=== PATIENT | male | born 1955 ===

== ENCOUNTER 2020-08-25 09:05 | Outpatient (REF) | payer OTHER, SELFPAY ==
[2020-08-25 10:04] LABS: MANUAL DIFF FLAG NO
[2020-08-25 10:19] LABS: Basophils Percent Auto 0.6 % (0-2); Eosinophils Absolute Auto 0.2 X10*3/uL (0.0-0.4); Eosinophils Percent Auto 4.5 % (0-4); Hematocrit 37.9 % (42-52); Hemoglobin 12.8 g/dl (14.0-18.0); Imm Gran Abs Auto 0.01 X10*3/uL (0.00-0.03); Imm Gran Pct Auto 0.3 % (0.0-0.4); Lymphocytes Absolute Auto 1.7 X10*3/uL (1.2-4.9); Mean Corpuscular HGB Conc 33.8 g/dl (31.0-36.0); Mean Corpuscular Hemoglobin 28.8 pg (27.0-33.0); Mean Corpuscular Volume 85.2 fL (80-98); Mean Platelet Volume 11.4 fL (9.4-12.4); Monocytes Absolute Auto 0.4 X10*3/uL (0.1-1.2); Monocytes Percent Auto 11.3 % (2-11); Neutrophils Absolute Auto 1.3 X10*3/uL (2.0-8.3); Neutrophils Percent Auto 36.3 % (45-73); Platelet Count 157 X10*3/uL (160-400); Red Blood Count 4.45 X10*6/uL (4.60-5.80); Red Cell Distribution Width 14.4 % (11.0-16.0); White Blood Count 3.5 X10*3/uL (4.8-10.8)
[2020-08-25 10:27] LABS: Alanine Aminotransferase 20 U/L (0-40); Albumin Level 4.2 g/dL (3.5-5.0); Alkaline Phosphatase 99 U/L (39-117); Anion Gap 12 (12-20); Aspartate Amino Transferase 27 U/L (5-37); Bilirubin Total 0.4 mg/dL (0.0-1.0); Blood Urea Nitrogen 8 mg/dL (9-16); Calcium 8.6 mg/dL (8.4-10.2); Carbon Dioxide 26 mmol/L (22-29); Chloride 104 mmol/L (96-108); Cholesterol 144 mg/dL; Estimated Glomerular Filt Rate > 60; Glucose Fasting 96 mg/dL (60-99); HDL Cholesterol 50 mg/dL; LDL Cholesterol Calculated 82 mg/dl; Potassium 4.6 mmol/l (3.3-5.1); Sodium 137 mmol/L (135-145); Total Protein 7.9 g/dL (6.5-8.0); Triglycerides 64 mg/dL
[2020-08-25 11:01] LABS: TSH reflex Free T4 1.15 mIU/mL (0.32-4.0)
[2020-08-25 11:03] LABS: Prostate Specific Antigen Scr 0.11 ng/mL (<0.05-4.0)
[2020-08-25 11:36] LABS: Creatinine Urine 104.22 mg/dL; Microalbum/Creatinine Ratio Ur 49.8 ug/mg cr
== END 2020-08-25 09:06 | disposition home or self-care (01) ==
LOC: HO.10HDL 09:05
PROVIDERS: PCP Physician Assistant; Visit Provider Physician Assistant
DX: I10 Essential (primary) hypertension (principal)
CPT/HCPCS: 36415; 80053; 80061; 82043; 84153; 84443; 85025

== ENCOUNTER 2020-12-28 11:29 | Outpatient (REF) | payer OTHER, SELFPAY ==
[2020-12-28 12:27] LABS: Hematocrit 36.6 % (42-52); Hemoglobin 12.3 g/dl (14.0-18.0); Mean Corpuscular HGB Conc 33.6 g/dl (31.0-36.0); Mean Corpuscular Hemoglobin 29.7 pg (27.0-33.0); Mean Corpuscular Volume 88.4 fL (80-98); Platelet Count 143 X10*3/uL (160-400); Red Blood Count 4.14 X10*6/uL (4.60-5.80); Red Cell Distribution Width 13.3 % (11.0-16.0); White Blood Count 2.9 X10*3/uL (4.8-10.8)
[2020-12-28 12:35] LABS: Alanine Aminotransferase 13 U/L (0-40); Albumin Level 4.1 g/dL (3.5-5.0); Alkaline Phosphatase 80 U/L (39-117); Anion Gap 13 (12-20); Aspartate Amino Transferase 19 U/L (5-37); Bilirubin Total 0.5 mg/dL (0.0-1.0); Blood Urea Nitrogen 7 mg/dL (9-16); Calcium 9.3 mg/dL (8.4-10.2); Carbon Dioxide 23 mmol/L (22-29); Chloride 109 mmol/L (96-108); Cholesterol 117 mg/dL; Estimated Glomerular Filt Rate > 60; Glucose Fasting 109 mg/dL (60-99); HDL Cholesterol 41 mg/dL; LDL Cholesterol Calculated 64 mg/dl; Potassium 4.6 mmol/L (3.3-5.1); Sodium 140 mmol/L (135-145); Total Protein 7.6 g/dL (6.5-8.0); Triglycerides 61 mg/dL
[2020-12-28 12:52] LABS: Estimated Average Glucose 120 mg/dL; Hemoglobin A1c % 5.8 %
[2020-12-28 12:53] LABS: Creatinine Urine 80.27 mg/dL; Microalbum/Creatinine Ratio Ur 67.2 ug/mg cr
[2020-12-28 13:02] LABS: Prostate Specific Antigen Scr 0.09 ng/mL (<0.05-4.0); TSH reflex Free T4 0.61 uIU/mL (0.32-4.0)
== END 2020-12-28 11:30 | disposition home or self-care (01) ==
LOC: HO.10HDL 11:29
PROVIDERS: Absent Provider Internal Medicine Infectious Disease; Visit Provider Physician Assistant
DX: Z12.5 Encounter for screening for malignant neoplasm of prostate (principal); I10 Essential (primary) hypertension
CPT/HCPCS: 36415; 80053; 80061; 82043; 83036; 84153; 84443; 85027

== ENCOUNTER 2021-01-06 09:16 | Outpatient (REF) | payer OTHER, SELFPAY ==
--- NOTE | 2021-01-06 09:21 | EMG_ITS ---
Bilateral median and ulnar motor and sensory studies were performed. Bilateral radial sensory studies were performed and paraspinal muscles were tested. IMPRESSION: [id number] right and mild left median neuropathy across carpal tunnel. MD ELISSA Ramos/HERIBERTO / [id number]
== END 2021-01-06 09:17 | disposition home or self-care (01) ==
LOC: HO.NEURO 09:16
PROVIDERS: Visit Provider Physician Assistant
DX: M79.641 Pain in right hand (principal); M79.642 Pain in left hand
CPT/HCPCS: 95886; 95911

== ENCOUNTER → 2021-04-07 09:40 | Outpatient (REF) | payer OTHER, SELFPAY ==
--- NOTE | 2021-04-07 09:44 | CA_ITS ---
Acquisition Time: 2021-04-07 09:50:42 Total Exercise Time: 00:05:30 Test Indications: Ischemia Evaluation Medications: ALPRAZOLAM AMLODIPINE APIXABAN ATENOLOL SYMBACORT Protocol: CATHY Max HR: 139 BPM 90% of Pred: 153 BPM Max BP: 172/050 mmHG Max Work Load: 7.0 METS Exercise stress test with exercise 5 min 30 sec of Cathy protocol, with reported of mild sob, 4/10 throat discomfort, like a ball in my throat , with isolated PACs and PVC, ventricular Bigeminy for 1 min in stage 1, with normotensive response to exercise, with borderline EKG changes inferiorly. Test reviewed with Dr Catherine. Message sent to his PCP with recommendation for exercise nuclear stress test for further evaluation. Referred By: Andreas Vallejo Overread By: TEMO JONAS
== END ==
LOC: HO.CARD 09:40
PROVIDERS: Visit Provider Physician Assistant
DX: R07.9 Chest pain, unspecified (principal); I49.1 Atrial premature depolarization; I49.3 Ventricular premature depolarization; R94.39 Abnormal result of other cardiovascular function study
CPT/HCPCS: 93017

== ENCOUNTER → 2021-04-20 10:44 | Outpatient (BNVA) | payer OTHER, SELFPAY | PROVIDERS: PCP Physician Assistant; Visit Provider Orthopaedic Surgery | DX: M79.644 Pain in right finger(s) (principal); G56.03 Carpal tunnel syndrome, bilateral upper limbs; G89.29 Other chronic pain | CPT/HCPCS: 99202 ==

== ENCOUNTER 2021-05-19 06:24 | Day surgery (SDC) | payer OTHER, SELFPAY ==
[2021-05-19 06:32] VITALS: BMI 31.3
[2021-05-19 06:34] VITALS: BP 154/56; PULSE 55; RESP 16; TEMP 36.7; O2SAT 99
--- NOTE | 2021-05-19 08:01 | MHC.SHP ---
Pre-Procedural Eval Section A Date of Service: 05/19/21 The patient is an INPATIENT: No Changes since office visit: No Cold of Flu in the past 2 weeks, No New Medical Problems, No Changes in Medication and No Patient answered all questions The History & Physical has been completed within 30 days and I have reviewed it.: Yes Section B Chief Complaint: Carpal tunnel syndrome Allergies: Allergies Allergy/AdvReac Type Severity Reaction Status Date / Time bee pollen [BEE STINGS] Allergy Severe SWELLING Verified 04/20/21 11:08 rofecoxib [From VIOXX] Allergy Intermediate Swelling Verified 05/19/21 06:41 Plan I have reviewed the history and physical and performed a pertinent physical examination on my patient. No changes have occurred unless specified.
--- NOTE | 2021-05-19 08:02 | W.PM.OPN ---
Operative Note Operative Note Date of Service: 05/19/21 Narrative: Preop diagnosis: 1. Right Carpal tunnel syndrome Postop diagnosis: same Procedure: 1. Right Carpal tunnel release Surgeon: Dolly Reilly MD Anesthesia: local block using 1% lidocaine with epinephrine Findings: Thickened transverse carpal ligament. EBL: Less than 5 mL Specimens: None Complications: None Disposition: Brought to recovery room in stable condition Plan: Follow-up for 7-10 days for wound check and suture removal Indications: The patient is 65 years old, with right carpal tunnel syndrome that has been unresponsive to nonoperative management. The risks and benefits of operative treatment including but not limited to risk of damage to blood vessels, nerves, tendons, infection, persistent pain, persistent symptoms, or possible need for additional surgery were discussed with the patient and the patient wishes to proceed with surgery. Procedure: Once consent was obtained a local block was performed using a combination of 1% lidocaine with epinephrine. The patient was then brought back to the operating suite and placed on the operative table in supine position. A tourniquet was applied to the proximal aspect of the right upper extremity and the limb was prepped and draped in a standard surgical fashion. Once assured that we had a good block, a 1.5 cm longitudinal incision was made centered over the carpal tunnel. The incision was made through the skin to the subcutaneous tissues using a #15 blade. Dissection was made down to the level of the transverse carpal ligament with care being taken to protect the palmar cutaneous nerve. Once the transverse carpal ligament was clearly visualized, a longitudinal incision was made in the transverse carpal ligament 1st using a #15 blade, then using tenotomy scissors under direct visualization. Care was taken to look for and protect the motor branch of the median nerve when seen in this area. Once satisfied with our carpal tunnel release the wound was copiously irrigated with normal saline and hemostasis was obtained with a brief period of local pressure. The skin edges were reapproximated with some 5.0 nylon suture material and a sterile dressing was applied. The patient appears to have tolerated the procedure well and with no complications. All digits were well vascularized at the conclusion of the case.
[2021-05-19 08:35] VITALS: BP 158/79; PULSE 64; RESP 16; TEMP 36.8; O2SAT 98
== END 2021-05-19 08:43 | disposition home or self-care (01) ==
PROVIDERS: PCP Physician Assistant; Visit Provider Orthopaedic Surgery
PROC: (CPT 64721; principal; 2021-05-19 07:30)
DX: G56.01 Carpal tunnel syndrome, right upper limb (principal); G89.29 Other chronic pain; M79.644 Pain in right finger(s)
CPT/HCPCS: 64721

== ENCOUNTER 2021-05-30 10:15 | Outpatient (REF) | payer OTHER, SELFPAY ==
--- NOTE | ~2021-05-30 | CT_ITS ---
EXAMINATION: CT CHEST SCREENING CLINICAL INFORMATION: Nicotine dependence. COMPARISON: CT chest 12/26/2018 and 12/10/2017 TECHNIQUE: Multidetector volumetric CT imaging of the chest is performed without contrast using low dose technique. Additional 2-D coronal and sagittal reformatted images and axial 3-D maximum intensity projection (MIP) images are generated on the CT workstation. This CT examination was performed using dose optimization techniques as appropriate, variously including the following: *Automated exposure control *Adjustment of mA and/or kV according to patient size (this includes techniques or standardized protocols for targeted exams where dose is matched to indication/reason for exam; i.e. extremities or head) *Use of iterative reconstruction technique DLP: 288 mGy-cm FINDINGS: LUNGS: The lungs are well expanded and clear of acute pneumonic process. Previously seen endobronchial density right upper lobe is not visualized at this time. Small endobronchial nodules in the right lower lobe. There is a 1 mm nodule right lower lobe adjacent major fissure on axial image 61/6. No ground-glass density, mass or atelectatic change is seen. There are small pulmonary cysts visualized in the left lower lobe. Mild atelectatic changes in the left lung base. MEDIASTINUM: The thyroid lobes are symmetrical and normal. The central trachea and the bronchi are widely patent. The heart size and the great vessels are normal caliber. There is trace coronary artery calcification. No pericardial effusion seen. No abnormal size mediastinal lymph nodes or mass. PLEURA: There is no pleural effusion. No pleural mass or thickening. AXILLA: No abnormal lymph nodes seen. UPPER ABDOMEN: The visualized liver, spleen, pancreas, and bilateral adrenal glands are unremarkable. There are coronary artery calcifications seen adjacent to the left adrenal gland. OSSEOUS STRUCTURES: Mild degenerative disc changes throughout the dorsal spine with spondylosis. No lytic or sclerotic process seen. CT/CT lung screening IMPRESSION: The previously visualized endobronchial lesion right upper lobe and right lower lobe are not seen at this time. 1 mm nodule right lower lobe adjacent to major fissure, new. Minimal atelectatic changes left lung base. There are multiple small left lower lobe pulmonary cysts. ASSESSMENT: Lung-RADS category 2: Benign. RECOMMENDATION: Low-dose annual CT chest.
== END 2021-05-30 10:16 | disposition home or self-care (01) ==
LOC: HO.CT 10:15
PROVIDERS: Visit Provider Physician Assistant Medical
DX: Z12.2 Encounter for screening for malignant neoplasm of respiratory organs (principal); F17.210 Nicotine dependence, cigarettes, uncomplicated
CPT/HCPCS: 71271

== ENCOUNTER → 2021-06-01 10:26 | Outpatient (BNVA) | payer OTHER, SELFPAY | PROVIDERS: PCP Physician Assistant; Visit Provider Orthopaedic Surgery | DX: G56.02 Carpal tunnel syndrome, left upper limb (principal); M79.644 Pain in right finger(s); G89.29 Other chronic pain | CPT/HCPCS: 99212 ==

== ENCOUNTER 2021-10-21 09:34 | Outpatient (REF) | payer OTHER, SELFPAY ==
[2021-10-21 11:00] LABS: Alanine Aminotransferase 19 U/L (0-40); Alkaline Phosphatase 120 U/L (39-117); Anion Gap 11 (12-20); Aspartate Amino Transferase 21 U/L (5-37); Bilirubin Total 0.6 mg/dL (0.0-1.0); Blood Urea Nitrogen 8 mg/dL (9-16); Calcium 9.2 mg/dL (8.4-10.2); Carbon Dioxide 27 mmol/L (22-29); Chloride 105 mmol/L (96-108); Cholesterol 136 mg/dL; Estimated Glomerular Filt Rate > 60; Glucose Fasting 123 mg/dL (60-99); HDL Cholesterol 45 mg/dL; LDL Cholesterol Calculated 77 mg/dl; Potassium 4.5 mmol/L (3.3-5.1); Sodium 138 mmol/L (135-145); Total Protein 7.9 g/dL (6.5-8.0); Triglycerides 74 mg/dL
== END 2021-10-21 09:35 | disposition home or self-care (01) ==
LOC: HO.10HDL 09:34
PROVIDERS: Visit Provider Physician Assistant
DX: I10 Essential (primary) hypertension (principal)
CPT/HCPCS: 36415; 80053; 80061; 84443

== ENCOUNTER → 2021-10-21 09:50 | Outpatient (REF) | payer OTHER, SELFPAY ==
--- NOTE | ~2021-10-21 | NM_ITS ---
Exercise Myocardial perfusion study Indication: Abnormal stress test evaluate for myocardial ischemia Technique: The patient was brought in for an exercise perfusion study on 10/21/2021. Patient performed exercise as per Jeff protocol and was injected 25 mCi of sestamibi was given intravenously one target HR was achieved. Images were obtained using the SPECT gamma camera interlaced with the gating device. Images were obtained in supine position. Resting perfusion study was performed on 10/25/2021. Patient was administered 25 mCi of sestamibi intravenously at rest. Images were then obtained in supine position. Images obtained with and without CT attenuation. Total DLP 85 mGy-cm. Images were processed with the software and compared side to side in short axis, horizontal long axis and vertical long axis views. Findings: The stress perfusion study showed non attenuated images show moderately reduced uptake in the basal inferior wall of the LV myocardium. Remainder. Attenuation corrected images show mildly reduced uptake in the apex of the LV myocardium.. The gated study shows normal LV systolic function with calculated LVEF of 56%. LV cavity is mildly dilated in size. The gated study shows normal systolic wall thickening and contraction of all segments. There is no transient ischemic dilation. Resting study shows no change in perfusion pattern compared to stress perfusion study. Gating at rest reveals normal systolic wall motion with ejection fraction at 58%. The findings are consistent with normal myocardial perfusion. NM/NM cardiolite stress test Impression: 1. Normal myocardial perfusion 2. Gated LVEF is 56% 3. Transient ischemic dilatation not present Stress EKG is equivocal for ischemia
--- NOTE | 2021-10-21 09:58 | CA_ITS ---
Acquisition Time: 2021-10-21 10:07:24 Total Exercise Time: 00:04:51 Test Indications: CP, AFIB, ABN ETT Medications: SEE CHART Protocol: CATHY Max HR: 144 BPM 92% of Pred: 156 BPM Max BP: 208/030 mmHG Max Work Load: 6.8 METS Exercise stress test with exercise 4 min 51 sec of Cathy protocol, with report of 7/10 pressure at base of throat, with isolated PACs and PVCs and runs of ventricular bigeminy, with hypertensive response to exercise with max BP 208/30, without EKG change of ischemia at peak exercise, with borderline ST depression inferiorly in setting of nonspecific ST abnormality inferiorly. In recovery his throat pressure gadually resolved. Nuclear images pending. Test reviewed with Dr Logan. Referred By: Andreas Vallejo Overread By: TEMO JONAS
== END ==
LOC: HO.CARD 09:50
PROVIDERS: PCP Physician Assistant; Visit Provider Physician Assistant
DX: R07.9 Chest pain, unspecified (principal); R06.02 Shortness of breath; I49.3 Ventricular premature depolarization; R94.39 Abnormal result of other cardiovascular function study
CPT/HCPCS: 78452; 93017; A9500; J2785

== ENCOUNTER 2021-12-14 10:09 | Outpatient (REF) | payer OTHER, SELFPAY ==
--- NOTE | ~2021-12-14 | XR_ITS ---
EXAMINATION: XR HAND, BILATERAL CLINICAL INFORMATION: Pain in bilateral handS COMPARISON: None TECHNIQUE: 3 views each hand FINDINGS: RIGHT HAND: There is loss of PIP and DIP joint space, all digits. Also visualized is mild loss of 1st carpometacarpal joint space with subchondral cystic changes and bony erosive changes. There are subchondral cystic changes along the distal radius and small subchondral cystic changes along the capitate, scaphoid carpal bones. 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 Mild widening of the scapholunate junction is noted. There is loss of radioulnar joint space with spurring. No acute fracture suspected. LEFT HAND: There is loss of PIP and DIP joint space all digits, with periarticular spurring, DIP joint, 1st and 5th digit. The soft tissues are normal. There is loss of 1st carpometacarpal joint space. Also visualized is loss of 1st metacarpal phalangeal joint space. 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 Is mild widening of the scapholunate junction No acute there fractures seen. There is no soft tissue swelling. XR/XR hand LT 2V IMPRESSION: 1. Significant degenerative arthritic changes PIP, DIP, 1st carpometacarpal joint space of both digits. There are subchondral cystic changes in the carpal bones and the distal radius right wrist. 2. 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 Mild widening of scapholunate junction likely partial ligament and tear 3. There is unusual lucency along the elongated lunate bone, right hand, question fissure versus nondisplaced fracture. 4. Recommend bilateral CT wrist for further evaluation.
--- NOTE | ~2021-12-14 | XR_ITS ---
EXAMINATION: XR HAND, BILATERAL CLINICAL INFORMATION: Pain in bilateral handS COMPARISON: None TECHNIQUE: 3 views each hand FINDINGS: RIGHT HAND: There is loss of PIP and DIP joint space, all digits. Also visualized is mild loss of 1st carpometacarpal joint space with subchondral cystic changes and bony erosive changes. There are subchondral cystic changes along the distal radius and small subchondral cystic changes along the capitate, scaphoid carpal bones. 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 Mild widening of the scapholunate junction is noted. There is loss of radioulnar joint space with spurring. No acute fracture suspected. LEFT HAND: There is loss of PIP and DIP joint space all digits, with periarticular spurring, DIP joint, 1st and 5th digit. The soft tissues are normal. There is loss of 1st carpometacarpal joint space. Also visualized is loss of 1st metacarpal phalangeal joint space. 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 Is mild widening of the scapholunate junction No acute there fractures seen. There is no soft tissue swelling. XR/XR hand RT 2V IMPRESSION: 1. Significant degenerative arthritic changes PIP, DIP, 1st carpometacarpal joint space of both digits. There are subchondral cystic changes in the carpal bones and the distal radius right wrist. 2. 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 Mild widening of scapholunate junction likely partial ligament and tear 3. There is unusual lucency along the elongated lunate bone, right hand, question fissure versus nondisplaced fracture. 4. Recommend bilateral CT wrist for further evaluation.
== END 2021-12-14 10:10 | disposition home or self-care (01) ==
LOC: HO.XRAY 10:09
PROVIDERS: PCP Physician Assistant; Visit Provider Physician Assistant
DX: M79.641 Pain in right hand (principal); M79.642 Pain in left hand; G56.02 Carpal tunnel syndrome, left upper limb; I10 Essential (primary) hypertension; B37.2 Candidiasis of skin and nail; Z12.5 Encounter for screening for malignant neoplasm of prostate
CPT/HCPCS: 73120

== ENCOUNTER → 2022-01-04 13:33 | Outpatient (BNVA) | payer OTHER, SELFPAY | PROVIDERS: PCP Physician Assistant; Visit Provider Orthopaedic Surgery | DX: M25.531 Pain in right wrist (principal); M79.644 Pain in right finger(s); G56.02 Carpal tunnel syndrome, left upper limb; G89.29 Other chronic pain | CPT/HCPCS: 99212 ==

== ENCOUNTER 2022-01-19 14:46 | Outpatient (REF) | payer OTHER, SELFPAY ==
--- NOTE | ~2022-01-19 | CT_ITS ---
EXAMINATION: CT WRIST WITHOUT CONTRAST, RIGHT CLINICAL INFORMATION: Right wrist pain. COMPARISON: Right hand radiographs dated 12/14/2021. TECHNIQUE: Contiguous axial CT images of the right wrist were obtained without contrast. Multiplanar reformats were provided and reviewed. This CT examination was performed using dose optimization techniques as appropriate, variously including the following: *Automated exposure control *Adjustment of mA and/or kV according to patient size (this includes techniques or standardized protocols for targeted exams where dose is matched to indication/reason for exam; i.e. extremities or head) *Use of iterative reconstruction technique DLP: 124 mGy-cm. FINDINGS: Findings consistent with lunotriquetral coalition. Widening of the scapholunate interval consistent with a scapholunate ligament tear. There is mild proximal migration of the capitate. There is severe joint space narrowing with prominent subchondral cystic change at the radiocarpal joint as well as at the distal ulna with distal radial ulnar marginal osteophytes. Severe joint space narrowing with bony remodeling and subchondral cystic change at the triscaphe joint. More mild osteoarthritis at the carpometacarpal joints. Diffuse degenerative cystic change throughout the carpal bones. No acute fracture. Severe joint space narrowing with subchondral cystic change and bony remodeling at the 1st metacarpophalangeal joint. No abnormal soft tissue mass or fluid collection. The visualized flexor and extensor tendons are grossly intact; however, evaluation is significantly limited on CT examination. 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 Proximal migration of the capitate. 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 Severe osteoarthritis with prominent subchondral cystic change at the radiocarpal joint and adjacent distal ulna as well as at the triscaphe joint and 1st metacarpophalangeal joint. More mild osteoarthritis at the carpometacarpal joints. Degenerative cystic change throughout the carpal bones.
== END 2022-01-19 14:47 | disposition home or self-care (01) ==
LOC: HO.CT 14:46
PROVIDERS: PCP Physician Assistant; Visit Provider Physician Assistant
DX: G89.29 Other chronic pain (principal); M25.531 Pain in right wrist
CPT/HCPCS: 73200

== ENCOUNTER 2022-02-02 14:00 | Outpatient (RCR) | payer OTHER, SELFPAY ==
--- NOTE | 2022-01-05 15:40 | MHC.OT.OEV ---
[address] [phone] F: [phone] Occupational Therapy Evaluation Diagnosis: L CTS Date of Onset: 11/16/19 Attending Provider: Andreas Vallejo Prescribed Treatment: EVAL AND TREAT History of Current Condition: REPORTS PAIN IN BASE OF THUMB BEGAN ABOUT TWO YEARS AGO, RIGHT WORSE THAN LEFT. ADDITIONALLY HE UNDERWENT R CTR ON 05/19/[address] KING. PER EMR, HE HAS MILD-MODERATE MEDIAN NERVE DAMAGE ON RIGHT AND MILD ON LEFT. R HAND XRAY COMPLETED 12/16/21: 1. Significant degenerative arthritic changes PIP, DIP, 1st carpometacarpal joint space of both digits. There are subchondral cystic changes in the carpal bones and the distal radius right wrist. 2. 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 Mild widening of scapholunate junction likely partial ligament and tear 3. There is unusual lucency along the elongated lunate bone, right hand, question fissure versus nondisplaced fracture. 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 ATTEMPTING TO COMPENSATE AND USE LEFT HAND. SOME TROUBLE WITH CARRYING AND HOLDING ITEMS >8-10 POUNDS. PAIN WITH WASHING DISHES. Sleep: MILD DIFFICULTIES, TROUBLE FALLING ASLEEP AND FINDING A COMFORTABLE POSITION Driving: NO DIFFICULTIES Pain Assessment Pain Score: 4-9/10 Pain Scale Used: Numeric (0 - 10) Pain Location and Description: L THUMB MP 4/10, 8-9/10 WITH USE R THUMB 4/10, 9-10/10 WITH USE Aggravating Factors: GRIPPING, LATE PM IS WORSE Alleviating Factors: EPSOME SALT SOAKS IN HOT WATER HAS WORKED IN THE PAST, MOTRIN 800 MG NEEDED Skin and Soft Tissue Assessment Skin and Soft Tissue: Swelling Scar Tissue Comments: OLD R LONGITUDINAL DORSAL SCAR AND HEALED R VOLAR SCAR FROM CTR; B/L RADIAL THUMB EDEMA Sensory Assessment Temperature: Light Touch: WNL Proprioception: Vibration: Comments: [employer] INTACT B/L'LY Edema Assessment Upper Extremity: WNL Lower Extremity: Comments: MILD R VOLAR WRIST AND RADIAL THUMB EDEMA CIRCUMFERENCE OF WRIST, DISTAL TO US: R 18.9 CM, L 17.8 CM Dexterity Assessment Dexterity: WFL Comments: REPORTS SOME PAIN WITH PINCHING SNAPS, OTHERWISE NO TROUBLE WITH FINE MOTOR/ DRESSING TASKS AROM(PROM) Strength Wrist Flexion: R 46, L 55 Extension: R 50, L 55 Ulnar Deviation: Radial Deviation: Comments: Flexion: Extension: Ulnar Deviation: Radial Deviation: Comments: Thumb Thumb CMC Flexion: Thumb MCP Flexion: Thumb IP Flexion: R 66, L 40 Radial Abduction: Palmar Abduction: [place] ([place] 0-10): R 6/10, L 10/10 Comments: Digits Index MCP: PIP: DIP: Long MCP: PIP: DIP: Ring MCP: PIP: DIP: Small MCP: PIP: DIP: Comments: Gross Grasp: R 55, L 70 Lateral Pinch: R 10, L 17 Two-Point Pinch: Three-Jaw Mane: Comments: Patient Education Primary Language: Bulgarian [employer] Labor Required: No Current Knowledge: Understands information with skills for self-management Teaching Method: Demonstration Handouts Verbal Education Needs Identified on Evaluation: ADL's Disease Information Equipment Use Exercise Pain Safety How did patient/family demonstrate learning? Patient demonstrates Patient verbalizes Barriers to Learning: None Readiness for Learning: Accepting Who was educated? Patient Comments: Plan of Care Assessment: MR VINCENT REPORTS ABOUT A TWO YEAR HISTORY OF B/L THUMB PAIN, RIGHT > LEFT. HE HAS A HX OF CTS IN WHICH HE UNDERWENT A R CTR WITH DR KING ON 05/19/21. HE NO LONGER WEARS NIGHT ORTHOSES DUE TO REPORTS OF INCREASED PAIN WHEN WORN. PER THE [employer], HIS SENSATION WAS INTACT. SOME MILD EDEMA IS NOTED IN HIS RIGHT VOLAR AND B/L RADIAL WRISTS. HIS XRAY RESULTS IN HIS RIGHT WRIST SHOWS SIGNIFICANT DEGENERATIVE CHANGES IN HIS THUMB, WELL LIGAMENT DAMAGE. A HAND BASED THUMB OPPOSITION ORTHOSIS WAS FABRICATED IN THE [facility] DURING HIS INITIAL EVAL FOR USE DURING IADLs. ONGOING SKILLED OT IS WARRANTED TO PROVIDE PT EDUCATION, JOINT PROTECTION STRATEGIES, ORTHOSIS MANAGEMENT, IMPROVE QUALITY OF LIFE AND DECREASE EDEMA. STG Duration: 2 WEEKS Short Term Goals: IND HEP IND JOINT PROTECTION AND ACTIVITY MODIFICATION IND ORTHOSIS USE REPORT <2/10 PAIN AT REST AND WITH GENTLE ROM IND EDEMA MANAGEMENT STRATEGIES IND USE OF HEAT MODALITIES INCLUDING POSSIBLE HOME PARAFFIN UNIT LTG Duration: 4 WEEKS It Software Developer Goals: QUICK DASH <30% DEMO PROPER BODY MECHANICS WITH LIFTING >10 POUNDS WITH <4/10 PAIN WITH AE/AT TRIAL USE OF ADAPTIVE TECHNIQUES FOR IADLs, INCLUDING CAN/JAR OPENERS IND PROGRESSION OF HEP Frequency and Duration: The patient will be seen 2X/WEEK FOR 4 WEEKS Treatment Plan: Therapeutic Exercise Therapeutic Activity Home Exercise Program Splinting Neuro Re-ed Patient Education Desensitization/Sensory Re-ed Edema Control ADL Training Ultrasound NMES Iontophoresis Paraffin Fluidotherapy MHP Cold Packs Joint Mobilization Soft Tissue Mobilization Kinesiotaping Electronically Signed By: RICARDO SORIA OTR/L Reviewed/agree with student documentation: N/A Therapist: Please sign and return to therapist, Thank you for your referral.
--- NOTE | 2022-02-02 14:39 | MHC.OT.DC ---
[address] [phone] F: [phone] Occupational Therapy Discharge Note Provider: Andreas Vallejo Diagnosis: L CTS Date of Evaluation: 01/05/22 Date of Discharge: 02/02/22 Treatments to Date: 6 Cancellations to Date: 0 No Shows to Date: 2 Discharge Status: Achieved Goals Improved Function Independent with HEP Discharge Summary: MR VINCENT HAS PROGRESSED WELL WITH HIS OT TREATMENT SESSIONS. HE HAS FELT PAIN RELIEF WITH USE OF PARAFFIN WAX, ROCK TAPE AND IMPLEMENTING JOINT PROTECTION STRATEGIES FOR SUSPECTED OA SYMPTOMS. HE HAS SHOWN MOTIVATION AND GOOD UNDERSTANDING OF HIS HEP. NO PARASTHESIA IS REPORTED IN HIS LEFT UE. Pt IS READY TO TRANSITION TO A HOME BASED PROGRAM AT THIS TIME. D/C OT SERVICES. Electronically Signed By: JEREMY RIOS/[place] Reviewed/agree with student documentation: N/A Therapist: Please Sign and return to therapist, thank you for your referral.
== END 2022-02-02 14:40 | disposition home or self-care (01) ==
LOC: HO.OT 14:00
PROVIDERS: PCP Physician Assistant; Visit Provider Physician Assistant
DX: G56.02 Carpal tunnel syndrome, left upper limb (principal)
CPT/HCPCS: 29130; 97110; 97140; 97166; 97535; 97760

== ENCOUNTER 2022-02-22 12:43 | Outpatient (REF) | payer OTHER, SELFPAY ==
--- NOTE | ~2022-02-22 | XR_ITS ---
EXAMINATION: XR HAND, RIGHT CLINICAL INFORMATION: Pain COMPARISON: Bilateral hand x-rays 12/14/[address] 01/19/2022 TECHNIQUE: PA, lateral, and oblique views of the right hand. FINDINGS: Visualized portion of the distal radius and ulna demonstrate no fracture. Again noted are hypertrophic changes of the distal radial ulnar joint with associated enthesophytes off the ulna. Prominent degenerative changes of the radiocarpal joints is again demonstrated with associated cystic changes. Triquetral degenerative changes again appreciated. There are moderate degenerative changes of the first MCP joint with associated subchondral cystic and erosive changes. There are mild degenerative changes of scattered IP joints. No focal soft tissue swelling identified. No radiopaque foreign body. XR/XR hand RT min 3V IMPRESSION: Prominent diffuse degenerative changes again demonstrated particularly involving the wrist and first MCP joint. No fracture identified. Please see CT imaging of the right wrist from 01/19/2022 for a more detailed evaluation.
== END 2022-02-22 12:44 | disposition home or self-care (01) ==
LOC: HO.HOSX 12:43
PROVIDERS: Visit Provider Orthopaedic Surgery
DX: M19.031 Primary osteoarthritis, right wrist (principal); G56.02 Carpal tunnel syndrome, left upper limb; M79.644 Pain in right finger(s); G89.29 Other chronic pain; M19.041 Primary osteoarthritis, right hand
CPT/HCPCS: 73130; 99212

== ENCOUNTER → 2022-06-06 14:59 | Outpatient (BNVA) | payer OTHER, SELFPAY | PROVIDERS: PCP Physician Assistant; Referring Provider Physician Assistant; Visit Provider Internal Medicine | DX: Z86.010 Personal history of colon polyps (principal) | CPT/HCPCS: 99212 ==

== ENCOUNTER 2022-10-05 09:42 | Outpatient (REF) | payer OTHER, SELFPAY ==
[2022-10-05 10:33] LABS: Hematocrit 36.5 % (42.0-52.0); Hemoglobin 12.1 g/dl (14.0-18.0); Mean Corpuscular HGB Conc 33.2 g/dl (31.0-36.0); Mean Corpuscular Hemoglobin 28.5 pg (27.0-33.0); Mean Corpuscular Volume 85.9 fL (80.0-98.0); Mean Platelet Volume 10.6 fL (9.4-12.4); Platelet Count 154 X10*3/uL (160-400); Red Blood Count 4.25 X10*6/uL (4.60-5.80); Red Cell Distribution Width 13.8 % (11.0-16.0); White Blood Count 3.7 X10*3/uL (4.8-10.8)
[2022-10-05 11:16] LABS: Alanine Aminotransferase 16 U/L (0-40); Albumin Level 3.9 g/dL (3.5-5.0); Alkaline Phosphatase 121 U/L (39-117); Anion Gap 11 (12-20); Aspartate Amino Transferase 18 U/L (5-37); Bilirubin Total 0.4 mg/dL (0.0-1.0); Blood Urea Nitrogen 10 mg/dL (9-16); Calcium 9.1 mg/dL (8.4-10.2); Carbon Dioxide 28 mmol/L (22-29); Chloride 104 mmol/L (96-108); Cholesterol 121 mg/dL; Estimated Glomerular Filt Rate > 60; Glucose Fasting 106 mg/dL (60-99); HDL Cholesterol 49 mg/dL; LDL Cholesterol Calculated 60 mg/dl; Potassium 5.2 mmol/L (3.3-5.1); Sodium 138 mmol/L (135-145); Total Protein 7.7 g/dL (6.5-8.0); Triglycerides 64 mg/dL
[2022-10-05 11:27] LABS: Estimated Average Glucose 137 mg/dL; Hemoglobin A1c % 6.4 %
[2022-10-05 11:32] LABS: TSH reflex Free T4 2.11 uIU/mL (0.32-4.0)
[2022-10-05 14:43] LABS: Creatinine Urine 65.68 mg/dL
== END 2022-10-05 09:43 | disposition home or self-care (01) ==
LOC: HO.10HDL 09:42
PROVIDERS: Visit Provider Physician Assistant
DX: I10 Essential (primary) hypertension (principal); R73.09 Other abnormal glucose; R13.10 Dysphagia, unspecified; Z12.5 Encounter for screening for malignant neoplasm of prostate
CPT/HCPCS: 36415; 80053; 80061; 82043; 83036; 84443; 85027

== ENCOUNTER 2022-11-03 09:28 | Outpatient (REF) | payer OTHER, SELFPAY ==
--- NOTE | ~2022-11-03 | FL_ITS ---
EXAMINATION: UPPER GI AND BARIUM SWALLOW CLINICAL INFORMATION: Dysphagia. COMPARISON: None. TECHNIQUE: Upper GI and barium swallow was performed using thin and thick barium and effervescent granules. Barium tablet was also administered. FINDINGS: The swallowing mechanism is normal. No aspiration or penetration. There is gastroesophageal reflux. There is a small sliding-type hiatal hernia. There is mucosal irregularity of the distal thoracic esophagus, questionable for mild esophagitis. Esophageal motility is normal. The barium tablet passed freely into the stomach. The stomach and duodenum are not optimally evaluated due to the large amount of barium that was administered for barium swallow. No abnormality in the stomach or duodenum is appreciated. FL/FL upper GI w Ba Swallow IMPRESSION: Gastroesophageal reflux. Small sliding-type hiatal hernia. Question mild distal esophagitis. Limited evaluation of the stomach and duodenum due to the large amount of barium that was administered for barium swallow.
== END 2022-11-03 09:29 | disposition home or self-care (01) ==
LOC: HO.XRAY 09:28
PROVIDERS: Visit Provider Nurse Practitioner Family
DX: R13.10 Dysphagia, unspecified (principal)
CPT/HCPCS: 74240

== ENCOUNTER → 2023-02-02 10:57 | Outpatient (REF) | payer OTHER, SELFPAY ==
--- NOTE | 2023-02-02 10:59 | CA_ITS ---
Transthoracic Echocardiogram Patient (Last, First, Middle): Nayan Henao, Gender: Male Date of : 1955 Age: 67 Procedure Date: 02/02/2023 Procedure Type: Transthoracic Echocardiogram Location: OP Height: 170.18 cm Weight: 83.92 kg BSA: 1.96 m2 Heart Rate: 45 bpm BP: 125 / 75 mmHg Clinical Research Spec: ALEJANDRO Referring MD: Tiffanie YOU Symptoms: R01.1 - Cardiac murmur, unspecified Study Quality: Good ECG Rhythm: Bradycardia Conclusions: - Normal left ventricular size and systolic function. The visually estimated ejection fraction is between 60-65%. - Mildly increased right ventricular cavity size. There is normal right ventricular systolic function. - There is mild aortic valve regurgitation. Findings Left Ventricle Normal left ventricular size and systolic function. The visually estimated ejection fraction is between 60-65%. There is no evidence of regional wall motion abnormalities. Diastolic function is normal for age. Right Ventricle Mildly increased right ventricular cavity size. There is normal right ventricular systolic function. Atria The left atrium is normal in size. The right atrium is mildly dilated. Aortic Valve There is a normal trileaflet aortic valve. There is mild thickening of the aortic valve. There is no aortic valve stenosis. There is mild aortic valve regurgitation. Mitral Valve The mitral valve appears normal. There is trace mitral valve regurgitation. There is no mitral valve stenosis. Pulmonic Valve The pulmonic valve is likely normal. Tricuspid Valve Normal tricuspid valve structure and function. There is no tricuspid valve regurgitation. Normal right atrial pressure. There is no evidence of pulmonary hypertension. Great Vessels There is mild dilatation of the ascending aorta measuring 3.50 cm. The visualized portions of the pulmonary artery and branches are normal. Venous The inferior vena cava is normal in size and collapses greater than 50% with inspiration. Pericardium/Pleural There is no evidence of pericardial effusion. Prior Study Comparison Changes noted compared to prior study dated: 02/05/2018. RV is mildly dilated. Measurements 2D Linear Measurements IVSd: 1.07 0.6-0.9/0.6-1.0 cm LVIDd: 4.96 3.9-5.3/4.2-5.9 cm LVIDd Index: 2.53 2.4-3.2/2.2-3.1 cm/m2 LVIDs: 3.45 2.0-3.6 cm LVPWd: 0.94 0.7-1.1 cm Ao Root: 3.40 2.1-3.5 cm LA Diam: 3.90 2.7-3.8/3.0-4.0 cm LAIDs Index: 1.99 1.5-2.3 cm/m2 LV Mass: 225.70 67-162/88-224 g LV Mass Index: 115.15 43-95/49-115 g/m2 LVOT Diam: 2.40 3.0+(-)1.3 cm 2D Systolic Function EF 4C: 52.30 >55% EF 2C: 60.10 >55% EF BiP: 55.90 >55% Mitral Valve MV Pk E: 0.78 MV PK A: 0.77 MV Decel Time: 172.00 E/A: 1.00 E'Lateral: 8.81 E'Medial: 7.18 E/E' Med: 10.90 E/E' Lat: 8.90 PHT: 50.00 MVA PHT: 4.40 Decel Young: 4.54 Aortic Valve AoV Pk Liu: 1.69 AoV Mn Liu: 1.21 AoV VTI: 0.38 AoV Pk Grad: 11.00 Aov Mn Grad: 7.00 JOAO Cont.VTI: 3.10 AI Pk Liu: 3.96 AI Young: 1.71 LVOT LVOT Pk Liu: 0.97 LVOT Mn Liu: 0.68 LVOT VTI: 0.26 LVOT Pk Grad: 4.00 LVOT Mn Grad: 2.00 LVOT Diam: 2.40 LVOT Area: 4.52 Diastolic Function MV Pk E: 0.78 MV Pk A: 0.77 E/A: 1.00 E'Medial: 7.18 E/E' Med: 10.90 E' Laterial: 8.81 E/E' Lat: 8.90 Right Ventricle TAPSE (mm): 33.20 TVS' Ilu: 14.80 Tricuspid Valve TR Pk Liu: 2.12 TR Pk Grad: 18.00 RA Press: 8.00 RVSP: 26.00 Great Vessels Aorta Ao Root-2D: 3.40 2.0-3.7 cm Ao Asc: 3.50 2.1-3.4 cm Pulmonary Valve PV Pk Liu: 0.88 Peak PV Grad: 3.00 Updated in Other Vendor System with Status of Final Andrae Pichardo MD electronically signed on 02/04/2023 1:45:37 PM with status of Final
== END ==
LOC: HO.CARD 10:57
PROVIDERS: PCP Physician Assistant; Visit Provider Nurse Practitioner Family
DX: R01.1 Cardiac murmur, unspecified (principal)
CPT/HCPCS: 93306

== ENCOUNTER 2023-02-02 11:55 | Outpatient (REF) | payer OTHER, SELFPAY ==
[2023-02-02 13:26] LABS: MANUAL DIFF FLAG NO
[2023-02-02 13:34] LABS: Basophils Percent Auto 0.3 % (0-2); Eosinophils Absolute Auto 0.1 X10*3/uL (0.0-0.4); Eosinophils Percent Auto 2.5 % (0-4); Hemoglobin 12.2 g/dl (14.0-18.0); Imm Gran Abs Auto 0.01 X10*3/uL (0.00-0.03); Imm Gran Pct Auto 0.3 % (0.0-0.4); Lymphocytes Absolute Auto 1.2 X10*3/uL (1.2-4.9); Lymphocytes Percent Auto 33.1 % (20-40); Mean Corpuscular HGB Conc 33.9 g/dl (31.0-36.0); Mean Corpuscular Hemoglobin 28.9 pg (27.0-33.0); Mean Corpuscular Volume 85.3 fL (80.0-98.0); Mean Platelet Volume 10.9 fL (9.4-12.4); Monocytes Absolute Auto 0.4 X10*3/uL (0.1-1.2); Monocytes Percent Auto 9.7 % (2-11); Neutrophils Absolute Auto 1.9 x10*3/uL (2.0-8.3); Neutrophils Percent Auto 54.1 % (45-73); Platelet Count 162 X10*3/uL (160-400); Red Blood Count 4.22 X10*6/uL (4.60-5.80); White Blood Count 3.6 X10*3/uL (4.8-10.8)
[2023-02-02 13:51] LABS: Alanine Aminotransferase 17 U/L (0-40); Alkaline Phosphatase 123 U/L (39-117); Anion Gap 13 (12-20); Aspartate Amino Transferase 21 U/L (5-37); Bilirubin Total 0.6 mg/dL (0.0-1.0); Blood Urea Nitrogen 9 mg/dL (9-16); Calcium 9.1 mg/dL (8.4-10.2); Carbon Dioxide 27 mmol/L (22-29); Chloride 104 mmol/L (96-108); Estimated Glomerular Filt Rate > 60; Glucose Random 97 mg/dL (60-115); Potassium 4.5 mmol/L (3.3-5.1); Sodium 139 mmol/L (135-145); Total Protein 7.8 g/dL (6.5-8.0)
[2023-02-02 14:12] LABS: Prostate Specific Antigen < 0.10 ng/mL (<0.05-4.0); Prostate Specific Antigen Scr < 0.10 ng/mL (<0.05-4.0)
== END 2023-02-02 11:56 | disposition home or self-care (01) ==
LOC: HO.10HDL 11:55
PROVIDERS: Nurse Practitioner Family; Visit Provider Physician Assistant
DX: I10 Essential (primary) hypertension (principal); B35.1 Tinea unguium; R01.1 Cardiac murmur, unspecified; Z13.0 Encounter for screening for diseases of the blood and blood-forming organs and certain disorders involving the immune mechanism; Z12.5 Encounter for screening for malignant neoplasm of prostate
CPT/HCPCS: 36415; 80053; 84153; 85025

== ENCOUNTER 2023-03-26 14:16 | Outpatient (REF) | payer OTHER, SELFPAY ==
--- NOTE | 2023-03-26 15:24 | PFT_ITS ---
INDICATION: Asthma and chronic obstructive pulmonary disease. SPIROMETRY: FEV1 to FVC 76% with an FEV1 of 2.17 L, which is 97% predicted and an FVC of 2.85 L, which is 97% predicted. No significant response to bronchodilator is noted. Maximum voluntary ventilation 98% predicted. LUNG VOLUMES: Total lung capacity 100% predicted with residual volume of 130% predicted and expiratory residual volume of 35% predicted. DIFFUSION CAPACITY: DLCO of 71% predicted. COMPARISON: None. INTERPRETATION: No obstructive nor restrictive ventilatory defects have been identified. No significant response to bronchodilators noted. Normal maximum voluntary ventilation. Lung volumes are normal except for significantly elevated residual volume suggesting of air trapping, which could be secondary to small airway disease. The patient also has mild diffusion impairment. If asthma is in the differential, methacholine challenge may be helpful in assessing for hyperactive airways. Otherwise, clinical correlation warranted. MD KAYLEIGH Duque/MODL / [id number]
== END 2023-03-26 14:17 | disposition home or self-care (01) ==
LOC: HO.RESP 14:16
PROVIDERS: PCP Physician Assistant; Visit Provider Physician Assistant
DX: J43.2 Centrilobular emphysema (principal)
CPT/HCPCS: 94060; 94727; 94729

== ENCOUNTER → 2023-03-26 15:24 | Outpatient (BNV) | payer OTHER, SELFPAY | PROVIDERS: PCP Physician Assistant; Visit Provider Hospitalist | DX: J44.9 Chronic obstructive pulmonary disease, unspecified (principal) | CPT/HCPCS: 94060; 94727; 94729 ==

== ENCOUNTER 2023-04-10 15:56 | Outpatient (REF) | payer OTHER, SELFPAY ==
--- NOTE | ~2023-04-10 | CT_ITS ---
EXAMINATION: LUNG CANCER SCREENING CT CHEST WITHOUT CONTRAST CLINICAL INFORMATION: Current smoker with 50 pack year history COMPARISON: 05/30/2021 TECHNIQUE: Multidetector volumetric CT imaging of the chest was obtained noncontrast using low dose screening CT technique. Axial thin section 0.625 mm reformations in soft tissue and lung windows were obtained. Sagittal and coronal reformations were obtained. Axial MIP images were also created and reviewed. This CT examination was performed using dose optimization techniques as appropriate, variously including the following: *Automated exposure control *Adjustment of mA and/or kV according to patient size (this includes techniques or standardized protocols for targeted exams where dose is matched to indication/reason for exam; i.e. extremities or head) *Use of iterative reconstruction technique TOTAL EXAM DLP: 49 mGy-cm FINDINGS: PULMONARY NODULES (see greer images): No suspicious pulmonary nodules. Stable punctate nodule left upper lobe. Micronodule in the right lower lobe near the major fissure. LUNGS / PLEURA: Mild emphysema. No acute pneumonic process. No pleural effusion or pneumothorax. MEDIASTINUM / CHRISTINA: Heart normal in size without pericardial effusion. Great vessels normal caliber. No lymphadenopathy. Coronary calcifications present. Imaged thyroid gland unremarkable. CHEST WALL / AXILLA: Unremarkable. UPPER ABDOMEN: Cholecystectomy. Splenic artery calcifications in the left upper quadrant. OSSEOUS STRUCTURES: No acute or suspicious osseous abnormalities. CT/CT lung screening IMPRESSION: * No evidence of pulmonary malignancy. * Mild emphysema. ASSESSMENT: Lung RADS category: 2. Benign appearance or behavior. Nodules with a very low likelihood of becoming a clinically active cancer due to size or lack of growth. Continue annual screening with low-dose CT in 12 months. Probability of malignancy less than 1%. RECOMMENDATION: Follow up low dose CT chest in 1 year.
== END 2023-04-10 15:57 | disposition home or self-care (01) ==
LOC: HO.CT 15:56
PROVIDERS: PCP Physician Assistant; Visit Provider Physician Assistant Medical
DX: Z12.2 Encounter for screening for malignant neoplasm of respiratory organs (principal); F17.210 Nicotine dependence, cigarettes, uncomplicated
CPT/HCPCS: 71271

== ENCOUNTER 2023-05-15 08:30 | Outpatient (AMB) | payer OTHER, SELFPAY ==
[2023-05-15 08:54] VITALS: BP 126/64; PULSE 45; O2SAT 97; BMI 30.9
--- NOTE | 2023-05-15 08:54 | MHC.PC.OV ---
Vital Signs 05/15/23 08:54 05/15/23 09:05 Height 5 ft 4 in Weight 180 lb 1 oz BMI 30.9 BP 126/64 Blood Pressure Location Lt brachial Position Sitting Pulse 45 L 52 Pulse Source Pulse Oximeter Palpation Pulse Oximetry (%) 97 Oxygen Delivery Method Room Air Intake Visit Reasons: f/u HTN/ leg edema Cable Reeler Required: No Accompanied by: Self / Same As Patient Allergies bee pollen [BEE STINGS] Allergy (Severe, Verified 05/15/23 09:05) SWELLING rofecoxib [From VIOXX] Allergy (Intermediate, Verified 05/15/23 09:05) Swelling buprenorphine [From Suboxone] Adverse Reaction (Intermediate, Verified 05/15/23 09:05) Psychosis naloxone [From Suboxone] Adverse Reaction (Intermediate, Verified 05/15/23 09:05) Psychosis Medication List - Last Reconciled 05/15/23 by KENYATTA Jones albuterol sulfate 90 mcg/actuation (Ventolin HFA) 2 puffs inhalation QID PRN 30 days amlodipine 5 mg PO DAILY aspirin 81 mg PO DAILY chlorhexidine gluconate 4% 1 appl topical .Lklcv-wtoos-kky 30 days compr.stocking,knee,long,large As directed dolutegravir-lamivudine 50-300 mg 1 tab PO DAILY esomeprazole magnesium 20 mg PO DAILY ferrous sulfate 325 mg PO DAILY food supplemt, lactose-reduced (Boost High Protein) 1 ea PO BID 12 days ibuprofen 800 mg PO Q8H 15 days methadone 11 mg PO DAILY nicotine (Nicotrol) 1 inh inhalation Q2-4H PRN 30 days Tobacco use date assessed: 05/15/23 Fall risk assessment: No Falls in past year Last assessed Fall Risk: 05/15/23 Dental Screening Dental Screen Date: 05/15/23 Did you have a dental visit in the last 12 months?: No Did you have a dental problem in the last 6 months where you did not have access to dental care?: No Was dental information given to patient?: No HPI f/u HTN/ leg edema HPI Details Patient is a 67-year-old male who presents to follow-up on hypertension.? Patient of VIVIENNE Valle[facility].? 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 West, COPD among others.? Patient denies shortness of breath or chest pain in the office today.? He reports that he is compliant with medications and denies side effects.? Patient smokes about 3-4 cigarettes per day, encouraged smoking cessation - uses Nicotrol. Patient reports intermittent swelling in his legs towards the end of the day, he has prescription for compression stockings. [facility] Medical History Anemia COPD (chronic obstructive pulmonary disease) GERD (gastroesophageal reflux disease) Hepatitis C History of osteomyelitis HIV (human immunodeficiency virus infection) Murmur Nicotine dependence, cigarettes, uncomplicated Opiate dependence Paroxysmal A-fib Personal history of colonic polyps PVD (peripheral vascular disease) Surgical History History of carpal tunnel surgery of right wrist History of colonoscopy History of esophagogastroduodenoscopy (EGD) Family History Father COPD (chronic obstructive pulmonary disease) Chronic mental illness Diabetes Mother Rheumatic fever Diabetes CVD (cardiovascular disease) Breast cancer Paternal Aunt Gastric cancer Family/Other Diabetes Gastric cancer Social History Housing: House Alcohol intake: never Patient Tobacco Use Status: Current everyday Tobacco user Tobacco use type: Cigarette Cigarettes Per Day: 3 e-Cigarette/Vaping Use: Never Used Second Hand Smoke Exposure: Yes service: No Current occupational status: disabled 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 1. Little interest or pleasure in doing things: nearly every day 2. Feeling down, depressed, or hopeless: several days 3. Trouble falling or staying asleep, or sleeping too much: more than half the days 4. Feeling tired or having little energy: not at all 5. Poor appetite or overeating: not at all 6. Feeling bad about yourself - or that you are a failure or have let yourself or your family down: nearly every day 7. Trouble concentrating on things, such as reading the newspaper or watching television: nearly every day 8. Moving or speaking so slowly that other people could have noticed. Or the opposite - being so fidgety or restless that you have been moving around a lot more than usual: not at all 9. Thoughts that you would be better off or of hurting yourself in some way: not at all Total score: 12 Depression Screening Interpretation: Positive Depression Screening Follow-up: In treatment 95989 - PHQ-9 Billing: Yes Source: Developed by Drs. Oswaldo Tavares, Lori Senior, Holden Mc and colleagues, with an educational liz from [employer]. Thrive Questionnaire Date Thrive assessed: 05/15/23 I am a: Patient What is your living situation today?: I have a steady place to live Within the past 12 months, did the food you bought not last and you didn't have the money to get more?: Never true Within the past 12 months, did you worry whether your food would run out before you got money to buy more?: Never true Do you have trouble paying for medicines?: No Do you have trouble getting transportation to medical appointments?: No Do you have trouble paying your heating and electricity bill?: No Do you have trouble taking care of your child, family member or friend?: No Do you have trouble with day-to-day activities such as bathing, preparing meals, shopping, managing finances, etc.?: No Are you currently unemployed and looking for a job?: No Are you interested in more education?: No Please select the resources that you would like help with: None Currently or been in a relationship where the following occur: no concerns reported AUDIT C Alcohol Use Questionnaire (AUDIT-C) 1. How often do you have a drink containing alcohol?: Never 2. How many drinks containing alcohol do you have on a typical day when you are drinking?: 1 or 2 (0) 3. How often do you have six or more drinks on one occasion?: Never Total Score: 0 Score Reviewed/Action Taken: No AMISH-7 AMB Questionnaire AMISH-7 Date AMISH - 7 assessed: 05/15/23 Feeling nervous, anxious, or on edge: 3 = Nearly every day Not being able to stop or control worryin = Nearly every day Worrying too much about different things: 3 = Nearly every day Trouble relaxin = Nearly every day Being so restless that it is hard to sit still: 3 = Nearly every day Becoming easily annoyed or irritable: 2 = More than half the days Feeling afraid as if something awful might happen: 3 = Nearly every day Total AMISH-7 score (0-4 normal; 5-9 mild; 10-14 moderate; 15-21 severe): 20 Source: Developed by Drs. Oswaldo Tavares, Lori Senior, Holden Mc and colleagues, with an educational liz from [employer]. AMISH-7 Assessment Billing AMISH-7 Assessment Tool: AMISH-7 Assessment 74388 Review of Systems Const Denies body aches, Denies chills, Denies fever(s) and Denies headache(s) Eyes Denies change in vision ENT Denies dizziness, Denies otalgia, Denies headache(s), Denies nasal discharge, Denies sinus pain and Denies sore throat Card Reports as per HPI, Denies chest pain, Denies edema, Denies lightheadedness and Denies dyspnea Resp Denies cough, Denies dyspnea and Denies wheezing GI Denies abdominal pain Denies dysuria Musc Denies myalgias Skin/Breast Denies rash Neuro Denies dizziness and Denies headache(s) Aller/Immun Denies wheezing Physical exam (Primary Care) Vital Signs: Last Vital Signs Pulse 52 05/15/23 09:05 BP 126/64 05/15/23 08:54 Pulse Ox 97 05/15/23 08:54 Oxygen Delivery Method Room Air 05/15/23 08:54 BMI result Body Mass Index 30.9 Tobacco/Smoking Status: Tobacco use Status Tobacco use date assessed 05/15/23 05/15/23 08:58 Patient Tobacco Use Status Current everyday Tobacco 05/15/23 08:58 Tobacco use type Cigarette 05/15/23 08:58 e-Cigarette/Vaping Use Never Used 05/15/23 08:58 PHQ-9: PHQ-9 Score PHQ-9: Total score 12 05/15/23 09:07 Depression Screening Interpretation: Positive Depression Screening Follow-up: In treatment Thrive Assessment: Date of Thrive Assessment Date Thrive assessed 05/15/23 05/15/23 08:58 Currently or been in a relationship where the following occur: no concerns reported Const General: cooperative and no acute distress Orientation/consciousness: patient oriented x3 HENMT Head: Yes normocephalic and Yes atraumatic Mouth: oropharynx normal and moist mucous membranes Throat: Yes posterior oropharynx normal Eyes General: appearance normal, both eyes and all related structures Neck Neck: Yes normal visual inspection, Yes full ROM and Yes no lymphadenopathy Resp Effort & Inspection: normal respiratory effort and able to speak in complete sentences Auscultation: clear to auscultation bilaterally, no crackles, no rales, no rhonchi and no wheezes Cardio Rate: regular rate Rhythm: regular rhythm Heart sounds: S1 normal heart sound present and S2 normal heart sound present GI Auscultation: normal bowel sounds Skin General skin exam: no rashes or lesions noted Neuro General: patient oriented x3 Gait exam (Neuro): Normal gait present Extrem General: Yes full ROM and No edema Assessment and Plan Assessment & Plan (1) Tobacco dependence: Code(s): F17.200 - Nicotine dependence, unspecified, uncomplicated Plan: Encouraged smoking cessation (2) HIV (human immunodeficiency virus infection): Comment: (Followed by Dr. West) Code(s): B20 - Human immunodeficiency virus [HIV] disease Qualifiers: HIV symptom status: asymptomatic Qualified Code(s): Z21 - Asymptomatic human immunodeficiency virus [HIV] infection status Plan: Continue to follow-up with Dr. West (3) COPD (chronic obstructive pulmonary disease): Code(s): J44.9 - Chronic obstructive pulmonary disease, unspecified Qualifiers: COPD type: emphysema Emphysema type: centrilobular Qualified Code(s): J43.2 - Centrilobular emphysema Plan: Stable Continue albuterol inhaler p.r.n. (4) Paroxysmal A-fib: Code(s): I48.0 - Paroxysmal atrial fibrillation Plan: Normal heart rate and rhythm in the office today Not on treatment Continue to monitor (5) GERD (gastroesophageal reflux disease): Code(s): K21.9 - Gastro-esophageal reflux disease without esophagitis Plan: Continue as omeprazole 20 mg daily Avoid GERD trigger foods Do not lay down 2-3 hours after evening meal (6) HTN (hypertension): Code(s): I10 - Essential (primary) hypertension Qualifiers: Hypertension type: essential hypertension Qualified Code(s): I10 - Essential (primary) hypertension Plan: Goal BP equal or less than 140/90 Continue amlodipine 5 mg daily Low-sodium diet Plan Follow-up with PCP in 4 months or sooner as needed Coding Level of Care Code Est Pt Level 4 (74488) Diagnoses Tobacco dependence F17.200 HIV (human immunodeficiency virus infection) Z21 HIV symptom status: asymptomatic COPD (chronic obstructive pulmonary disease) J43.2 COPD type: emphysema Emphysema type: centrilobular Paroxysmal A-fib I48.0 GERD (gastroesophageal reflux disease) K21.9 HTN (hypertension) I10 Hypertension type: essential hypertension Additional Codes AMISH-7 Assessment Billing - AMISH-7 Assessment Tool: AMISH-7 Assessment [id number] ([id number])
[2023-05-15 09:05] VITALS: PULSE 52
== END 2023-05-15 09:13 | disposition home or self-care (01) ==
PROVIDERS: PCP Physician Assistant; Visit Provider Nurse Practitioner Family
DX: Z21 Asymptomatic human immunodeficiency virus [HIV] infection status (principal); J43.2 Centrilobular emphysema; I48.0 Paroxysmal atrial fibrillation; K21.9 Gastro-esophageal reflux disease without esophagitis; I10 Essential (primary) hypertension; F17.200 Nicotine dependence, unspecified, uncomplicated
CPT/HCPCS: 99214

== ENCOUNTER 2023-09-18 13:43 | Outpatient (AMB) | payer OTHER, SELFPAY ==
[2023-09-18 14:02] VITALS: BP 116/60; PULSE 56; BMI 31.6
--- NOTE | 2023-09-18 14:02 | A.OFFVIS_ITS ---
Intake Vital Signs 09/18/23 14:02 Height 5 ft 4 in Weight 184 lb BMI 31.6 BP 116/60 Blood Pressure Location Lt brachial Position Sitting Pulse 56 Pulse Source Palpation Intake Visit Reasons: Hypertension Deck Specialist Required: No Accompanied by: Self / Same As Patient Allergies bee pollen [BEE STINGS] Allergy (Severe, Verified 09/18/23 14:12) SWELLING rofecoxib [From VIOXX] Allergy (Intermediate, Verified 09/18/23 14:12) Swelling buprenorphine [From Suboxone] Adverse Reaction (Intermediate, Verified 09/18/23 14:12) Psychosis naloxone [From Suboxone] Adverse Reaction (Intermediate, Verified 09/18/23 14:12) Psychosis Medication List - Last Reconciled 09/18/23 by Andreas Vallejo PA-C albuterol sulfate 90 mcg/actuation (Ventolin HFA) 2 puffs inhalation QID PRN 30 days amlodipine 5 mg PO DAILY aspirin 81 mg PO DAILY chlorhexidine gluconate 4% 1 appl topical .[id number] 30 days compr.stocking,knee,long,large As directed dolutegravir-lamivudine 50-300 mg 1 tab PO DAILY esomeprazole magnesium 20 mg PO DAILY ferrous sulfate 325 mg PO DAILY food supplemt, lactose-reduced (Boost High Protein) 1 ea PO BID 12 days ibuprofen 800 mg PO Q8H 15 days methadone 11 mg PO DAILY nicotine (Nicotrol) 1 inh inhalation Q2-4H PRN 30 days HPI Hypertension HPI Details Juliano is a 67 y/o male here today for follow-up visit. Pmhx of asthma, opiate dependence, h/o Hep C with cirrhosis, depression, HIV,?tobacco dependency, hypertension. Concerns--> ? .. ? HIV: ? Followed by Dr. West, continues on antivirals.? He reports his viral load has been undetectable ? .. ? HTN: Report his BP has been stable, Stable on Amlodipine. ? .. ? .. ?? ?Tobacco dependency:? Followed by [place] [facility] screening. Has found 3 small LLL cyst of no concern though will be doing annual chest CT. ? Unfortunatley patient continue to smoke 1-2 cigs per day. ? .. ? Opiate dependence:? Patient continues to be followed by a methadone program in [facility].? He still does use strict hair when as he feels that methadone causes him cardiac issues. He is interested in inpatient detox as he does have severe anxiety attacks when he tries to get off of heroin. He is interested also outpatient Vivitrol injections and will seek this out in near future. Will give him referral to addiction treatment center here in [place]. ? .. ? Hep C - liver disease- followed by GI/ Dr Jenny May. Has cleared hep C virus with [facility] in the past [facility] Medical History History of osteomyelitis Personal history of colonic polyps Nicotine dependence, cigarettes, uncomplicated Hepatitis C HIV (human immunodeficiency virus infection) Paroxysmal A-fib PVD (peripheral vascular disease) GERD (gastroesophageal reflux disease) Anemia Murmur Opiate dependence COPD (chronic obstructive pulmonary disease) Surgical History History of carpal tunnel surgery of right wrist History of esophagogastroduodenoscopy (EGD) History of colonoscopy Family History Father COPD (chronic obstructive pulmonary disease) Chronic mental illness Diabetes Mother Rheumatic fever Diabetes CVD (cardiovascular disease) Breast cancer Paternal Aunt Gastric cancer Family/Other Diabetes Gastric cancer Social History Housing: House Alcohol intake: never Patient Tobacco Use Status: Current everyday Tobacco user Tobacco use type: Cigarette Cigarettes Per Day: 3 e-Cigarette/Vaping Use: Never Used Second Hand Smoke Exposure: Yes service: No Current occupational status: disabled 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 Cognitive needs: No Hearing needs: No Vision needs: No Questionnaire Thrive Questionnaire Date Thrive assessed: 09/18/23 I am a: Patient What is your living situation today?: I have a steady place to live Within the past 12 months, did the food you bought not last and you didn't have the money to get more?: Never true Within the past 12 months, did you worry whether your food would run out before you got money to buy more?: Never true Do you have trouble paying for medicines?: No Do you have trouble getting transportation to medical appointments?: No Do you have trouble paying your heating and electricity bill?: No Do you have trouble taking care of your child, family member or friend?: No Do you have trouble with day-to-day activities such as bathing, preparing meals, shopping, managing finances, etc.?: No Are you currently unemployed and looking for a job?: No Are you interested in more education?: No Please select the resources that you would like help with: None Currently or been in a relationship where the following occur: no concerns reported AUDIT C Alcohol Use Questionnaire (AUDIT-C) 1. How often do you have a drink containing alcohol?: Never 3. How often do you have six or more drinks on one occasion?: Never Total Score: 0 AMISH-7 AMB Questionnaire AMISH-7 Date AMISH - 7 assessed: 09/18/23 Feeling nervous, anxious, or on edge: 3 = Nearly every day Not being able to stop or control worryin = Nearly every day Worrying too much about different things: 3 = Nearly every day Trouble relaxin = Nearly every day Being so restless that it is hard to sit still: 2 = More than half the days Becoming easily annoyed or irritable: 3 = Nearly every day Feeling afraid as if something awful might happen: 3 = Nearly every day Total AMISH-7 score (0-4 normal; 5-9 mild; 10-14 moderate; 15-21 severe): 20 Source: Developed by Drs. Oswaldo Tavares, Lori Senior, Holden Mc and colleagues, with an educational liz from [employer] To Get Approved For. AMISH-7 Assessment Billing AMISH-7 Assessment Tool: AMISH-7 Assessment 71484 PHQ-9 Over the last 2 weeks, how often have you been bothered by any of the following problems? 1. Little interest or pleasure in doing things: more than half the days 2. Feeling down, depressed, or hopeless: more than half the days 3. Trouble falling or staying asleep, or sleeping too much: nearly every day 4. Feeling tired or having little energy: more than half the days 5. Poor appetite or overeating: more than half the days 6. Feeling bad about yourself - or that you are a failure or have let yourself or your family down: more than half the days 7. Trouble concentrating on things, such as reading the newspaper or watching television: nearly every day 8. Moving or speaking so slowly that other people could have noticed. Or the opposite - being so fidgety or restless that you have been moving around a lot more than usual: several days 9. Thoughts that you would be better off or of hurting yourself in some way: several days Total score: 18 Depression Screening Interpretation: Positive Depression Screening Follow-up: Existing condition and In treatment Depression Screening Done: Yes 69336 - PHQ-9 Billing: Yes Source: Developed by Drs. Oswaldo Tavares, Lori Senior, Holden Mc and colleagues, with an educational liz from [employer] To Get Approved For. Review of Systems Const Denies headache(s) Eyes Denies loss of vision ENT Denies vertigo, Denies dizziness, Denies headache(s) and Denies sore throat Card Denies chest pain, Denies leg edema and Denies lightheadedness Resp Denies cough, Denies hemoptysis and Denies wheezing GI Denies abdominal pain, Denies melena, Denies constipation, Denies diarrhea and Denies vomiting Denies dysuria, Denies urinary frequency and Denies urinary urgency Musc Denies arthralgias, Denies joint swelling, Denies numbness and Denies tingling Neuro Denies Abnormal speech present, Denies behavioral changes, Denies vertigo, Denies dizziness, Denies headache(s), Denies loss of vision, Denies memory loss, Denies numbness and Denies tingling Psych Denies anxiety, Denies behavioral changes, Denies depression, Denies memory loss and Denies panic attacks Nhan/Lymph Denies easy bleeding and Denies easy bruising Aller/Immun Denies wheezing Physical Exam Vital Signs: Last Vital Signs Pulse 56 09/18/23 14:02 BP 116/60 09/18/23 14:02 BMI result Body Mass Index 31.6 Const General: healthy appearing, no acute distress, alert and awake Nutritional Appearance: well nourished Orientation/consciousness: oriented to person, oriented to place and oriented to time HEENT Ears: TM's normal bilaterally General nose exam: Normal nasal mucous membranes and turbinates present Eyes Conjunctivae: conjunctivae normal Sclerae: sclerae normal Pupils: Equal, round and reactive pupils present Neck Neck: Yes no lymphadenopathy and Yes no JVD Thyroid: Thyroid normal Carotids: no bruits Resp Effort & Inspection: normal respiratory effort and not tachypneic Auscultation: no crackles, no rales, no rhonchi and no wheezes Cardio Rate: regular rate Rhythm: regular rhythm Heart sounds: no murmurs and normal S1 and S2 GI Palpation (GI): Soft to palpation, nontender, no hepatomegaly and no splenomega ly Auscultation: normal bowel sounds Skin General skin exam: no rashes or lesions noted and dry skin Neuro General: oriented to person, oriented to place and oriented to time Cranial nerves: Yes Equal, round and reactive pupils present Speech: No Abnormal speech present Gait exam (Neuro): Normal gait present Motor exam (neuro): no tremor noted Extrem Right upper extremity: full ROM Left upper extremity: full ROM Right lower extremity: full ROM; no edema Left lower extremity: full ROM; no edema Psych Mental Status: mental status grossly normal Speech and movement: Normal speech and movement present Affect: normal affect Attitude: cooperative Thought process: Normal thought process present Assessment & Plan Assessment & Plan (1) Opiate dependence: Code(s): F11.20 - Opioid dependence, uncomplicated Qualifiers: Substance use status: uncomplicated Qualified Code(s): F11.20 - Opioid dependence, uncomplicated Plan: Continues to use street here when over the last 50 years. He is very motivated to get off of opiates altogether. Is in and out of methadone program in [place] though feels that methadone does not help him eventually get off of opiates and causes him cardiac issues. He is interested in short-term and patient detox and was seek out [facility] recovery (2) HIV (human immunodeficiency virus infection): Comment: (Followed by Dr. West) Code(s): B20 - Human immunodeficiency virus [HIV] disease Qualifiers: HIV symptom status: asymptomatic Qualified Code(s): Z21 - Asymptomatic human immunodeficiency virus [HIV] infection status Plan: Continues to follow infectious disease specialty. Continues on antiviral and his viral loads have been undetectable. (3) HTN (hypertension): Code(s): I10 - Essential (primary) hypertension Qualifiers: Hypertension type: essential hypertension Qualified Code(s): I10 - Essential (primary) hypertension Plan: Blood pressure acceptable today in office. Will continue him on his current dose of amlodipine with goal blood pressure to remain below 140/90. (4) Nicotine dependence, cigarettes, uncomplicated: Comment: (current smoker - 30+PYH) Code(s): F17.210 - Nicotine dependence, cigarettes, uncomplicated Plan: Unfortunately continues to smoke 2-3 cigarettes per day. He has been having trouble completely quitting. He does have nicotine replacement available to him and will continue to try to wean off of cigarettes completely. (5) COPD (chronic obstructive pulmonary disease): Code(s): J44.9 - Chronic obstructive pulmonary disease, unspecified Qualifiers: COPD type: emphysema Emphysema type: centrilobular Qualified Code(s): J43.2 - Centrilobular emphysema Plan: Does mild COPD. Does not regularly have to use any maintenance inhaler. Does use an albuterol inhaler for rescue only. He is followed by the [facility] lung cancer screening program for pulmonary nodule. He does have mild emphysema noted on CT chest. (6) Paroxysmal A-fib: Code(s): I48.0 - Paroxysmal atrial fibrillation Plan: Has had a history of paroxysmal AFib in the hospital setting. Flynn score 1 Continues on aspirin indefinitely. (7) MDD (major depressive disorder), recurrent episode, moderate: Code(s): F33.1 - Major depressive disorder, recurrent, moderate Plan: Patient's PHQ-9 score positive for moderate depression which has been existing condition for him. He is not interested in starting any antidepressant medication. He is depression mostly stems from his chronic opiate use any feels hopeful that he will be able to get clean this year. (8) AMISH (generalized anxiety disorder): Code(s): F41.1 - Generalized anxiety disorder Plan: Patient's amish 7 score positive for moderate anxiety which has been existing condition for him. He is not interested in starting any anxiety medication or speaking with a mental health therapist at this time. Has had therapy in the past at methadone clinics. His anxiety is mostly triggered by his IV heroin use Orders: Orders Comprehensive [place]. Panel Fast 09/18/23 I10 - Essential (primary) hypertension Complete Blood Count no Diff 09/18/23 I10 - Essential (primary) hypertension Prostate Specific Antigen Scr 09/18/23 I10 - Essential (primary) hypertension, Z12.5 - Encounter for screening for malignant neoplasm of prostate Microalbumin, Random (w Creat) 09/18/23 I10 - Essential (primary) hypertension Referrals Addiction Medicine Referral F11.20 - Opioid dependence, uncomplicated Medications: Changed From aspirin 81 mg PO DAILY 30 tabs 3RF To aspirin 81 mg PO DAILY 90 days 90 tabs 1RF Refilled nicotine (Nicotrol) 1 inh inhalation Q2-4H 30 days PRN 168 ea 3RF nicotine cravings F17.200 - Nicotine dependence, unspecified, uncomplicated amlodipine 5 mg PO DAILY 90 tabs 1RF I10 - Essential (primary) hypertension Quality Reporting (2019) Depression/Bipolar (159/160/161/177) PHQ-9: Total score: 18 Coding Level of Care Code Est Pt Level 4 (54337) Diagnoses Uncomplicated opioid dependence F11.20 Substance use status: uncomplicated Asymptomatic HIV infection Z21 HIV symptom status: asymptomatic Essential hypertension I10 Hypertension type: essential hypertension Nicotine dependence, cigarettes, uncomplicated F17.210 Centrilobular emphysema J43.2 COPD type: emphysema Emphysema type: centrilobular Paroxysmal A-fib I48.0 MDD (major depressive disorder), recurrent episode, moderate F33.1 AMISH (generalized anxiety disorder) F41.1 Additional Codes AMISH-7 Assessment Billing - AMISH-7 Assessment Tool: AMISH-7 Assessment [id number] ([id number])
== END 2023-09-18 14:34 | disposition home or self-care (01) ==
PROVIDERS: PCP Physician Assistant; Visit Provider Physician Assistant
DX: I48.0 Paroxysmal atrial fibrillation (principal); F11.20 Opioid dependence, uncomplicated; J43.2 Centrilobular emphysema; Z21 Asymptomatic human immunodeficiency virus [HIV] infection status; F33.1 Major depressive disorder, recurrent, moderate; I10 Essential (primary) hypertension; F17.210 Nicotine dependence, cigarettes, uncomplicated; F41.1 Generalized anxiety disorder
CPT/HCPCS: 96127; 99214

== ENCOUNTER 2023-10-16 13:34 | Outpatient (AMB) | payer OTHER, SELFPAY ==
--- NOTE | 2023-10-16 13:42 | MHC.AM.SUB ---
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 Allergies bee pollen [BEE STINGS] Allergy (Severe, Verified 10/16/23 13:48) SWELLING rofecoxib [From VIOXX] Allergy (Intermediate, Verified 10/16/23 13:48) Swelling buprenorphine [From Suboxone] Adverse Reaction (Intermediate, Verified 10/16/23 13:48) Psychosis naloxone [From Suboxone] Adverse Reaction (Intermediate, Verified 10/16/23 13:48) Psychosis Medication List - Last Reconciled 10/16/23 by Kim Sanderson NP albuterol sulfate 90 mcg/actuation (Ventolin HFA) 2 puffs inhalation QID PRN 30 days amlodipine 5 mg PO DAILY aspirin 81 mg PO DAILY 90 days bisacodyl (Dulcolax (bisacodyl)) 20 mg (4 x 5 mg) PO ONCE 1 day chlorhexidine gluconate 4% 1 appl topical .[id number] 30 days compr.stocking,knee,long,large As directed dolutegravir-lamivudine 50-300 mg 1 tab PO DAILY esomeprazole magnesium 20 mg PO DAILY ferrous sulfate 325 mg PO DAILY food supplemt, lactose-reduced (Boost High Protein) 1 ea PO BID 12 days ibuprofen 800 mg PO Q8H 15 days methadone 11 mg PO DAILY nicotine (Nicotrol) 1 inh inhalation Q2-4H PRN 30 days peg 3350-electrolytes 236-22.74-6.74 -5.86 gram 240 mL PO Q10M simethicone (Gas Relief (simethicone)) 125 mg PO ONCE HPI MAT Intake HPI Details Patient presents to establish care He is a patient of Andreas Vallejo for PCP and is followed by Dr. Cary West for infectious disease He is stably housed, lives alone He identifies his nephew, sons, and best friend as a support system He lives in [place] and primary mode of transportation is the bus He has been using heroin for 50+ years He reports he has been going to [facility] for the past 11 years to dose with MTD His current dose is 78 mg He wishes to transition from MTD to naltrexone Past substance use includes: heroin, fentanyl, buprenorphine, and marijuana He identifies his longest period of sobriety was 6535-7910 His route of administration is IV He has previous been treated for Hep C and has cleared the virus He currently has HIV but is follow by ID, and reports he has no viral load He has been to detox, over 30 years ago He has never attended outpatient programs for ongoing recovery support He has been receiving MTD from [facility] He has been using daily in addition to his MTD (1-2 bundles/day) He has no BH history Extensive medical comorbidities including: HTN, Diabetes, Asthma, HIV [facility] Medical History History of osteomyelitis Personal history of colonic polyps Nicotine dependence, cigarettes, uncomplicated Hepatitis C HIV (human immunodeficiency virus infection) Paroxysmal A-fib PVD (peripheral vascular disease) GERD (gastroesophageal reflux disease) Anemia Murmur Opiate dependence COPD (chronic obstructive pulmonary disease) Surgical History History of carpal tunnel surgery of right wrist History of esophagogastroduodenoscopy (EGD) History of colonoscopy Family History Father COPD (chronic obstructive pulmonary disease) Chronic mental illness Diabetes Mother Rheumatic fever Diabetes CVD (cardiovascular disease) Breast cancer Paternal Aunt Gastric cancer Family/Other Diabetes Gastric cancer Social History Housing: House Alcohol intake: never Patient Tobacco Use Status: Current everyday Tobacco user Tobacco use type: Cigarette Cigarettes Per Day: 3 e-Cigarette/Vaping Use: Never Used Second Hand Smoke Exposure: Yes service: No Current occupational status: disabled 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 Cognitive needs: No Hearing needs: No Vision needs: No Review of Systems Const Reports as per HPI Physical Exam Vital Signs: Last Vital Signs Pulse 93 10/16/23 13:47 BP 134/72 10/16/23 13:47 Pulse Ox 95 10/16/23 13:47 Oxygen Delivery Method Room Air 10/16/23 13:47 Const General: cooperative and no acute distress Resp Effort & Inspection: normal respiratory effort and able to speak in complete sentences Psych Appearance: grossly normal Mental Status: mental status grossly normal Speech and movement: Normal speech and movement present Affect: normal affect Attitude: cooperative Results AMB 14 Panel Urine Drug Screen Urine Marijuana (THC) Positive Last Edit by Lois Syed CMA on 10/16/23 15:09 Urine Cocaine Positive Last Edit by Lois Syed CMA on 10/16/23 15:09 Urine Morphine Positive Last Edit by Lois Syed CMA on 10/16/23 15:09 Urine Methamphetamine Negative Last Edit by Lois Syed CMA on 10/16/23 15:09 Urine Amphetamine Negative Last Edit by Lois Syed CMA on 10/16/23 15:09 Urine Benzodiazepine Positive Last Edit by Lois Syed CMA on 10/16/23 15:09 Urine Barbiturates Negative Last Edit by Lois Syed CMA on 10/16/23 15:09 Urine Methadone Positive Last Edit by Lois Syed CMA on 10/16/23 15:09 Urine Buprenorphine Negative Last Edit by Lois Syed CMA on 10/16/23 15:09 Urine Tricyclic Antidepressant Negative Last Edit by Lois Syed CMA on 10/16/23 15:09 Urine MDMA Negative Last Edit by Lois Syed CMA on 10/16/23 15:09 Urine Oxycodone Negative Last Edit by Lois Syed CMA on 10/16/23 15:09 Urine Phencyclidine Negative Last Edit by Lois Syed CMA on 10/16/23 15:09 Urine Propoxyphene Last Edit by Lois Syed CMA on 10/16/23 15:09 Results Reviewed Results Reviewed: Laboratory Last Values POC Urine Buprenorphine Negative 10/16/23 15:00 POC Urine Morphine Positive 10/16/23 15:00 POC Urine Oxycodone Negative 10/16/23 15:00 POC Urine Methadone Positive 10/16/23 15:00 POC Urine Barbiturates Negative 10/16/23 15:00 POC U Tricyclic Antidpr Negative 10/16/23 15:00 POC Urine PCP Negative 10/16/23 15:00 POC Ur Amphetamines Negative 10/16/23 15:00 POC Ur Methamphetamine Negative 10/16/23 15:00 POC Urine MDMA Negative 10/16/23 15:00 POC Ur Benzodiazepine Positive 10/16/23 15:00 POC Urine Cocaine Positive 10/16/23 15:00 POC Ur Marijuana (THC) Positive 10/16/23 15:00 Assessment & Plan Assessment & Plan (1) Opiate use: Code(s): F11.90 - Opioid use, unspecified, uncomplicated Plan: -Comfort meds sent for patient should he decide to start weaning on his own -Advised patient detoxing in a facility would be best for him given his medical comorbidities, which he is agreeable to -Provided the phone number for [facility] for him to call -Offered narcan, pt declined reporting he has multiple narcan kits at home -Advised him is he is going to wean at home, to present to the ED for intractible nausea and vomiting -Follow up 1 week via telehealth to check in Orders: Orders AMB 14 Panel Urine Drug Screen 10/16/23 Z51.81 - Encounter for therapeutic drug level monitoring Medications: New clonidine HCl 0.1 mg PO TID 30 tabs 0RF dicyclomine 20 mg PO TID 30 tabs 0RF Coding Level of Care Code New Pt Level 4 (23394) Diagnoses Opiate use F11.90
[2023-10-16 13:47] VITALS: BP 134/72; PULSE 93; O2SAT 95
== END 2023-10-16 15:45 | disposition home or self-care (01) ==
PROVIDERS: PCP Physician Assistant; Visit Provider Nurse Practitioner Family
DX: F11.90 Opioid use, unspecified, uncomplicated (principal)
CPT/HCPCS: 99204

== ENCOUNTER → 2023-10-16 13:34 | Outpatient (BNVA) | payer OTHER, SELFPAY | PROVIDERS: PCP Physician Assistant; Visit Provider Nurse Practitioner Family | DX: F11.90 Opioid use, unspecified, uncomplicated (principal) | CPT/HCPCS: 80305; 99202 ==

== ENCOUNTER 2023-11-12 13:16 | Outpatient (AMB) | payer OTHER, SELFPAY ==
[2023-11-12 13:24] VITALS: BP 180/90; PULSE 110; O2SAT 96
--- NOTE | 2023-11-12 13:24 | A.OFFVISCC_ITS ---
Intake Vital Signs 11/12/23 13:24 11/12/23 13:49 BP 180/90 H 140/72 H Blood Pressure Location Lt radial Lt radial Position Sitting Sitting Pulse 110 H Pulse Source Pulse Oximeter Pulse Oximetry (%) 96 Oxygen Delivery Method Room Air Intake Visit Reasons: MAT Intake Note: the patient presents for a mat visit Import Clerk Required: No Allergies bee pollen [BEE STINGS] Allergy (Severe, Verified 10/16/23 13:48) SWELLING rofecoxib [From VIOXX] Allergy (Intermediate, Verified 10/16/23 13:48) Swelling buprenorphine [From Suboxone] Adverse Reaction (Intermediate, Verified 10/16/23 13:48) Psychosis naloxone [From Suboxone] Adverse Reaction (Intermediate, Verified 10/16/23 13:48) Psychosis HPI MAT HPI Details Patient presents for treatment and follow up He was d/c from [facility] on 11/07 after 1 week admission Reports last substance use was 10/31 Reports he is feeling unwell with body aches, joint pain, restless legs, states this is the longest time he has experienced withdrawal He is interested in trialing suboxone at this time He is also reporting intermittent dizziness for the past few weeks Has a blood pressure cuff at home he was encouraged by t/w to use to track his b/p's [facility] Medical History History of osteomyelitis Personal history of colonic polyps Nicotine dependence, cigarettes, uncomplicated Hepatitis C HIV (human immunodeficiency virus infection) Paroxysmal A-fib PVD (peripheral vascular disease) GERD (gastroesophageal reflux disease) Anemia Murmur Opiate dependence COPD (chronic obstructive pulmonary disease) Surgical History History of carpal tunnel surgery of right wrist History of esophagogastroduodenoscopy (EGD) History of colonoscopy Family History Father COPD (chronic obstructive pulmonary disease) Chronic mental illness Diabetes Mother Rheumatic fever Diabetes CVD (cardiovascular disease) Breast cancer Paternal Aunt Gastric cancer Family/Other Diabetes Gastric cancer Social History Housing: House Alcohol intake: never Patient Tobacco Use Status: Current everyday Tobacco user Tobacco use type: Cigarette Cigarettes Per Day: 3 e-Cigarette/Vaping Use: Never Used Second Hand Smoke Exposure: Yes service: No Current occupational status: disabled 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 Cognitive needs: No Hearing needs: No Vision needs: No Review of Systems Const Reports as per HPI, Reports body aches, Reports chills, Denies headache(s) and Reports poor appetite Eyes Denies loss of vision ENT Reports no additional complaints, Reports dizziness and Denies headache(s) Card Reports no additional complaints and Denies syncope Resp Reports as per HPI GI Reports as per HPI Musc Reports arthralgias Neuro Reports dizziness, Denies syncope, Denies headache(s), Denies focal weakness and Denies loss of vision Physical Exam Vital Signs: Last Vital Signs Pulse 110 H 11/12/23 13:24 BP 140/72 H 11/12/23 13:49 Pulse Ox 96 11/12/23 13:24 Oxygen Delivery Method Room Air 11/12/23 13:24 Const General: cooperative and tired appearing Resp Effort & Inspection: normal respiratory effort Psych Appearance: grossly normal Mental Status: mental status grossly normal Speech and movement: Normal speech and movement present Affect: normal affect Attitude: cooperative Thought process: Normal thought process present Assessment & Plan Assessment & Plan (1) Opiate dependence: Code(s): F11.20 - Opioid dependence, uncomplicated Qualifiers: Substance use status: uncomplicated Qualified Code(s): F11.20 - Opioid dependence, uncomplicated Plan: -Start suboxone 2mg bid, discussed with him to call the office if he finds that dose is not addressing his withdrawal symptoms adequately -Discussed with him to start monitoring his blood pressures, discussed what parameters to hold b/p med -reviewed with him to call PCP if dizziness persists after starting suboxone -Discussed with him to present to emergency department should dizziness persist or worsen, or should he develop weakness, vision changes, chest pain, shortness of breath, or experience any syncopal episodes -Follow up 1 week Medications: New buprenorphine-naloxone 2-[address] 1 strip/tab under (each) side of tongue 1 film buccal BID 16 ea 0RF Coding Level of Care Code Est Pt Level 3 (97543) Diagnoses Uncomplicated opioid dependence F11.20 Substance use status: uncomplicated
[2023-11-12 13:49] VITALS: BP 140/72
== END 2023-11-12 13:52 | disposition home or self-care (01) ==
PROVIDERS: PCP Physician Assistant; Visit Provider Nurse Practitioner Family
DX: F11.20 Opioid dependence, uncomplicated (principal)
CPT/HCPCS: 99213

== ENCOUNTER → 2023-11-12 13:16 | Outpatient (BNVA) | payer OTHER, SELFPAY | PROVIDERS: PCP Physician Assistant; Visit Provider Nurse Practitioner Family | DX: F11.20 Opioid dependence, uncomplicated (principal) | CPT/HCPCS: 99212 ==

== ENCOUNTER 2023-11-19 10:00 | Outpatient (AMB) | payer OTHER, SELFPAY ==
--- NOTE | 2023-11-19 10:07 | A.OFFVISCC_ITS ---
Intake Intake Visit Reasons: MAT Allergies bee pollen [BEE STINGS] Allergy (Severe, Verified 10/16/23 13:48) SWELLING rofecoxib [From VIOXX] Allergy (Intermediate, Verified 10/16/23 13:48) Swelling buprenorphine [From Suboxone] Adverse Reaction (Intermediate, Verified 10/16/23 13:48) Psychosis naloxone [From Suboxone] Adverse Reaction (Intermediate, Verified 10/16/23 13:48) Psychosis HPI MAT HPI Details Patient presents for [facility] treatment and follow up via telehealth He reports he has been feeling a little better now that he has started taking the suboxone. He has been taking 2 of the 2mg films in the morning and reports they last until the evening before he starts experiencing withdrawal symptoms (chills, runny nose) Denies any concerns for side effects No illicit substance use since last visit No other concerns today [facility] Medical History History of osteomyelitis Personal history of colonic polyps Nicotine dependence, cigarettes, uncomplicated Hepatitis C HIV (human immunodeficiency virus infection) Paroxysmal A-fib PVD (peripheral vascular disease) GERD (gastroesophageal reflux disease) Anemia Murmur Opiate dependence COPD (chronic obstructive pulmonary disease) Surgical History History of carpal tunnel surgery of right wrist History of esophagogastroduodenoscopy (EGD) History of colonoscopy Family History Father COPD (chronic obstructive pulmonary disease) Chronic mental illness Diabetes Mother Rheumatic fever Diabetes CVD (cardiovascular disease) Breast cancer Paternal Aunt Gastric cancer Family/Other Diabetes Gastric cancer Social History Housing: House Alcohol intake: never Patient Tobacco Use Status: Current everyday Tobacco user Tobacco use type: Cigarette Cigarettes Per Day: 3 e-Cigarette/Vaping Use: Never Used Second Hand Smoke Exposure: Yes service: No Current occupational status: disabled 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 -Encouraged him to call the clinic with questions or concerns -Follow up 1 week Medications: New buprenorphine-naloxone 8-2 mg 1 film buccal DAILY 7 ea 0RF Discontinued buprenorphine-naloxone 2-[address] 1 strip/tab under (each) side of tongue Discontinued Reason: Patient no longer taking 1 film buccal BID 16 ea 0RF Telehealth Telehealth Location of provider rendering services: practice address Location of patient: address on file Patient Identification confirmed using: Name, : Yes Telehealth method: voice only Patient verbally consented to treatment: Yes Patient verbally consented to billing insurance company: Yes Patient informed of any privacy concerns related to visit: Yes Minutes spent on Phone/Video with Pt.: 10 Coding Level of Care Code Tele Est Pt Level 2 (02939) Diagnoses Uncomplicated opioid dependence F11.20 Substance use status: uncomplicated Time Spent (min) 20
== END 2023-11-19 10:10 | disposition home or self-care (01) ==
LOC: HO.HCC 10:01
PROVIDERS: PCP Physician Assistant; Visit Provider Nurse Practitioner Family
DX: F11.20 Opioid dependence, uncomplicated (principal)
CPT/HCPCS: 99441

== ENCOUNTER → 2023-11-19 10:00 | Outpatient (BNVA) | payer OTHER, SELFPAY | PROVIDERS: PCP Physician Assistant; Visit Provider Nurse Practitioner Family ==

== ENCOUNTER 2023-11-26 13:00 | Outpatient (AMB) | payer OTHER, SELFPAY ==
--- NOTE | 2023-11-26 13:04 | MHC.AM.SUB ---
Intake Vital Signs 11/26/23 13:05 BP 136/78 Blood Pressure Location Lt radial Position Sitting Pulse 74 Pulse Source Pulse Oximeter Pulse Oximetry (%) 96 Oxygen Delivery Method Room Air Intake Visit Reasons: mat visit Intake Note: the patient presents for a mat visit Icer Air Conditioning Required: No Allergies bee pollen [BEE STINGS] Allergy (Severe, Verified 11/26/23 13:06) SWELLING rofecoxib [From VIOXX] Allergy (Intermediate, Verified 11/26/23 13:06) Swelling buprenorphine [From Suboxone] Adverse Reaction (Intermediate, Verified 11/26/23 13:06) Psychosis naloxone [From Suboxone] Adverse Reaction (Intermediate, Verified 11/26/23 13:06) Psychosis Do you need a note to return to daycare/school/sports/work: No HPI mat visit HPI Details Patient presents for MAT visit He reports improvement in withdrawal symptoms with the 8mg daily but has not experienced full relief yet He continues to experiencing hot and cold flashes, and general feeling of malaise. He is also reporting tinnitus and occasional lightheadedness Reports his sleep has been poor [facility] Medical History History of osteomyelitis Personal history of colonic polyps Nicotine dependence, cigarettes, uncomplicated Hepatitis C HIV (human immunodeficiency virus infection) Paroxysmal A-fib PVD (peripheral vascular disease) GERD (gastroesophageal reflux disease) Anemia Murmur Opiate dependence COPD (chronic obstructive pulmonary disease) Surgical History History of carpal tunnel surgery of right wrist History of esophagogastroduodenoscopy (EGD) History of colonoscopy Family History Father COPD (chronic obstructive pulmonary disease) Chronic mental illness Diabetes Mother Rheumatic fever Diabetes CVD (cardiovascular disease) Breast cancer Paternal Aunt Gastric cancer Family/Other Diabetes Gastric cancer Social History Housing: House Alcohol intake: never Patient Tobacco Use Status: Current everyday Tobacco user Tobacco use type: Cigarette Cigarettes Per Day: 3 e-Cigarette/Vaping Use: Never Used Second Hand Smoke Exposure: Yes service: No Current occupational status: disabled 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 Cognitive needs: No Hearing needs: No Vision needs: No Review of Systems Const Reports as per HPI, Denies headache(s) and Reports lethargy Eyes Denies change in vision ENT Reports dizziness, Denies headache(s), Denies hearing loss and Reports tinnitus Neuro Reports dizziness and Denies headache(s) Physical Exam Vital Signs: Last Vital Signs Pulse 74 11/26/23 13:05 BP 136/78 11/26/23 13:05 Pulse Ox 96 11/26/23 13:05 Oxygen Delivery Method Room Air 11/26/23 13:05 Const General: cooperative and no acute distress Resp Effort & Inspection: normal respiratory effort Neuro General: gait normal Psych Appearance: grossly normal Mental Status: mental status grossly normal Speech and movement: Normal speech and movement present Affect: normal affect Attitude: cooperative Assessment & Plan Assessment & Plan (1) Opiate dependence: Code(s): F11.20 - Opioid dependence, uncomplicated Qualifiers: Substance use status: uncomplicated Qualified Code(s): F11.20 - Opioid dependence, uncomplicated Plan: -Discussed with him increasing his dose to 12mg daily, educated him he can take full film in the morning, or split in half to take 6mg bid -Discussed with him reaching out to primary care for evaluation of tinnitus and lightheadness. Reviewed with him to report to the emergency department with any acute changes -Relapse prevention discussed -Follow up 1 week telehealth Medications: New buprenorphine-naloxone 12-3 mg 1 film buccal Q24H 7 ea 0RF Coding Level of Care Code Est Pt Level 3 (36820) Diagnoses Uncomplicated opioid dependence F11.20 Substance use status: uncomplicated
[2023-11-26 13:05] VITALS: BP 136/78; PULSE 74; O2SAT 96
== END 2023-11-26 13:26 | disposition home or self-care (01) ==
PROVIDERS: PCP Physician Assistant; Visit Provider Nurse Practitioner Family
DX: F11.20 Opioid dependence, uncomplicated (principal)
CPT/HCPCS: 99213

== ENCOUNTER → 2023-11-26 13:00 | Outpatient (BNVA) | payer OTHER, SELFPAY | PROVIDERS: PCP Physician Assistant; Visit Provider Nurse Practitioner Family | DX: F11.20 Opioid dependence, uncomplicated (principal) | CPT/HCPCS: 99212 ==

== ENCOUNTER 2023-12-05 15:34 | Outpatient (AMB) | payer OTHER, SELFPAY ==
--- NOTE | 2023-12-05 15:52 | A.OFFVISCC_ITS ---
Intake Intake Visit Reasons: mat visit Allergies bee pollen [BEE STINGS] Allergy (Severe, Verified 11/26/23 13:06) SWELLING rofecoxib [From VIOXX] Allergy (Intermediate, Verified 11/26/23 13:06) Swelling buprenorphine [From Suboxone] Adverse Reaction (Intermediate, Verified 11/26/23 13:06) Psychosis naloxone [From Suboxone] Adverse Reaction (Intermediate, Verified 11/26/23 13:06) Psychosis HPI mat visit HPI Details Pt presents via telehealth Reports the last week has gone better for him with the dose increase to 12mg, but he is concerned about feelings angry and irritable which he attributes to the dose increase. He is requesting to resume dosing at 8mg daily. He reports the tinnitus and lightheadedness have mostly resolved as well, he called PCP about it last week and was advised to go to an urgent care, which he was unable to do. Denies any concerns related to recovery at this time, no additional side effect concerns at this time He is anxious to start decreasing his suboxone dose as soon as he can- he made an effort this past week to decrease on his own, went 1.5 days without, started to feel sick, and resumed taking his films. [facility] Medical History History of osteomyelitis Personal history of colonic polyps Nicotine dependence, cigarettes, uncomplicated Hepatitis C HIV (human immunodeficiency virus infection) Paroxysmal A-fib PVD (peripheral vascular disease) GERD (gastroesophageal reflux disease) Anemia Murmur Opiate dependence COPD (chronic obstructive pulmonary disease) Surgical History History of carpal tunnel surgery of right wrist History of esophagogastroduodenoscopy (EGD) History of colonoscopy Family History Father COPD (chronic obstructive pulmonary disease) Chronic mental illness Diabetes Mother Rheumatic fever Diabetes CVD (cardiovascular disease) Breast cancer Paternal Aunt Gastric cancer Family/Other Diabetes Gastric cancer Social History Housing: House Alcohol intake: never Patient Tobacco Use Status: Current everyday Tobacco user Tobacco use type: Cigarette Cigarettes Per Day: 3 e-Cigarette/Vaping Use: Never Used Second Hand Smoke Exposure: Yes service: No Current occupational status: disabled 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 -Encouraged him to think about gaining more time and stability in his recovery before decreasing suboxone -Refilled clonidine as he identified it to be helpful for his feelings of irrit ability, educated him about clonidines effect on blood pressure and to monitor for signs and symptoms of hypotension. Discussed not changing positions too quickly. -Decrease suboxone to 8mg/day -Follow up 1 week Medications: Refilled clonidine HCl 0.1 mg PO TID 90 tabs 0RF buprenorphine-naloxone 8-2 mg 1 film buccal DAILY 7 ea 0RF Telehealth Telehealth Location of provider rendering services: practice address Location of patient: address on file Patient Identification confirmed using: Name, : Yes Telehealth method: voice only Patient verbally consented to treatment: Yes Patient verbally consented to billing insurance company: Yes Patient informed of any privacy concerns related to visit: Yes Minutes spent on Phone/Video with Pt.: 15 Coding Level of Care Code Tele Est Pt Level 3 (63719) Diagnoses Uncomplicated opioid dependence F11.20 Substance use status: uncomplicated Time Spent (min) 25 Comment Total time spent on phone and performing chart review
== END 2023-12-05 15:55 | disposition home or self-care (01) ==
PROVIDERS: PCP Physician Assistant; Visit Provider Nurse Practitioner Family
DX: F11.20 Opioid dependence, uncomplicated (principal)
CPT/HCPCS: 99442

== ENCOUNTER → 2023-12-05 15:34 | Outpatient (BNVA) | payer OTHER, SELFPAY | PROVIDERS: PCP Physician Assistant; Visit Provider Nurse Practitioner Family ==

== ENCOUNTER 2023-12-12 09:59 | Outpatient (AMB) | payer OTHER, SELFPAY ==
--- NOTE | 2023-12-12 16:42 | MHC.AM.SUB ---
Intake Intake Visit Reasons: mat visit Allergies bee pollen [BEE STINGS] Allergy (Severe, Verified 11/26/23 13:06) SWELLING rofecoxib [From VIOXX] Allergy (Intermediate, Verified 11/26/23 13:06) Swelling buprenorphine [From Suboxone] Adverse Reaction (Intermediate, Verified 11/26/23 13:06) Psychosis naloxone [From Suboxone] Adverse Reaction (Intermediate, Verified 11/26/23 13:06) Psychosis HPI mat visit HPI Details Patient presents via telehealth for OUD treatment and follow up Reports the 12mg had eliminated his withdrawal symptoms, but made him feel agitated and angry He would like to taper down on the suboxone to come off of it as quickly as possible Discussed with him that decreasing his dose too quickly could negatively impact his recovery He is requesting to go back down to 8mg films at this time, reports he has been having good effect with clonidine as an augment. Has no other concerns today [facility] Medical History History of osteomyelitis Personal history of colonic polyps Nicotine dependence, cigarettes, uncomplicated Hepatitis C HIV (human immunodeficiency virus infection) Paroxysmal A-fib PVD (peripheral vascular disease) GERD (gastroesophageal reflux disease) Anemia Murmur Opiate dependence COPD (chronic obstructive pulmonary disease) Surgical History History of carpal tunnel surgery of right wrist History of esophagogastroduodenoscopy (EGD) History of colonoscopy Family History Father COPD (chronic obstructive pulmonary disease) Chronic mental illness Diabetes Mother Rheumatic fever Diabetes CVD (cardiovascular disease) Breast cancer Paternal Aunt Gastric cancer Family/Other Diabetes Gastric cancer Social History Housing: House Alcohol intake: never Patient Tobacco Use Status: Current everyday Tobacco user Tobacco use type: Cigarette Cigarettes Per Day: 3 e-Cigarette/Vaping Use: Never Used Second Hand Smoke Exposure: Yes service: No Current occupational status: disabled 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 Cognitive needs: No Hearing needs: No Vision needs: No Review of Systems Const Reports as per HPI Assessment & Plan Assessment & Plan (1) Opiate dependence: Code(s): F11.20 - Opioid dependence, uncomplicated Qualifiers: Substance use status: uncomplicated Qualified Code(s): F11.20 - Opioid dependence, uncomplicated Plan: -Decrease dose to 8,g -Discussed with him risks vs benefits to decreasing suboxone -Follow up 1 week Medications: New buprenorphine-naloxone 4-[address] 1 strip/tab under (each) side of tongue 1 film buccal BID 14 ea 0RF Discontinued buprenorphine-naloxone 12-3 mg Discontinued Reason: None 1 film buccal Q24H 7 ea 0RF buprenorphine-naloxone 8-2 mg Discontinued Reason: None 1 film buccal DAILY 7 ea 0RF Telehealth Telehealth Location of provider rendering services: practice address Location of patient: address on file Patient Identification confirmed using: Name, : Yes Telehealth method: voice only Patient verbally consented to treatment: Yes Patient verbally consented to billing insurance company: Yes Patient informed of any privacy concerns related to visit: Yes Minutes spent on Phone/Video with Pt.: 15 Coding Level of Care Code Tele Est Pt Level 2 (40451) Diagnoses Uncomplicated opioid dependence F11.20 Substance use status: uncomplicated Time Spent (min) 25 Comment time spent with patient and performing chart review
== END 2023-12-12 10:17 | disposition home or self-care (01) ==
PROVIDERS: PCP Physician Assistant; Visit Provider Nurse Practitioner Family
DX: F11.20 Opioid dependence, uncomplicated (principal)
CPT/HCPCS: 99442

== ENCOUNTER → 2023-12-12 09:59 | Outpatient (BNVA) | payer OTHER, SELFPAY | PROVIDERS: PCP Physician Assistant; Visit Provider Nurse Practitioner Family ==

== ENCOUNTER 2023-12-19 14:04 | Outpatient (AMB) | payer OTHER, SELFPAY ==
--- NOTE | 2023-12-19 14:06 | A.OFFVISCC_ITS ---
Intake Vital Signs 12/19/23 14:14 BP 138/80 Blood Pressure Location Lt radial Position Sitting Pulse 72 Pulse Source Pulse Oximeter Pulse Oximetry (%) 97 Oxygen Delivery Method Room Air Intake Visit Reasons: MAT Intake Note: The patient presents for a mat visit Edi Consultant Required: No Allergies bee pollen [BEE STINGS] Allergy (Severe, Verified 12/19/23 14:07) SWELLING rofecoxib [From VIOXX] Allergy (Intermediate, Verified 12/19/23 14:07) Swelling buprenorphine [From Suboxone] Adverse Reaction (Intermediate, Verified 12/19/23 14:07) Psychosis naloxone [From Suboxone] Adverse Reaction (Intermediate, Verified 12/19/23 14:07) Psychosis Do you need a note to return to daycare/school/sports/work: No HPI MAT HPI Details Patient presents for MAT visit Reports things are going well for him and that he is regaining strength He feels as though the suboxone has been causing significant irritability for him He reports he gets irrationally angry with little to no provocation Discussed with him trialing an SSRI to see if that helps to address his irritability which he is open to trying He has no concerns for recovery at this time HPI Comments History of Present Illness Details Patient presents for MAT visit [facility] Medical History History of osteomyelitis Personal history of colonic polyps Nicotine dependence, cigarettes, uncomplicated Hepatitis C HIV (human immunodeficiency virus infection) Paroxysmal A-fib PVD (peripheral vascular disease) GERD (gastroesophageal reflux disease) Anemia Murmur Opiate dependence COPD (chronic obstructive pulmonary disease) Surgical History History of carpal tunnel surgery of right wrist History of esophagogastroduodenoscopy (EGD) History of colonoscopy Family History Father COPD (chronic obstructive pulmonary disease) Chronic mental illness Diabetes Mother Rheumatic fever Diabetes CVD (cardiovascular disease) Breast cancer Paternal Aunt Gastric cancer Family/Other Diabetes Gastric cancer Social History Housing: House Alcohol intake: never Patient Tobacco Use Status: Current everyday Tobacco user Tobacco use type: Cigarette Cigarettes Per Day: 3 e-Cigarette/Vaping Use: Never Used Second Hand Smoke Exposure: Yes service: No Current occupational status: disabled 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 Cognitive needs: No Hearing needs: No Vision needs: No Review of Systems Const Reports as per HPI Physical Exam Vital Signs: Last Vital Signs Pulse 72 12/19/23 14:14 BP 138/80 12/19/23 14:14 Pulse Ox 97 12/19/23 14:14 Oxygen Delivery Method Room Air 12/19/23 14:14 Const General: cooperative and no acute distress Resp Effort & Inspection: normal respiratory effort and able to speak in complete sentences Psych Appearance: grossly normal Mental Status: mental status grossly normal Speech and movement: Normal speech and movement present Affect: normal affect Attitude: cooperative Thought process: Normal thought process present Results AMB 14 Panel Urine Drug Screen Urine Marijuana (THC) Positive Last Edit by Lois Syed CMA on 12/19/23 14:16 Urine Cocaine Negative Last Edit by Lois Syed CMA on 12/19/23 14:16 Urine Morphine Negative Last Edit by Lois Syed CMA on 12/19/23 14:16 Urine Methamphetamine Negative Last Edit by Lois Syed CMA on 12/19/23 14:16 Urine Amphetamine Negative Last Edit by Lois Syed CMA on 12/19/23 14:1 6 Urine Benzodiazepine Negative Last Edit by Lois Syed CMA on 12/19/23 14:16 Urine Barbiturates Negative Last Edit by Lois Syed CMA on 12/19/23 14: 16 Urine Methadone Negative Last Edit by Lois Syed CMA on 12/19/23 14:16 Urine Buprenorphine Positive Last Edit by Lois Syed CMA on 12/19/23 14 :16 Urine Tricyclic Antidepressant Negative Last Edit by Lois Syed CMA on 12/19/23 14:16 Urine MDMA Negative Last Edit by Lois Syed CMA on 12/19/23 14:16 Urine Oxycodone Negative Last Edit by Lois Syed CMA on 12/19/23 14:16 Urine Phencyclidine Negative Last Edit by Lois Syed CMA on 12/19/23 14 :16 Urine Propoxyphene Negative Last Edit by Lois Syed CMA on 12/19/23 14: 16 Results Reviewed Results Reviewed: Laboratory Last Values POC Urine Buprenorphine Positive 12/19/23 14:07 POC Urine Morphine Negative 12/19/23 14:07 POC Urine Oxycodone Negative 12/19/23 14:07 POC Urine Methadone Negative 12/19/23 14:07 POC Urine Propoxyphene Negative 12/19/23 14:07 POC Urine Barbiturates Negative 12/19/23 14:07 POC U Tricyclic Antidpr Negative 12/19/23 14:07 POC Urine PCP Negative 12/19/23 14:07 POC Ur Amphetamines Negative 12/19/23 14:07 POC Ur Methamphetamine Negative 12/19/23 14:07 POC Urine MDMA Negative 12/19/23 14:07 POC Ur Benzodiazepine Negative 12/19/23 14:07 POC Urine Cocaine Negative 12/19/23 14:07 POC Ur Marijuana (THC) Positive 12/19/23 14:07 Assessment & Plan Assessment & Plan (1) Opiate use: Code(s): F11.90 - Opioid use, unspecified, uncomplicated Plan: -Continue suboxone 4mg BID, pt tolerating well -Start sertraline 25mg daily, medication education provided -Follow up 1 week Orders: Orders AMB 14 Panel Urine Drug Screen 12/19/23 Z51.81 - Encounter for therapeutic drug level monitoring Medications: New sertraline 25 mg PO DAILY 7 tabs 0RF Refilled buprenorphine-naloxone 4-[address] 1 strip/tab under (each) side of tongue 1 film buccal BID 28 ea 0RF Coding Level of Care Code Est Pt Level 3 (86861) Diagnoses Opiate use F11.90
[2023-12-19 14:14] VITALS: BP 138/80; PULSE 72; O2SAT 97
== END 2023-12-19 14:39 | disposition home or self-care (01) ==
PROVIDERS: PCP Physician Assistant; Visit Provider Nurse Practitioner Family
DX: F11.90 Opioid use, unspecified, uncomplicated (principal)
CPT/HCPCS: 99213

== ENCOUNTER → 2023-12-19 14:04 | Outpatient (BNVA) | payer OTHER, SELFPAY | PROVIDERS: PCP Physician Assistant; Visit Provider Nurse Practitioner Family | DX: F11.20 Opioid dependence, uncomplicated (principal); B20 Human immunodeficiency virus [HIV] disease; B19.20 Unspecified viral hepatitis C without hepatic coma; Z79.899 Other long term (current) drug therapy; Z51.81 Encounter for therapeutic drug level monitoring | CPT/HCPCS: 80305; 99212 ==

== ENCOUNTER 2023-12-25 14:32 | Outpatient (REF) | payer OTHER, SELFPAY ==
--- NOTE | 2023-12-25 15:33 | ECG_ITS ---
Test Reason : pvc's Blood Pressure : / mmHG Vent. Rate : 068 BPM Atrial Rate : 068 BPM P-R Int : 148 ms QRS Dur : 082 ms QT Int : 394 ms P-R-T Axes : 066 010 016 degrees QTc Int : 418 ms Sinus rhythm with marked sinus arrhythmia with occasional Premature ventricular complexes Nonspecific ST abnormality Abnormal ECG When compared with ECG of 26-OCT-2017 16:22, Premature ventricular complexes are now Present Premature supraventricular complexes are no longer Present Referred By: Andreas Vallejo Electronically Signed By:HAMIDA WHITAKER MD
== END 2023-12-25 14:33 | disposition home or self-care (01) ==
LOC: HO.XRAY 14:32
PROVIDERS: PCP Physician Assistant; Visit Provider Nurse Practitioner Family
DX: I49.3 Ventricular premature depolarization (principal); Z51.81 Encounter for therapeutic drug level monitoring; Z79.899 Other long term (current) drug therapy
CPT/HCPCS: 93005; 99212

== ENCOUNTER 2023-12-25 14:32 | Outpatient (AMB) | payer OTHER, SELFPAY ==
[2023-12-25 15:36] VITALS: BP 142/76; PULSE 78
--- NOTE | 2023-12-25 15:36 | A.OFFVISCC_ITS ---
Intake Vital Signs 12/25/23 15:36 BP 142/76 H Blood Pressure Location Lt brachial Position Sitting Pulse 78 Pulse Source Palpation Intake Visit Reasons: MAT Allergies bee pollen [BEE STINGS] Allergy (Severe, Verified 12/19/23 14:07) SWELLING rofecoxib [From VIOXX] Allergy (Intermediate, Verified 12/19/23 14:07) Swelling buprenorphine [From Suboxone] Adverse Reaction (Intermediate, Verified 12/19/23 14:07) Psychosis naloxone [From Suboxone] Adverse Reaction (Intermediate, Verified 12/19/23 14:0 7) Psychosis HPI MAT HPI Details Patient presents for MAT visit [place] as though the zoloft made him depressed I did not want to get out of bed Reports significant pain to upper left molars x 2-3 days COntinues to feel as though the suboxone is causing mood instability and he has been having explosive episodes of uncontrolled anger, this is causing him significant distress and he would like to start decreasing suboxone as result HPI Comments History of Present Illness Details Patient presents for MAT visit [facility] Medical History History of osteomyelitis Personal history of colonic polyps Nicotine dependence, cigarettes, uncomplicated Hepatitis C HIV (human immunodeficiency virus infection) Paroxysmal A-fib PVD (peripheral vascular disease) GERD (gastroesophageal reflux disease) Anemia Murmur Opiate dependence COPD (chronic obstructive pulmonary disease) Surgical History History of carpal tunnel surgery of right wrist History of esophagogastroduodenoscopy (EGD) History of colonoscopy Family History Father COPD (chronic obstructive pulmonary disease) Chronic mental illness Diabetes Mother Rheumatic fever Diabetes CVD (cardiovascular disease) Breast cancer Paternal Aunt Gastric cancer Family/Other Diabetes Gastric cancer Social History Housing: House Alcohol intake: never Patient Tobacco Use Status: Current everyday Tobacco user Tobacco use type: Cigarette Cigarettes Per Day: 3 e-Cigarette/Vaping Use: Never Used Second Hand Smoke Exposure: Yes service: No Current occupational status: disabled 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 Cognitive needs: No Hearing needs: No Vision needs: No Review of Systems Const Reports as per HPI Physical Exam Vital Signs: Last Vital Signs Pulse 78 12/25/23 15:36 BP 142/76 H 12/25/23 15:36 Const General: cooperative and no acute distress Resp Effort & Inspection: normal respiratory effort and able to speak in complete sentences Psych Appearance: grossly normal Mental Status: mental status grossly normal Speech and movement: Normal speech and movement present Affect: normal affect Attitude: cooperative Thought process: Normal thought process present Assessment & Plan Assessment & Plan (1) Opiate dependence: Code(s): F11.20 - Opioid dependence, uncomplicated Qualifiers: Substance use status: uncomplicated Qualified Code(s): F11.20 - Opioid dependence, uncomplicated Plan: -Mass pat reviewed -Dose decreased to 2mg TID from 2mg qid (he was splitting his 4mg films to take less more often) -Discussed risks/benefits of tapering off his suboxone too soon -Start gabapentin to address anxiety/rage, med education provided -Stop sertraline (2) Dental caries: Code(s): K02.9 - Dental caries, unspecified Plan: -Start augmentin -He has follow up with dentist this week Medications: New buprenorphine-naloxone 2-[address] 1 strip/tab under (each) side of tongue 1 film buccal TID 42 ea 0RF amoxicillin-pot clavulanate 875-125 mg 1 tab PO BID 14 tabs 0RF gabapentin 100 mg PO TID 42 caps 0RF Refilled ibuprofen 800 mg PO Q8H 45 tabs 1RF 15 days M79.641 - Pain in right hand, M79.642 - Pain in left hand Discontinued sertraline Discontinued Reason: None 25 mg PO DAILY 7 tabs 0RF buprenorphine-naloxone 4-[address] 1 strip/tab under (each) side of tongue Discontinued Reason: None 1 film buccal BID 28 ea 0RF Coding Level of Care Code Est Pt Level 3 (57432) Diagnoses Uncomplicated opioid dependence F11.20 Substance use status: uncomplicated Dental caries K02.9
== END 2023-12-25 15:26 | disposition home or self-care (01) ==
PROVIDERS: PCP Physician Assistant; Visit Provider Nurse Practitioner Family
DX: F11.20 Opioid dependence, uncomplicated (principal); K02.9 Dental caries, unspecified
CPT/HCPCS: 99213

== ENCOUNTER → 2023-12-25 15:33 | Outpatient (BNV) | payer OTHER, SELFPAY | PROVIDERS: PCP Physician Assistant; Visit Provider Internal Medicine Cardiovascular Disease | DX: I49.3 Ventricular premature depolarization (principal) | CPT/HCPCS: 93010 ==

== ENCOUNTER 2024-01-08 14:30 | Outpatient (AMB) | payer OTHER, SELFPAY ==
--- NOTE | 2024-01-08 14:46 | MHC.AM.SUB ---
Vital Signs 01/08/24 14:57 BP 120/60 Blood Pressure Location Lt brachial Position Sitting Respiration 20 Pulse 88 Pulse Source Pulse Oximeter Pulse Oximetry (%) 96 Intake Visit Reasons: MAT Allergies bee pollen [BEE STINGS] Allergy (Severe, Verified 12/19/23 14:07) SWELLING rofecoxib [From VIOXX] Allergy (Intermediate, Verified 12/19/23 14:07) Swelling buprenorphine [From Suboxone] Adverse Reaction (Intermediate, Verified 12/19/23 14:07) Psychosis naloxone [From Suboxone] Adverse Reaction (Intermediate, Verified 12/19/23 14:07) Psychosis HPI HPI MAT: Details: Patient presents for MAT visit Reports he has still be struggling with labile mood and feelings of anger He is hoping to taper his suboxone down as soon as he can Feels as though he has traded one substance for another He has been taking suboxone 4mg BID-TID alternating days HPI Comments Details: Patient presents for MAT visit [facility] Medical History History of osteomyelitis Personal history of colonic polyps Nicotine dependence, cigarettes, uncomplicated Hepatitis C HIV (human immunodeficiency virus infection) Paroxysmal A-fib PVD (peripheral vascular disease) GERD (gastroesophageal reflux disease) Anemia Murmur Opiate dependence COPD (chronic obstructive pulmonary disease) Surgical History History of carpal tunnel surgery of right wrist History of esophagogastroduodenoscopy (EGD) History of colonoscopy Family History Father COPD (chronic obstructive pulmonary disease) Chronic mental illness Diabetes Mother Rheumatic fever Diabetes CVD (cardiovascular disease) Breast cancer Paternal Aunt Gastric cancer Family/Other Diabetes Gastric cancer Social History Housing: House Alcohol intake: never Patient Tobacco Use Status: Current everyday Tobacco user Tobacco use type: Cigarette Cigarettes Per Day: 3 e-Cigarette/Vaping Use: Never Used Second Hand Smoke Exposure: Yes service: No Current occupational status: disabled 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 Cognitive needs: No Hearing needs: No Vision needs: No Review of Systems Const Reports as per HPI Physical Exam Vital Signs: Last Vital Signs Pulse 88 01/08/24 14:57 Resp 20 01/08/24 14:57 BP 120/60 01/08/24 14:57 Pulse Ox 96 01/08/24 14:57 Const General: cooperative and no acute distress Resp Effort & Inspection: normal respiratory effort and able to speak in complete sentences Psych Appearance: grossly normal Mental Status: mental status grossly normal Speech and movement: Normal speech and movement present Affect: normal affect Attitude: cooperative Thought process: Normal thought process present Assessment & Plan Assessment & Plan (1) Opiate dependence: Code(s): F11.20 - Opioid dependence, uncomplicated Category: Medical Qualifiers: Substance use status: uncomplicated Qualified Code(s): F11.20 - Opioid dependence, uncomplicated Plan: -Discussed at length with patient risks vs benefits of tapering suboxone -Reviewed with him the risk of overdose and if he resumes use after tapering -Discussed harm reduction -The plan is for him to take 4mg in morning and alternate days of 4mg and 2mg in the afternoon -Follow up 2 weeks Medications: Refilled clonidine HCl 0.1 mg PO TID 90 tabs 0RF buprenorphine-naloxone 2-[address] 1 strip/tab under (each) side of tongue 1 film buccal TID 42 ea 0RF
[2024-01-08 14:57] VITALS: BP 120/60; PULSE 88; RESP 20; O2SAT 96
== END 2024-01-08 15:31 | disposition home or self-care (01) ==
PROVIDERS: PCP Physician Assistant; Visit Provider Nurse Practitioner Family
DX: F11.20 Opioid dependence, uncomplicated (principal)
CPT/HCPCS: 99213

== ENCOUNTER → 2024-01-08 14:30 | Outpatient (BNVA) | payer OTHER, SELFPAY | PROVIDERS: PCP Physician Assistant; Visit Provider Nurse Practitioner Family | DX: F11.20 Opioid dependence, uncomplicated (principal); Z51.81 Encounter for therapeutic drug level monitoring; Z79.899 Other long term (current) drug therapy | CPT/HCPCS: 99212 ==

== ENCOUNTER 2024-01-22 13:04 | Outpatient (AMB) | payer OTHER, SELFPAY ==
--- NOTE | 2024-01-22 13:22 | A.OFFVISCC_ITS ---
Intake Visit Reasons: MAT Tele Allergies bee pollen [BEE STINGS] Allergy (Severe, Verified 12/19/23 14:07) SWELLING rofecoxib [From VIOXX] Allergy (Intermediate, Verified 12/19/23 14:07) Swelling buprenorphine [From Suboxone] Adverse Reaction (Intermediate, Verified 12/19/23 14:07) Psychosis naloxone [From Suboxone] Adverse Reaction (Intermediate, Verified 12/19/23 14:07) Psychosis HPI HPI MAT Tele: Details: Patient presents via telehealth appt He reports he has been needing to take 6-8mg suboxone daily due to breakthrough withdrawal symptoms and back pain He resumed the remaining sertraline he had on his own taking 1 daily Has felt his mood swings have not been as appreciable the past 2 weeks He still would like to taper but for now is content taking the 6-8mg daily States he fell and hit his head a few weeks ago and has an appt with a provider coming up to address this Has no other concerns today [facility] Medical History History of osteomyelitis Personal history of colonic polyps Nicotine dependence, cigarettes, uncomplicated Hepatitis C HIV (human immunodeficiency virus infection) Paroxysmal A-fib PVD (peripheral vascular disease) GERD (gastroesophageal reflux disease) Anemia Murmur Opiate dependence COPD (chronic obstructive pulmonary disease) Surgical History History of carpal tunnel surgery of right wrist History of esophagogastroduodenoscopy (EGD) History of colonoscopy Family History Father COPD (chronic obstructive pulmonary disease) Chronic mental illness Diabetes Mother Rheumatic fever Diabetes CVD (cardiovascular disease) Breast cancer Paternal Aunt Gastric cancer Family/Other Diabetes Gastric cancer Social History Housing: House Alcohol intake: never Patient Tobacco Use Status: Current everyday Tobacco user Tobacco use type: Cigarette Cigarettes Per Day: 3 e-Cigarette/Vaping Use: Never Used Second Hand Smoke Exposure: Yes service: No Current occupational status: disabled 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 Cognitive needs: No Hearing needs: No Vision needs: No Review of Systems Const Reports as per HPI Telehealth Telehealth Telehealth Platform: Telephone Location of provider rendering services: practice address Location of patient: address on file Patient Identification confirmed using: Name, : Yes Telehealth method: voice only Patient verbally consented to treatment: Yes Patient verbally consented to billing insurance company: Yes Patient informed of any privacy concerns related to visit: Yes Minutes spent on Phone/Video with Pt.: 20 Assessment & Plan Assessment & Plan (1) MDD (major depressive disorder), recurrent episode, moderate: Code(s): F33.1 - Major depressive disorder, recurrent, moderate Category: Medical Plan: -Encouraged him to continue taking his sertaline, refill sent to pharmacy (2) Opiate dependence: Code(s): F11.20 - Opioid dependence, uncomplicated Category: Medical Qualifiers: Substance use status: uncomplicated Qualified Code(s): F11.20 - Opioid dependence, uncomplicated Plan: -Mass pat reviewed -Dose adjusted to 4mg BID, reviewed with him he can split films in half to take less more often if that is more helpful to him -Follow up 2 weeks Medications: New buprenorphine-naloxone 4-1 mg 1 film buccal BID 42 ea 0RF Refilled sertraline 25 mg PO DAILY 30 tabs 0RF
== END 2024-01-22 13:23 | disposition home or self-care (01) ==
PROVIDERS: PCP Physician Assistant; Visit Provider Nurse Practitioner Family
DX: F11.20 Opioid dependence, uncomplicated (principal); F33.1 Major depressive disorder, recurrent, moderate
CPT/HCPCS: 99442

== ENCOUNTER → 2024-01-22 13:04 | Outpatient (BNVA) | payer OTHER, SELFPAY | PROVIDERS: PCP Physician Assistant; Visit Provider Nurse Practitioner Family | DX: Z51.81 Encounter for therapeutic drug level monitoring (principal); M79.641 Pain in right hand; M79.642 Pain in left hand ==

== ENCOUNTER 2024-01-30 15:11 | Outpatient (AMB) | payer OTHER, SELFPAY ==
--- NOTE | 2024-01-30 15:47 | A.OFFPC_ITS ---
Vital Signs 01/30/24 15:48 Height 5 ft 4 in Weight 178 lb 8 oz BMI 30.6 BP 160/62 H Blood Pressure Location Lt brachial Position Sitting Pulse 76 Pulse Source Pulse Oximeter Pulse Oximetry (%) 98 Oxygen Delivery Method Room Air Intake Visit Reasons: Rt lower back pain Intake Note: The patient is experiencing lower back pain on the right side, with radiating discomfort down the right leg and numbness at the crown of the head persisting for the past month. Telegraph Inspector Required: No Accompanied by: Self / Same As Patient Allergies bee pollen [BEE STINGS] Allergy (Severe, Verified 01/30/24 16:02) SWELLING rofecoxib [From VIOXX] Allergy (Intermediate, Verified 01/30/24 16:02) Swelling buprenorphine [From Suboxone] Adverse Reaction (Intermediate, Verified 01/30/24 16:02) Psychosis naloxone [From Suboxone] Adverse Reaction (Intermediate, Verified 01/30/24 16:02) Psychosis Medication List - Last Reconciled 01/30/24 by Andreas Vallejo PA-C albuterol sulfate 90 mcg/actuation (Ventolin HFA) 2 puffs inhalation QID PRN 30 days amlodipine 5 mg PO DAILY aspirin 81 mg PO DAILY 90 days bisacodyl (Dulcolax (bisacodyl)) 20 mg (4 x 5 mg) PO ONCE 1 day buprenorphine-naloxone 4-1 mg 1 film buccal BID chlorhexidine gluconate 4% 1 appl topical .Zlhdt-xajyx-mnd 30 days clonidine HCl 0.1 mg PO TID compr.stocking,knee,long,large As directed dicyclomine 20 mg PO TID dolutegravir-lamivudine 50-300 mg 1 tab PO DAILY esomeprazole magnesium 20 mg PO DAILY ferrous sulfate 325 mg PO DAILY food supplemt, lactose-reduced (Boost High Protein) 1 ea PO BID 12 days gabapentin 100 mg PO TID ibuprofen 800 mg PO Q8H 15 days nicotine (Nicotrol) 1 inh inhalation Q2-4H PRN 30 days peg 3350-electrolytes 236-22.74-6.74 -5.86 gram 240 mL PO Q10M sertraline 25 mg PO DAILY simethicone (Gas Relief (simethicone)) 125 mg PO ONCE Tobacco use date assessed: 05/15/23 Fall risk assessment: No Falls in past year Last assessed Fall Risk: 01/30/24 Dental Screening Dental Screen Date: 01/30/24 Did you have a dental visit in the last 12 months?: Yes Did you have a dental problem in the last 6 months where you did not have access to dental care?: No Was dental information given to patient?: Patient has dentist HPI Rt lower back pain HPI Details Patient is a 68-year-old male here today for problem visit. Patient has a past medical history significant for opiate dependency, depression anxiety, hypertension a COPD. He reports over the last few weeks experiencing very sharp lower lumbar/buttocks pain that radiates into his right lower extremity. Signs and symptoms consistent with a sciatica. He believes this all started when he was laid up in opiate withdrawal sleeping in awkward positions. He has been trying NSAIDs though have not been effective at all. Does have gabapentin available to him and he reports he has not been taking this medication. He can not recall any acute injury to his lower back. Opiate dependency --recent history--> Over the last several months has been trying to get off opiates. He does report sending an extended period time withdrawing from opiates even spinning 5 days and add care. He has establish himself with comprehensive treatment center and started Suboxone. Unfortunately things have not worked out and he continues a small dose of elicit heroin on a daily basis. He still is interested in completely getting off of opiates again and will be following up with comprehensive treatment center. [facility] Medical History History of osteomyelitis Personal history of colonic polyps Nicotine dependence, cigarettes, uncomplicated Hepatitis C HIV (human immunodeficiency virus infection) Paroxysmal A-fib PVD (peripheral vascular disease) GERD (gastroesophageal reflux disease) Anemia Murmur Opiate dependence COPD (chronic obstructive pulmonary disease) Surgical History History of carpal tunnel surgery of right wrist History of esophagogastroduodenoscopy (EGD) History of colonoscopy Family History Father COPD (chronic obstructive pulmonary disease) Chronic mental illness Diabetes Mother Rheumatic fever Diabetes CVD (cardiovascular disease) Breast cancer Paternal Aunt Gastric cancer Family/Other Diabetes Gastric cancer Social History Housing: House Alcohol intake: never Patient Tobacco Use Status: Current everyday Tobacco user Tobacco use type: Cigarette Cigarettes Per Day: 3 e-Cigarette/Vaping Use: Never Used Second Hand Smoke Exposure: Yes service: No Current occupational status: disabled Current occupation: [employer] Cognitive needs: No Hearing needs: No Vision needs: No Questionnaire Thrive Questionnaire Date Thrive assessed: 09/18/23 AMISH-7 AMB Questionnaire AMISH-7 Date AMISH - 7 assessed: 09/18/23 Source: Developed by Drs. Oswaldo Tavares, Lori Senior, Holden Mc and colleagues, with an educational liz from [employer]. Review of Systems Const Denies headache(s) Eyes Denies loss of vision ENT Denies vertigo, Denies dizziness, Denies headache(s) and Denies sore throat Card Denies chest pain, Denies leg edema and Denies lightheadedness Resp Denies cough, Denies hemoptysis and Denies wheezing GI Denies abdominal pain, Denies melena, Denies constipation, Denies diarrhea and Denies vomiting Denies dysuria, Denies urinary frequency and Denies urinary urgency Musc Reports back pain, Denies arthralgias, Denies joint swelling, Denies numbness and Denies tingling Neuro Denies Abnormal speech present, Denies behavioral changes, Denies vertigo, Denies dizziness, Denies headache(s), Denies loss of vision, Denies memory loss, Denies numbness and Denies tingling Psych Denies anxiety, Denies behavioral changes, Denies depression, Denies memory loss and Denies panic attacks Nhan/Lymph Denies easy bleeding and Denies easy bruising Aller/Immun Denies wheezing Physical exam (Primary Care) Vital Signs: Last Vital Signs Pulse 76 01/30/24 15:48 BP 160/62 H 01/30/24 15:48 Pulse Ox 98 01/30/24 15:48 Oxygen Delivery Method Room Air 01/30/24 15:48 BMI result Body Mass Index 30.6 Tobacco/Smoking Status: Tobacco use Status Tobacco use date assessed 05/15/23 01/30/24 15:50 Patient Tobacco Use Status Current everyday Tobacco 01/30/24 15:50 Tobacco use type Cigarette 01/30/24 15:50 e-Cigarette/Vaping Use Never Used 01/30/24 15:50 Thrive Assessment: Date of Thrive Assessment Date Thrive assessed 09/18/23 01/30/24 15:50 Const General: healthy appearing, no acute distress, alert and awake Nutritional Appearance: well nourished Orientation/consciousness: oriented to person, oriented to place and oriented to time HENMT Ears: TM's normal bilaterally General nose exam: Normal nasal mucous membranes and turbinates present Eyes Conjunctivae: conjunctivae normal Sclerae: sclerae normal Pupils: Equal, round and reactive pupils present Neck Neck: Yes no lymphadenopathy and Yes no JVD Thyroid: Thyroid normal Carotids: no bruits Resp Effort & Inspection: normal respiratory effort and not tachypneic Auscultation: no crackles, no rales, no rhonchi and no wheezes Cardio Rate: regular rate Rhythm: regular rhythm Heart sounds: no murmurs and normal S1 and S2 GI Palpation (GI): Soft to palpation, nontender, no hepatomegaly and no splenomegaly Auscultation: normal bowel sounds Skin General skin exam: no rashes or lesions noted and dry skin Neuro General: oriented to person, oriented to place and oriented to time Cranial nerves: Yes Equal, round and reactive pupils present Speech: No Abnormal speech present Gait exam (Neuro): Normal gait present Motor exam (neuro): no tremor noted Extrem Right upper extremity: full ROM Left upper extremity: full ROM Right lower extremity: full ROM; no edema Left lower extremity: full ROM; no edema Psych Mental Status: mental status grossly normal Speech and movement: Normal speech and movement present Affect: normal affect Attitude: cooperative Thought process: Normal thought process present Assessment and Plan Assessment & Plan (1) Right sciatic nerve pain: Code(s): M54.31 - Sciatica, right side Plan: As per HPI, patient's signs and symptoms most consistent with a sciatic nerve issue on the right side. He would likely benefit from formal physical therapy. Will supply patient with prednisone taper and muscle relaxer to help improve his pain. (2) Lumbar radiculopathy: Code(s): M54.16 - Radiculopathy, lumbar region Plan: As above. If physical therapy and medication not effective will consider MRI of the lumbar spine with IV contrast as he does have history of IV drug use. 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 Orders: Orders XR lumbar spine 4V min 01/30/24 M54.16 - Radiculopathy, lumbar region PT Evaluation and Treatment 01/30/24 M51.9 - Unspecified thoracic, thoracolumbar and lumbosacral intervertebral disc disorder, M54.16 - Radiculopathy, lumbar region XR sacrum coccyx min 2V 01/30/24 M54.16 - Radiculopathy, lumbar region, M54.31 - Sciatica, right side Medications: New baclofen 10 mg PO BID 28 tabs 0RF 14 days M54.16 - Radiculopathy, lumbar region prednisone see taper instructions- take 3 tabs x 3 days , take 2 tabs x 3 days , take 1 tabs x 3days 10 mg PO DIRECTED 18 tabs 0RF 9 days M54.16 - Radiculopathy, lumbar region Coding Level of Care Code Est Pt Level 4 (79932) Diagnoses Right sciatic nerve pain M54.31 Lumbar radiculopathy M54.16
[2024-01-30 15:48] VITALS: BP 160/62; PULSE 76; O2SAT 98; BMI 30.6
== END 2024-01-30 16:19 | disposition home or self-care (01) ==
PROVIDERS: PCP Physician Assistant; Visit Provider Physician Assistant
DX: M54.31 Sciatica, right side (principal); M54.16 Radiculopathy, lumbar region
CPT/HCPCS: 99214

== ENCOUNTER 2024-01-31 13:09 | Outpatient (REF) | payer OTHER, SELFPAY ==
--- NOTE | ~2024-01-31 | XR_ITS ---
EXAMINATION: XR LUMBAR SPINE XR SACRUM/COCCYX CLINICAL INFORMATION: Radiculopathy lumbar region. COMPARISON: None available. TECHNIQUE: 5 views of the lumbar spine. 3 views of the sacrum/coccyx. FINDINGS: LUMBAR SPINE: S-shaped thoracolumbar scoliosis. Surgical clips in the right upper quadrant. Advanced facet arthritis in the mid to lower lumbar spine. Advanced multilevel lumbar spondylosis with multilevel loss of disc space height, most notable at L4-L5. Grade 1 anterolisthesis of L4 on L5. There are patchy areas of heterogeneous sclerosis most notable at L4-L5 levels as well as at the upper aspect of the sacrum, likely related to above-described degenerative processes; however, correlation with clinical exam and possible additional imaging with CT scan or MRI should be considered if there is clinical concern for underlying bony pathology. SACRUM/COCCYX: Surgical clip in the pelvis. Pubic symphysis is preserved. Bones are diffusely demineralized. Moderate degenerative changes with sclerosis and narrowing in the bilateral sacroiliac joints. XR/XR sacrum coccyx min 2V IMPRESSION: 1. Advanced multilevel lumbar spondylosis, most notable at L4-L5. 2. Advanced facet arthritis in the mid to lower lumbar spine. 3. Patchy areas of heterogeneous sclerosis, most notable at L4-L5 levels as well as at the upper aspect of the sacrum, likely related to above-described degenerative processes; however, correlation with clinical exam and possible additional imaging with CT scan or MRI should be considered if there is clinical concern for underlying bony pathology. 4. Moderate degenerative changes in the bilateral sacroiliac joints. 5. Bones are diffusely demineralized.
--- NOTE | ~2024-01-31 | XR_ITS ---
EXAMINATION: XR LUMBAR SPINE XR SACRUM/COCCYX CLINICAL INFORMATION: Radiculopathy lumbar region. COMPARISON: None available. TECHNIQUE: 5 views of the lumbar spine. 3 views of the sacrum/coccyx. FINDINGS: LUMBAR SPINE: S-shaped thoracolumbar scoliosis. Surgical clips in the right upper quadrant. Advanced facet arthritis in the mid to lower lumbar spine. Advanced multilevel lumbar spondylosis with multilevel loss of disc space height, most notable at L4-L5. Grade 1 anterolisthesis of L4 on L5. There are patchy areas of heterogeneous sclerosis most notable at L4-L5 levels as well as at the upper aspect of the sacrum, likely related to above-described degenerative processes; however, correlation with clinical exam and possible additional imaging with CT scan or MRI should be considered if there is clinical concern for underlying bony pathology. SACRUM/COCCYX: Surgical clip in the pelvis. Pubic symphysis is preserved. Bones are diffusely demineralized. Moderate degenerative changes with sclerosis and narrowing in the bilateral sacroiliac joints. XR/XR lumbar spine 4V min IMPRESSION: 1. Advanced multilevel lumbar spondylosis, most notable at L4-L5. 2. Advanced facet arthritis in the mid to lower lumbar spine. 3. Patchy areas of heterogeneous sclerosis, most notable at L4-L5 levels as well as at the upper aspect of the sacrum, likely related to above-described degenerative processes; however, correlation with clinical exam and possible additional imaging with CT scan or MRI should be considered if there is clinical concern for underlying bony pathology. 4. Moderate degenerative changes in the bilateral sacroiliac joints. 5. Bones are diffusely demineralized.
== END 2024-01-31 13:10 | disposition home or self-care (01) ==
LOC: HO.XRAY 13:09
PROVIDERS: PCP Physician Assistant; Visit Provider Physician Assistant
DX: M54.16 Radiculopathy, lumbar region (principal); M54.31 Sciatica, right side
CPT/HCPCS: 72110; 72220

== ENCOUNTER 2024-02-12 13:47 | Outpatient (REF) | payer OTHER, SELFPAY ==
[2024-02-12 15:39] LABS: Hematocrit 34.4 % (42.0-52.0); Hemoglobin 11.7 g/dl (14.0-18.0); Mean Corpuscular Hemoglobin 29.5 pg (27.0-33.0); Mean Corpuscular Volume 86.9 fL (80.0-98.0); Mean Platelet Volume 10.2 fL (9.4-12.4); Platelet Count 160 X10*3/uL (160-400); Red Blood Count 3.96 X10*6/uL (4.60-5.80); Red Cell Distribution Width 13.4 % (11.0-16.0); White Blood Count 3.4 X10*3/uL (4.8-10.8)
[2024-02-12 16:11] LABS: Creatinine Urine 83.75 mg/dL; Microalbum/Creatinine Ratio Ur 89.5 ug/mg cr (<30)
[2024-02-12 16:12] LABS: Alanine Aminotransferase 21 U/L (0-40); Albumin Level 3.9 g/dL (3.5-5.0); Alkaline Phosphatase 86 U/L (39-117); Anion Gap 11 (12-20); Aspartate Amino Transferase 21 U/L (5-37); Bilirubin Total 0.5 mg/dL (0.0-1.0); Blood Urea Nitrogen 14 mg/dL (9-16); Calcium 9.4 mg/dL (8.4-10.2); Carbon Dioxide 27 mmol/L (22-29); Chloride 105 mmol/L (96-108); Estimated Glomerular Filt Rate > 60; Glucose Fasting 123 mg/dL (60-99); Potassium 4.1 mmol/L (3.3-5.1); Sodium 139 mmol/L (135-145); Total Protein 7.9 g/dL (6.5-8.0)
== END 2024-02-12 13:48 | disposition home or self-care (01) ==
LOC: HO.LAB 13:47
PROVIDERS: Absent Provider Physician Assistant; PCP Physician Assistant; Visit Provider Nurse Practitioner Family
DX: F11.20 Opioid dependence, uncomplicated (principal); I10 Essential (primary) hypertension; Z12.5 Encounter for screening for malignant neoplasm of prostate
CPT/HCPCS: 36415; 80053; 82043; 82570; 84153; 85027; 99212

== ENCOUNTER 2024-02-12 13:47 | Outpatient (AMB) | payer OTHER, SELFPAY ==
--- NOTE | 2024-02-12 13:48 | A.OFFVISCC_ITS ---
Vital Signs 02/12/24 13:52 BP 140/82 H Blood Pressure Location Rt brachial Position Sitting Pulse 85 Pulse Source Pulse Oximeter Pulse Oximetry (%) 97 Oxygen Delivery Method Room Air Intake Visit Reasons: MAT visit Allergies bee pollen [BEE STINGS] Allergy (Severe, Verified 01/30/24 16:02) SWELLING rofecoxib [From VIOXX] Allergy (Intermediate, Verified 01/30/24 16:02) Swelling buprenorphine [From Suboxone] Adverse Reaction (Intermediate, Verified 01/30/24 16:02) Psychosis naloxone [From Suboxone] Adverse Reaction (Intermediate, Verified 01/30/24 16:02) Psychosis HPI HPI MAT visit: Details: Patient presents for OUD treatment and follow up Patient reports relapse 2-3 weeks ago Minimizing, stating he is unsure how his substance use resumed, states he stopped taking his suboxone when he started using, unable to identify triggers, states one day he woke up and realized he had been using the past few days Expressed shame He is using 1 bag a day IN Reports he has narcan at home [facility] Medical History History of osteomyelitis Personal history of colonic polyps Nicotine dependence, cigarettes, uncomplicated Hepatitis C HIV (human immunodeficiency virus infection) Paroxysmal A-fib PVD (peripheral vascular disease) GERD (gastroesophageal reflux disease) Anemia Murmur Opiate dependence COPD (chronic obstructive pulmonary disease) Surgical History History of carpal tunnel surgery of right wrist History of esophagogastroduodenoscopy (EGD) History of colonoscopy Family History Father COPD (chronic obstructive pulmonary disease) Chronic mental illness Diabetes Mother Rheumatic fever Diabetes CVD (cardiovascular disease) Breast cancer Paternal Aunt Gastric cancer Family/Other Diabetes Gastric cancer Social History Housing: House Alcohol intake: never Patient Tobacco Use Status: Current everyday Tobacco user Tobacco use type: Cigarette Cigarettes Per Day: 7 Years Smoked: 50 e-Cigarette/Vaping Use: Never Used Second Hand Smoke Exposure: Yes service: No Current occupational status: disabled 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 Cognitive needs: No Hearing needs: No Vision needs: No Review of Systems Const Reports as per HPI Physical Exam Vital Signs: Last Vital Signs Pulse 85 02/12/24 13:52 BP 140/82 H 02/12/24 13:52 Pulse Ox 97 02/12/24 13:52 Oxygen Delivery Method Room Air 02/12/24 13:52 Const General: cooperative and no acute distress Resp Effort & Inspection: normal respiratory effort Psych Appearance: grossly normal and well kempt Mental Status: mental status grossly normal Speech and movement: Normal speech and movement present Affect: normal affect Attitude: cooperative Assessment & Plan Assessment & Plan (1) Opioid use disorder: Code(s): F11.90 - Opioid use, unspecified, uncomplicated Category: Medical Plan: -Reviewed 3 day cross taper to restart suboxone, pt reports he has 4mg films and 2mg films at home. -Discussed with him ATS as a potential option, he would like to hold off until after the beginning of February to get his financial obligations taken care of -Follow up 1 week Medications: New buprenorphine-naloxone 8-2 mg 1 film buccal BID 14 ea 0RF
[2024-02-12 13:52] VITALS: BP 140/82; PULSE 85; O2SAT 97
== END 2024-02-12 14:37 | disposition home or self-care (01) ==
PROVIDERS: PCP Physician Assistant; Visit Provider Nurse Practitioner Family
DX: F11.90 Opioid use, unspecified, uncomplicated (principal)
CPT/HCPCS: 99213

== ENCOUNTER 2024-02-19 10:00 | Outpatient (AMB) | payer OTHER, SELFPAY ==
--- NOTE | 2024-02-19 10:17 | A.OFFVISCC_ITS ---
Intake Visit Reasons: MAT Tele Allergies bee pollen [BEE STINGS] Allergy (Severe, Verified 01/30/24 16:02) SWELLING rofecoxib [From VIOXX] Allergy (Intermediate, Verified 01/30/24 16:02) Swelling buprenorphine [From Suboxone] Adverse Reaction (Intermediate, Verified 01/30/24 16:02) Psychosis naloxone [From Suboxone] Adverse Reaction (Intermediate, Verified 01/30/24 16:02) Psychosis HPI HPI MAT Tele: Details: Patient presents via telehealth He has not attempted the cross taper suboxone induction yet, states he is too nervous to He is hoping to go into detox by the (he has previously stated the 10th), states he has financial obligations and bills to pay before going into detox States he is using 1 bag a day, trying to use as minimally as possibly, splits the bag in 1/4's and uses a quarter at a time Gets it from same source but is concerned [facility] Medical History History of osteomyelitis Personal history of colonic polyps Nicotine dependence, cigarettes, uncomplicated Hepatitis C HIV (human immunodeficiency virus infection) Paroxysmal A-fib PVD (peripheral vascular disease) GERD (gastroesophageal reflux disease) Anemia Murmur Opiate dependence COPD (chronic obstructive pulmonary disease) Surgical History History of carpal tunnel surgery of right wrist History of esophagogastroduodenoscopy (EGD) History of colonoscopy Family History Father COPD (chronic obstructive pulmonary disease) Chronic mental illness Diabetes Mother Rheumatic fever Diabetes CVD (cardiovascular disease) Breast cancer Paternal Aunt Gastric cancer Family/Other Diabetes Gastric cancer Social History Housing: House Alcohol intake: never Patient Tobacco Use Status: Current everyday Tobacco user Tobacco use type: Cigarette Cigarettes Per Day: 7 Years Smoked: 50 e-Cigarette/Vaping Use: Never Used Second Hand Smoke Exposure: Yes service: No Current occupational status: disabled 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 Cognitive needs: No Hearing needs: No Vision needs: No Review of Systems Const Reports as per HPI Telehealth Telehealth Telehealth Platform: Telephone Location of provider rendering services: practice address Location of patient: address on file Patient Identification confirmed using: Name, : Yes Telehealth method: voice only Patient verbally consented to treatment: Yes Patient verbally consented to billing insurance company: Yes Patient informed of any privacy concerns related to visit: Yes Minutes spent on Phone/Video with Pt.: 15 Assessment & Plan Assessment & Plan (1) Opioid use disorder: Code(s): F11.90 - Opioid use, unspecified, uncomplicated Category: Medical Plan: -Encouraged him to try the cross taper, and if it doesn't work out for him a plan can be made for detox -Provided him with the hotline number for [facility] and explained to him the service provided -Encouraged him to have narcan out and visible every time he uses -He is to call and check in at the end of the week, next appt will be made at that time -Nasir sent to pharmacy for comfort meds when patient attempts induction Medications: New ondansetron 4 mg PO Q8H PRN 14 tabs 0RF nausea and vomiting
== END 2024-02-19 10:16 | disposition home or self-care (01) ==
PROVIDERS: PCP Physician Assistant; Visit Provider Nurse Practitioner Family
DX: F11.90 Opioid use, unspecified, uncomplicated (principal)
CPT/HCPCS: 99442

== ENCOUNTER → 2024-02-19 10:00 | Outpatient (BNVA) | payer OTHER, SELFPAY | PROVIDERS: PCP Physician Assistant; Visit Provider Nurse Practitioner Family ==

== ENCOUNTER 2024-03-03 10:45 | Outpatient (AMB) | payer OTHER, SELFPAY ==
[2024-03-03 10:50] VITALS: BP 160/90; PULSE 93; RESP 19; O2SAT 98
--- NOTE | 2024-03-03 10:50 | MHC.AM.SUB ---
Vital Signs 03/03/24 10:50 BP 160/90 H Blood Pressure Location Lt brachial Position Sitting Respiration 19 Pulse 93 Pulse Source Pulse Oximeter Pulse Oximetry (%) 98 Intake Visit Reasons: MAT Tele Allergies bee pollen [BEE STINGS] Allergy (Severe, Verified 01/30/24 16:02) SWELLING rofecoxib [From VIOXX] Allergy (Intermediate, Verified 01/30/24 16:02) Swelling buprenorphine [From Suboxone] Adverse Reaction (Intermediate, Verified 01/30/24 16:02) Psychosis naloxone [From Suboxone] Adverse Reaction (Intermediate, Verified 01/30/24 16:02) Psychosis HPI HPI MAT Tele: Details: Patient presents for OUD treatment and follow up Is still continuing to use 1 bag / day Reports he is using a new needle to inject every time, and using alcohol swabs Has narcan at home and information for [facility] Use Alone hotline Is hoping to find a window of time that is appropriate for him to go to detox HPI Comments Details: Patient presents for MAT visit [facility] Medical History History of osteomyelitis Personal history of colonic polyps Nicotine dependence, cigarettes, uncomplicated Hepatitis C HIV (human immunodeficiency virus infection) Paroxysmal A-fib PVD (peripheral vascular disease) GERD (gastroesophageal reflux disease) Anemia Murmur Opiate dependence COPD (chronic obstructive pulmonary disease) Surgical History History of carpal tunnel surgery of right wrist History of esophagogastroduodenoscopy (EGD) History of colonoscopy Family History Father COPD (chronic obstructive pulmonary disease) Chronic mental illness Diabetes Mother Rheumatic fever Diabetes CVD (cardiovascular disease) Breast cancer Paternal Aunt Gastric cancer Family/Other Diabetes Gastric cancer Social History Housing: House Alcohol intake: never Patient Tobacco Use Status: Current everyday Tobacco user Tobacco use type: Cigarette Cigarettes Per Day: 7 Years Smoked: 50 e-Cigarette/Vaping Use: Never Used Second Hand Smoke Exposure: Yes service: No Current occupational status: disabled 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 Cognitive needs: No Hearing needs: No Vision needs: No Review of Systems Const Reports as per HPI Physical Exam Vital Signs: Last Vital Signs Pulse 93 03/03/24 10:50 Resp 19 03/03/24 10:50 BP 160/90 H 03/03/24 10:50 Pulse Ox 98 03/03/24 10:50 Const General: cooperative and no acute distress Resp Effort & Inspection: normal respiratory effort and able to speak in complete sentences Psych Appearance: grossly normal Mental Status: mental status grossly normal Speech and movement: Normal speech and movement present Affect: normal affect Attitude: cooperative Thought process: Normal thought process present Assessment & Plan Assessment & Plan (1) Opiate dependence: Code(s): F11.20 - Opioid dependence, uncomplicated Category: Medical Qualifiers: Substance use status: uncomplicated Qualified Code(s): F11.20 - Opioid dependence, uncomplicated Plan: -Encouraged him to start calling detoxes for beds as soon as he can -Reviewed with him he can also call [facility] when he is ready for detox so staff can help facilitate a bed search -Follow up 2 weeks
== END 2024-03-03 11:27 | disposition home or self-care (01) ==
PROVIDERS: PCP Physician Assistant; Visit Provider Nurse Practitioner Family
DX: F11.20 Opioid dependence, uncomplicated (principal)
CPT/HCPCS: 99213

== ENCOUNTER → 2024-03-03 10:45 | Outpatient (BNVA) | payer OTHER, SELFPAY | PROVIDERS: PCP Physician Assistant; Visit Provider Nurse Practitioner Family | DX: F11.20 Opioid dependence, uncomplicated (principal); B20 Human immunodeficiency virus [HIV] disease; B19.20 Unspecified viral hepatitis C without hepatic coma; Z79.899 Other long term (current) drug therapy | CPT/HCPCS: 99212 ==

== ENCOUNTER 2024-03-11 13:14 | Outpatient (AMB) | payer OTHER, SELFPAY ==
--- NOTE | 2024-03-11 13:11 | MHC.AM.SUB ---
Intake Visit Reasons: MAT Tele Allergies bee pollen [BEE STINGS] Allergy (Severe, Verified 01/30/24 16:02) SWELLING rofecoxib [From VIOXX] Allergy (Intermediate, Verified 01/30/24 16:02) Swelling buprenorphine [From Suboxone] Adverse Reaction (Intermediate, Verified 01/30/24 16:02) Psychosis naloxone [From Suboxone] Adverse Reaction (Intermediate, Verified 01/30/24 16:02) Psychosis HPI HPI MAT Tele: Details: Patient presents for follow up via telehealth using 3-4x/day --using about a bag and half IV States he is using every 5 hours or so Reports that he is in a holding pattern and waiting for his calender to clear before seeking [facility] admission [facility] Medical History History of osteomyelitis Personal history of colonic polyps Nicotine dependence, cigarettes, uncomplicated Hepatitis C HIV (human immunodeficiency virus infection) Paroxysmal A-fib PVD (peripheral vascular disease) GERD (gastroesophageal reflux disease) Anemia Murmur Opiate dependence COPD (chronic obstructive pulmonary disease) Surgical History History of carpal tunnel surgery of right wrist History of esophagogastroduodenoscopy (EGD) History of colonoscopy Family History Father COPD (chronic obstructive pulmonary disease) Chronic mental illness Diabetes Mother Rheumatic fever Diabetes CVD (cardiovascular disease) Breast cancer Paternal Aunt Gastric cancer Family/Other Diabetes Gastric cancer Social History Housing: House Alcohol intake: never Patient Tobacco Use Status: Current everyday Tobacco user Tobacco use type: Cigarette Cigarettes Per Day: 7 Years Smoked: 50 e-Cigarette/Vaping Use: Never Used Second Hand Smoke Exposure: Yes service: No Current occupational status: disabled 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 Cognitive needs: No Hearing needs: No Vision needs: No Review of Systems Const Reports as per HPI Telehealth Telehealth Telehealth Platform: Telephone Location of provider rendering services: practice address Location of patient: address on file Patient Identification confirmed using: Name, : Yes Telehealth method: voice only Patient verbally consented to treatment: Yes Patient verbally consented to billing insurance company: Yes Patient informed of any privacy concerns related to visit: Yes Minutes spent on Phone/Video with Pt.: 15 Assessment & Plan Assessment & Plan (1) Opioid use disorder: Code(s): F11.90 - Opioid use, unspecified, uncomplicated Category: Medical Plan: risk reduction discussion follow up one week with RN
== END 2024-03-11 13:37 | disposition home or self-care (01) ==
PROVIDERS: PCP Physician Assistant; Visit Provider Nurse Practitioner Psychiatric/Mental Health
DX: F11.90 Opioid use, unspecified, uncomplicated (principal)
CPT/HCPCS: 99442

== ENCOUNTER → 2024-03-11 13:14 | Outpatient (BNVA) | payer OTHER, SELFPAY | PROVIDERS: PCP Physician Assistant; Visit Provider Nurse Practitioner Psychiatric/Mental Health ==

== ENCOUNTER 2024-03-17 10:00 | Outpatient (RCR) | payer OTHER, SELFPAY ==
--- NOTE | 2024-03-04 13:16 | MHC.PT.EP ---
[facility] [place] Office [place] Office [place] Office [address] [phone] F: [phone] F: [phone] F: [phone] F: [phone] Physical Therapy Plan of Care Date of Evaluation: 03/04/24 Date of Surgery: Diagnosis: low back pain Assessment: Pt is a 68yo male who presents with sub-acute radicular symptoms down R LE, causing him to limp. PT exam reveals pelvic obliquity, reduced flexibility R hip, and mild core weakness. Skilled PT indicated to promote centralization of radicular symptoms through improvement of posture, body mechanics, and promotion of core stabilization. Pt in agreement with POC and is motivated to participate. Frequency and Duration: The patient will be seen 2x/week, x 4 weeks Short Term Goals: 1. In 2 weeks, patient will be I with phase 1 HEP and lumbar neutral positioning. 2. In 2 weeks, patient will report no pain down R LE past level of the hip. Skilled Nursing Goals: 1. In 4 weeks, patient will report <2/10 pain in low back only, no LE pain reported. 2. In 4 weeks, patient will demonstrate proper squatting and lifting technique with 10# object. Treatment Plan: Modalities to reduce pain, spasms and effusion. Manual therapy to restore motion and function. Therapeutic exercise to improve strength and flexibility. Neuromuscular re-education for posture and balance. Therapeutic activities to return to functional activities of daily living. Electronically signed by: Lise Red PT, DPT Please sign and return to therapist. Thank you for your referral.
--- NOTE | 2024-07-23 11:37 | MHC.PT.DC ---
[facility] [place] Office [place] Office [place] Office [address] Barbara Harvey [address] [phone] F: [phone] F: [phone] F: [phone] F: [phone] Physical Therapy Discharge Report Diagnosis: low back pain Date of Surgery: Date of Evaluation: 03/04/24 Date of Discharge: 04/11/24 Treatments to Date: 4 Cancellations to Date: No Shows to Date: Discharge Status: Improved Function Independent with HEP Discharge Summary: Pt is a 68yo male who presents with sub-acute radicular symptoms down R LE, causing him to limp. PT exam reveals pelvic obliquity, reduced flexibility R hip, and mild core weakness. Skilled PT indicated to promote centralization of radicular symptoms through improvement of posture, body mechanics, and promotion of core stabilization. Pt in agreement with POC and is motivated to participate. Pt participated in 4 treatment sessions, pain improved from 6/10 to 0/10, I with HEP and improved core stabilization noted. Good follow through with HEP and postural corrections. Pt did not f/ with additional appointments following 03/17/24. D/C at this time due to visit non-compliance. Thank you for this referral. Electronically signed by: Lise Red PT, DPT Please sign and return to therapist. Thank you for your referral.
== END 2024-07-23 11:38 | disposition home or self-care (01) ==
LOC: HO.PT 10:00
PROVIDERS: PCP Physician Assistant; Visit Provider Physician Assistant
DX: M51.9 Unspecified thoracic, thoracolumbar and lumbosacral intervertebral disc disorder (principal); M54.16 Radiculopathy, lumbar region
CPT/HCPCS: 97110; 97161; 97530

== ENCOUNTER → 2024-03-18 11:17 | Outpatient (BNVA) | payer OTHER, SELFPAY | PROVIDERS: PCP Physician Assistant; Visit Provider Nurse Practitioner Psychiatric/Mental Health ==

== ENCOUNTER 2024-04-04 09:23 | Outpatient (REF) | payer OTHER, SELFPAY ==
--- NOTE | ~2024-04-04 | MR_ITS ---
EXAMINATION: MR LUMBAR SPINE WITHOUT AND WITH CONTRAST CLINICAL INFORMATION: Have an acute lumbar radiculopathy, bone lesion on lumbar radiograph. Intravenous drug abuser, concern for osteomyelitis COMPARISON: None available. TECHNIQUE: MRI of the lumbar spine was obtained using routine sequences with and without contrast. Intravenous contrast: Gadavist 8 mL FINDINGS: Mild levocurvature of the lumbar spine. Grade 1 anterolisthesis at L4-5 and mild retrolisthesis at L2-3. Diffusely heterogeneous bone marrow signal, likely degenerative. Patchy STIR hyperintensity and enhancement involving the opposing L1-2 and L4-5 vertebrae with associated severe disc height loss and Schmorl's nodes, likely reflecting reactive endplate changes. Multilevel disc desiccation. The vertebral body heights are preserved. Multilevel endplate osteophytosis. The visualized spinal cord is normal in caliber. No abnormal cord signal or enhancement. The conus medullaris terminates at L1-2. T12-L1: Small disc bulge. No significant spinal canal nor foraminal narrowing. L1-2: Diffuse disc bulge and bilateral facet arthrosis. Mild spinal canal stenosis. Mild to moderate left neural foraminal narrowing. Patchy edema and enhancement surrounding the facet joints bilaterally. L2-3: Diffuse disc bulge and bilateral facet arthrosis. No significant spinal canal stenosis. Mild bilateral neural foraminal narrowing with the disc abutting the exiting L2 nerve roots bilaterally. L3-4: Diffuse disc bulge, ligamentum flavum hypertrophy, and bilateral facet arthrosis. Minimal spinal canal stenosis. Mild to moderate bilateral neural foraminal narrowing with disc abutting the exiting L3 nerve roots bilaterally. L4-5: Diffuse disc bulge, ligamenta flavum hypertrophy, and bilateral facet arthrosis. Moderate spinal canal stenosis with mass effect on the cauda equina nerve roots. Moderate to severe right and mild to moderate left neural foraminal narrowing with mass effect on the right exiting L4 nerve roots. There is patchy edema and enhancement surrounding the facet joints. L5-S1: Central disc protrusion with superimposed annular fissure. Bilateral facet arthrosis. Mild spinal canal stenosis. Mild bilateral neural foraminal narrowing with the disc abutting the exiting L5 nerve roots bilaterally. The paravertebral soft tissues are unremarkable. MR/MR lumbar spine wo/w con IMPRESSION: -Patchy edema and enhancement involving the opposing L1-2 and L4-5 vertebrae with associated severe disc height loss and Schmorl's nodes, likely reflecting reactive endplate changes. There is also patchy edema and enhancement surrounding the facet joints at these levels which may reflect degenerative inflammation. Superimposed infection is not definitively excluded. -Multilevel degenerative changes of the lumbar spine as described above which is worst at L4-5 where there is moderate spinal canal stenosis and moderate to severe right and mild to moderate left neural foraminal narrowing with mass effect on the right exiting L4 nerve root. Electronically signed by: Mya Reddy MD 05/10/2024 09:36 AM EDT
[2024-04-04] MEDS: gadobutroL 10 ML VIAL IVPUSH (12:00)
== END 2024-04-04 09:24 | disposition home or self-care (01) ==
LOC: HO.MRI 09:23
PROVIDERS: PCP Physician Assistant; Visit Provider Physician Assistant
DX: M54.16 Radiculopathy, lumbar region (principal); M89.9 Disorder of bone, unspecified; F11.90 Opioid use, unspecified, uncomplicated
CPT/HCPCS: 72158; A9585

== ENCOUNTER 2024-04-10 10:04 | Outpatient (AMB) | payer OTHER, SELFPAY ==
--- NOTE | 2024-04-10 10:12 | A.OFFPC_ITS ---
Vital Signs 04/10/24 10:34 Height 5 ft 4 in Weight 169 lb 8 oz BMI 29.1 BP 138/62 Blood Pressure Location Lt brachial Position Sitting Pulse 60 Pulse Source Pulse Oximeter Pulse Oximetry (%) 98 Oxygen Delivery Method Room Air Intake Visit Reasons: PE/PT is requesting sooner if possible Safety Deposit Boxes Custodian Required: No Accompanied by: Self / Same As Patient Allergies bee pollen [BEE STINGS] Allergy (Severe, Verified 04/10/24 11:07) SWELLING rofecoxib [From VIOXX] Allergy (Intermediate, Verified 04/10/24 11:07) Swelling buprenorphine [From Suboxone] Adverse Reaction (Intermediate, Verified 04/10/24 11:07) Psychosis naloxone [From Suboxone] Adverse Reaction (Intermediate, Verified 04/10/24 11:07) Psychosis Medication List - Last Reconciled 04/10/24 by Andreas Vallejo PA-C albuterol sulfate 90 mcg/actuation (Ventolin HFA) 2 puffs inhalation QID PRN 30 days amlodipine 5 mg PO DAILY aspirin 81 mg PO DAILY 90 days compr.stocking,knee,long,large As directed dolutegravir-lamivudine 50-300 mg 1 tab PO DAILY esomeprazole magnesium 20 mg PO ONCE PRN ferrous sulfate 325 mg PO DAILY food supplemt, lactose-reduced (Boost High Protein) 1 ea PO BID 12 days ibuprofen 800 mg PO Q8H PRN nicotine (Nicotrol) 1 inh inhalation Q2-4H PRN 30 days peg 3350-electrolytes 236-22.74-6.74 -5.86 gram 240 mL PO Q10M Tobacco use date assessed: 04/10/24 Fall risk assessment: No Falls in past year Last assessed Fall Risk: 04/10/24 Dental Screening Dental Screen Date: 01/30/24 HPI PE/PT is requesting sooner if possible HPI Details Juliano is a 68 y/o male here today for an annual physical. Pmhx of asthma, opiate dependence, h/o Hep C with cirrhosis, depression, HIV,?tobacco dependency, hypertension. Lumbar radiculopathy: Has been better since starting physical therapy X-rays lower back were concerning for bone marrow edema. In the setting of IV drug use he has we then gotten MRI of his lower lumbar spine and still waiting radiologist read out. ? .. ? HIV: ? Followed by Dr. West, continues on antivirals.? He reports his viral load has been undetectable ? .. ? HTN: Report his BP has been stable, Stable on Amlodipine. ? .. ? .. ?? ?Tobacco dependency:? Followed by [facility] screening. Has found 3 small LLL cyst of no concern though will be doing annual chest CT. ? Unfortunatley patient continue to smoke 1-2 cigs per day. ? .. ? Opiate dependence:? Patient continues to be followed by a methadone program in [facility].? Now 65 mg of methadone He still does use strict hair when as he feels that methadone causes him cardiac issues. Vaccines: Up-to-date with shingles,, pneumonia, UTD with COVID , needs PCV Colon cancer screening: Colonoscopy has been cancelled. He would like to get his colonoscopy done at [facility] Medical History History of osteomyelitis Personal history of colonic polyps Nicotine dependence, cigarettes, uncomplicated Hepatitis C HIV (human immunodeficiency virus infection) Paroxysmal A-fib PVD (peripheral vascular disease) GERD (gastroesophageal reflux disease) Anemia Murmur Opiate dependence COPD (chronic obstructive pulmonary disease) Surgical History History of carpal tunnel surgery of right wrist History of esophagogastroduodenoscopy (EGD) History of colonoscopy Family History Father COPD (chronic obstructive pulmonary disease) Chronic mental illness Diabetes Mother Rheumatic fever Diabetes CVD (cardiovascular disease) Breast cancer Paternal Aunt Gastric cancer Family/Other Diabetes Gastric cancer Social History Housing: House Alcohol intake: never Patient Tobacco Use Status: Current everyday Tobacco user Tobacco use type: Cigarette Cigarettes Per Day: 7 Years Smoked: 50 e-Cigarette/Vaping Use: Never Used Second Hand Smoke Exposure: Yes Substance Use Type: Heroin service: No Current occupational status: disabled 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 Oswaldo Tavares, Lori Senior, Holden Mc and colleagues, with an educational liz from [employer]. Review of Systems Const Denies body aches, Denies chills, Denies excessive sweating, Denies fatigue, Denies fever(s) and Denies headache(s) Eyes Denies blurry vision ENT Denies dysphagia, Denies vertigo, Denies dizziness, Denies headache(s), Denies hearing loss and Denies tinnitus Card Denies chest pain, Denies chest pain with activity, Denies syncope, Denies irregular heart rhythm and Denies dyspnea Resp Denies chest congestion, Denies cough, Denies hemoptysis, Denies dyspnea and Denies wheezing GI Denies abdominal pain, Denies melena, Denies hematochezia, Denies coffee ground emesis, Denies dysphagia, Denies diarrhea, Denies nausea and Denies vomiting Denies difficulty urinating, Denies dysuria, Denies urinary frequency, Denies urinary hesitancy and Denies urinary urgency Musc Denies arthralgias, Denies limited range of motion, Denies muscle cramps and Denies muscle weakness Skin/Breast Denies rash and Denies skin ulcer Neuro Denies Abnormal speech present, Denies confusion, Denies vertigo, Denies dizziness, Denies syncope, Denies headache(s), Denies memory loss and Denies seizure-like activity Psych Denies anxiety, Denies confusion, Denies depression, Denies memory loss, Denies panic attacks and Denies paranoia Endo Denies excessive sweating, Denies fatigue, Denies flushing, Denies polydipsia and Denies polyuria Aller/Immun Denies wheezing Physical exam (Primary Care) Vital Signs: Last Vital Signs Pulse 60 04/10/24 10:34 BP 138/62 04/10/24 10:34 Pulse Ox 98 04/10/24 10:34 Oxygen Delivery Method Room Air 04/10/24 10:34 BMI result Body Mass Index 29.1 Tobacco/Smoking Status: Tobacco use Status Tobacco use date assessed 04/10/24 04/10/24 10:43 Patient Tobacco Use Status Current everyday Tobacco 04/10/24 11:13 Tobacco use type Cigarette 04/10/24 11:13 e-Cigarette/Vaping Use Never Used 04/10/24 11:13 Are you ready to quit: No Tobacco cessation counseling provided: Yes Items discussed: Nicotine replacement Relapse Prevention: discussed the importance of a supportive environment, discussed negative mood or depression after quitting, weight gain after smoking is common and discussed dietary, exercise and/or lifestyle changes Number of minutes spent counselin CPT code: 52050 - 4-10 Minutes Thrive Assessment: Date of Thrive Assessment Date Thrive assessed 09/18/23 04/10/24 10:12 Const General: cooperative, comfortable, no acute distress, alert and awake; No c onfusion Orientation/consciousness: oriented to person, oriented to place, patient oriented x3 and No confusion HENMT Head: Yes normocephalic Ears: external ears normal and TM's normal bilaterally Face and sinus: No sinus tenderness Mouth: Normal oral and palatal mucosa present and tongue normal Teeth and gingiva: dentition normal and gingiva normal Throat: Yes posterior oropharynx normal, Yes tonsils normal and Yes uvula midline Eyes Conjunctivae: conjunctivae normal Sclerae: sclerae normal Pupils: Equal, round and reactive pupils present EOM: EOMs intact bilaterally Direct Ophthalmoscopy: No no photophobia Neck Neck: Yes no lymphadenopathy, No tender and Yes no JVD Thyroid: Thyroid normal Carotids: no bruits Chest Chest palpation & inspection: no tenderness Resp Effort & Inspection: normal respiratory effort, no audible wheezes, not labored and no stridor Auscultation: no crackles, no rales, no rhonchi and no wheezes Cardio Jugular venous distension: no JVD Rate: regular rate, not bradycardic and not tachycardic Rhythm: regular rhythm Bruits: no carotid bruits Peripheral pulses: Peripheral pulses 2+ throughout GI Inspection: Yes normal to inspection, No abdominal wall ecchymosis and No visible herniation Palpation (GI): Soft to palpation, nontender, no guarding, not rigid and No hepatosplenomegaly present Auscultation: normoactive bowel sounds General: Yes no CVA tenderness Back/Spine/Pelvis Back: no CVA tenderness and No back tenderness Cervical Spine: cervical ROM normal Thoracic/Lumbar Spine: thoracic and lumbar spine normal to inspection, straight leg raise negative bilaterally, No thoraco-lumbar ROM limited and No lumbar spinal tenderness Skin Lesions: no lesions Rashes: no rashes Wounds: no wounds Neuro General: oriented to person, oriented to place, patient oriented x3, CN's II-XI intact bilaterally and No confusion Cranial nerves: Yes Equal, round and reactive pupils present and Yes Normal accommodation reflex present Cognition (Neuro): normal cognition Speech: No Abnormal speech present Gait exam (Neuro): Normal gait present Motor exam (neuro): 5/5 motor strength present throughout Extrem Right upper extremity: full ROM; no cyanosis Left upper extremity: full ROM; no cyanosis Right lower extremity: no edema Left lower extremity: no edema Psych Appearance: grossly normal Mental Status: mental status grossly normal Affect: normal affect Attitude: cooperative Thought process: Normal thought process present Assessment and Plan Assessment & Plan (1) Annual physical exam: Code(s): Z00.00 - Encounter for general adult medical examination without abnormal findings (2) Lumbar radiculopathy: Code(s): M54.16 - Radiculopathy, lumbar region Plan: As above. If physical therapy and medication not effective will consider MRI of the lumbar spine with IV contrast as he does have history of IV drug use. 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 West) Code(s): B20 - Human immunodeficiency virus [HIV] disease Qualifiers: HIV symptom status: asymptomatic Qualified Code(s): Z21 - Asymptomatic human immunodeficiency virus [HIV] infection status Plan: Continue to follow-up with Dr. West (5) COPD (chronic obstructive pulmonary disease): Code(s): J44.9 - Chronic obstructive pulmonary disease, unspecified Qualifiers: COPD type: emphysema Emphysema type: centrilobular Qualified Code(s): J43.2 - Centrilobular emphysema Plan: Stable Continue albuterol inhaler p.r.n. (6) GERD (gastroesophageal reflux disease): Code(s): K21.9 - Gastro-esophageal reflux disease without esophagitis Qualifiers: Esophagitis presence: without esophagitis Qualified Code(s): K21.9 - Gastro-esophageal reflux disease without esophagitis Plan: Continue as omeprazole 20 mg daily Avoid GERD trigger foods Do not lay down 2-3 hours after evening meal (7) HTN (hypertension): Code(s): I10 - Essential (primary) hypertension Qualifiers: Hypertension type: essential hypertension Qualified Code(s): I10 - Essential (primary) hypertension Plan: Goal BP equal or less than 140/90 Continue amlodipine 5 mg daily Low-sodium diet (8) Personal history of colonic polyps: Comment: (last scope 2018 - repeat 2023) Code(s): Z86.010 - Personal history of colonic polyps Plan: Like to get his colonoscopy done at [place] Orders: Orders Hemoglobin A1c Today Andreas Vallejo PA-C R73.09 - Other abnormal glucose Comprehensive [place]. Panel Fast Today Andreas Vallejo PA-C R73.09 - Other abnormal glucose Complete Blood Count Auto Diff Today Andreas Vallejo PA-C D50.9 - Iron deficiency anemia, unspecified Referrals Thoracic/General Surgery Referral Andreas Vallejo PA-C F17.200 - Nicotine dependence, unspecified, uncomplicated Gastroenterology Referral Andreas Vallejo PA-C Z86.010 - Personal history of colonic polyps Medications: Changed From esomeprazole magnesium 20 mg PO DAILY 60 caps 3RF K21.9 - Gastro- esophageal reflux disease without esophagitis To esomeprazole magnesium 20 mg PO ONCE PRN K21.9 - Gastro-esophageal reflux disease without esophagitis Andreas Vallejo PA-C From ibuprofen 800 mg PO Q8H 15 days 45 tabs 1RF M79.641 - Pain in right hand, M79.642 - Pain in left hand To ibuprofen 800 mg PO Q8H PRN M79.641 - Pain in right hand, M79.642 - Pain in left hand Kim Sanderson NP Refilled amlodipine 5 mg PO DAILY 90 tabs 1RF Andreas Vallejo PA-C I10 - Essential (primary) hypertension Patient Instructions: Goal: Blood pressure to remain below 140/90 Barriers: Adherence to physical activity and healthy eating habits Coding Level of Care Code Est Pt Prev Care >65y(46262) Diagnoses Annual physical exam Z00.00 Lumbar radiculopathy M54.16 Tobacco dependence F17.200 Asymptomatic HIV infection Z21 HIV symptom status: asymptomatic Centrilobular emphysema J43.2 COPD type: emphysema Emphysema type: centrilobular Gastroesophageal reflux disease without esophagitis K21.9 Esophagitis presence: without esophagitis Essential hypertension I10 Hypertension type: essential hypertension Personal history of colonic polyps Z86.010 Additional Codes Vital Signs *Quality* - CPT code: 53204 - 4-10 Minutes ([id number])
[2024-04-10 10:34] VITALS: BP 138/62; PULSE 60; O2SAT 98; BMI 29.1
== END 2024-04-10 11:39 | disposition home or self-care (01) ==
PROVIDERS: PCP Physician Assistant; Visit Provider Physician Assistant
DX: Z00.00 Encounter for general adult medical examination without abnormal findings (principal); Z21 Asymptomatic human immunodeficiency virus [HIV] infection status; J43.2 Centrilobular emphysema; M54.16 Radiculopathy, lumbar region; F17.200 Nicotine dependence, unspecified, uncomplicated; K21.9 Gastro-esophageal reflux disease without esophagitis; I10 Essential (primary) hypertension; Z86.010 Personal history of colon polyps
CPT/HCPCS: 99397

== ENCOUNTER 2024-04-18 08:52 | Outpatient (AMB) | payer OTHER, SELFPAY ==
--- NOTE | 2024-04-18 08:53 | A.OFFVISCC_ITS ---
Intake Visit Reasons: MAT Tele Allergies bee pollen [BEE STINGS] Allergy (Severe, Verified 04/10/24 11:07) SWELLING rofecoxib [From VIOXX] Allergy (Intermediate, Verified 04/10/24 11:07) Swelling buprenorphine [From Suboxone] Adverse Reaction (Intermediate, Verified 04/10/24 11:07) Psychosis naloxone [From Suboxone] Adverse Reaction (Intermediate, Verified 04/10/24 11:07) Psychosis HPI HPI MAT Tele: Details: Patient presents for follow up via telehealth Reporting that he is currently on methadone 70mg Frustrated that his dose is where it is. Encouraged patient not focus so much on number and more on how he feels. Still using one bag daily usually in the morning to not feel so sick Patient sharing that at times he wishes to just stop methadone because he does not like feeling dependant on something Discussed responding vs reacting to situations and challenges [facility] Medical History (Updated 04/18/24 @ 09:01 by June Altman CNP) Opiate dependence Opiate use History of osteomyelitis Personal history of colonic polyps Nicotine dependence, cigarettes, uncomplicated Hepatitis C HIV (human immunodeficiency virus infection) Paroxysmal A-fib PVD (peripheral vascular disease) GERD (gastroesophageal reflux disease) Anemia Murmur Opiate dependence COPD (chronic obstructive pulmonary disease) Surgical History History of carpal tunnel surgery of right wrist History of esophagogastroduodenoscopy (EGD) History of colonoscopy Family History Father COPD (chronic obstructive pulmonary disease) Chronic mental illness Diabetes Mother Rheumatic fever Diabetes CVD (cardiovascular disease) Breast cancer Paternal Aunt Gastric cancer Family/Other Diabetes Gastric cancer Social History Housing: House Alcohol intake: never Patient Tobacco Use Status: Current everyday Tobacco user Tobacco use type: Cigarette Cigarettes Per Day: 7 Years Smoked: 50 e-Cigarette/Vaping Use: Never Used Second Hand Smoke Exposure: Yes Substance Use Type: Heroin service: No Current occupational status: disabled 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 Cognitive needs: No Hearing needs: No Vision needs: No Review of Systems Const Reports as per HPI Telehealth Telehealth Telehealth Platform: Telephone Location of provider rendering services: practice address Location of patient: address on file Patient Identification confirmed using: Name, : Yes Telehealth method: voice only Patient verbally consented to treatment: Yes Patient verbally consented to billing insurance company: Yes Minutes spent on Phone/Video with Pt.: 20 Assessment & Plan Assessment & Plan (1) Opioid use disorder: Code(s): F11.90 - Opioid use, unspecified, uncomplicated Category: Medical Plan: * follow up PRN * overdose prevention discussion
== END 2024-04-18 09:30 | disposition home or self-care (01) ==
PROVIDERS: PCP Physician Assistant; Visit Provider Nurse Practitioner Psychiatric/Mental Health
DX: F11.90 Opioid use, unspecified, uncomplicated (principal)
CPT/HCPCS: 99213

== ENCOUNTER → 2024-04-18 08:52 | Outpatient (BNVA) | payer OTHER, SELFPAY | PROVIDERS: PCP Physician Assistant; Visit Provider Nurse Practitioner Psychiatric/Mental Health ==

== ENCOUNTER 2024-05-15 09:47 | Outpatient (REF) | payer OTHER, SELFPAY ==
[2024-05-15 10:10] LABS: MANUAL DIFF FLAG NO
[2024-05-15 10:36] LABS: Basophils Percent Auto 0.4 % (0-2); Eosinophils Absolute Auto 0.1 X10*3/uL (0.0-0.4); Eosinophils Percent Auto 4.7 % (0-4); Hematocrit 35.8 % (42.0-52.0); Hemoglobin 12.1 g/dl (14.0-18.0); Lymphocytes Percent Auto 36.8 % (20-40); Mean Corpuscular HGB Conc 33.8 g/dl (31.0-36.0); Mean Corpuscular Hemoglobin 29.1 pg (27.0-33.0); Mean Corpuscular Volume 86.1 fL (80.0-98.0); Mean Platelet Volume 10.7 fL (9.4-12.4); Monocytes Absolute Auto 0.4 X10*3/uL (0.1-1.2); Monocytes Percent Auto 15.9 % (2-11); Neutrophils Absolute Auto 1.1 x10*3/uL (2.0-8.3); Neutrophils Percent Auto 42.2 % (45-73); Platelet Count 141 X10*3/uL (160-400); Red Blood Count 4.16 X10*6/uL (4.60-5.80); Red Cell Distribution Width 13.2 % (11.0-16.0); White Blood Count 2.6 X10*3/uL (4.8-10.8)
[2024-05-15 10:54] LABS: Estimated Average Glucose 123 mg/dL; Hemoglobin A1c % 5.9 % (<6.0)
[2024-05-15 11:17] LABS: Alanine Aminotransferase 36 U/L (0-40); Alkaline Phosphatase 240 U/L (39-117); Anion Gap 11 (12-20); Aspartate Amino Transferase 34 U/L (5-37); Bilirubin Total 0.5 mg/dL (0.0-1.0); Blood Urea Nitrogen 12 mg/dL (9-16); Calcium 9.5 mg/dL (8.4-10.2); Carbon Dioxide 29 mmol/L (22-29); Chloride 103 mmol/L (96-108); Erythrocyte Sedimentation Rate 49 MM/HR (0-15); Estimated Glomerular Filt Rate > 60; Glucose Fasting 131 mg/dL (60-99); Potassium 4.6 mmol/L (3.3-5.1); Sodium 138 mmol/L (135-145); Total Protein 8.3 g/dL (6.5-8.0)
== END 2024-05-15 09:48 | disposition home or self-care (01) ==
LOC: HO.LAB 09:47
PROVIDERS: PCP Physician Assistant; Visit Provider Physician Assistant
DX: R73.09 Other abnormal glucose (principal); D50.9 Iron deficiency anemia, unspecified; Z21 Asymptomatic human immunodeficiency virus [HIV] infection status; R93.7 Abnormal findings on diagnostic imaging of other parts of musculoskeletal system; F19.90 Other psychoactive substance use, unspecified, uncomplicated
CPT/HCPCS: 36415; 80053; 83036; 85025; 85652; 87040

== ENCOUNTER 2024-06-16 12:46 | Outpatient (REF) | payer OTHER, SELFPAY ==
--- NOTE | ~2024-06-16 | CT_ITS ---
EXAMINATION: CT LOW-DOSE SCREENING CHEST WITHOUT CONTRAST CLINICAL INFORMATION: Nicotine dependence, cigarettes, uncomplicated. The patient is a current smoker with a 54 pack-year history of smoking. COMPARISON: Multiple prior CT scans of the chest, the most recent of which is dated 04/10/2023 and the most remote of which is dated 10/25/2017. TECHNIQUE: Multidetector volumetric CT imaging of the chest is performed on a Siemens SOMATOM Definition scanner without contrast using low dose technique. Additional 2D coronal and sagittal reformatted images and axial 3D maximum intensity projection (MIP) images are generated on the CT workstation. This CT examination was performed using dose optimization techniques as appropriate, variously including the following: *Automated exposure control *Adjustment of mA and/or kV according to patient size (this includes techniques or standardized protocols for targeted exams where dose is matched to indication/reason for exam; i.e. extremities or head) *Use of iterative reconstruction technique TOTAL EXAM DLP: 43 mGy-cm. CTDIvol: 1.34 mGy. FINDINGS: PULMONARY NODULES: A couple of 3 mm nodular densities are seen in the left upper lobe and right lower lobe (5:93 and 266), unchanged from prior. There is no new, increasing-sized or suspicious nodules seen. LUNGS: Lungs bilaterally symmetrically expanded. There is mild emphysema along with bronchial thickening without bronchiectasis. No effusion or pneumothorax. Central airways patent. MEDIASTINUM: No mediastinal, hilar or axillary adenopathy or free fluid collection. CORONARY ARTERY CALCIFICATION: Mild. THYROID GLAND: Unremarkable to the extent seen. CARDIOVASCULAR STRUCTURES: Aortic and heart size normal. No pericardial effusion. CHEST WALL/AXILLA: Unremarkable. UPPER ABDOMEN: The spleen is enlarged at 13.6 cm. Status post cholecystectomy. Multiple surgical clips are noted near the GE junction. OSSEOUS STRUCTURES: No suspicious focal findings. Degenerative changes are present in the spine, most marked at L1-L2. CT/CT lung screening IMPRESSION: No findings seen suspicious for malignancy. ASSESSMENT: 1. Lung-RADS Category 2: Benign appearance or behavior of nodules. N/A 2. Lung-RADS Category S: Negative. There are no clinically significant or potentially clinically significant findings not related to the lungs requiring urgent additional evaluation. RECOMMENDATION: Continued routine annual low-dose CT lung screening in 1 year is recommended. An order for CT CHEST LOW DOSE CANCER SCREENING ([id number]) can be placed. Electronically signed by: John York MD 08/02/2024 05:02 PM [place]
== END 2024-06-16 12:47 | disposition home or self-care (01) ==
LOC: HO.CT 12:46
PROVIDERS: PCP Physician Assistant; Visit Provider Physician Assistant Medical
DX: Z12.2 Encounter for screening for malignant neoplasm of respiratory organs (principal); F17.210 Nicotine dependence, cigarettes, uncomplicated
CPT/HCPCS: 71271

== ENCOUNTER 2024-08-12 13:54 | Outpatient (AMB) | payer OTHER, SELFPAY ==
[2024-08-12 13:57] VITALS: BP 130/70; PULSE 77; O2SAT 97; BMI 30.9
--- NOTE | 2024-08-12 13:57 | MHC.PC.OV ---
Vital Signs 08/12/24 13:57 Height 5 ft 4 in Weight 180 lb 2 oz BMI 30.9 BP 130/70 Blood Pressure Location Lt brachial Position Sitting Pulse 77 Pulse Source Pulse Oximeter Pulse Oximetry (%) 97 Oxygen Delivery Method Room Air Intake Visit Reasons: f/u htn [place]er Required: No Accompanied by: Self / Same As Patient Allergies bee pollen [BEE STINGS] Allergy (Severe, Verified 08/12/24 14:04) SWELLING rofecoxib [From VIOXX] Allergy (Intermediate, Verified 08/12/24 14:04) Swelling buprenorphine [From Suboxone] Adverse Reaction (Intermediate, Verified 08/12/24 14:04) Psychosis naloxone [From Suboxone] Adverse Reaction (Intermediate, Verified 08/12/24 14:04) Psychosis Medication List - Last Reconciled 08/12/24 by Andreas Vallejo PA-C albuterol sulfate 90 mcg/actuation (Ventolin HFA) 2 puffs inhalation QID PRN 30 days amlodipine 5 mg PO DAILY aspirin 81 mg PO DAILY 90 days compr.stocking,knee,long,large As directed dolutegravir-lamivudine 50-300 mg 1 tab PO DAILY esomeprazole magnesium 20 mg PO ONCE PRN ferrous sulfate 325 mg PO DAILY food supplemt, lactose-reduced (Boost High Protein) 1 ea PO BID 12 days ibuprofen 800 mg PO Q8H PRN nicotine (Nicotrol) 1 inh inhalation Q2-4H PRN 30 days peg 3350-electrolytes 236-22.74-6.74 -5.86 gram 240 mL PO Q10M Tobacco use date assessed: 08/12/24 Fall risk assessment: No Falls in past year Last assessed Fall Risk: 08/12/24 Dental Screening Dental Screen Date: 08/12/24 Did you have a dental visit in the last 12 months?: Yes Did you have a dental problem in the last 6 months where you did not have access to dental care?: No Was dental information given to patient?: Patient has dentist HPI f/u htn HPI Details Juliano is a 68 y/o male here today for a follow-up visit. . Pmhx of asthma, opiate dependence, h/o Hep C with cirrhosis, depression, HIV,?tobacco dependency, hypertension. Concern--> patient reports noting a palpable tender mass in his mid of his abdomen has become more apparent over the last few months. Also reports a chronic rash over his bilateral lower extremities to have been evident for the past years. He attributes this rash to his methadone use. He has used atfw-kff-[id number] creams though have not been effective. He is willing to try antibiotic cream Lumbar radiculopathy: Has been better since starting physical therapy X-rays lower back were concerning for bone marrow edema. In the setting of IV drug use he has we then gotten MRI of his lower lumbar spine which did show-->Patchy edema and enhancement involving the opposing L1-2 and L4-5 vertebrae with associated severe disc height loss and Schmorl's nodes, likely reflecting reactive endplate changes. There is also patchy edema and enhancement surrounding the facet joints at these levels which may reflect degenerative inflammation. Superimposed infection is not definitively excluded. -Multilevel degenerative changes of the lumbar spine as described above which is worst at L4-5 where there is moderate spinal canal stenosis and moderate to severe right and mild to moderate left neural foraminal narrowing with mass effect on the right exiting L4 nerve root. He has his infectious disease specialist and has started treatment. ? .. ? HIV: ? Followed by Dr. West, continues on antivirals.? He reports his viral load has been undetectable ? .. ? HTN: Report his BP has been stable, Stable on Amlodipine. ? .. ? .. ?? ?Tobacco dependency:? Followed by [facility] screening. Has found 3 small LLL cyst of no concern though will be doing annual chest CT. ? Unfortunatley patient continue to smoke 1-2 cigs per day. ? .. ? Opiate dependence:? Patient continues to be followed by a methadone program in [facility].? He still does use strict hair when as he feels that methadone causes him cardiac issues. [facility] Medical History (Updated 08/12/24 @ 14:16 by Andreas Vallejo PA-C) Opiate dependence MDD (major depressive disorder), recurrent episode, moderate History of osteomyelitis HIV (human immunodeficiency virus infection) Hepatitis C Paroxysmal A-fib PVD (peripheral vascular disease) Murmur Anemia COPD (chronic obstructive pulmonary disease) Nicotine dependence, cigarettes, uncomplicated GERD (gastroesophageal reflux disease) Personal history of colonic polyps Surgical History History of carpal tunnel surgery of right wrist History of esophagogastroduodenoscopy (EGD) History of colonoscopy Family History Father COPD (chronic obstructive pulmonary disease) Chronic mental illness Diabetes Mother Rheumatic fever Diabetes CVD (cardiovascular disease) Breast cancer Paternal Aunt Gastric cancer Family/Other Diabetes Gastric cancer Social History Housing: House Alcohol intake: never Patient Tobacco Use Status: Current everyday Tobacco user Tobacco use type: Cigarette Cigarettes Per Day: 7 Years Smoked: 50 e-Cigarette/Vaping Use: Never Used Second Hand Smoke Exposure: Yes Substance Use Type: Heroin service: No Current occupational status: disabled Current occupation: [employer] Cognitive needs: No Hearing needs: No Vision needs: No Questionnaire Thrive Questionnaire Date Thrive assessed: 09/18/23 AUDIT C Alcohol Use Questionnaire (AUDIT-C) 3. How often do you have six or more drinks on one occasion?: Never Total Score: 0 AMISH-7 AMB Questionnaire AMISH-7 Date AMISH - 7 assessed: 09/18/23 Source: Developed by Drs. Oswaldo Tavares, Lori Senior, Holden Mc and colleagues, with an educational liz from [employer]. Review of Systems Const Denies headache(s) Eyes Denies loss of vision ENT Denies vertigo, Denies dizziness, Denies headache(s) and Denies sore throat Card Denies chest pain, Denies leg edema and Denies lightheadedness Resp Denies cough, Denies hemoptysis and Denies wheezing GI Denies abdominal pain, Denies melena, Denies constipation, Denies diarrhea and Denies vomiting Denies dysuria, Denies urinary frequency and Denies urinary urgency Musc Denies arthralgias, Denies joint swelling, Denies numbness and Denies tingling Neuro Denies Abnormal speech present, Denies behavioral changes, Denies vertigo, Denies dizziness, Denies headache(s), Denies loss of vision, Denies memory loss, Denies numbness and Denies tingling Psych Denies anxiety, Denies behavioral changes, Denies depression, Denies memory loss and Denies panic attacks Nhan/Lymph Denies easy bleeding and Denies easy bruising Aller/Immun Denies wheezing Physical exam (Primary Care) Vital Signs: Last Vital Signs Pulse 77 08/12/24 13:57 BP 130/70 08/12/24 13:57 Pulse Ox 97 08/12/24 13:57 Oxygen Delivery Method Room Air 08/12/24 13:57 BMI result Body Mass Index 30.9 Tobacco/Smoking Status: Tobacco use Status Tobacco use date assessed 08/12/24 08/12/24 14:03 Patient Tobacco Use Status Current everyday Tobacco 08/12/24 13:58 Tobacco use type Cigarette 08/12/24 13:58 e-Cigarette/Vaping Use Never Used 08/12/24 13:58 Thrive Assessment: Date of Thrive Assessment Date Thrive assessed 09/18/23 08/12/24 13:58 Const General: healthy appearing, no acute distress, alert and awake Nutritional Appearance: well nourished Orientation/consciousness: oriented to person, oriented to place and oriented to time HENMT Ears: TM's normal bilaterally General nose exam: Normal nasal mucous membranes and turbinates present Eyes Conjunctivae: conjunctivae normal Sclerae: sclerae normal Pupils: Equal, round and reactive pupils present Neck Neck: Yes no lymphadenopathy and Yes no JVD Thyroid: Thyroid normal Carotids: no bruits Resp Effort & Inspection: normal respiratory effort and not tachypneic Auscultation: no crackles, no rales, no rhonchi and no wheezes Cardio Rate: regular rate Rhythm: regular rhythm Heart sounds: no murmurs and normal S1 and S2 GI Palpation (GI): Soft to palpation, nontender, no hepatomegaly and no splenomegaly Auscultation: normal bowel sounds Abdomen image: 1. SMALL PALPABLE MASS NOTED IN THE AREA OUTLINED Skin General skin exam: no rashes or lesions noted and dry skin Neuro General: oriented to person, oriented to place and oriented to time Cranial nerves: Yes Equal, round and reactive pupils present Speech: No Abnormal speech present Gait exam (Neuro): Normal gait present Motor exam (neuro): no tremor noted Extrem Right upper extremity: full ROM Left upper extremity: full ROM Right lower extremity: full ROM; no edema Left lower extremity: full ROM; no edema Psych Mental Status: mental status grossly normal Speech and movement: Normal speech and movement present Affect: normal affect Attitude: cooperative Thought process: Normal thought process present Office Procedures Flu Questionnaire Does the patient have a severe egg allergy?: No Immunizations Fluarix Triv [id number] (PF) 45 mcg (15 mcg x 3)/0.5 mL IM syringe Performing Provider: Andreas Vallejo PA-C Performing [facility] [place] [facility] Documented (not given) by: ANGEL Martinez on 08/12/24 14:04 Reason Not Given: Received Previously Coding Level of Care Code Est Pt Level 4 (68219) Diagnoses Osteomyelitis of lumbar spine M46.26 Ventral hernia without obstruction or gangrene K43.9 Hernia type: ventral Obstruction and gangrene presence: without obstruction or gangrene Asymptomatic HIV infection Z21 HIV symptom status: asymptomatic Essential hypertension I10 Hypertension type: essential hypertension Skin infection L08.9 Uncomplicated opioid dependence F11.20 Substance use status: uncomplicated Assessment & Plan Assessment & Plan (1) Osteomyelitis of lumbar spine: Code(s): M46.26 - Osteomyelitis of vertebra, lumbar region Category: Medical Plan: As per HPI patient was found to have osteomyelitis of lumbar spine. Has followed up with his infectious disease specialist in his on treatment for the infection in his lumbar spine. He is due for new repeat MRI of his lumbar spine ordered by his infectious disease specialist (2) Abdominal hernia: Code(s): K46.9 - Unspecified abdominal hernia without obstruction or gangrene Category: Medical Qualifiers: Hernia type: ventral Obstruction and gangrene presence: without obstruction or gangrene Qualified Code(s): K43.9 - Ventral hernia without obstruction or gangrene Plan: Patient has noticed a mid abdominal lump that has become more tender and more evident over the last few weeks. Patient is willing due to CTA his abdomen to confirm abdominal hernia (3) HIV (human immunodeficiency virus infection): Comment: (Followed by Dr. West) Code(s): B20 - Human immunodeficiency virus [HIV] disease Category: Medical Qualifiers: HIV symptom status: asymptomatic Qualified Code(s): Z21 - Asymptomatic human immunodeficiency virus [HIV] infection status Plan: Again followed by infectious disease and continues on antiviral therapy. (4) HTN (hypertension): Code(s): I10 - Essential (primary) hypertension Category: Medical Qualifiers: Hypertension type: essential hypertension Qualified Code(s): I10 - Essential (primary) hypertension Plan: Patient's blood pressure acceptable today in office. Will continue his current dose of antihypertensive medication with goal blood pressure to remain below 140/90 (5) Skin infection: Code(s): L08.9 - Local infection of the skin and subcutaneous tissue, unspecified Category: Medical Plan: He has had a skin like infection over bilateral lower extremities over the last several years. He attributes this to methadone use. He reports he has gotten biopsies of the skin though has not had any particular diagnosis. Will supply patient with antibiotic cream (6) Opiate dependence: Code(s): F11.20 - Opioid dependence, uncomplicated Category: Medical Qualifiers: Substance use status: uncomplicated Qualified Code(s): F11.20 - Opioid dependence, uncomplicated Plan: Patient now on methadone and has been sober from street opiates over the last 3 months. Orders: Orders Influenza [id number] Immunization 08/12/24 Z23 - Encounter for immunization IRON PROFILE 08/12/24 D50.9 - Iron deficiency anemia, unspecified Microalbumin, Random (w Creat) 08/12/24 I10 - Essential (primary) hypertension Comprehensive [place]. Panel Fast 08/12/24 I10 - Essential (primary) hypertension Complete Blood Count no Diff 08/12/24 I10 - Essential (primary) hypertension Prostate Specific Antigen Scr 08/12/24 I10 - Essential (primary) hypertension, Z12.5 - Encounter for screening for malignant neoplasm of prostate CT abdomen wo IV con 08/12/24 K43.9 - Ventral hernia without obstruction or gangrene Medications: New mupirocin calcium 2% 1 appl topical TID 30 grams 1RF 30 days L08.9 - Local infection of the skin and subcutaneous tissue, unspecified
== END 2024-08-12 14:34 | disposition home or self-care (01) ==
PROVIDERS: PCP Physician Assistant; Visit Provider Physician Assistant
DX: M46.26 Osteomyelitis of vertebra, lumbar region (principal); Z21 Asymptomatic human immunodeficiency virus [HIV] infection status; F11.20 Opioid dependence, uncomplicated; K43.9 Ventral hernia without obstruction or gangrene; I10 Essential (primary) hypertension; L08.9 Local infection of the skin and subcutaneous tissue, unspecified

== ENCOUNTER → 2024-08-12 13:54 | Outpatient (BNVA) | payer OTHER, SELFPAY | PROVIDERS: PCP Physician Assistant; Visit Provider Physician Assistant | DX: M46.26 Osteomyelitis of vertebra, lumbar region (principal); K43.9 Ventral hernia without obstruction or gangrene; Z21 Asymptomatic human immunodeficiency virus [HIV] infection status; I10 Essential (primary) hypertension; L08.9 Local infection of the skin and subcutaneous tissue, unspecified; F11.20 Opioid dependence, uncomplicated | CPT/HCPCS: 90471; 99212 ==

== ENCOUNTER 2025-04-14 10:31 | Outpatient (AMB) | payer OTHER, SELFPAY ==
--- NOTE | 2025-04-14 10:53 | MHC.PC.OV ---
Vital Signs 04/14/25 10:55 Height 5 ft 4 in Weight 196 lb 8 oz BMI 33.7 BP 132/60 Blood Pressure Location Lt brachial Position Sitting Pulse 44 L Pulse Source Pulse Oximeter Temp 97.1 F Temp Source Temporal Artery Scan Pulse Oximetry (%) 92 Oxygen Delivery Method Room Air Intake Visit Reasons: PE Intake Note: Patient is here today for a physical. 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 Creative Assistant: Not Required per policy Accompanied by: Self / Same As Patient Allergies bee pollen (BEE STINGS) Allergy (Severe, Verified 04/14/25 11:30) SWELLING rofecoxib (From VIOXX) Allergy (Intermediate, Verified 04/14/25 11:30) Swelling buprenorphine (From Suboxone) Adverse Reaction (Intermediate, Verified 04/14/25 11:30) Psychosis naloxone (From Suboxone) Adverse Reaction (Intermediate, Verified 04/14/25 11:30) Psychosis Medication List - Last Reconciled 04/14/25 by Andreas Vallejo PA-C albuterol sulfate 90 mcg/actuation (Ventolin HFA) 2 puffs inhalation QID PRN 30 days amlodipine 5 mg PO DAILY aspirin 81 mg PO DAILY 90 days compr.stocking,knee,long,large As directed dolutegravir-lamivudine 50-300 mg 1 tab PO DAILY esomeprazole magnesium 20 mg PO ONCE PRN ferrous sulfate 325 mg PO DAILY food supplemt, lactose-reduced (Boost High Protein) 1 ea PO BID 12 days ibuprofen 800 mg PO Q8H PRN mupirocin calcium 2% 1 appl topical TID 30 days nicotine (Nicotrol) 1 inh inhalation Q2-4H PRN 30 days peg 3350-electrolytes 236-22.74-6.74 -5.86 gram 240 mL PO Q10M Tobacco use date assessed: 04/14/25 Fall risk assessment: No Falls in past year Last assessed Fall Risk: 04/14/25 Dental Screening Dental Screen Date: 04/14/25 Did you have a dental visit in the last 12 months?: Yes Did you have a dental problem in the last 6 months where you did not have access to dental care?: No Was dental information given to patient?: Patient has dentist HPI PE HPI Details Juliano is a 69 y/o male here today for a follow-up visit. . Pmhx of asthma, opiate dependence, h/o Hep C with cirrhosis, depression, HIV,?tobacco dependency, hypertension. Concern--> He reports a tender abdominal lump, suspected to be an abdominal hernia, which has increased in size and tenderness over time. Previous imaging was inconclusive, and further evaluation is planned. He reports previously getting an imaging of his abdomen at [facility]. Did collect results from [facility] which did show a MRCP with noted cholelithiasis and a possible cholecystitis Class 1 obesity: The patient has been experiencing weight gain, which he attributes to lifestyle factors and medication use. He has attempted dietary changes to manage his weight and blood sugar levels, including reducing sweets and increasing physical activity. ? .. ? HIV: ? Followed by Dr. West, continues on antivirals.? He reports his viral load has been undetectable ? .. ? HTN: Patient's blood pressure acceptable today in office. Unfortunately has been experiencing lower extremity edema likely related to his amlodipine. Will switch his amlodipine to lisinopril 10 mg ? .. ? .. ?? ?Tobacco dependency:? Followed by [facility] screening. Has found 3 small LLL cyst of no concern though will be doing annual chest CT. ? Unfortunatley patient continue to smoke 1-2 cigs per day. ? .. ? Opiate dependence:? Patient continues to be followed by a methadone program in [facility] He still does use strict hair when as he feels that methadone causes him cardiac issues. Vaccines: Up-to-date with shingles,, pneumonia, UTD with COVID , up-to-date with pneumonia vaccine Colon cancer screening: Did have colonoscopy at [place]- polyps found [facility] Medical History Opiate dependence MDD (major depressive disorder), recurrent episode, moderate History of osteomyelitis HIV (human immunodeficiency virus infection) Hepatitis C Paroxysmal A-fib PVD (peripheral vascular disease) Murmur Anemia COPD (chronic obstructive pulmonary disease) Nicotine dependence, cigarettes, uncomplicated GERD (gastroesophageal reflux disease) Personal history of colonic polyps Surgical History History of carpal tunnel surgery of right wrist History of esophagogastroduodenoscopy (EGD) History of colonoscopy Family History Father COPD (chronic obstructive pulmonary disease) Chronic mental illness Diabetes Mother Rheumatic fever Diabetes CVD (cardiovascular disease) Breast cancer Paternal Aunt Gastric cancer Family/Other Diabetes Gastric cancer Social History Housing: House Alcohol intake: never Patient Tobacco Use Status: Current everyday Tobacco user Tobacco use type: Cigarette Cigarette Packs Per Day: 0.25 Cigarettes Per Day: 3 Years Smoked: 50 e-Cigarette/Vaping Use: Never Used Second Hand Smoke Exposure: Yes Substance Use Type: Heroin service: No Current occupational status: disabled Current occupation: [email or web address] Cognitive needs: No Hearing needs: No Vision needs: No Questionnaire PHQ-9 Over the last 2 weeks, how often have you been bothered by any of the following problems? 1. Little interest or pleasure in doing things: not at all 2. Feeling down, depressed, or hopeless: not at all 3. Trouble falling or staying asleep, or sleeping too much: not at all 4. Feeling tired or having little energy: not at all 5. Poor appetite or overeating: not at all 6. Feeling bad about yourself - or that you are a failure or have let yourself or your family down: not at all 7. Trouble concentrating on things, such as reading the newspaper or watching television: not at all 8. Moving or speaking so slowly that other people could have noticed. Or the opposite - being so fidgety or restless that you have been moving around a lot more than usual: not at all 9. Thoughts that you would be better off or of hurting yourself in some way: not at all Total score: 0 Depression Screening Interpretation: Negative Depression Screening Done: Yes 33774 - PHQ-9 Billing: Yes Source: Developed by Drs. Oswaldo Tavares, Lori Senior, Holden Mc and colleagues, with an educational liz from [employer]. Thrive Questionnaire Date Thrive assessed: 02/03/25 I am a: Patient Within the past 12 months, did you worry whether your food would run out before you got money to buy more?: Often true THRIVE Score: 1 AUDIT C Alcohol Use Questionnaire (AUDIT-C) 1. How often do you have a drink containing alcohol?: Never Total Score: 0 AMISH-7 AMB Questionnaire AMISH-7 Date AMISH - 7 assessed: 04/14/25 Feeling nervous, anxious, or on edge: 0 = Not at all Not being able to stop or control worryin = Not at all Worrying too much about different things: 0 = Not at all Trouble relaxin = Not at all Being so restless that it is hard to sit still: 0 = Not at all Becoming easily annoyed or irritable: 0 = Not at all Feeling afraid as if something awful might happen: 0 = Not at all Total AMISH-7 score (0-4 normal; 5-9 mild; 10-14 moderate; 15-21 severe): 0 Source: Developed by Drs. Oswaldo Tavarse, Lori Senior, Holden Mc and colleagues, with an educational liz from [employer]. AMISH-7 Assessment Billing AMISH-7 Assessment Tool: AMISH-7 Assessment 35719 Review of Systems Const Denies body aches, Denies chills, Denies excessive sweating, Denies fatigue, Denies fever(s) and Denies headache(s) Eyes Denies blurry vision ENT Denies dysphagia, Denies vertigo, Denies dizziness, Denies headache(s), Denies hearing loss and Denies tinnitus Card Denies chest pain, Denies chest pain with activity, Denies syncope, Denies irregular heart rhythm and Denies dyspnea Resp Denies chest congestion, Denies cough, Denies hemoptysis, Denies dyspnea and Denies wheezing GI Denies abdominal pain, Denies melena, Denies hematochezia, Denies coffee ground emesis, Denies dysphagia, Denies diarrhea, Denies nausea and Denies vomiting Denies difficulty urinating, Denies dysuria, Denies urinary frequency, Denies urinary hesitancy and Denies urinary urgency Musc Denies arthralgias, Denies limited range of motion, Denies muscle cramps and Denies muscle weakness Skin/Breast Denies rash and Denies skin ulcer Neuro Denies Abnormal speech present, Denies confusion, Denies vertigo, Denies dizziness, Denies syncope, Denies headache(s), Denies memory loss and Denies seizure-like activity Psych Denies anxiety, Denies confusion, Denies depression, Denies memory loss, Denies panic attacks and Denies paranoia Endo Denies excessive sweating, Denies fatigue, Denies flushing, Denies polydipsia and Denies polyuria Aller/Immun Denies wheezing Physical exam (Primary Care) Vital Signs: Last Vital Signs Temp 97.1 F 04/14/25 10:55 Pulse 44 L 04/14/25 10:55 BP 132/60 04/14/25 10:55 Pulse Ox 92 04/14/25 10:55 Oxygen Delivery Method Room Air 04/14/25 10:55 BMI result Body Mass Index 33.7 Tobacco/Smoking Status: Tobacco use Status Tobacco use date assessed 04/14/25 04/14/25 10:59 Patient Tobacco Use Status Current everyday Tobacco 04/14/25 11:18 Tobacco use type Cigarette 04/14/25 11:18 e-Cigarette/Vaping Use Never Used 04/14/25 11:18 Are you ready to quit: Yes Tobacco cessation counseling provided: Yes Items discussed: Nicotine replacement Relapse Prevention: discussed the importance of a supportive environment, discussed negative mood or depression after quitting, weight gain after smoking is common and discussed dietary, exercise and/or lifestyle changes Number of minutes spent counselin CPT code: 47256 - 4-10 Minutes PHQ-9: PHQ-9 Score PHQ-9: Total score 0 04/14/25 11:32 Depression Screening Interpretation: Negative Thrive Assessment: Date of Thrive Assessment Date Thrive assessed 02/03/25 04/14/25 10:59 Const General: cooperative, comfortable, no acute distress, alert and awake; No confusion Orientation/consciousness: oriented to person, oriented to place, patient oriented x3 and No confusion HENMT Head: Yes normocephalic Ears: external ears normal and TM's normal bilaterally Face and sinus: No sinus tenderness Mouth: Normal oral and palatal mucosa present and tongue normal Teeth and gingiva: dentition normal and gingiva normal Throat: Yes posterior oropharynx normal, Yes tonsils normal and Yes uvula midline Eyes Conjunctivae: conjunctivae normal Sclerae: sclerae normal Pupils: Equal, round and reactive pupils present EOM: EOMs intact bilaterally Direct Ophthalmoscopy: No no photophobia Neck Neck: Yes no lymphadenopathy, No tender and Yes no JVD Thyroid: Thyroid normal Carotids: no bruits Chest Chest palpation & inspection: no tenderness Resp Effort & Inspection: normal respiratory effort, no audible wheezes, not labored and no stridor Auscultation: no crackles, no rales, no rhonchi and no wheezes Cardio Jugular venous distension: no JVD Rate: regular rate, not bradycardic and not tachycardic Rhythm: regular rhythm Bruits: no carotid bruits Peripheral pulses: Peripheral pulses 2+ throughout GI Inspection: Yes normal to inspection, No abdominal wall ecchymosis and No visible herniation Palpation (GI): Soft to palpation, nontender, no guarding, not rigid and No hepatosplenomegaly present Auscultation: normoactive bowel sounds General: Yes no CVA tenderness Back/Spine/Pelvis Back: no CVA tenderness and No back tenderness Cervical Spine: cervical ROM normal Thoracic/Lumbar Spine: thoracic and lumbar spine normal to inspection, straight leg raise negative bilaterally, No thoraco-lumbar ROM limited and No lumbar spinal tenderness Skin Lesions: no lesions Rashes: no rashes Wounds: no wounds Neuro General: oriented to person, oriented to place, patient oriented x3, CN's II-XI intact bilaterally and No confusion Cranial nerves: Yes Equal, round and reactive pupils present and Yes Normal accommodation reflex present Cognition (Neuro): normal cognition Speech: No Abnormal speech present Gait exam (Neuro): Normal gait present Motor exam (neuro): 5/5 motor strength present throughout Extrem Right upper extremity: full ROM; no cyanosis Left upper extremity: full ROM; no cyanosis Right lower extremity: edema Left lower extremity: edema Psych Appearance: grossly normal Mental Status: mental status grossly normal Affect: normal affect Attitude: cooperative Thought process: Normal thought process present Results AMB Hemoglobin A1c AMB Hemoglobin A1c 6.5 % Last Edit by JUAN A Blackman on 04/14/25 11:26 Results Reviewed Results Reviewed: Laboratory Last Values Hgb A1c (Clinic) 6.5 % (4.0-6.0) H 04/14/25 10:53 Coding Level of Care Code Est Pt Prev Care >65y(80024) Diagnoses Type 2 diabetes mellitus with hyperglycemia, without long-term current use of insulin E11.65 Diabetes mellitus complication status: with hyperglycemia 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: without 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 use Essential hypertension I10 Hypertension type: essential hypertension Osteomyelitis of lumbar spine M46.26 Ventral hernia without obstruction or gangrene K43.9 Hernia type: ventral Obstruction and gangrene presence: without obstruction or gangrene Asymptomatic HIV infection Z21 HIV symptom status: asymptomatic Uncomplicated opioid dependence F11.20 Substance use status: uncomplicated 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 Nicotine dependence, cigarettes, uncomplicated F17.210 Additional Codes PHQ-9 - 63799 - PHQ-9 Billing: Yes ([id number]) AMISH-7 Assessment Billing - AMISH-7 Assessment Tool: AMISH-7 Assessment 44190 ([id number]) Vital Signs *Quality* - CPT code: 44416 - 4-10 Minutes ([id number]) Assessment & Plan Assessment & Plan (1) DMII (diabetes mellitus, type 2): Code(s): E11.9 - Type 2 diabetes mellitus without complications Category: Medical Qualifiers: Diabetes mellitus complication status: with hyperglycemia Diabetes mellitus usp insulin use: without usp use Qualified Code(s): E11.65 - Type 2 diabetes mellitus with hyperglycemia Plan: Most recent A1c is 6.5. He is technically a new onset diabetic. He is not interested in starting medication and will like to work extensively on lifestyle and dietary modifications. (2) HTN (hypertension): Code(s): I10 - Essential (primary) hypertension Category: Medical Qualifiers: Hypertension type: essential hypertension Qualified Code(s): I10 - Essential (primary) hypertension Plan: Patient's blood pressure acceptable today in office. The patient is advised to switch from amlodipine to lisinopril for better blood pressure control and to reduce edema. Goal blood pressure to be below 140/90 (3) Osteomyelitis of lumbar spine: Code(s): M46.26 - Osteomyelitis of vertebra, lumbar region Category: Medical Plan: As per HPI patient was found to have osteomyelitis of lumbar spine. Has followed up with his infectious disease specialist in his on treatment for the infection in his lumbar spine. He is due for new repeat MRI of his lumbar spine ordered by his infectious disease specialist (4) Abdominal hernia: Code(s): K46.9 - Unspecified abdominal hernia without obstruction or gangrene Category: Medical Qualifiers: Hernia type: ventral Obstruction and gangrene presence: without obstruction or gangrene Qualified Code(s): K43.9 - Ventral hernia without obstruction or gangrene Plan: Patient has noticed a mid abdominal lump that has become more tender and more evident over the last few months and has been becoming more tender. He has gotten an MRCP at [facility] which did show possible evidence of cholecystitis though unclear if he has gotten this taken care of. Will refer to general surgeon for evaluation and possible fix of the noted abdominal lump/hernia (5) HIV (human immunodeficiency virus infection): Comment: (Followed by Dr. West) Code(s): B20 - Human immunodeficiency virus [HIV] disease Category: Medical Qualifiers: HIV symptom status: asymptomatic Qualified Code(s): Z21 - Asymptomatic human immunodeficiency virus [HIV] infection status Plan: Again followed by infectious disease and continues on antiviral therapy. (6) Opiate dependence: Code(s): F11.20 - Opioid dependence, uncomplicated Category: Medical Qualifiers: Substance use status: uncomplicated Qualified Code(s): F11.20 - Opioid dependence, uncomplicated Plan: Patient now on methadone and has been sober from street opiates over the last few months. Will send for EKG as patient is on maintenance methadone and noted to have a lower heart rate today in office. (7) Methadone maintenance therapy patient: Code(s): F11.20 - Opioid dependence, uncomplicated Category: Medical Plan: Patient is on methadone maintenance. Noted bradycardia today in office. Will send for 12 lead EKG (8) Nicotine dependence, cigarettes, uncomplicated: Comment: (current smoker - 30+PYH) Code(s): F17.210 - Nicotine dependence, cigarettes, uncomplicated Category: Medical Plan: Patient does admit to smoking 1-3 cigarettes per day depending on how he is feeling. He does understand he needs to completely quit smoking. Does have access to nicotine replacement Orders: Orders CT abdomen wo IV con Today K43.9 - Ventral hernia without obstruction or gangrene AMB Hemoglobin A1c Today R73.09 - Other abnormal glucose ECG 12 lead EKG Today F11.20 - Opioid dependence, uncomplicated Referrals General Surgery Referral K43.9 - Ventral hernia without obstruction or gangrene Medications: New lisinopril 10 mg PO DAILY 90 tabs 1RF 90 days I10 - Essential (primary) hypertension Discontinued amlodipine Discontinued Reason: Doctor's Order 5 mg PO DAILY 90 tabs 1RF I10 - Essential (primary) hypertension
[2025-04-14 10:55] VITALS: BP 132/60; PULSE 44; TEMP 36.2; O2SAT 92; BMI 33.7
--- OUTSIDE RECORDS SUMMARY | 2025-04-14 11:33 | XMS_ITS | Encounter Summary ---
Author Organization [facility] Address [address] [place] [address] Care Team Providers Care Document Manager Name Role Phone Andreas Vallejo Primary Care Provider [phone] Encounter Details Date Type Department Care Team (Late st Contact Info) Description 07/31/2024 Lab Requisition [facility] - Main Lab [address] [place] [id number] Cary Beasley MD [address] [place] [address] Other injury of unspecified body region, initial encounter Social History Tobacco Use Types Packs/Day Years Used Date Smoking Tobacco: Never Assessed Sex and Gender Information Value Date Recorded Sex Assigned at Male 10/31/2024 12:59 PM EST Legal Sex Male 9:51 AM EST Gender Identity Male 10/31/2024 12:59 PM EST Sexual Orientation Straight 10/31/2024 12 :59 PM EST documented as of this encounter Plan of Treatment Not on file documented as of this encounter Procedures Procedure Name Priority Date/Time Associated Diagnosis Comments CULTURE ANAEROBIC WITH GRAM STAIN Routine 07/31/2024 3:24 PM EST Other injury of unspecified body region, initial encounter CULTURE WOUND WITH GRAM STAIN Routine 07/31/2024 3:24 PM EST Other injury of unspecified body region, initial encounter documented in this encounter Results * Culture anaerobic with gram stain (07/31/2024 3:24 PM EST) Culture, Anaerobic No Growth of Anaerobes. 08/04/2024 10:05 AM EST [facility] Gram Stain Result Refer to Aerobic culture for gram stain results. 08/04/2024 10:05 AM [facility] Swab 07/31/2024 3:24 PM EST 07/31/2024 7:37 PM EST Narrative [facility] - 08/04/2024 10:05 AM EST Specimen received on aerobic transport swab - anaerobic results may be compromised. Cary Beasely MD LAB MICROBIOLOGY - GENERA L ORDERABLES Final Result Performing Organization Address [facility]/ZIP Co de Phone Number [facility] [address] [place] [address], [place] [phone] * Culture wound with gram stain (07/31/2024 3:24 PM EST) Culture, Wound No growth at 3 days 08/03/2024 8:03 AM [facility] Gram Stain Result No polymorphonuclear leukocytes, No epithelial cells, and No organisms noted 08/03/2024 8:03 AM [facility] Swab Structure of left lower limb / Unknown 07/31/2024 3:24 PM EST 07/31/2024 7:37 PM EST Cary Beasley MD LAB MICROBIOLOGY - GENERA L ORDERABLES Final Result [facility] [address] [place] [address], [place] [phone] documented in this encounter Visit Diagnoses Diagnosis Other injury of unspecified body region, initial encounter documented in this encounter Care Teams Document Manager Relationship Specialty Start Date End Date Andreas Vallejo PA [address] [place] [phone] PCP - General 04/10/24 documented as of this encounter
== END 2025-04-14 11:57 | disposition home or self-care (01) ==
LOC: HO.HMCH 10:31
PROVIDERS: PCP Physician Assistant; Visit Provider Physician Assistant
DX: Z00.00 Encounter for general adult medical examination without abnormal findings (principal); E11.65 Type 2 diabetes mellitus with hyperglycemia; I10 Essential (primary) hypertension; M46.26 Osteomyelitis of vertebra, lumbar region; K43.9 Ventral hernia without obstruction or gangrene; Z21 Asymptomatic human immunodeficiency virus [HIV] infection status; F11.20 Opioid dependence, uncomplicated; F17.210 Nicotine dependence, cigarettes, uncomplicated; R73.09 Other abnormal glucose

== ENCOUNTER → 2025-04-14 10:31 | Outpatient (BNVA) | payer OTHER, SELFPAY | PROVIDERS: PCP Physician Assistant; Visit Provider Physician Assistant | DX: Z00.00 Encounter for general adult medical examination without abnormal findings (principal); E11.65 Type 2 diabetes mellitus with hyperglycemia; I10 Essential (primary) hypertension; M46.26 Osteomyelitis of vertebra, lumbar region; K43.9 Ventral hernia without obstruction or gangrene; Z21 Asymptomatic human immunodeficiency virus [HIV] infection status; F11.20 Opioid dependence, uncomplicated; F17.210 Nicotine dependence, cigarettes, uncomplicated; Z13.31 Encounter for screening for depression; Z13.39 Encounter for screening examination for other mental health and behavioral disorders | CPT/HCPCS: 83036; 96127; 99397 ==

== ENCOUNTER 2025-04-28 10:04 | Outpatient (REF) | payer OTHER, SELFPAY ==
[2025-04-28 10:54] LABS: Hematocrit 34.3 % (42.0-52.0); Hemoglobin 11.6 g/dl (14.0-18.0); Mean Corpuscular HGB Conc 33.8 g/dl (31.0-36.0); Mean Corpuscular Hemoglobin 30.0 pg (27.0-33.0); Mean Corpuscular Volume 88.6 fL (80.0-98.0); NRBC Abs Auto 0.000 X10*3/uL (0.0-0.012); NRBC Pct Auto 0.0 /100WBC (0.0-0.2); Platelet Count 132 X10*3/uL (160-400); Red Blood Count 3.87 X10*6/uL (4.60-5.80); White Blood Count 2.9 X10*3/uL (4.8-10.8)
--- OUTSIDE RECORDS SUMMARY | 2025-04-28 10:59 | XMS_ITS | Encounter Summary ---
Author Organization [facility] Address [address] [place] [address] Care Team Providers Care Social Work Therapist Name Role Phone Andreas Vallejo Primary Care Provider [phone]- [phone] Encounter Details Date Type Department Care Team (Late st Contact Info) Description 07/31/2024 Lab Requisition [facility] - Main Lab [address] [place] [phone] Cary Beasley MD [address] [place] [address] Other injury of unspecified body region, initial [...] Growth of Anaerobes. 08/04/2024 10:05 AM EST [facility] Gram Stain Result Refer to Aerobic culture for gram stain results. 08/04/2024 10:05 AM [facility] Swab 07/31/2024 3:24 PM EST 07/31/2024 7:37 PM EST Narrative [facility] - 08/04/2024 10:05 AM EST Specimen received on aerobic transport swab - anaerobic results may be compromised. Cary Beasley MD LAB MICROBIOLOGY - GENERA L ORDERABLES Final Result Performing Organization Address [facility]/ZIP Co de Phone Number [facility] [address] [place] [address], [place] [phone] * Culture wound with gram stain (07/31/2024 3:24 PM EST) Culture, Wound No growth at 3 days 08/03/2024 8:03 AM [facility] Gram Stain Result No polymorphonuclear leukocytes, No epithelial cells, and No organisms noted 08/03/2024 8:03 AM [facility] Swab Structure of left lower limb / Unknown 07/31/2024 3:24 PM EST 07/31/2024 7:37 PM EST Cary Beasley MD LAB MICROBIOLOGY - GENERA L ORDERABLES Final Result [facility] [address] [place] [address], [place] [phone] documented in this encounter Visit Diagnoses Diagnosis Other injury of unspecified body region, initial encounter documented in this encounter Care Teams Social Work Therapist Relationship Specialty Start Date End Date Andreas Vallejo PA [address] [place] [phone] PCP - General 04/10/24 documented as of this encounter
[2025-04-28 11:15] LABS: Alanine Aminotransferase 17 U/L (0-40); Albumin Level 4.1 g/dL (3.5-5.0); Alkaline Phosphatase 98 U/L (39-117); Anion Gap 12 (12-20); Aspartate Amino Transferase 24 U/L (5-37); Blood Urea Nitrogen 8 mg/dL (9-16); Calcium 9.3 mg/dL (8.4-10.2); Carbon Dioxide 29 mmol/L (22-29); Chloride 107 mmol/L (96-108); Estimated Glomerular Filt Rate > 60; Iron 68 mcg/dL (45-160); Percent Iron Saturation 26 % (15-50); Potassium 4.7 mmol/L (3.3-5.1); Sodium 143 mmol/L (135-145); Total Iron Binding Capacity 259 mcg/dL (228-428); Total Protein 7.6 g/dL (6.5-8.0); Unsaturated Iron Binding 191 ug/dL
[2025-04-28 11:46] LABS: Microalbum/Creatinine Ratio Ur 86.4 ug/mg cr (<30)
== END 2025-04-28 10:05 | disposition home or self-care (01) ==
LOC: HO.LAB 10:04
PROVIDERS: PCP Physician Assistant; Visit Provider Physician Assistant
DX: Z12.5 Encounter for screening for malignant neoplasm of prostate (principal); Z21 Asymptomatic human immunodeficiency virus [HIV] infection status; I10 Essential (primary) hypertension; D50.9 Iron deficiency anemia, unspecified; R93.7 Abnormal findings on diagnostic imaging of other parts of musculoskeletal system; F19.90 Other psychoactive substance use, unspecified, uncomplicated
CPT/HCPCS: 36415; 80053; 82043; 82570; 83540; 84153; 85027

== ENCOUNTER 2025-05-14 14:24 | Outpatient (AMB) | payer OTHER, SELFPAY ==
--- NOTE | 2025-05-14 14:25 | A.OFFVIS_ITS ---
Vital Signs 3 05/14/25 14:35 Height 5 ft 6 in Weight 194 lb BMI 31.3 BP 139/65 Blood Pressure Location Lt brachial Position Sitting Pulse 72 Intake Visit Reasons: ventral hernia Intake Note: Patient is seen in office for evaluation of a ventral hernia. Pt c/o: hernia above the belly button for aprox 10 yrs, at times pops out, able to push it in, very painful, over the last month has been experiencing nausea, denies diarrhea, constipation, no prior surgeries in the area Graduation [employer] Required: No Accompanied by: Self / Same As Patient Allergies bee pollen (BEE STINGS) Allergy (Severe, Verified 05/14/25 14:50) SWELLING rofecoxib (From VIOXX) Allergy (Intermediate, Verified 05/14/25 14:50) Swelling buprenorphine (From Suboxone) Adverse Reaction (Intermediate, Verified 05/14/25 14:50) Psychosis naloxone (From Suboxone) Adverse Reaction (Intermediate, Verified 05/14/25 14:50) Psychosis Medication List - Last Reconciled 05/14/25 by Moise Daniel MD albuterol sulfate 90 mcg/actuation (Ventolin HFA) 2 puffs inhalation QID PRN 30 days aspirin 81 mg PO DAILY 90 days compr.stocking,knee,long,large As directed dolutegravir-lamivudine 50-300 mg 1 tab PO DAILY esomeprazole magnesium 20 mg PO ONCE PRN ferrous sulfate 325 mg PO DAILY food supplemt, lactose-reduced (Boost High Protein) 1 ea PO BID 12 days ibuprofen 800 mg PO Q8H PRN lisinopril 10 mg PO DAILY 90 days mupirocin calcium 2% 1 appl topical TID 30 days nicotine (Nicotrol) 1 inh inhalation Q2-4H PRN 30 days peg 3350-electrolytes [id number] -5.86 gram 240 mL PO Q10M HPI Comments Details: 69-year-old male patient presenting for evaluation of an abdominal wall hernia. He 1st noted the lump approximately 10 years ago with no inciting events. Over time the lump has gradually increased in size in his causing more discomfort. This has located in the epigastric region and slightly to the left of midline. He reports seeing the lump in this location which occasionally increases in size and discomfort. He denies any current nausea or vomiting. His bowel habits have been normal. He denies any previous surgery at this location. [facility] Medical History Opiate dependence MDD (major depressive disorder), recurrent episode, moderate History of osteomyelitis HIV (human immunodeficiency virus infection) Hepatitis C Paroxysmal A-fib PVD (peripheral vascular disease) Murmur Anemia COPD (chronic obstructive pulmonary disease) Nicotine dependence, cigarettes, uncomplicated GERD (gastroesophageal reflux disease) Personal history of colonic polyps Surgical History History of carpal tunnel surgery of right wrist History of esophagogastroduodenoscopy (EGD) History of colonoscopy Family History Father COPD (chronic obstructive pulmonary disease) Chronic mental illness Diabetes Mother Rheumatic fever Diabetes CVD (cardiovascular disease) Breast cancer Paternal Aunt Gastric cancer Family/Other Diabetes Gastric cancer Social History Housing: House Alcohol intake: never Patient Tobacco Use Status: Current everyday Tobacco user Tobacco use type: Cigarette Cigarette Packs Per Day: 0.25 Cigarettes Per Day: 3 Years Smoked: 50 e-Cigarette/Vaping Use: Never Used Second Hand Smoke Exposure: Yes Substance Use Type: Heroin service: No Current occupational status: disabled Current occupation: [email or web address] Cognitive needs: No Hearing needs: No Vision needs: No Review of Systems Const All systems reviewed & are unremarkable except as noted in HPI and below Physical Exam Vital Signs: Last Vital Signs Pulse 72 05/14/25 14:35 BP 139/65 05/14/25 14:35 BMI result Body Mass Index 31.3 Const General: cooperative and no acute distress Nutritional Appearance: well nourished Orientation/consciousness: patient oriented x3 Limitations: no limitations HEENT Head: Yes normocephalic and Yes atraumatic Ears: hearing grossly normal bilaterally Resp Effort & Inspection: normal respiratory effort, no audible wheezes, no cough and no respiratory distress Cardio Jugular venous distension: no JVD GI Other: Tenderness in the epigastric region with a faint palpable lump in the midline approximately 5 cm below the xiphoid. Slight tenderness noted to deep palpation. Patient pointed to the area to the left of midline slightly superior to this which is directly over the rectus muscle. No definite lump is appreciated to my examination. Inspection: Yes normal to inspection Abdomen image: 2 1. Site of possible epigastric hernia Skin Other: Warm, dry, no rash Neuro General: patient oriented x3 Extrem General: Yes no clubbing, cyanosis or edema Assessment & Plan Assessment & Plan (1) Epigastric hernia: Code(s): K43.9 - Ventral hernia without obstruction or gangrene Category: Medical Plan 69-year-old male patient presenting with complaints of a palpable lump in the epigastric region which occasionally increases in size in his causing discomfort. To my examination there may be a small palpable lump in the upper midline consistent with an epigastric hernia. Patient is pointing to an area slightly higher than this as a site of his abdominal pain. I therefore recommended further evaluation with a CT of the abdomen to better evaluate this location. He will return following the skin to review the results and discuss treatment options. Orders: Orders 2 CT abdomen wo IV con Today K43.9 - Ventral hernia without obstruction or gangrene Coding Level of Care Code New Pt Level 4 (75505) Diagnoses Epigastric hernia K43.9
[2025-05-14 14:35] VITALS: BP 139/65; PULSE 72; BMI 31.3
--- OUTSIDE RECORDS SUMMARY | 2025-05-14 15:09 | XMS_ITS | Clinical Summary ---
Author Organization [facility] Address [address] [place] [address] Phone Care Team Providers Care Service Greeter Name Role Phone Andreas Vallejo Primary Care Provider Allergies Active Allergy Reactions Criticality Noted Date Comments Bee Venom Protein (Honey Bee) Anaphylaxis High 02/15 Rofecoxib Hives 02/15/2018 Medications polyethylene glycol (Golytely) 236-22.74-6.74 -5.86 gram solution Take 4L by mouth once for one dose. May substitue any PEG. Starting at 6PM the night before your procedure drink 1 8oz glasses at your own pace until you complete half of the gallon. Finish 2nd half of the gallon 5 hours before your procedure. 4000 mL 4 Active bisacodyL (DULCOLAX) 5 mg EC tablet Take 2 tablets by mouth right before beginning bowel prep. See instructions provided by the office 2 tablet 4 Active sennosides 8.6 mg capsule Take by mouth. Acti ve methadone (DOLOPHINE) 10 mg/mL concentrated solution Take 8 mL (80 mg total) by mouth 1 (one) time each day. Active Antacid-Antigas 200-200-20 mg/5 mL suspension TAKE 5ML BY MOUTH TWICE DAILY 4 Active lactulose (CHRONULAC) solution TAKE 15 ML BY MOUTH EVERY DAY FOR CONSTIPATION 4 Active ferrous sulfate 325 mg (65 mg iron) EC tablet Take 1 tablet (325 mg total) by mouth 1 (one) time each day. 4 Active famotidine (PEPCID) 40 mg tablet 2 (two) times a day if needed. 4 Active Dovato 50-300 mg per tablet Take 1 tablet by mouth 1 (one) time each day. Active aspirin 81 mg EC tablet Take 1 tablet (81 mg total) by mouth 1 (one) time each day. 4 Active amLODIPine (NORVASC) 5 mg tablet Take 1 tablet (5 mg total) by mouth 1 (one) time each day. Active albuterol-budeso nide (Airsupra) 90-80 mcg/actuation inhaler Inhale 2 puffs by mouth. Active polyethylene glycol (Golytely) 236-22.74-6.74 -5.86 gram solution Take 4L by mouth once for one dose. May substitue any PEG. Starting at 6PM the night before your procedure drink 1 8oz glasses at your own pace until you complete half of the gallon. Finish 2nd half of the gallon 5 hours before your procedure. 4000 mL 5 Active bisacodyL (DULCOLAX) 5 mg EC tablet Take 2 tablets by mouth right before beginning bowel prep. See instructions provided by the office 2 tablet 5 Active sodium,potassium ,mag sulfates (Suprep Bowel Prep Kit) 17.5-3.13-1.6 gram recon soln bowel prep kit oral solution Take 177ML by mouth for 2 doses. SEE INSTRUCTIONS PROVIDED BY OFFICE. 1 kit 5 Active Active Problems Problem Noted Date Diagnosed Date HTN (hypertension) 10/31/2024 Asthma 10/31/2024 Hepatitis C 10/31/2024 Substance abuse ([facility]/HCC V24, [facility]/HCC V28) 10/31 Surgical History Surgery Date Site/Laterality Comments CARPAL TUNNEL RELEASE Right ELBOW SURGERY Left D/T FX COLONOSCOPY CHOLECYSTECTOMY TONSILLECTOMY ESOPHAGOGASTRODUODENOSCOPY Medical History Medical History Date Comments Hypertension Murmur COPD (chronic obstructive pulmonary disease) (CM S/HCC V24, CMS/HCC V28) Asthma Hepatitis C Anemia A-fib (CMS/HCC V24, CMS/HCC V28) Colon polyp PVD (peripheral vascular disease) (CMS/HCC V24) HIV (human immunodeficiency virus infection) (CM S/HCC V24, CMS/HCC V28) Social History Tobacco Use Types Packs/Day Years Used Date Smoking Tobacco: Every Day Cigarettes Tobacco Cessation:Ready to Q uit: Not Asked; Counseling Given: Not Answered Alcohol Use Standard Drinks/Week Comments Not Currently 0 (1 standard drink = 0.6 oz pur e alcohol) Interpersonal Safety Answer Date Record ed Physical Abuse 10/31/2024 Verbal Abuse 10/31/2024 Sex and Gender Information Value Date Recorded Sex Assigned at Male 10/31/2024 12:59 PM EST Legal Sex Male 9:51 AM EST Gender Identity Male 10/31/2024 12:59 PM EST Sexual Orientation Straight 10/31/2024 12 :59 PM EST Obstetrics History Last Filed Vital Signs Vital Sign Reading Time Taken Comments Blood Pressure 116/67 10/31/2024 3:57 PM EST Pulse 72 10/31/2024 3:57 PM EST Temperature 35.9 C (96.7 F) 10/31/2024 1:43 PM EST Respiratory Rate 16 10/31/2024 3:57 PM EST Oxygen Saturation 99% 10/31/2024 3:57 PM EST Inhaled Oxygen Concentration - - Weight 78.5 kg (173 lb) 10/31/2024 1:43 PM EST Height 170.2 cm (5' 7 ) 10/31/2024 1:43 PM EST Body Mass Index 27.1 10/31/2024 1:43 PM EST Plan of Treatment Health Maintenance Due Date Last Done Comments Meningococcal ACWY Vaccine (1 - Risk 2-dose series) 1957 MMR Vaccines (1 of 2 - Risk 2-dose series) 1974 Hepatitis A Vaccines (3 of 3 - Hep A Twinrix risk 3-dose series) 09/25/2012 04/25/2012, 12/21/2011 Abdominal Aortic Aneurysm (AAA) Screen 08/20/2022 Hepatitis C Screening 08/20/2022 Medicare Annual Wellness Visit 08/20/2022 Social Influencers of Health Screening 08/20/2022 Pneumococcal Vaccine: 50+ Years (3 of 3 - PCV) 04/07/2023 04/07/2022, 08/12/2018, 10/08/2007 Depression Screening 09/17/2024 COVID-19 Vaccine (5 - Mixed Product risk ) 11/21/2024 05/24/2024, 06/15/2023, 07/13/2022, Additional history exists Influenza Vaccine (#1) 2025 , 06/15/2023, 10/16/2022, Additional history exists Falls Risk Assessment 10/31/2025 10/31/2024 Hypertension/CHF/CAD Annual BMP Blood Test 01/08/2026 01/08/2025, 09/03/2024 Colorectal Cancer Screening: Colonoscopy 10/31/2027 10/31/2024 Cholesterol Screening (Lipid Panel) 01/08/2030 01/08/2025 DTaP,Tdap,and Td Vaccines (3 - Td or Tdap) 10/05/2032 10/05/2022, 10/14/2012 Zoster Vaccines Completed 11/08/2020, 07/13/2020 Hepatitis B Vaccines Completed 04/11/2022, 11/26/2012, 06/13/2012, Additional history exists RSV Immunization Adult Patients Completed 07/18/2023 HIB Vaccines Aged Out No longer eligi ble based on patient's age to complete this topic HPV Vaccines Aged Out No longer eligi ble based on patient's age to complete this topic IPV Vaccines Aged Out No longer eligi ble based on patient's age to complete this topic Meningococcal B Vaccine Aged Out No l onger eligible based on patient's age to complete this topic RSV Immunization Patients Under 20 months Aged Out No longer eligible based on patient's age to complete this topic Varicella Vaccines Aged Out No longer eligible based on patient's age to complete this topic Procedures Procedure Name Priority Date/Time Associated Diagnosis Comments COMPREHENSIVE METABOLIC PANEL Routine 01/08/2025 10:20 AM EDT Human immunodeficiency virus (HIV) disease (CMS/HCC V24, CMS/HCC V28) Obesity, unspecified LIPID PANEL WITH REFLEX TO DIRECT LDL Routine 01/08/2025 10:20 AM EDT Human immunodeficiency virus (HIV) disease (CMS/HCC V24, CMS/HCC V28) Obesity, unspecified COLONOSCOPY Routine 10/31/2024 3:36 PM EST History of colon polyps from Last 3 Months or Most Recently Relevant to Health Maintenance Results * Lipid panel with reflex to direct LDL (01/08/2025 10:20 AM EDT) Cholesterol 142 0 - 200 mg/dL LAB CHEMISTRY METHOD 01/08/2025 12:30 PM EDT [facility] Triglycerides 80 0 - 150 mg/dL LAB CHEMISTRY METHOD 01/08/2025 12:30 PM EDT [facility] HDL 68 >=40 mg/dL LAB CHEMISTRY METHOD 01/08/2025 12:30 PM EDT [facility] LDL Calculated 58 0 - 100 mg/dL LAB CHEMISTRY METHOD 01/08/2025 12:30 PM EDT [facility] VLDL Cholesterol Gera 16 mg/dL LAB CHEMISTRY METHOD 01/08/2025 12:30 PM EDT [facility] Non HDL Chol. (LDL+VLDL) 74 <145 mg/dL LAB CHEMISTRY METHOD 01/08/2025 12:30 PM EDT [facility] Chol/HDL Ratio 2.1 0.0 - 4.4 LAB CHEMISTRY METHOD 01/08/2025 12:30 PM [facility] Blood Venous blood specimen / Unknown Venipuncture / Unknown 01/08/2025 10:20 AM EDT 01/08/2025 11:14 AM EDT Cary Beasley MD LAB BLOOD ORDERABLES Clair l Result [facility] [address] [place] [address], [place] [phone] * (ABNORMAL) Comprehensive metabolic panel (01/08/2025 10:20 AM EDT) Sodium 137 133 - 145 mmol/L LAB CHEMISTRY METHOD 01/08/2025 12:30 PM EDT [facility] Potassium 3.9 3.5 - 5.5 mmol/L LAB CHEMISTRY METHOD 01/08/2025 12:30 PM [facility] Chloride 106 96 - 110 mmol/L LAB CHEMISTRY METHOD 01/08/2025 12:30 PM [facility] CO2 27 21 - 32 mmol/L LAB CHEMISTRY METHOD 01/08/2025 12:30 PM [facility] Anion Gap 4 3 - 11 LAB CHEMISTRY METHOD 01/08/2025 12:30 PM [facility] Glucose 108(H) 70 - 100 mg/dL LAB CHEMISTRY METHOD 01/08/2025 12:30 PM [facility] BUN 10 5 - 25 mg/dL LAB CHEMISTRY METHOD 01/08/2025 12:30 PM [facility] Creatinine 0.80 0.70 - 1.30 mg/dL LAB CHEMISTRY METHOD 01/08/2025 12:30 PM [facility] eGFR 96 >=60 mL/min/1. 73m2 LAB CHEMISTRY METHOD 01/08/2025 12:30 PM [facility] Comment:Calculation based on the Chronic Kidney Disease Epidemiology Collaboration (CKD-EPI) equation refit without adjustment for race. BUN/Creatinine Ratio 12.5 LAB CHEMISTRY METHOD 01/08/2025 12:30 PM [facility] Calcium 9.2 8.5 - 10.5 mg/dL LAB CHEMISTRY METHOD 01/08/2025 12:30 PM [facility] AST (SGOT) 38 10 - 42 unit/L LAB CHEMISTRY METHOD 01/08/2025 12:30 PM [facility] ALT (SGPT) 37 10 - 60 unit/L LAB CHEMISTRY METHOD 01/08/2025 12:30 PM [facility] Alkaline Phosphatase 134(H) 42 - 121 unit/L LAB CHEMISTRY METHOD 01/08/2025 12:30 PM [facility] Total Protein 8.1(H) 6.0 - 8.0 g/dL LAB CHEMISTRY METHOD 01/08/2025 12:30 PM EDT [facility] Albumin 3.7 3.2 - 5.0 g/dL LAB CHEMISTRY METHOD 01/08/2025 12:30 PM EDT [facility] Total Bilirubin 0.6 0.0 - 1.4 mg/dL LAB CHEMISTRY METHOD 01/08/2025 12:30 PM EDT [facility] Blood Venous blood specimen / Unknown Venipuncture / Unknown 01/08/2025 10:20 AM EDT 01/08/2025 11:14 AM EDT us Cary Beasley MD LAB BLOOD ORDERABLES Clair mcarthur Result [facility] [address] [place] [address], [place] [phone] * COLONOSCOPY Anesthesia - MAC; [facility] ENDOSCOPY (10/31/2024 3:36 PM EST) Anatomical Region Laterality Modality Endoscopy 10/31/2024 3:02 PM EST Impressions 10/31/2024 3:36 PM EST - Hemorrhoids found on perianal exam. - One 3 mm polyp in the sigmoid colon, removed with a jumbo cold forceps. Resected and retrieved. - Five 6 to 9 mm polyps in the descending colon, in the ascending colon and in the cecum, removed with a cold snare. Resected and retrieved. - The examination was otherwise normal on direct and retroflexion views. Recommendation: - - Discharge patient to home. - High fiber diet. - Continue present medications. - Await pathology results. - Repeat colonoscopy for surveillance based on pathology results. Narrative 10/31/2024 3:[address] [facility] Patient Name: Nayan Henao Procedure Date: 10/31/2024 3:02 PM Date of : 1955 Age: 69 Gender: Male Note Status: Finalized Attending MD: Gerber Boss DO, [id number] Procedure Date No Time: 10/31/2024 Procedure: Colonoscopy Indications: High risk colon cancer surveillance: Personal history of colonic polyps Providers: Gerber Boss DO Referring MD: VIVIENNE Monae Medicines: Monitored Anesthesia Care Complications: No immediate complications. Estimated blood loss: Minimal. Estimated Blood Loss: Estimated blood loss was minimal. Procedure: Pre-Anesthesia Assessment: - - Prior to the procedure, a History and Physical was performed, and patient medications and allergies were reviewed. The patient is competent. The risks and benefits of the procedure and the sedation options and risks were discussed with the patient. All questions were answered and informed consent was obtained. Patient identification and proposed procedure were verified by the physician, the nurse, the anesthesiologist, the fur stylist and the it field technician in the pre-procedure area in the endoscopy suite. Mental Status Examination: alert and oriented. Airway Examination: normal oropharyngeal airway and neck mobility. Respiratory Examination: clear to auscultation. CV Examination: normal. Prophylactic Antibiotics: The patient does not require prophylactic antibiotics. Prior Anticoagulants: The patient has taken no anticoagulant or antiplatelet agents. ASA Grade Assessment: II - A patient with severe systemic disease. After reviewing the risks and benefits, the patient was deemed in satisfactory condition to undergo the procedure. The anesthesia plan was to use monitored anesthesia care (MAC). Immediately prior to administration of medications, the patient was re-assessed for adequacy to receive sedatives. The heart rate, respiratory rate, oxygen saturations, blood pressure, adequacy of pulmonary ventilation, and response to care were monitored throughout the procedure. The physical status of the patient was re-assessed after the procedure. After I obtained informed consent, the scope was passed under direct vision. Throughout the procedure, the patient's blood pressure, pulse, and oxygen saturations were monitored continuously. The Colonoscope was introduced through the anus and advanced to the cecum, identified by appendiceal orifice and ileocecal valve. The colonoscopy was performed without difficulty. The patient tolerated the procedure well. The quality of the bowel preparation was good. Findings: Hemorrhoids were found on perianal exam. A 3 mm polyp was found in the sigmoid colon. The polyp was sessile. The polyp was removed with a jumbo cold forceps. Resection and retrieval were complete. Estimated blood loss was minimal. Five sessile polyps were found in the descending colon, ascending colon and cecum. The polyps were 6 to 9 mm in size. These polyps were removed with a cold snare. Resection and retrieval were complete. Estimated blood loss was minimal. The exam was otherwise without abnormality on direct and retroflexion views. Procedure Code(s): --- Professional --- 60843, Colonoscopy, flexible; with removal of tumor(s), polyp(s), or other lesion(s) by snare technique 08202, 59, Colonoscopy, flexible; with biopsy, single or multiple Diagnosis Code(s): --- Professional --- Z86.010, Personal history of colonic polyps K64.9, Unspecified hemorrhoids D12.5, Benign neoplasm of sigmoid colon D12.4, Benign neoplasm of descending colon D12.2, Benign neoplasm of ascending colon D12.0, Benign neoplasm of cecum CPT copyright 2020 [employer]. All rights reserved. The codes documented in this report are preliminary and upon plant wrapper review may be revised to meet current compliance requirements. GERBER Boss DO 10/31/2024 3:36:35 PM This report has been signed electronically.Gerber Boss DO Number of Addenda: 0 Note Initiated On: 10/31/2024 3:02 PM Scope Withdrawal Time: 0 hours 11 minutes 18 seconds Scope In: 3:19:16 PM Scope Out: 3:34:27 PM Endoscopy Department at [facility] - [address] [place] [id number] Procedure Note Gerber Boss DO - 10/31/2024 [facility] Patient Name: Nayan Henao Procedure Date: 10/31/2024 3:02 PM Date of : 1955 Age: 69 Gender: Male Note Status: Finalized Attending MD: Gerber Boss DO, [id number] Procedure Date No Time: 10/31/2024 Procedure: Colonoscopy Indications: High risk colon cancer surveillance: Personalhistory of colonic polyps Providers: Gerber Boss DO Referring MD: VIVIENNE Monae Medicines: Monitored Anesthesia Care Complications: No immediate complications. Estimated blood loss: Minimal. Estimated Blood Loss: Estimated blood loss was minimal. Procedure: Pre-Anesthesia Assessment: - - Prior to the procedure, a History and Physicalwas performed, and patient medications and allergieswere reviewed. The patient is competent. The risks and benefits of the procedure and the sedation optionsand risks were discussed with the patient. Allquestions were answered and informed consent was obtained. Patient identification and proposed procedure were verified by the physician, the nurse, the anesthesiologist, the fur stylist and thetechnician in the pre-procedure area in the endoscopy suite. Mental Status Examination: alert and oriented.Airway Examination: normal oropharyngeal airway and neck mobility. Respiratory Examination: clear to auscultation. CV Examination: normal. Prophylactic Antibiotics: The patient does not requireprophylactic antibiotics. Prior Anticoagulants: The patient has taken no anticoagulant or antiplatelet agents. ASA Grade Assessment: II - A patient with severesystemic disease. After reviewing the risks and benefits,the patient was deemed in satisfactory condition to undergo the procedure. The anesthesia plan was touse monitored anesthesia care (MAC). Immediately priorto administration of medications, the patient was re-assessed for adequacy to receive sedatives. The heart rate, respiratory rate, oxygen saturations, blood pressure, adequacy of pulmonary ventilation,and response to care were monitored throughout the procedure. The physical status of the patient was re-assessed after the procedure. After I obtained informed consent, the scope was passed under direct vision. Throughout theprocedure, the patient's blood pressure, pulse, and oxygen saturations were monitored continuously. The Colonoscope was introduced through the anus and advanced to the cecum, identified by appendiceal orifice and ileocecal valve. The colonoscopy was performed without difficulty. The patient tolerated the procedure well. The quality of the bowel preparation was good. Findings: Hemorrhoids were found on perianal exam. A 3 mm polyp was found in the sigmoid colon. Thepolyp was sessile. The polyp was removed with a jumbocold forceps. Resection and retrieval were complete. Estimated blood loss was minimal. Five sessile polyps were found in the descending colon, ascending colon and cecum. The polyps were 6to 9 mm in size. These polyps were removed with a cold snare. Resection and retrieval were complete. Estimated blood loss was minimal. The exam was otherwise without abnormality ondirect and retroflexion views. Procedure Code(s): --- Professional --- 86350, Colonoscopy, flexible; with removal of tumor(s), polyp(s), or other lesion(s) by snare technique 06990, 59, Colonoscopy, flexible; with biopsy,single or multiple Diagnosis Code(s): --- Professional --- Z86.010, Personal history of colonic polyps K64.9, Unspecified hemorrhoids D12.5, Benign neoplasm of sigmoid colon D12.4, Benign neoplasm of descending colon D12.2, Benign neoplasm of ascending colon D12.0, Benign neoplasm of cecum CPT copyright 2020 [employer]. All rights reserved. The codes documented in this report are preliminary and upon plant wrapper reviewmay be revised to meet current compliance requirements. GERBER Boss DO 10/31/2024 3:36:35 PM This report has been signed electronically.Gerber Boss DO Number of Addenda: 0 Note Initiated On: 10/31/2024 3:02 PM Scope Withdrawal Time: 0 hours 11 minutes 18 seconds Scope In: 3:19:16 PM Scope Out: 3:34:27 PM Endoscopy Department at [facility] - [address] [place] [id number] IMPRESSION: - Hemorrhoids found on perianal exam. - One 3 mm polyp in the sigmoid colon, removed witha jumbo cold forceps. Resected and retrieved. - Five 6 to 9 mm polyps in the descending colon, in the ascending colon and in the cecum, removed witha cold snare. Resected and retrieved. - The examination was otherwise normal on directand retroflexion views. Recommendation: - - Discharge patient to home. - High fiber diet. - Continue present medications. - Await pathology results. - Repeat colonoscopy for surveillance based on pathology results. Gerber Boss DO GI~PROCEDURE ORDERABLES Final Re sult from Last 3 Months or Most Recently Relevant to Health Maintenance Insurance [facility] MEDICARE Member Subscriber Plan / Payer (Ef fective 2022-Present) Name:Nayan Henao Relation to Subscriber:Self Name:Nayan Henao Payer ID:[id number] Group ID:[id number] Type:Not on file Address: [address] [place] [address] Care Teams Service Greeter Relationship Specialty Start Date End Date Andreas Vallejo PA [address] [place] [address] PCP - General 04/10/24
--- OUTSIDE RECORDS SUMMARY | 2025-05-14 15:09 | XMS_ITS | Encounter Summary ---
Author Organization [facility] Address [address] [place] [address] Care Team Providers Care Plastic Frame Inserter Name Role Phone Andreas Vallejo Primary Care Provider [phone] Encounter Details Date Type Department Care Team (Late st Contact Info) Description 07/31/2024 Lab Requisition [facility] - Main Lab [address] [place] [id number] Cary Beasley MD [address] [place] [address] Other injury of unspecified body region, initial [...] Growth of Anaerobes. 08/04/2024 10:05 AM EST [facility] Gram Stain Result Refer to Aerobic culture for gram stain results. 08/04/2024 10:05 AM [facility] Swab 07/31/2024 3:24 PM EST 07/31/2024 7:37 PM EST Narrative [facility] - 08/04/2024 10:05 AM EST Specimen received on aerobic transport swab - anaerobic results may be compromised. Cary Beasley MD LAB MICROBIOLOGY - GENERA L ORDERABLES Final Result Performing Organization Address [facility]/ZIP Co de Phone Number [facility] [address] [place] [address], [place] [phone] * Culture wound with gram stain (07/31/2024 3:24 PM EST) Culture, Wound No growth at 3 days 08/03/2024 8:03 AM [facility] Gram Stain Result No polymorphonuclear leukocytes, No epithelial cells, and No organisms noted 08/03/2024 8:03 AM [facility] Swab Structure of left lower limb / Unknown 07/31/2024 3:24 PM EST 07/31/2024 7:37 PM EST Cary Beasley MD LAB MICROBIOLOGY - GENERA L ORDERABLES Final Result [facility] [address] [place] [address], [place] [phone] documented in this encounter Visit Diagnoses Diagnosis Other injury of unspecified body region, initial encounter documented in this encounter Care Teams Plastic Frame Inserter Relationship Specialty Start Date End Date Andreas Vallejo PA [address] [place] [phone] PCP - General 04/10/24 documented as of this encounter
== END 2025-05-14 14:57 | disposition home or self-care (01) ==
LOC: HO.HGS 14:25
PROVIDERS: PCP Physician Assistant; Visit Provider Surgery
DX: K43.9 Ventral hernia without obstruction or gangrene (principal)
CPT/HCPCS: 99204

== ENCOUNTER → 2025-05-14 14:24 | Outpatient (BNVA) | payer OTHER, SELFPAY | PROVIDERS: PCP Physician Assistant; Visit Provider Surgery | DX: K43.9 Ventral hernia without obstruction or gangrene (principal) | CPT/HCPCS: 99202 ==

== ENCOUNTER 2025-06-10 13:45 | Outpatient (AMB) | payer OTHER, SELFPAY ==
--- NOTE | 2025-06-10 14:01 | MHC.OFFVIS ---
Vital Signs 06/10/25 14:03 Height 5 ft 6 in Weight 191 lb 12.835 oz BMI 31.0 BP 151/71 H Blood Pressure Location Lt brachial Position Sitting Pulse 66 Intake Visit Reasons: Nausea, upset stomach, diarrhea, acid reflux Intake Note: Nayan presents in the office as a new patient for nausea, upset stomach, diarrhea, GERD. CC: States he has a pertruding feeling in the epigastric region and he is not sure if it is a hernia but it is tender to the touch. 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 Patient is at high risk of colon cancer due to personal history of [colon polyps]. Last colonoscopy was in 2019 - fair prep to the TI, no polyps (Dr Singh). Next colonoscopy in recommended in 5 years i.e 2023. Patient does not have any other gastrointestinal symptoms to include abdominal pain, nausea, vomiting, diarrhea, blood in stool, weight loss. Of note, pertinent PMH includes HIV and HCV. Sees Dr Beasley. 06/10/25: Here to re-establish care for GI issues. Was unable to get colo done here due to drug use, got colo done at [facility]. Reports 6 polyps were removed. Recall in 3 years. Visit was initially booked due to his c/o nausea and diarrhea back in Apr. Pt reports that this was most likely due to a new nutritional supplement he started. Sx have now resolved since stopping the supplement. Today, reports sensation of ventral hernia which is tender to touch. Has been seen by gen surg and a CT is pending. [facility] Medical History Opiate dependence MDD (major depressive disorder), recurrent episode, moderate History of osteomyelitis HIV (human immunodeficiency virus infection) Hepatitis C Paroxysmal A-fib PVD (peripheral vascular disease) Murmur Anemia COPD (chronic obstructive pulmonary disease) Nicotine dependence, cigarettes, uncomplicated GERD (gastroesophageal reflux disease) Personal history of colonic polyps Surgical History History of carpal tunnel surgery of right wrist History of esophagogastroduodenoscopy (EGD) History of colonoscopy Family History Father COPD (chronic obstructive pulmonary disease) Chronic mental illness Diabetes Mother Rheumatic fever Diabetes CVD (cardiovascular disease) Breast cancer Paternal Aunt Gastric cancer Family/Other Diabetes Gastric cancer Social History Housing: House Alcohol intake: never Patient Tobacco Use Status: Current everyday Tobacco user Tobacco use type: Cigarette Cigarette Packs Per Day: 0.25 Cigarettes Per Day: 3 Years Smoked: 50 e-Cigarette/Vaping Use: Never Used Second Hand Smoke Exposure: Yes Substance Use Type: Heroin service: No Current occupational status: disabled Current occupation: [employer] Cognitive needs: No Hearing needs: No Vision needs: No Review of Systems Const All systems reviewed & are unremarkable except as noted in HPI and below Physical Exam Exam Exam: No apparent distress Nonicteric abd soft, 3-4 cm oblong nodule/lump under xiphoid, tender to palpation Alert and oriented x3, normal gait Vital Signs: Last Vital Signs Pulse 66 06/10/25 14:03 BP 151/71 H 06/10/25 14:03 BMI result Body Mass Index 31.0 GI Abdomen image:  1. painful lump Assessment & Plan Assessment & Plan (1) Personal history of colonic polyps: Code(s): Z86.010 - Personal history of colon polyps Category: Medical (2) Epigastric hernia: Code(s): K43.9 - Ventral hernia without obstruction or gangrene Category: Medical Plan 1. POlyps Had 6 polyps removed on colo 10/2024 (Dr Gera Lanza). 5 out of 6 were T.A Repeat due in 2027. Reminder set. 2. Palpable epigastric lump/hernia Has already been seen by surgery and CT abd ordered. Follow up in GI office in 3 years or PRN Coding Level of Care Code New Pt Level 4 (94220) Diagnoses Personal history of colonic polyps Z86.010 Epigastric hernia K43.9
[2025-06-10 14:03] VITALS: BP 151/71; PULSE 66; BMI 31.0
--- OUTSIDE RECORDS SUMMARY | 2025-06-10 16:10 | XMS_ITS | Encounter Summary ---
Author Organization [facility] Address [address] [place] [address] Care Team Providers Care Site Coordinator Name Role Phone Andreas Vallejo Primary Care Provider [phone] Encounter Details Date Type Department Care Team (Late st Contact Info) Description 07/31/2024 Lab Requisition [facility] - Main Lab [address] [place] [phone] Cary Beasley MD [address] [place] [address] Other injury of unspecified body region, initial [...] Growth of Anaerobes. 08/04/2024 10:05 AM EST [facility] Gram Stain Result Refer to Aerobic culture for gram stain results. 08/04/2024 10:05 AM [facility] Swab 07/31/2024 3:24 PM EST 07/31/2024 7:37 PM EST Narrative [facility] - 08/04/2024 10:05 AM EST Specimen received on aerobic transport swab - anaerobic results may be compromised. Cary Beasley MD LAB MICROBIOLOGY - GENERA L ORDERABLES Final Result Performing Organization Address [facility]/ZIP Co de Phone Number [facility] [address] [place] [address], [place] [phone] * Culture wound with gram stain (07/31/2024 3:24 PM EST) Culture, Wound No growth at 3 days 08/03/2024 8:03 AM [facility] Gram Stain Result No polymorphonuclear leukocytes, No epithelial cells, and No organisms noted 08/03/2024 8:03 AM [facility] Swab Structure of left lower limb / Unknown 07/31/2024 3:24 PM EST 07/31/2024 7:37 PM EST Cary Beasley MD LAB MICROBIOLOGY - GENERA L ORDERABLES Final Result [facility] [address] [place] [address], [place] [phone] documented in this encounter Visit Diagnoses Diagnosis Other injury of unspecified body region, initial encounter documented in this encounter Care Teams Site Coordinator Relationship Specialty Start Date End Date Andreas Vallejo PA [address] [place] [phone] PCP - General 04/10/24 documented as of this encounter
--- OUTSIDE RECORDS SUMMARY | 2025-06-10 16:11 | XMS_ITS | Clinical Summary ---
Author Organization [facility] Address [address] [place] [address] Phone Care Team Providers Care Bouffant Curtain Machine Tender Name Role Phone Andreas Vallejo Primary Care [...] Asthma 10/31/2024 Hepatitis C 10/31/2024 Substance abuse ([facility]/HCC V24, [facility]/HCC V28) 10/31 Surgical History Surgery Date Site/Laterality [...] Vaccine (5 - Mixed Product risk ) 05/18/2025 05/24/2024, 06/15/2023, 07/13/2022, Additional history exists Influenza [...] LAB CHEMISTRY METHOD 01/08/2025 12:30 PM EDT [facility] Triglycerides 80 0 - 150 mg/dL LAB CHEMISTRY METHOD 01/08/2025 12:30 PM EDT [facility] HDL 68 >=40 mg/dL LAB CHEMISTRY METHOD 01/08/2025 12:30 PM EDT [facility] LDL Calculated 58 0 - 100 mg/dL LAB CHEMISTRY METHOD 01/08/2025 12:30 PM EDT [facility] VLDL Cholesterol Gera 16 mg/dL LAB CHEMISTRY METHOD 01/08/2025 12:30 PM EDT [facility] Non HDL Chol. (LDL+VLDL) 74 <145 mg/dL LAB CHEMISTRY METHOD 01/08/2025 12:30 PM EDT [facility] Chol/HDL Ratio 2.1 0.0 - 4.4 LAB CHEMISTRY METHOD 01/08/2025 12:30 PM [facility] Blood Venous blood specimen / Unknown Venipuncture / Unknown 01/08/2025 10:20 AM EDT 01/08/2025 11:14 AM EDT Cary Beasley MD LAB BLOOD ORDERABLES Clair l Result [facility] [address] [place] [address], [place] [phone] * (ABNORMAL) Comprehensive metabolic panel (01/08/2025 10:20 AM EDT) Sodium 137 133 - 145 mmol/L LAB CHEMISTRY METHOD 01/08/2025 12:30 PM EDT [facility] Potassium 3.9 3.5 - 5.5 mmol/L LAB CHEMISTRY METHOD 01/08/2025 12:30 PM [facility] Chloride 106 96 - 110 mmol/L LAB CHEMISTRY METHOD 01/08/2025 12:30 PM [facility] CO2 27 21 - 32 mmol/L LAB CHEMISTRY METHOD 01/08/2025 12:30 PM [facility] Anion Gap 4 3 - 11 LAB CHEMISTRY METHOD 01/08/2025 12:30 PM [facility] Glucose 108(H) 70 - 100 mg/dL LAB CHEMISTRY METHOD 01/08/2025 12:30 PM [facility] BUN 10 5 - 25 mg/dL LAB CHEMISTRY METHOD 01/08/2025 12:30 PM [facility] Creatinine 0.80 0.70 - 1.30 mg/dL LAB CHEMISTRY METHOD 01/08/2025 12:30 PM [facility] eGFR 96 >=60 mL/min/1. 73m2 LAB CHEMISTRY METHOD 01/08/2025 12:30 PM [facility] Comment:Calculation based on the Chronic Kidney Disease Epidemiology Collaboration (CKD-EPI) equation refit without adjustment for race. BUN/Creatinine Ratio 12.5 LAB CHEMISTRY METHOD 01/08/2025 12:30 PM [facility] Calcium 9.2 8.5 - 10.5 mg/dL LAB CHEMISTRY METHOD 01/08/2025 12:30 PM [facility] AST (SGOT) 38 10 - 42 unit/L LAB CHEMISTRY METHOD 01/08/2025 12:30 PM [facility] ALT (SGPT) 37 10 - 60 unit/L LAB CHEMISTRY METHOD 01/08/2025 12:30 PM [facility] Alkaline Phosphatase 134(H) 42 - 121 unit/L LAB CHEMISTRY METHOD 01/08/2025 12:30 PM [facility] Total Protein 8.1(H) 6.0 - 8.0 g/dL LAB CHEMISTRY METHOD 01/08/2025 12:30 PM EDT [facility] Albumin 3.7 3.2 - 5.0 g/dL LAB CHEMISTRY METHOD 01/08/2025 12:30 PM EDT [facility] Total Bilirubin 0.6 0.0 - 1.4 mg/dL LAB CHEMISTRY METHOD 01/08/2025 12:30 PM EDT [facility] Blood Venous blood specimen / Unknown Venipuncture / Unknown 01/08/2025 10:20 AM EDT 01/08/2025 11:14 AM EDT us Cary Beasley MD LAB BLOOD ORDERABLES Clair mcarthur Result [facility] [address] [place] [address], [place] [phone] * COLONOSCOPY Anesthesia - MAC; [facility] ENDOSCOPY (10/31/2024 3:36 PM EST) Anatomical Region [...] pathology results. Narrative 10/31/2024 3:36 PM EST [facility] GI Patient Name: Nayan Henao Procedure Date: 10/31/2024 3:02 PM Date of : 1955 Age: 69 Gender: Male Note Status: Finalized Attending MD: Gerber Boss DO, [id number] Procedure Date No Time: 10/31/2024 Procedure: Colonoscopy [...] the physician, the nurse, the anesthesiologist, the career transition specialist and the design technician in the pre-procedure area in the [...] retroflexion views. Procedure Code(s): --- Professional --- 51145, Colonoscopy, flexible; with removal of tumor(s), polyp(s), or other lesion(s) by snare technique 75416, 59, Colonoscopy, flexible; with biopsy, single or multiple Diagnosis Code(s): --- Professional --- Z86.010, Personal history of colonic polyps K64.9, Unspecified hemorrhoids D12.5, Benign neoplasm of sigmoid colon D12.4, Benign neoplasm of descending colon D12.2, Benign neoplasm of ascending colon D12.0, Benign neoplasm of cecum CPT copyright 2020 [employer]. All rights reserved. The codes documented in this report are preliminary and upon deli associate review may be revised to meet current compliance requirements. GERBER Boss DO 10/31/2024 3:36:35 PM This report has been signed electronically.Gerber Boss DO Number of Addenda: 0 Note Initiated On: 10/31/2024 3:02 PM Scope Withdrawal Time: 0 hours 11 minutes 18 seconds Scope In: 3:19:16 PM Scope Out: 3:34:27 PM Endoscopy Department at [facility] - [address] [place] [phone] Procedure Note Gerber Boss DO - 10/31/2024 [facility] GI Patient Name: Nayan Henao Procedure Date: 10/31/2024 3:02 PM Date of : 1955 Age: 69 Gender: Male Note Status: Finalized Attending MD: Gerber Boss DO, [id number] Procedure Date No Time: 10/31/2024 Procedure: Colonoscopy [...] the physician, the nurse, the anesthesiologist, the career transition specialist and thetechnician in the pre-procedure area in [...] retroflexion views. Procedure Code(s): --- Professional --- 40443, Colonoscopy, flexible; with removal of tumor(s), polyp(s), or other lesion(s) by snare technique 85349, 59, Colonoscopy, flexible; with biopsy,single or multiple Diagnosis Code(s): --- Professional --- Z86.010, Personal history of colonic polyps K64.9, Unspecified hemorrhoids D12.5, Benign neoplasm of sigmoid colon D12.4, Benign neoplasm of descending colon D12.2, Benign neoplasm of ascending colon D12.0, Benign neoplasm of cecum CPT copyright 2020 [employer]. All rights reserved. The codes documented in this report are preliminary and upon deli associate reviewmay be revised to meet current compliance requirements. GERBER Boss DO 10/31/2024 3:36:35 PM This report has been signed electronically.Gerber Boss DO Number of Addenda: 0 Note Initiated On: 10/31/2024 3:02 PM Scope Withdrawal Time: 0 hours 11 minutes 18 seconds Scope In: 3:19:16 PM Scope Out: 3:34:27 PM Endoscopy Department at [facility] - [address] [place] [phone] IMPRESSION: - Hemorrhoids found on perianal exam. [...] Most Recently Relevant to Health Maintenance Insurance [facility] Member Subscriber Plan / Payer (Ef fective 2022-Present) Name:Nayan Henao Relation to Subscriber:Self Name:Nayan Henao Payer ID:[id number] Group ID:[id number] Type:Not on file Address: [address] [place] [address] Care Teams Bouffant Curtain Machine Tender Relationship Specialty Start Date End Date Andreas Vallejo PA [address] [place] [address] PCP - General 04/10/24
== END 2025-06-10 15:29 | disposition home or self-care (01) ==
LOC: HO.HGI 13:46
PROVIDERS: PCP Physician Assistant; Visit Provider Internal Medicine
DX: Z86.0100 Personal history of colon polyps, unspecified (principal); K43.9 Ventral hernia without obstruction or gangrene
CPT/HCPCS: 99204

== ENCOUNTER → 2025-06-10 13:45 | Outpatient (BNVA) | payer OTHER, SELFPAY | PROVIDERS: PCP Physician Assistant; Visit Provider Internal Medicine | DX: K43.9 Ventral hernia without obstruction or gangrene (principal); Z86.0100 Personal history of colon polyps, unspecified; Z76.89 Persons encountering health services in other specified circumstances | CPT/HCPCS: 99202 ==

== ENCOUNTER 2025-07-10 16:21 | Outpatient (REF) | payer OTHER, SELFPAY ==
--- NOTE | ~2025-07-10 | CT_ITS ---
EXAMINATION: CT ABDOMEN WITHOUT CONTRAST CLINICAL INFORMATION: K43.9 - Ventral hernia without obstruction or gangrene COMPARISON: October 29, 2017 TECHNIQUE: Contiguous axial thin section helical images of the abdomen were performed without contrast. The data set was reformatted in the coronal and sagittal planes and reviewed on an independent workstation. This CT examination was performed using dose optimization techniques as appropriate, variously including the following: *Automated exposure control *Adjustment of mA and/or kV according to patient size (this includes techniques or standardized protocols for targeted exams where dose is matched to indication/reason for exam; i.e. extremities or head) *Use of iterative reconstruction technique FINDINGS: LUNG BASES: Unremarkable ABDOMINAL WALL: There is a 12 mm area of dehiscence in the linea alba in the supraumbilical region with hernia sac containing adipose tissues measuring 17 x 9 x 17 mm (AP by cc by transverse). It appears similar to the prior. LIVER, GALLBLADDER, BILIARY TREE: Liver is unremarkable. The gallbladder is surgically absent and there is stable extrahepatic biliary ductal dilation. PANCREAS: Unremarkable SPLEEN: Unremarkable ADRENAL GLANDS AND KIDNEYS: Unremarkable. No stones and no hydronephrosis. BOWEL LOOPS: Visualized segments of the gastric intestinal tract are unremarkable. LYMPH NODES: Normal. VASCULAR: Multifocal vascular calcifications are seen in the abdomen. BONES: Moderate degenerative changes are present in the imaged portions of the thoracolumbar spine with disc space narrowing, vacuum phenomena, endplate irregularity and sclerosis with Schmorl's nodes. There is also facet arthropathy with sclerosis and osteophytes, more advanced in the upper lumbar spine. CT/CT abdomen wo IV con IMPRESSION: Stable small supraumbilical hernia. Degenerative changes are present involving he thoracolumbar spine. Cholecystectomy. Fleischner guidelines were followed. Electronically signed by: Chris Barrios MD 07/10/2025 05:08 PM EDT
--- OUTSIDE RECORDS SUMMARY | 2025-07-10 17:18 | XMS_ITS | Data Portability ---
Author Organization DAGO RIOS MD [facility], Main Office Address [address] [place] [address] Assessment No assessment recorded. Plan of Treatment Reminders Order Date Submit Date Provider Last Modified By Organization Details Last Modified Time Details Appointments RESEARCH FOLLOW UP 2024 03:30A India Woods MD Not available Not available Not available RESEARCH FOLLOW UP 2024 09:00A India Woods MD Not available Not available Not available B20 FOLLOW UP 2024 12:00P India Woods MD Not available Not available Not available Lab CBC w/ diff 2024 025 [facility], [address] [place] [address], [id number], 05/15/2025 16:40:00 CT + NG DNA, PCR, unspecif ied specimen 2024 025 [facility], [address] [place] [address], [address], 05/15/2025 16:40:01 HIV-1 RNA, quantita tive, PCR, serum or plasma 2024 025 [facility], [address] [place] [address], [address], 05/15/2025 16:40:01 RPR (rapid plasma reagin), serum 2024 025 [facility], [address] [place] [address], [address], 05/15/2025 16:40:01 T-cell regulato ry subsets panel, blood 2024 025 [place] [address] [employer] [facility], [address], [address], 05/15/2025 16:40:01 CMP, serum or plasma 2024 025 [place] [address] [employer] [facility], [address] [address], [place], [address], 05/15/2025 16:40:01 CBC w/ diff 2024 025 [place] [address] [employer] [facility], [address], [address], 01/15/2025 16:22:09 CT + NG DNA, PCR, unspecif ied specimen 2024 025 [facility], [address] [address], [place], [address], 01/15/2025 16:22:09 HIV-1 RNA, quantita tive, PCR, serum or plasma 2024 025 [place] [address] [employer] [facility], [address] [address], [place], [address], 01/15/2025 16:22:09 RPR (rapid plasma reagin), serum 2024 025 [facility] [employer] [facility], [address] [address], [place], [address], 01/15/2025 16:22:09 T-cell regulato ry subsets panel, blood 2024 025 [facility], [address], [address], 01/15/2025 16:22:09 hepatiti s C RNA, quant, PCR, serum 2024 025 [facility], [address], [address], [address], 01/15/2025 16:22:10 HBsAg (hepatit is B surface Ag), serum 2024 025 [facility], [address] [place] [address], [place], [address], 01/15/2025 16:22:10 CMP, serum or plasma 2024 025 [employer] [facility], [address] [place] [address], [address], [address], 01/08/2025 12:32:04 hepatiti s C liver status biomarke r panel, serum 2024 025 [facility], [address] [place] [address], [address], [address], 01/15/2025 16:22:10 TSH + free T4, serum 2024 025 [facility], [address] [place] [address], [address], 01/15/2025 16:22:10 lipids, total, serum 2024 025 [facility], [address] [place] [address], [address] [address], [place], [address], 01/15/2025 16:22:10 HbA1c (hemoglo bin A1c), blood 2024 025 [facility], [address] [place] [address], [address], 01/15/2025 16:22:10 amylase + lipase, serum 2024 025 [facility], [address] [place] [address], [address], 01/15/2025 16:22:10 Referral None recorded . Procedures None recorded . Surgeries None recorded . Imaging None recorded . Medication Orders Wegovy 0.25 mg/0.5 mL subcutan eous pen injector 2024 025 [facility] #[id number], [address], [place], [id number], 05/07/2025 12:23:30 Zepbound 2.5 mg/0.5 mL subcutan eous pen injector 2024 025 [facility] #[id number], [address], [place], [id number], 02/06/2025 02:40:26 Flonase Allergy Relief 50 mcg/actu ation nasal spray,ortiz spension 2024 025 [facility] #[id number], [address], [place], [id number], 01/07/2025 15:45:44 doxycycl ine hyclate 100 mg capsule 2024 025 [facility] #[id number], [address], [place], [id number], 01/07/2025 15:49:16 Zepbound 2.5 mg/0.5 mL subcutan eous pen injector 2024 025 [facility] #[id number], [address], [place], [id number], 01/07/2025 15:40:07 Patient TargetsNo targets recorded. Patient InstructionsNo instructions recorded. Reason for Referral None Reported. Results Created Date Observation Date Name Description Value Unit Range Abnormal Flag Note LastModifiedBy Organization Detail LastModifiedTime 01/09/2001/08/2025 CBC WITH AUTO DIFFE KACEYTI AL WBC 2.8 K/mcL 4.8-10 .8 low Not Available [facility] [address] [place], [address], 01/08/2025 12:06:59 01/09/20 25 01/08/2025 CBC WITH AUTO DIFFE RENTI AL RBC 4.10 M/mcL 4.50-5 .50 low Not Available [facility] [address] [place], [address], 01/08/2025 12:06:59 01/09/20 25 01/08/2025 CBC WITH AUTO DIFFE RENTI AL hemoglobin 12.1 g/dL 13.5-1 7.5 low Not Available [facility] [address] [place], [address], 01/08/2025 12:06:59 01/09/20 25 01/08/2025 CBC WITH AUTO DIFFE RENTI AL hematocrit 36.4 % 42.0-5 4.0 low Not Available [facility] [address] [place], [address], 01/08/2025 12:06:59 01/09/20 25 01/08/2025 CBC WITH AUTO DIFFE RENTI AL MCV 89.0 fL 79.0-9 8.0 Not Available [facility] [address] [place], [address], 01/08/2025 12:06:59 01/09/20 25 01/08/2025 CBC WITH AUTO DIFFE RENTI AL MCH 29.6 pcg 27.0-3 2.0 Not Available [facility] [address] [place], [address], 01/08/2025 12:06:59 01/09/20 25 01/08/2025 CBC WITH AUTO DIFFE RENTI AL MCHC 33.2 g/dL 32.0-3 7.0 Not Available [facility] [address] [place], [address], 01/08/2025 12:06:59 01/09/20 25 01/08/2025 CBC WITH AUTO DIFFE RENTI AL RDW 14.0 % 11.0-1 5.0 Not Available [facility] [address] [place], [address], 01/08/2025 12:06:59 01/09/20 25 01/08/2025 CBC WITH AUTO DIFFE RENTI AL platelets See Report Not measu red. Unabl e to quant itate due to plate let clump ing Not Available [facility] [address] [place], [address], 01/08/2025 12:06:59 01/09/20 25 01/08/2025 CBC WITH AUTO DIFFE RENTI AL MPV 11.4 fL 7.0-11 .0 high Not Available [facility] [address] [place], [address], 01/08/2025 12:06:59 01/09/20 25 01/08/2025 CBC WITH AUTO DIFFE RENTI AL NRBC 0.0 % <1.0 Not Available [facility] [address] [place] [address], [address], 01/08/2025 12:06:59 01/09/20 25 01/08/2025 CBC WITH AUTO DIFFE RENTI AL NRBC absolute 0.00 K/mcL <0.10 Not Available [facility] [address] [place] [address], [address], 01/08/2025 12:06:59 01/09/20 25 01/08/2025 CBC WITH AUTO DIFFE RENTI AL neutrophils relative 42.8 % Not Available [facility] [address] [place], [address], 01/08/2025 12:06:59 01/09/20 25 01/08/2025 CBC WITH AUTO DIFFE RENTI AL lymphocytes relative 39.6 % Not Available [facility] [address] [place], [address], 01/08/2025 12:06:59 01/09/20 25 01/08/2025 CBC WITH AUTO DIFFE RENTI AL monocytes relative 11.3 % Not Available [facility] [address] [place] [address], [address], 01/08/2025 12:06:59 01/09/20 25 01/08/2025 CBC WITH AUTO DIFFE RENTI AL eosinophils relative 4.9 % Not Available [facility] [address] [place] [address], [address], 01/08/2025 12:06:59 01/09/20 25 01/08/2025 CBC WITH AUTO DIFFE RENTI AL basophils relative 0.7 % Not Available [facility] [address] [place], [address], 01/08/2025 12:06:59 01/09/20 25 01/08/2025 CBC WITH AUTO DIFFE RENTI AL immature granulocytes relative 0.7 % Not Available [facility] [address] [place], [address], 01/08/2025 12:06:59 01/09/20 25 01/08/2025 CBC WITH AUTO DIFFE RENTI AL neutrophils absolute 1.21 K/mcL 1.50-7 .00 low Not Available [facility] [address] [place], [address], 01/08/2025 12:06:59 01/09/20 25 01/08/2025 CBC WITH AUTO DIFFE RENTI AL lymphocytes absolute 1.12 K/mcL 1.00-5 .00 Not Available [facility] [address] [place], [address], 01/08/2025 12:06:59 01/09/20 25 01/08/2025 CBC WITH AUTO DIFFE RENTI AL monocytes absolute 0.32 K/mcL 0.20-1 .00 Not Available [facility] [address] [place], [address], 01/08/2025 12:06:59 01/09/20 25 01/08/2025 CBC WITH AUTO DIFFE RENTI AL eosinophils absolute 0.14 K/mcL 0.00-0 .50 Not Available [facility] [address] [place], [address], 01/08/2025 12:06:59 01/09/20 25 01/08/2025 CBC WITH AUTO DIFFE RENTI AL basophils absolute 0.02 K/mcL 0.00-0 .20 Not Available [facility] [address] [place], [address], 01/08/2025 12:06:59 01/09/20 25 01/08/2025 CBC WITH AUTO DIFFE RENTI AL immature granulocytes absolute 0.02 K/mcL 0.00-0 .03 Not Available [facility] [address] [place], [address], 01/08/2025 12:06:59 01/09/20 25 01/08/2025 CBC WITH AUTO DIFFE RENTI AL note See Report [facility], [facility], [address], [place] [address] Not Available [facility] [address] [place], [address], 01/08/2025 12:06:59 01/09/20 25 01/08/2025 LIPAS E lipase 16 unit/ L 13-75 Not Available [facility] [address] [place] [address], [address], 01/08/2025 12:17:58 01/09/20 25 01/08/2025 LIPAS E note See Report [facility], [facility], [address], [place] [address] Not Available [facility] [address] [place], [address], 01/08/2025 12:17:58 01/09/20 25 01/08/2025 COMPR EHENS JAMES METAB OLIC PANEL sodium 137 mmol/ L 133-14 5 Not Available [facility] [address] [place] [address], [address], 01/08/2025 12:32:04 01/09/20 25 01/08/2025 COMPR EHENS JAMES METAB OLIC PANEL potassium 3.9 mmol/ L 3.5-5. 5 Not Available [facility] [address] [place], [address], 01/08/2025 12:32:04 01/09/20 25 01/08/2025 COMPR EHENS JAMES METAB OLIC PANEL chloride 106 mmol/ L 96-110 Not Available [facility] [address] [place] [address], [address], 01/08/2025 12:32:04 01/09/20 25 01/08/2025 COMPR EHENS JAMES METAB OLIC PANEL CO2 27 mmol/ L 21-32 Not Available [facility] [address] [place], [address], 01/08/2025 12:32:04 01/09/20 25 01/08/2025 COMPR EHENS JAMES METAB OLIC PANEL anion gap 4 3-11 Not Available [facility] [address] [place], [address], 01/08/2025 12:32:04 01/09/20 25 01/08/2025 COMPR EHENS JAMES METAB OLIC PANEL glucose 108 mg/dL 70-100 high Not Available [facility] [address] [place], [address], 01/08/2025 12:32:04 01/09/20 25 01/08/2025 COMPR EHENS JAMES METAB OLIC PANEL BUN 10 mg/dL 5-25 Not Available [facility] [address] [place], [address], 01/08/2025 12:32:04 01/09/20 25 01/08/2025 COMPR EHENS JAMES METAB OLIC PANEL creatinine 0.80 mg/dL 0.70-1 .30 Not Available [facility] [address] [place], [address], 01/08/2025 12:32:04 01/09/20 25 01/08/2025 COMPR EHENS JAMES METAB OLIC PANEL eGFR 96 mL/mi n/1.7 3m2 >=60 Calcu latio n based on the Chron ic Kidne y Disea se Epide miolo gy Colla borat ion (CKD- EPI) equat ion refit witho ut adjus tment for race. Not Available [facility] [address] [place], [address], 01/08/2025 12:32:04 01/09/20 25 01/08/2025 COMPR EHENS JAMES METAB OLIC PANEL BUN/creatini ne ratio 12.5 Not Available [facility] [address] [place], [address], 01/08/2025 12:32:04 01/09/20 25 01/08/2025 COMPR EHENS JAMES METAB OLIC PANEL calcium 9.2 mg/dL 8.5-10 .5 Not Available [facility] [address] [place], [address], 01/08/2025 12:32:04 01/09/20 25 01/08/2025 COMPR EHENS JAMES METAB OLIC PANEL AST (SGOT) 38 unit/ L 10-42 Not Available [facility] [address] [place], [address], 01/08/2025 12:32:04 01/09/20 25 01/08/2025 COMPR EHENS JAMES METAB OLIC PANEL ALT (SGPT) 37 unit/ L 10-60 Not Available [facility] [address] [place], [address], 01/08/2025 12:32:04 01/09/20 25 01/08/2025 COMPR EHENS JAMES METAB OLIC PANEL alkaline phosphatase 134 unit/ L 42-121 high Not Available [facility] [address] [place], [address], 01/08/2025 12:32:04 01/09/20 25 01/08/2025 COMPR EHENS JAMES METAB OLIC PANEL total protein 8.1 g/dL 6.0-8. 0 high Not Available [facility] [address] [place], [address], 01/08/2025 12:32:04 01/09/20 25 01/08/2025 COMPR EHENS JAMES METAB OLIC PANEL albumin 3.7 g/dL 3.2-5. 0 Not Available [facility] [address] [place], [address], 01/08/2025 12:32:04 01/09/20 25 01/08/2025 COMPR EHENS JAMES METAB OLIC PANEL total bilirubin 0.6 mg/dL 0.0-1. 4 Not Available [facility] [address] [place], [address], 01/08/2025 12:32:04 01/09/20 25 01/08/2025 COMPR EHENS JAMES METAB OLIC PANEL note See Report [facility], [facility], [address], [place] [address] Not Available [facility] [address] [place], [address], 01/08/2025 12:32:04 01/09/20 25 01/08/2025 AMYLA SE amylase 65 unit/ L 25-115 Not Available [facility] [address] [place], [address], 01/08/2025 12:32:05 01/09/20 25 01/08/2025 AMYLA SE note See Report [facility], [facility], [address], [address] [place] [address] Not Available [facility] [address] [place], [address], 01/08/2025 12:32:05 01/09/20 25 01/08/2025 LIPID PANEL WITH REFLE X TO DIREC T LDL cholesterol 142 mg/dL 0-200 Not Available [facility] [address] [place], [address], 01/08/2025 12:32:06 01/09/20 25 01/08/2025 LIPID PANEL WITH REFLE X TO DIREC T LDL triglyceride s 80 mg/dL 0-150 Not Available [facility] [address] [place], [address], 01/08/2025 12:32:06 01/09/20 25 01/08/2025 LIPID PANEL WITH REFLE X TO DIREC T LDL HDL 68 mg/dL >=40 Not Available [facility] [address] [place], [address], 01/08/2025 12:32:06 01/09/20 25 01/08/2025 LIPID PANEL WITH REFLE X TO DIREC T LDL LDL calculated 58 mg/dL 0-100 Not Available [facility] [address] [place], [address], 01/08/2025 12:32:06 01/09/20 25 01/08/2025 LIPID PANEL WITH REFLE X TO DIREC T LDL VLDL cholesterol sofia 16 mg/dL Not Available [facility] [address] [place], [address], 01/08/2025 12:32:06 01/09/20 25 01/08/2025 LIPID PANEL WITH REFLE X TO DIREC T LDL non HDL chol. (LDL+VLDL) 74 mg/dL <145 Not Available [facility] [address] [place] [address], [address], 01/08/2025 12:32:06 01/09/20 25 01/08/2025 LIPID PANEL WITH REFLE X TO DIREC T LDL chol/HDL ratio 2.1 0.0-4. 4 Not Available [facility] [address] [place] [address], [address], 01/08/2025 12:32:06 01/09/20 25 01/08/2025 LIPID PANEL WITH REFLE X TO DIREC T LDL note See Report [facility], [facility], [address], [place] [address] Not Available [facility] [address] [place] [address], [address], 01/08/2025 12:32:06 01/09/20 25 01/08/2025 HEMOG LOBIN A1C hemoglobin A1C 6.0 % <6.5 Not Available [facility] [address] [place], [address], 01/08/2025 13:35:29 01/09/20 25 01/08/2025 HEMOG LOBIN A1C mean bld glu estim. 126 mg/dL Not Available [facility] [address] [place] [address], [address], 01/08/2025 13:35:29 01/09/20 25 01/08/2025 HEMOG LOBIN A1C note See Report [facility], [facility], [address], [facility] [place] [address] Not Available [facility] [address] [place], [address], 01/08/2025 13:35:29 01/09/20 25 01/08/2025 HIV 1 MOLEC ULAR STUDY QUANT ITATI VE HIV-1 RNA interpretati on Not Detect ed not detect ed HIV RNA not detec travis, unabl e to repor t quant itati ve resul ts. Not Available [facility] [address] [place] [address], [address], 01/08/2025 14:08:45 01/09/20 25 01/08/2025 HIV 1 MOLEC ULAR STUDY QUANT ITATI VE note See Report [facility], [facility], [address], [facility] [place] [address] Not Available [facility] [address] [place] [address], [address], 01/08/2025 14:08:45 01/09/20 25 01/08/2025 CHLAM YDIA TRACH OMATI S AND NEISS ERIA GONOR RHOEA E MOLEC ULAR STUDY .note See Note Origi nal Order ing Provi scotty: JERAMY DIAMANTE OG GABRIEL [facility] - [facility], [address], [facility] [place] [address] Not Available [facility] [address] [place] [address], [address], 01/08/2025 14:08:47 01/09/20 25 01/08/2025 CHLAM YDIA TRACH OMATI S AND NEISS ERIA GONOR RHOEA E MOLEC ULAR STUDY neisseria gonorrhoeae PCR Negati ve negati ve Not Available [facility] [address] [place] [address], [address], 01/08/2025 14:08:47 01/09/20 25 01/08/2025 CHLAM YDIA TRACH OMATI S AND NEISS ERIA GONOR RHOEA E MOLEC ULAR STUDY chlamydia trachomatis PCR Negati ve negati ve Not Available [facility] [address] [place] [address], [address], 01/08/2025 14:08:47 01/09/20 25 01/08/2025 THYRO XINE FREE free T4 1.32 NG/dL 0.70-1 .80 Not Available [facility] [address] [place] [address], [address], 01/08/2025 14:12:50 01/09/20 25 01/08/2025 THYRO XINE FREE note See Report [facility], [facility], [address], [facility] [place] [address] Not Available [facility] [address] [place] [address], [address], 01/08/2025 14:12:50 01/09/20 25 01/08/2025 HEPAT ITIS B SURFA CE ANTIG EN WITH REFLE X TO CONFI RMATI ON hepatitis B surface Ag Negati ve negati ve Not Available [facility] [address] [place] [address], [address], 01/08/2025 14:23:52 01/09/20 25 01/08/2025 HEPAT ITIS B SURFA CE ANTIG EN WITH REFLE X TO CONFI RMATI ON note See Report [facility], [facility], [address], [facility] [place] [address] Not Available [facility] [address] [place] [address], [address], 01/08/2025 14:23:52 01/09/20 25 01/08/2025 THYRO ID STIMU LATIN G HORMO NE TSH 1.36 mciu/ mL 0.40-4 .00 Not Available [facility] [address] [place] [address], [address], 01/08/2025 14:44:58 01/09/20 25 01/08/2025 THYRO ID STIMU LATIN G HORMO NE note See Report [facility], [facility], [address], [facility] [place] [address] Not Available [facility] [address] [place] [address], [address], 01/08/2025 14:44:58 01/09/20 25 01/08/2025 TREPO NEMA PALLI DUM ANTIB DOMINGO WITH REFLE X TO RPR AND PARTI ALEJANDRA AGGLU TINAT ION T. pallidum antibodies Negati ve negati ve Not Available [facility] [address] [place] [address], [address], 01/08/2025 14:56:02 01/09/20 25 01/08/2025 TREPO NEMA PALLI DUM ANTIB DOMINGO WITH REFLE X TO RPR AND PARTI ALEJANDRA AGGLU TINAT ION note See Report [facility], [facility], [address], [place] [address] Not Available [facility] [address] [place] [address], [address], 01/08/2025 14:56:02 01/09/20 25 01/08/2025 LYMPH OCYTE T-JESSE L PANEL cd4 462 cells /mcL 426-17 76 Not Available [facility] [address] [place] [address], [address], 01/09/2025 11:50:20 01/09/20 25 01/08/2025 LYMPH OCYTE T-JESSE L PANEL cd8 471 cells /mcL 161-83 8 Not Available [facility] [address] [place] [address], [address], 01/09/2025 11:50:20 01/09/20 25 01/08/2025 LYMPH OCYTE T-JESSE L PANEL cd4/cd8 ratio 0.98 0.90-4 .90 Not Available [facility] [address] [place] [address], [address], 01/09/2025 11:50:20 01/09/20 25 01/08/2025 LYMPH OCYTE T-JESSE L PANEL cd4 % 35 % 33-64 Not Available [facility] [address] [place] [address], [address], 01/09/2025 11:50:20 01/09/20 25 01/08/2025 LYMPH OCYTE T-JSESE L PANEL cd8 % 36 % 10-39 Not Available [facility] [address] [place] [address], [address], 01/09/2025 11:50:20 01/09/20 25 01/08/2025 LYMPH OCYTE T-JESSE L PANEL note See Report [facility], [address] [facility], [address] [place] [address] Not Available [facility] [address] [place], [address], 01/09/2025 11:50:20 01/09/20 25 01/08/2025 HEPAT ITIS C VIRAL RNA GENOT YPE 1 NS5B DRUG RESIS TANCE HCV ns5b drug resistance assay See Report See comme nts HCV GenoS ure(T M) NS5B HCV GenoS ure(T M) NS5B Resul t: Non-R eport able HCV Genot ype: Not Avail able Mutat ional kavon sis of the speci fipanfilo regio n could not be obtai giovanni. The most commo n reaso ns for failu re are insuf ficie nt viral load, prime r incom patib ility , incor rect genot ype/s ubtyp e submi ssion (must be 1a or 1b), and the prese nce of inhib itory subst ances in the sampl e. If you would like to add on HCV Genot ype (subt ype) or HCV RT-PC R Quant , or if you have any quest ions pleas e conta ct our Clien t Servi alfredo Depar tment at . Not Available [facility], [place], [address], 02/02/2025 15:06:38 01/09/20 25 01/08/2025 HEPAT ITIS C VIRAL RNA GENOT YPE 1 NS5B DRUG RESIS TANCE HCV ns5b resist assay interp For more inform ation on interp reting this report , please call Monog brennan Custo humberto Servi ce at [phone] betwe en the hours of 6:30a m to 5:00p m Pacif ic Time Monda y throu gh [place] y. REMIN SCOTTY: To Ensur e High- Quali ty Resul ts on All Sampl es - Verif y Viral Load >1 000 IU/mL Befor e Order ing. - Draw 3.0 mL Plasm a (PPT or EDTA Tube) . - Spin Sampl e Immed iatel y at 1000- 1200 x g. - Don't Leave Sampl es in Centr ifuge After Spinn ing. - Aliqu ot Plasm a from EDTA Tubes (if used) . - Freez e Sampl e Immed iatel y at -20 degre es C. - Give Couri er Only Fully Froze n Sampl es. This assay is perfo rmed using a next- gener ation seque ncing platf orm that kavon zes the speci fied non-s truct ural codin g regio ns of HCV. Varia nts are repor travis at a sensi tivit y that has been demon strat ed to be equiv alent to that of Sange r/pop ulati on seque ncing . Genot ype assig nment is deter mined from the seque nce of the speci fied regio ns that are deriv ed using subty pe speci fic metho dolog y, and shoul d not be used to estab osmar or confi rm the HCV genot ype. HCV genot ype deter minat ion shoul d only be done with an assay inten ded for that purpo se. This assay was valid ated by testi ng sampl es with viral loads equal to or above 1000 IU/mL and shoul d be inter prete d only on such speci mens. This test was devel oped and its perfo rmanc e taryn cteri stics deter mined by [employer]. It has not been clear ed or appro rossy by the Food and Drug Admin istra tion. [facility] [employer], [employer]. is a subsi diary of Labor atory Corpo ratio n of [employer], using the brand [employer]. The resul ts shoul d not be used as the sole crite yareli for patie nt manag ement . This docum ent conta ins priva te and confi denti al healt h infor matio n prote cted by state and jeb al law. If you have recei rossy this docum ent in error , pleas e call [phone]. Not Available [address], [place], [address], 02/02/2025 15:06:38 01/09/20 25 01/08/2025 HEPAT ITIS C VIRAL RNA GENOT YPE 1 NS5B DRUG RESIS TANCE note See Report [facility], [facility], [address], [place] [address] Not Available [facility] [address] [facility], [place], [address], 02/02/2025 15:06:38 10/09/19 25 10/08/2024 MRI, lumba r spine , w/o contr ast See Note [facility] , a member of [facility] Name: HANNAH Hou Date of : 1955 Reason for Exam: acute osteo Exam Date: 2024 [id number] EST Report Status : Final Orderi ng Provid er: DENISE BRUSH PCP: TOMER LOZANO PROCED URE: Lumbar spine MRI INDICA TION: Osteom yeliti s TECHNI QUE: Multip lanar, multis equenc e MRI of the lumbar spine Withou t contra st. COMPAR SHARLENE: No priors availa ble. FINDIN GS: Mild bart listhe sis at L4-5 with S-shap ed thorac olumba r curvat ure. No fractu re or suspic ious marrow replac ing lesion . There is endpla te irregu larity and edema at L1-2 and L4-5. Multil evel degene rative loss of normal disc height and signal with associ ated degene rative endpla te irregu larity throug hout the lumbar spine. There is no fluid within the disc spaces . Severe lumbar facet arthri tis, most pronou nced at L4-5 and L5-S1. Edema is seen around the L4-5 facet joints bilate rally. Reacti ve edema is seen at the L4 and L5 pedicl es. Conus medull jessee is normal and termin ates at L1-2. No epidur al collec tion or mass seen within the spinal canal. Parasp inal muscle s are normal . No parave rtebra l fluid collec tion. Findin gs by level: L1-2: Bilate ral facet arthro julien with ligame ntum flavum thicke mike. Diffus e disc bulge with endpla te spurri ng, eccent serge to the left. Left latera l disc osteop hyte comple x with adjace nt reacti ve edema. Mild spinal canal stenos is. Modera te left and mild right forami nal stenos is. L2-3: Bilate ral facet arthro julien with ligame ntum flavum thicke mike. Diffus e disc bulge. Modera te forami nal stenos is bilate rally. No spinal canal stenos is. L3-4: Bilate ral facet arthro julien with ligame ntum flavum thicke mike. Diffus e disc bulge with superi mposed left forami nal/ex tra forami nal protru titus. Modera te forami nal stenos is bilate rally. No spinal canal stenos is. L4-5: Bilate ral facet arthro julien with ligame ntum flavum thicke mike. Diffus e disc bulge with endpla te spurri ng and risk consultant ior disc uncove ring. Modera te to severe spinal canal stenos is. Severe right and modera te left forami nal stenos is. L5-S1: Bilate ral facet arthro julien with ligame ntum flavum thicke mike. Diffus e disc bulge with endpla te spurri ng. Mild forami nal stenos is bilate rally. Mild spinal canal stenos is with efface ment of the subart icular zones. IMPRES TITUS: Endpla te irregu larity of edema at L1-L4 5, withou t fluid in the disc spaces , more likely relate d to degene rative type I Modic change s rather than osteom yeliti s/disc itis. No epidur al or parave rtebra l absces s. Severe multil evel degene rative change s throug hout the lumbar spine, most pronou nced at L4-5 where there is modera te to severe spinal canal stenos is as well as severe right and modera te left forami nal stenos is. Severe facet arthri tis at L4-5 bilate rally with surrou nding edema/ inflam mation . Reacti ve edema involv es the right greate r than left L4 and L5 pedicl es. ------ -- FINAL REPORT ------ -- Dictat ed By: ELTON MEDINA Dictat ed Date: 2024 12:22 ET Assign ed Physic cindy: ELTON MEDINA Review ed and Electr onical ly Signed By: ELTON MEDINA Signed Date: 2024 12:47 ET Workst ation ID: [id number] Transc ribed By: Self Edit Transc ribed Date: 2024 12:22 ET [email or web address] [facility] (Imaging) [ 194 ] [address], [place], [address], 10/13/2024 10:55:02 Result Notes Documentation Provider Name and Address Organization Details Recorded Time Mri, Lumbar Spine, W/o Contrast : See Note [facility], a member of [employer] Patient Name: HANNAH HENAO Date of : 1955 Reason for Exam: acute osteo Exam Date: 10/08/2024 [id number] EST Report Status: Final Ordering Provider: ADELIA WOODS PCP: EMERY LOZANO PROCEDURE: Lumbar spine MRI INDICATION: Osteomyelitis TECHNIQUE: Multiplanar, multisequence MRI of the lumbar spine Without contrast. COMPARISON: No priors available. FINDINGS: Mild anterolisthesis at L4-5 with S-shaped thoracolumbar curvature. No fracture or suspicious marrow replacing lesion. There is endplate irregularity and edema at L1-2 and L4-5. Multilevel degenerative loss of normal disc height and signal with associated degenerative endplate irregularity throughout the lumbar spine. There is no fluid within the disc spaces. Severe lumbar facet arthritis, most pronounced at L4-5 and L5-S1. Edema is seen around the L4-5 facet joints bilaterally. Reactive edema is seen at the L4 and L5 pedicles. Conus medullaris is normal and terminates at L1-2. No epidural collection or mass seen within the spinal canal. Paraspinal muscles are normal. No paravertebral fluid collection. Findings by level: L1-2: Bilateral facet arthropathy with ligamentum flavum thickening. Diffuse disc bulge with endplate spurring, eccentric to the left. Left lateral disc osteophyte complex with adjacent reactive edema. Mild spinal canal stenosis. Moderate left and mild right foraminal stenosis. L2-3: Bilateral facet arthropathy with ligamentum flavum thickening. Diffuse disc bulge. Moderate foraminal stenosis bilaterally. No spinal canal stenosis. L3-4: Bilateral facet arthropathy with ligamentum flavum thickening. Diffuse disc bulge with superimposed left foraminal/extra foraminal protrusion. Moderate foraminal stenosis bilaterally. No spinal canal stenosis. L4-5: Bilateral facet arthropathy with ligamentum flavum thickening. Diffuse disc bulge with endplate spurring and posterior disc uncovering. Moderate to severe spinal canal stenosis. Severe right and moderate left foraminal stenosis. L5-S1: Bilateral facet arthropathy with ligamentum flavum thickening. Diffuse disc bulge with endplate spurring. Mild foraminal stenosis bilaterally. Mild spinal canal stenosis with effacement of the subarticular zones. IMPRESSION: Endplate irregularity of edema at L1-L4 5, without fluid in the disc spaces, more likely related to degenerative type I Modic changes rather than osteomyelitis/discitis. No epidural or paravertebral abscess. Severe multilevel degenerative changes throughout the lumbar spine, most pronounced at L4-5 where there is moderate to severe spinal canal stenosis as well as severe right and moderate left foraminal stenosis. Severe facet arthritis at L4-5 bilaterally with surrounding edema/inflammation. Reactive edema involves the right greater than left L4 and L5 pedicles. 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 Human immunodefi ciency virus [HIV] disease; snomeddesc ription: Human immunodefi ciency virus infection; Report Immunity to Registry: Yes; Notes: [id number] neg 2013; ; Start Date : 11/16/2014 Human immunodefi ciency virus infection; snomeddesc ription: Human immunodefi ciency virus infection; Report Immunity to Registry: Yes; Notes: [id number] neg 2013; ; Start Date : 11/16/2014 Human immunodefi ciency virus [HIV] disease; snomeddesc ription: Human immunodefi ciency virus infection; Report Immunity to Registry: Yes; Notes: [id number] neg G6PD nl; Human immunodefi ciency virus infection; snomeddesc ription: Human immunodefi ciency virus infection; Report Immunity to Registry: Yes; Notes: [id number] neg G6PD nl; Not Available [facility] 4 06:58:35 Blood chemistry outside reference range [id number] Active 2015 Other specified abnormal findings of blood chemistry; snomeddesc ription: Decreased testostero ne level; Report Immunity to Registry: Yes; Not Available [facility] 4 06:58:35 Testoster one level below reference range [id number] Active 2015 Decreased testostero ne level; snomeddesc ription: Decreased testostero ne level; Report Immunity to Registry: Yes; Not Available [facility] 4 06:58:36 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 dx 1970's. core ab pos; s ag neg; s ab neg HBV VL nondetecte d 2016; 2017; 2019; Not Available [facility] 4 06:58:35 Type B viral hepatitis 59028299 Active 2016 Type B viral hepatitis; snomeddesc ription: Type B viral hepatitis; Report Immunity to Registry: Yes; Notes: past hx. dx 1970's. 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 Anogenital herpesvira l infection, unspecifie d; snomeddesc ription: Genital herpes simplex; Report Immunity to Registry: Yes; Notes: HSV 1 and 2 pos serology 2016; Not Available [facility] 4 06:58:35 Osteomyel itis 19984745 Active 2018 Osteomyeli tis; snomeddesc ription: Osteomyeli tis; Report Immunity to Registry: Yes; Notes: 10/23/17 grew yeast (Argelia parapsilos is) (1 out f 2) (susc Caspo;Vori ;fluc); started on Capsofungi n 70-->50 mg IV qd; then fluconazol e 400mg po qd until 07/17/18; Not Available [facility] 4 06:58:35 Chronic obstructi ve pulmonary disease 74523453 Active 2022 Chronic obstructiv e lung disease; snomeddesc ription: Chronic obstructiv e lung disease; Report Immunity to Registry: Yes; Chronic obstructiv e pulmonary disease, unspecifie d; snomeddesc ription: Chronic obstructiv e lung disease; Report Immunity to Registry: Yes; Not Available [facility] 4 06:58:35 Anemia 949880484 Active 2022 Anemia; snomeddesc ription: Anemia; Report Immunity to Registry: Yes; Anemia, unspecifie d; snomeddesc ription: Anemia; Report Immunity to Registry: Yes; Not Available [facility] 4 06:58:36 Viral hepatitis C 09485186 Active 2023 Adelia Woods MD [address] [place] [address] DAGO mabry, [id number] , [facility] - ADELIA WOODS MD [facility] 4 13:12:33 Problem Notes None recorded. Medical Equipment None Reported. Allergies Allergen ID Allergen Name Allergen Category Reaction Reaction Severity Criticality Documentation Date Start Date Code Code System Note Provider Name and Address Organization Details Recorded Time 844 Vioxx medicatio n Not available Not available Not available 11/07/20232013 71642 9 RxNorm Sever ity: unkno wn; Comme nt: adver se_ev ent_t ype: [id number]; Notes : Acute adema ; ; Not Available [facility] 06:51:01 Medications Name Sig Start Date Stop Date Status Note LastModified by Organization Details LastModified Time cetirizin e 5 mg-pseudo ephedrine ER 120 mg tablet,ex tended release,1 2hr TAKE 1 TABLET BY MOUTH EVERY DAY active Not Available Not Available No t Available atorvasta tin 40 mg tablet CALCIUM 40 MG TABS; Quantity : 30; Duration : 30; 0 refill(s ) 01/09 completed Duration : 30; VACCINE_ IND: no; Not Available Not Available Not Available clonidine HCl 0.1 mg tablet TAKE 1 TABLET BY MOUTH THREE TIMES DAILY active Not Available Not Available No t Available prednison e 10 mg tablet active Not Available Not Available Not Available doxycycli ne hyclate 100 mg capsule TAKE 2 CAPSULES BY MOUTH WITHIN 24- 72H AFTER CONDOMLE SS SEX active Not Available Not Available No t Available Mylanta Maximum Strength 400 mg-400 mg-40 mg/5 mL oral suspensio n Take 5 mL twice a day by oral route for 30 days. 2023 active Not Available Not Available Not Avai lable Pneumovax -23 25 mcg/0.5 mL injection solution - Quantity : ; 0 refill(s ) 10/23 completed VACCINE_ IND: yes; VACCINE_ NAME: pneumoco ccal polysacc haride PPV23; SU_FULL_ NAME: Adelia mcarthur; Not Available Not Available Not Available ibuprofen 800 mg tablet TAKE 1 TABLET BY MOUTH EVERY 8 HOURS FOR 15 DAYS active Not Available Not Available No t Available Senna Lax 8.6 mg tablet LAXTAB 8.6MGSEN NA LAX; Quantity : 30; Duration : 30; 0 refill(s ) 10/11 completed Duration : 30; VACCINE_ IND: no; Not Available Not Available Not Available fluconazo le 200 mg tablet 200MG TABLET; Quantity : 60; Duration : 30; 0 refill(s ) 11/25 completed Duration : 30; VACCINE_ IND: no; Not Available Not Available Not Available naltrexon e 50 mg tablet active Not Available Not Available Not Available famotidin e 40 mg tablet TAKE 1 TABLET BY MOUTH EVERY DAY FOR GERD active Not Available Not Available No t Available isosorbid e mononitra te ER 30 mg tablet,ex tended release 24 hr MONO TAB 30MG ERISOSOR BIDE MONONITR ATE ER; Quantity : 30; Duration : 30; 0 refill(s ) 12/14 completed Duration : 30; VACCINE_ IND: no; Not Available Not Available Not Available ceftriaxo ne 250 mg solution for injection Take 250 mg by injectio n route for 1 day. 2023 active IM: administ ered in office; medicati on obtained and paid by office/p ractice Not Available Not Available Not Available clobetaso l 0.05 % topical cream 0.05% Quantity : 60; Duration : 21; 0 refill(s ) 06/01 completed Duration : 21; VACCINE_ IND: no; Not Available Not Available Not Available amlodipin e 5 mg tablet TAKE 1 TABLET BY MOUTH DAILY active Not Available Not Available No t Available omeprazol e 40 mg capsule,d elayed release 40 mg Quantity : 30; Duration : 30; 0 refill(s ) 10/23 completed Duration : 30; VACCINE_ IND: no; Not Available Not Available Not Available aspirin 81 mg tablet,de layed release TAKE 1 TABLET BY MOUTH EVERY DAY active Not Available Not Available No t Available Nicotrol 10 mg inhalatio n cartridge 10 Quantity : 168; Duration : 25; 0 refill(s ) 04/12 completed Duration : 25; VACCINE_ IND: no; Not Available Not Available Not Available triamcino lone acetonide 0.1 % topical cream 0.1% Quantity : ; 0 refill(s ) 08/12 completed VACCINE_ IND: no; Not Available Not Available Not Available amoxicill in 500 mg tablet TAKE 1 TABLET BY MOUTH THREE TIMES DAILY UNTIL GONE active Not Available Not Available No t Available simvastat in 40 mg tablet TAB 40MGSIMV ASTATIN; Quantity : 30; Duration : 30; 0 refill(s ) 12/14 completed Duration : 30; VACCINE_ IND: no; Not Available Not Available Not Available Bismatrol 262 mg chewable tablet TABLET CHEW; Quantity : 56; Duration : 14; 0 refill(s ) 11/25 completed Duration : 14; VACCINE_ IND: no; Not Available Not Available Not Available rifampin 300 mg capsule TAKE 1 CAPSULE BY MOUTH TWICE DAILY FOR 42 DAYS active Not Available Not Available No t Available hydromorp michael 2 mg tablet HCL 2MG TABLET; Quantity : 10; Duration : 2; 0 refill(s ) 11/25 completed Duration : 2; VACCINE_ IND: no; Not Available Not Available Not Available Claritin- D 24 Hour 10 mg-240 mg tablet,ex tended release 10 mg-240 mg Quantity : 30; Duration : 30; 1 refill(s ) 05/27 completed Frequenc y: qd; Duration : 30; VACCINE_ IND: no; SU_FULL_ NAME: Adelia mcarthur; Not Available Not Available Not Available Nitrostat 0.4 mg sublingua l tablet 0.4 mg Quantity : 25; Duration : 25; 0 refill(s ) 01/10 completed Duration : 25; VACCINE_ IND: no; Not Available Not Available Not Available DOK 100 mg capsule sodium 100 mg Quantity : 180; Duration : 90; 0 refill(s ) 05/30 completed Duration : 90; VACCINE_ IND: no; Not Available Not Available Not Available tamsulosi n 0.4 mg capsule 0.4 mg Quantity : 90; Duration : 90; 0 refill(s ) 09/26 completed Duration : 90; VACCINE_ IND: no; Not Available Not Available Not Available nicotine (polacril ex) 4 mg gum 4 mg Quantity : ; 0 refill(s ) 11/16 completed VACCINE_ IND: no; Not Available Not Available Not Available dicyclomi ne 20 mg tablet TAKE 1 TABLET BY MOUTH THREE TIMES DAILY active Not Available Not Available No t Available baclofen 10 mg tablet TAKE 1 TABLET BY MOUTH TWICE DAILY FOR 14 DAYS active Not Available Not Available No t Available Betasept Surgical Scrub 4 % topical liquid APPLY TOPICALL Y EVERY OTHER DAY active Not Available Not Available No t Available ferrous sulfate 325 mg (65 mg iron) tablet SULFATE 325MG TABLET; Quantity : 90; Duration : 30; 0 refill(s ) 09/26 completed Duration : 30; VACCINE_ IND: no; Not Available Not Available Not Available ranitidin e 150 mg tablet HCL 150MG TABLET; Quantity : 30; Duration : 30; 0 refill(s ) 12/02 completed Duration : 30; VACCINE_ IND: no; Not Available Not Available Not Available lisinopri l 10 mg tablet TAKE 1 TABLET BY MOUTH DAILY active Not Available Not Available No t Available Aldara 5 % topical cream packet apply to affected area daily as directed 09/26 completed VACCINE_ IND: no; SU_FULL_ NAME: Adelia mcarthur; Not Available Not Available Not Available Mapap (acetamin ophen) 325 mg tablet 325MG TABLET; Quantity : 10; Duration : 2; 0 refill(s ) 11/25 completed Duration : 2; VACCINE_ IND: no; Not Available Not Available Not Available Gas Relief Extra Strength 125 mg capsule active Not Available Not Available Not Available sertralin e 25 mg tablet TAKE 1 TABLET BY MOUTH DAILY active Not Available Not Available No t Available omeprazol e 20 mg capsule,d elayed release 20 mg Quantity : 30; Duration : 30; 0 refill(s ) 07/13 completed Duration : 30; VACCINE_ IND: no; Not Available Not Available Not Available Banophen 25 mg capsule 1-2 tablets qhs active Not Available Not Available No t Available bisacodyl 5 mg tablet,de layed release active Not Available Not Available Not Available mometason e 0.1 % topical ointment Quantity : 90; Duration : 30; 0 refill(s ) 12/02 completed Duration : 30; VACCINE_ IND: no; Not Available Not Available Not Available gabapenti n 100 mg capsule TAKE 1 CAPSULE BY MOUTH THREE TIMES DAILY active Not Available Not Available No t Available levofloxa jan 750 mg tablet TAKE 1 TABLET BY MOUTH EVERY DAY FOR 42 DAYS active Not Available Not Available No t Available albuterol sulfate HFA 90 mcg/actua tion aerosol inhaler INHALE 2 PUFFS BY MOUTH FOUR TIMES DAILY NEEDED FOR SHORTNES S OF BREATH OR WHEEZING active Not Available Not Available No t Available ferrous sulfate 325 mg (65 mg iron) tablet,de layed release TAKE 1 TABLET BY MOUTH ONCE DAILY active Not Available Not Available No t Available ketoconaz ole 2 % topical cream 2% Quantity : ; 0 refill(s ) 11/16 completed VACCINE_ IND: no; Not Available Not Available Not Available fluticaso ne propionat e 50 mcg/actua tion nasal spray,yvette pension SHAKE LIQUID AND USE 1 SPRAY IN EACH NOSTRIL EVERY DAY FOR NASAL CONGESTI ON active Not Available Not Available No t Available sertralin e 50 mg tablet HCL 50MG TABLET; Quantity : 30; Duration : 30; 0 refill(s ) 09/26 completed Duration : 30; VACCINE_ IND: no; Not Available Not Available Not Available amoxicill in 875 mg-potass ium clavulana te 125 mg tablet TAKE 1 TABLET BY MOUTH TWICE DAILY active Not Available Not Available No t Available esomepraz ole magnesium 20 mg capsule,d elayed release TAKE 1 CAPSULE BY MOUTH DAILY active Not Available Not Available No t Available Pneumovax -23 25 mcg/0.5 mL injection syringe - Quantity : ; 0 refill(s ) 04/12 completed VACCINE_ IND: yes; VACCINE_ DOCUMENT _DATE: 00:00:00 ; VACCINE_ DOCUMENT _NAME: Pneumoco ccal Polysacc haride (PPSV23) : 07/16/19 ; VACCINE_ NAME: pneumoco ccal polysacc haride PPV23; SU_FULL_ NAME: Adelia Calhoun blue; VIS_DATE : 16:07:53 .0; Not Available Not Available Not Available cyclobenz aprine 5 mg tablet HCL 5MG TABLET; Quantity : 4; Duration : 2; 0 refill(s ) 11/25 completed Duration : 2; VACCINE_ IND: no; Not Available Not Available Not Available lactulose 10 gram/15 mL oral solution TAKE 15 ML BY MOUTH EVERY DAY FOR CONSTIPA TION active Not Available Not Available No t Available methadone Quantity : ; 0 refill(s ) 10/23 completed VACCINE_ IND: no; Not Available Not Available Not Available bismuth subsalicy late 262 mg Quantity : 56; Duration : 14; 0 refill(s ) 11/11 completed Frequenc y: bid; Duration : 14; VACCINE_ IND: no; SU_FULL_ NAME: Adelia mcarthur; Not Available Not Available Not Available Acid Virtualization Engineer (famotidi ne) 20 mg tablet 20 mg Quantity : ; 0 refill(s ) 11/16 completed VACCINE_ IND: no; Not Available Not Available Not Available Engerix-B (PF) 20 mcg/mL intramusc ular suspensio n 20 mcg/mL Quantity : ; 0 refill(s ) 01/09 completed VACCINE_ IND: yes; VACCINE_ DOCUMENT _DATE: 00:00:00 ; VACCINE_ DOCUMENT _NAME: Hepatiti s B: 07/01/21 ; VACCINE_ NAME: Hep B, adult; SU_FULL_ NAME: Adelia mcarthur; VIS_DATE : 17:00:45 .0; Not Available Not Available Not Available Havrix (PF) 1,440 HALLEY unit/mL intramusc ular suspensio n 1440 units/mL preserva tive free Quantity : ; 0 refill(s ) 05/30 completed VACCINE_ IND: yes; VACCINE_ NAME: Hep A, adult; SU_FULL_ NAME: Adelia mcarthur; Not Available Not Available Not Available GaviLyte- G 236 gram-22.7 4 gram-6.74 gram-5.86 gram oral solution active Not Available Not Available Not Available Prevnar 13 (PF) 0.5 mL intramusc ular syringe - Quantity : ; 0 refill(s ) 05/04 completed VACCINE_ IND: yes; VACCINE_ NAME: Pneumoco ccal conjugat e PCV 13; SU_FULL_ NAME: Adelia mcarthur; Not Available Not Available Not Available diclofena c 1.5 % topical drops apply in affected area bid PRN 04/06 completed Duration : 1; VACCINE_ IND: no; SU_FULL_ NAME: Adelia mcarthur; Not Available Not Available Not Available buprenorp sekou 2 mg-naloxo ne 0.5 mg sublingua l film DISSOLVE 1 FILM UNDER THE TONGUE THREE TIMES DAILY active Not Available Not Available No t Available buprenorp sekou 8 mg-naloxo ne 2 mg sublingua l film DISSOLVE 1 FILM UNDER THE TONGUE DAILY active Not Available Not Available No t Available Antacid-A ntigas 200 mg-200 mg-20 mg/5 mL oral suspensio n TAKE 5ML BY MOUTH TWICE DAILY active Not Available Not Available No t Available lactulose 10 gram/15 mL (15 mL) oral solution Take 15 mL every day by oral route for 30 days, for constipa tion. 2023 active Not Available Not Available Not Avai lable buprenorp sekou 4 mg-naloxo ne 1 mg sublingua l film DISSOLVE 1 FILM UNDER THE TONGUE TWICE DAILY active Not Available Not Available No t Available buprenorp sekou 12 mg-naloxo ne 3 mg sublingua l film TAKE 1 FILM UNDER THE TONGUE EVERY 24 HOURS active Not Available Not Available No t Available Triumeq 600 mg-50 mg-300 mg tablet TAB; Quantity : 30; Duration : 30; 0 refill(s ) 04/01 completed Duration : 30; VACCINE_ IND: no; Not Available Not Available Not Available Harvoni 90 mg-400 mg tablet TAB 90-400MG HARVONI; Quantity : 28; Duration : 28; 0 refill(s ) 06/01 completed Duration : 28; VACCINE_ IND: no; Not Available Not Available Not Available Fluvirin 45 mcg (15 mcg x 3)/0.5 mL intramusc ular suspensio n trivalen t Quantity : ; 0 refill(s ) 11/11 completed VACCINE_ IND: yes; VACCINE_ NAME: Influenz a, seasonal , injectab le; SU_FULL_ NAME: Adelia Miguelkhoi mcarthur; Not Available Not Available Not Available Flonase Sensimist 27.5 mcg/actua tion nasal spray,yvette pension apply one per nostril daily 05/27 completed Duration : 30; VACCINE_ IND: no; SU_FULL_ NAME: Adelia mcarthur; Not Available Not Available Not Available Afluria Quad 60 mcg/0.5 mL intramusc ular suspensio n quadriva lent Quantity : ; 0 refill(s ) 11/11 completed VACCINE_ IND: yes; VACCINE_ NAME: influenz a, injectab le, quadriva lent; SU_FULL_ NAME: Adelia mcarthur; VIS_DATE : 18:37:16 .0; Not Available Not Available Not Available Shingrix (PF) 50 mcg/0.5 mL intramusc ular suspensio n, kit 0.5ml IM x1, then 0.5 ml x1 2-6 months later 12/03 completed Duration : 1; VACCINE_ IND: no; VACCINE_ NAME: zoster recombin ant; SU_FULL_ NAME: Adelia Calhoun l; Not Available Not Available Not Available Dovato 50 mg-300 mg tablet TAKE 1 TABLET BY MOUTH EVERY DAY 2024 active Not Available Not Available Not Avai lable Afluria Quad 60 mcg (15 mcg x 4)/0.5 mL intramusc ular susp. quadriva lent Quantity : ; 0 refill(s ) 2018 active VACCINE_ IND: yes; VACCINE_ NAME: influenz a, injectab le, quadriva lent; SU_FULL_ NAME: Adelia mcarthur; VIS_DATE : 18:46:57 .0; Not Available Not Available Not Available Afluria Quad 60 mcg (15 mcg x 4)/0.5 mL intramusc ular susp. quadriva lent Quantity : ; 0 refill(s ) 2019 active VACCINE_ IND: yes; VACCINE_ NAME: influenz a, injectab le, quadriva lent; SU_FULL_ NAME: Adelia Calhoun l; VIS_DATE : 19:25:08 .0; Not Available Not Available Not Available Wegovy 0.25 mg/0.5 mL subcutane ous pen injector Inject 0.25 mg every week by subcutan eous route for 28 days, for weight loss. active Not Available Not Available No t Available Prevnar 20 (PF) 0.5 mL intramusc ular syringe - Quantity : 1; Duration : 1; 0 refill(s ) 10/12 completed Frequenc y: x1; Duration : 1; VACCINE_ IND: no; VACCINE_ NAME: Pneumoco ccal conjugat e PCV20, polysacc haride [id number] conjugat e, adjuvant , PF; SU_FULL_ NAME: Adelia mcarthur; Not Available Not Available Not Available Afluria Quad 60 mcg (15 mcg x 4)/0.5 mL intramusc ular susp. quadriva lent Quantity : ; 0 refill(s ) 2020 active VACCINE_ IND: yes; VACCINE_ DOCUMENT _DATE: 00:00:00 ; VACCINE_ DOCUMENT _NAME: Influenz a (Flu) (Inactiv ated or Recombin ant): 04/22/21; VACCINE_ NAME: influenz a, injectab le, quadriva lent; SU_FULL_ NAME: Adelia mcarthur; VIS_DATE : 17:24:01 .0; Not Available Not Available Not Available Zepbound 2.5 mg/0.5 mL subcutane ous pen injector Inject 2.5 mg by subcutan eous route for 30 days, for weight. 2024 active Not Available Not Available Not Avai lable Vitals Date Recorded Body height Body mass index (BMI) Body weight Provider Name and Address Organization Details Last Updated DateTime 01/07/2025 170.18 cm 30.1 kg/m2 72800.74 g Adelia Woods MD [address] [place] [address], [phone], DAGO WOODS MD [facility] 01/07/2025 15:38:07 Date Recorded Body height Heart rate Respiratory rate Body temperature Body mass index (BMI) Body weight Systolic And Diastolic Provider Name and Address Organization Details Last Updated DateTime 5 170.18 cm 65 /min 12 /min 98.7 [degF] 30.9 kg/m2 05945.7 g 157/88 mm[Hg] Minnie WOODS MD [facility] 11:13:23 Date Recorded Body height Heart rate Body temperature Body mass index (BMI) Body weight Respiratory rate Systolic And Diastolic Provider Name and Address Organization Details Last Updated DateTime 5 170.18 cm 57 /min 97 [degF] 15.4 kg/m2 30912.4 9 g 97 /min 140/80 mm[Hg] Minnie Cardenas DAGO WOODS MD [facility] 5 11:48:08 Date Recorded Body height Heart rate Respiratory rate Body temperature Body mass index (BMI) Body weight Provider Name and Address Organization Details Last Updated DateTime 5 170.18 cm 53 /min 12 /min 97.3 [degF] 30.5 kg/m2 66409.5 1 g Demetria Godoynorman WOODS MD [facility] 5 12:52:41 Social History None recorded. Functional Status None recorded. Mental Status None recorded. Family History Nothing Reported Notes:Family history unknown , Response Property: Yes; , NO KNOWN FAMILY HISTORY, Response Property: Yes; Medical History No medical history recorded. Immunizations Vaccine Type Date Status Note Provider Nam e and Address Organization Details Recorded Time Influenza, split virus, quadrivalent, preservative 0 completed Not Available [facility] 11/07/2023 06:53:59 Influenza, split virus, quadrivalent, preservative 9 completed Not Available [facility] 11/07/2023 06:54:00 Influenza, split virus, quadrivalent, preservative 1 completed Not Available [facility] 11/07/2023 06:54:00 Past Encounters Encounter ID Performer Location Encounter Start Date Encounter Closed Date Diagnosis/Indication Diagnosis SNOMED-CT Code Diagnosis ICD10 Code Diagnosis IMO Codes Diagnosis Note [id number] Adelia Woods MD Main Office [address] [place] [phone] 07/13/2023 12:42:52 07/17/2023 13:29:07 Human immunodeficiency virus infection 93048587 B20 HIV:Contin ue Dovato 1 tab po qd. strict compliance reviewed to keep viral suppressio n, prevent viral resistance . prefers to keep current regimen. pt aware of Cabenuva IM, clinical trials with monoclonal ab, and is willing to consider switching regimen if candidate. long acting agents reviewed. consent provided. lab U=U. pt aware of PreP availabili ty. condom use. plan of care reviewed. 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 strict compliance reviewed to keep viral suppressio n, prevent viral resistance . prefers to keep current regimen. U=U. pt aware of PreP availabili ty. condom use.Refer Mimi: case management and opiate substituti on program. plan of care reviewed. questions and concerns addressed Viral hepatitis C 285088 07 B19.20 SVR.fibros ure f3; g1a; nonreponde r to peg/hiwot/ p HArvoni 1 tab po qd 12/05/14- 12 weeksSVR 2014; neg 2015; [id number] Adelia Woods MD Main Office [address] [place] [phone] 03/10/2024 12:31:59 03/10/2024 13:18:54 Human immunodeficiency virus infection 24693315 B20 HIV:Contin ue Dovato 1 tab po qd. strict compliance reviewed to keep viral suppressio n, prevent viral resistance . prefers to keep current regimen.pt is willing and interested in clinical trialsU=U. pt aware of PreP availabili ty. condom use.DOxyPE P reviewedpl an of care reviewed. questions and concerns addressed Viral hepatitis C 076402 B19.20 SVR.fibros ure f 3; g1a; nonreponde r to peg/hiwot/ p HArvoni 1 tab po qd 12/05/14- 12 weeksSVR 2014; neg 2015; 2017; ; 3preven tion reviewed [id number] Adelia oWods MD Main Office [address] [place] [phone] 05/29/2024 12:22:27 05/29/2024 13:33:11 Human immunodeficiency virus infection 03710815 B20 HIV:Contin ue Dovato 1 tab po qd. strict compliance reviewed to keep viral suppressio n, prevent viral resistance .pt is willing and interested in clinical trialsU=U. pt aware of PreP availabili ty. condom use.flu and COVID19 vaccines recommende dplan of care reviewed. questions and concerns addressed Acute oste omyelitis of lumbar spine 163698968 M46.26 IVDU.MRI lumbar Spine [place] to compare with previous one to see if progressio n or new findings.p t prefers no biopsy.lab s to include B/C x2, sed rate, CRP, safety labsonce labs drwan, pt will Start empiricall y Levaquin 750mg po qd and Rifampin 600mg po qd to cover for MSSA, MRSA, strep, staph coag neg; gram neg. plan is for 42 weeks if tolerated well and no side effects. he understand s this is empiric tx, and if nonrespons e or no-improve ment, may need biopsy and other alternativ es.watch for allergic reactions, c diff, n/v/d, among other potential side effectsavo id ETOH.avoid IVDUcall with any concerns [id number] Adelia Woods MD Main Office [address] [place] [address] 06/03/2024 15:19:48 06/03/2024 16:28:59 Osteomyelitis 26069168 M86.9 IVDU.Lymba r spine: high sed rate and CRP. b/c negative so far. elevated WBCpending repeat MRI lumbar Spine [place] to compare with previous one to determine progressio n or new findings.C eftriaxone 250mg IM administre d today. tolerated well.Start tomorrow Levaquin 750mg po qd and Rifampin 600mg po qd to cover for MSSA, MRSA, strep, staph coag neg; gram neg. plan is for 42 weeks if tolerated well and no side effects. he understand s this is empiric tx, and if nonrespons e or no-improve ment, may need biopsy and other alternativ es.watch for allergic reactions, c diff, n/v/d, change sin urine/swea t color, ligament/t endo rupture among other potential side effects. to call with diarrheahy drationavo id ETOH.avoid IVDUcall with any concerns Human immunodeficiency virus infection 40859185 B20 HIV:Contin ue Dovato 1 tab po qd. strict compliance reviewed to keep viral suppressio n, prevent viral resistance .pt is willing and interested in clinical trialsU=U. pt aware of PreP availabili ty. condom use.flu and COVID19 vaccines recommende dplan of care reviewed. questions and concerns addressed [id number] Adelia Woods MD Main Office [address] [place] [address] 06/16/2024 15:19:25 06/16/2024 15:58:20 Osteomyelitis 66199285 M86.9 recent IVDU. on methadone. Lumbar spine: high sed rate and CRP. b/c negative. elevated WBCpending repeat MRI lumbar Spine [place] to compare with previous one to determine progressio n or new findings.C ontinue Levaquin 750mg po qd and Rifampin 600mg po qd to cover for MSSA, MRSA, strep, staph coag neg; gram neg. plan is for 42 days if tolerated well and no side effects.if ongoing side effects, could lower antibiotic dose. pt to call if no improvemen twatch for C diff.hydra tionlabs:a void ETOH.avoid IVDUcall with any concerns Human immunodeficiency virus infection 01269474 B20 HIV:Contin ue Dovato 1 tab po qd. strict compliance reviewed to keep viral suppressio n, prevent viral resistance .U=U. pt aware of PreP availabili ty. condom use.questi ons and concerns addressed Gastroesop hageal reflux disease 233249712 K21.9 On esomeprazo le which will be re-started Mylanta bid PRN for GERD.timin g between antibiotic and mylanta reviewed. Insomnia 824652416 F51.0 1 Benadryl 1-2 tabs po qhs. Constipation 26989223 K5 9.00 lactulose qd prnfiberhy dration Nasal congestion 4701318 0 R09.81 [place] [id number] Adelia Woods MD Main Office [address] [place] [address] 07/03/2024 14:01:10 07/03/2024 14:36:23 Osteomyelitis 94196296 M86.9 recent IVDU. on methadone. Lumbar spine: high sed rate and CRP. b/c negative. elevated WBCpending repeat MRI lumbar Spine [place] to compare with previous one to determine progressio n or new findings.C ontinue Levaquin 750mg po qd and Rifampin. he is supposeed to be on 600mg, but will decrease to 300mg po qd due to tolerabili ty. goal is to cover for MSSA, MRSA, strep, staph coag neg; gram neg. plan is for 42 days total if tolerated well and no side effects.if ongoing side effects, could lower antibiotic to 1/2 daily or 1 QOD. pt to call if no improvemen twatch for C diff.hydra tionlabs:a void ETOH.avoid IVDUincrea sing dose of metahdone to prevent/ad dress withdrawal call with any concerns Human immunodeficiency virus infection 57835412 B20 HIV:Contin ue Dovato 1 tab po qd. strict compliance reviewed to keep viral suppressio n, prevent viral resistance .U=U. pt aware of PreP availabili ty. condom use.questi ons and concerns addressed Gastroesop hageal reflux disease 984722077 K21.9 Re-start esomeprazo le. watch for interactio nMylanta bid PRN for GERD.timin g between antibiotic and mylanta reviewed. Constipation 51918233 K5 9.00 lactulose qd prnfiberhy dration [id number] Adelia Woods MD Main Office [address] [place] [address] 07/31/2024 12:17:46 07/31/2024 13:16:05 Osteomyelitis 94300995 M86.9 Lumbar spine: high sed rate and CRP. b/c negative. elevated WBCpending repeat MRI lumbar Spine [place] to compare with previous one to determine progressio n or new findings.w ill Complete Levaquin 750mg po qd for 6 months. . pt was not able to take full course of Rifampin due to tolerabili ty/side effects. May have completed 3 weeks of Rifampin.w atch for C diff.hydra tionlabs:a void ETOH.avoid IVDUincrea sing dose of metahdone to prevent/ad dress withdrawal call with any concerns Human immunodeficiency virus infection 73070186 B20 HIV:Contin ue Dovato 1 tab po qd. strict compliance reviewed to keep viral suppressio n, prevent viral resistance .U=U. pt aware of PreP availabili ty. condom use.questi ons and concerns addressed Gastroesop hageal reflux disease 421302833 K21.9 hold PPI.Mylant a bid PRN for GERD.Pepci d qdtiming between antibiotic and mylanta reviewed. Nonulcer dyspepsia 01366 07 K30 H pylori in 2-4 weeks Excoriation of skin 2474 07966 T14.8XXA swab obtainedwi tx if needed [id number] Adelia Woods MD Main Office [address] [place] [address] 08/29/2024 13:00:53 08/29/2024 13:32:35 Osteomyelitis 73200356 M86.9 Lumbar spine: high sed rate and CRP. b/c negative.p ending repeat MRI lumbar Spine [place] to compare with previous one to determine progressio n or new findings. he will call today to schedule; he got phone call to do so.s/p Levaquin 750mg po qd for 6 weeks; pt was not able to take full course of Rifampin due to tolerabili ty/side effects. May have completed 3 weeks of Rifampin.i mporved sx on antibiotic s;no recurrence hydrationl abs:avoid ETOH.avoid IVDUcall with any concerns Human immunodeficiency virus infection 91675215 B20 HIV:Contin ue Dovato 1 tab po qd. strict compliance reviewed to keep viral suppressio n, prevent viral resistance .U=U. pt aware of PreP availabili ty. condom use.questi ons and concerns addressed Gastroesop hageal reflux disease 299409846 K21.9 Mylanta bid PRN for GERD.Pepci d qdtiming between antibiotic and mylanta reviewed. [id number] Adelia Woods MD Main Office [address] [place] [address] 10/09/2024 12:11:24 10/09/2024 14:17:26 Osteomyelitis 25953976 M86.9 Lumbar spine: b/c negative.r epeat MRI lumbar Spine 09/2024 with no infection. OA.s/p Levaquin 750mg po qd for 6 weeks; pt was not able to take full course of Rifampin due to tolerabili ty/side effects. May have completed 3 weeks of Rifampin.i mproved sx on antibiotic s;no recurrence ; no current evidence of infectionh ydrationla bs:avoid weight gainavoid ETOH.avoid IVDUcall with any concerns Human immunodeficiency virus infection 77202329 B20 HIV:Contin ue Dovato 1 tab po qd. strict compliance reviewed to keep viral suppressio n, prevent viral resistance .U=U. pt aware of PreP availabili ty. condom use.questi ons and concerns addressed Chronic low back pain 27 0534007 M54.50 Lumbar arthritis and spinal stenosis.f /u with PCP; consider surgical eval if sx get worse or progressio n [id number] Adelia Woods MD Main Office [address] [place] [phone] 01/07/2025 14:59:34 01/07/2025 20:38:58 Human immunodeficiency virus infection 62459538 B20 HIV:Contin ue Dovato 1 tab po qd. strict compliance reviewed to keep viral suppressio n, prevent viral resistance .clinical trial options reviewed.U =U. pt aware of PreP availabili ty. condom use.questi ons and concerns addressed Suspected clinical finding 690303730 Z20.2 9439700 DoxyPeP. pt interested in Doxycyclin e for prevention of bacterial STI's. Instructio ns on correct use reviewed. no more than 2 doses per day. condom use reviewed. pt aware of PreP availabili ty 3 site testing GC/chla,yd ia done. Change doxycyclin e hyclate 100 mg capsule from TAKE 2 CAPSULES BY MOUTH WITHIN 24-72 HRS AFTER CONDOMLESS SEX. to 2 capsules po within 24-72 hrs after condomless sex. Body mass index 30+ - obesity 573988570 E66.9 7289972 BMI 30.1chroni c back pain and low back pain/OA; HBP on amlodipin. ; Hyperlipid ivonne; no DM; COPD.labZe pbound 2.5mg sq qw. if tolerated well, will increase dose qm. will come in ot get first dose in office. correct use reviewed. keep refrigerat ed.potenti al insurance barriers reviewed.p otential side effects reviewed: allergic reactions, vision changes, n/v/d/cons tipation, GERD, obstructio n [place] tony.to call with any concernsdi et and exercise. Nasal congestion 8166604 0 R09.81 01750 flonase [id number] Adelia Woods MD Main Office [address] [place] [phone] 02/05/2025 10:58:28 02/05/2025 11:40:34 Human immunodeficiency virus infection 95149627 B20 HIV:Contin ue Dovato 1 tab po qd. strict compliance reviewed to keep viral suppressio n, prevent viral resistance .U=U. pt aware of PreP availabili ty. condom use.prevna r20 and RSV vaccines recommende dquestions and concerns addressed Body mass index 30+ - obesity 815049527 E66.9 9837327 BMI 30.1chroni c back pain and low back pain/OA; HBP on amlodipine .; Hyperlipid emia; prediabete s; COPD.Zepbo und 2.5mg sq qw. if tolerated well, will increase dose qm. will come in ot get first dose in office. correct use reviewed. keep refrigerat ed.potenti al insurance barriers reviewed.p otential side effects reviewed: allergic reactions, vision changes, n/v/d/cons tipation, GERD, obstructio n among other.to call with any concernsdi et and exercise. [id number] Adelia Woods MD Main Office [address] [place] [address] 05/07/2025 11:12:57 05/07/2025 12:17:08 Human immunodeficiency virus infection 57387413 B20 HIV:Contin ue Dovato 1 tab po qd. strict compliance reviewed to keep viral suppressio n, prevent viral resistance .flu vaccine recommende d; states had RSV and shingles alreadyque stions and concerns addressed Body mass index 30+ - obesity 990521669 E66.9 7989508 BMI 30.9chroni c back pain and low back pain/OA; HBP on amlodipine .; Hyperlipid emia; prediabete s; COPD.Zepbo und not on insurance formulary; discussed other opotions, including Olistat, topiramate and Wegovy and amphetamin es. Will Rx Wegovy, if tolerated well, will increase dose qm. will come in ot get first dose in office. correct use reviewed. keep refrigerat ed.potenti al insurance barriers reviewed.I f not approved, will consider topiramate or Olistat d/t recent GI issues.pot ential side effects reviewed: allergic reactions, vision changes, n/v/d/cons tipation, GERD, obstructio n among other.to call with any concernsdi et and exercise. Diarrhea 71531294 R19.7 75130716 nausea.wea mike methadone? withdrawal .pt will see GI on June 2025imodiu m offered; he declines . zofran offered for nausea; he declined. he will call if he needs imodium or zofran, or if worsening of sx. .will obtain CT scan done at [facility] within the past months [id number] Adelia Woods MD Main Office [address] [place] [address] 05/20/2025 10:42:30 05/20/2025 12:45:23 Human immunodeficiency virus infection 99049960 B20 HIV:Contin ue Dovato 1 tab po qd. strict compliance reviewed to keep viral suppressio n, prevent viral resistance .flu vaccine recommende d; states had RSV and shingles alreadyque stions and concerns addressed Body mass index 30+ - obesity 263465204 E66.9 7036413 BMI 30.9chroni c back pain and low back pain/OA; HBP on amlodipine .; Hyperlipid emia; prediabete s; COPD.Zepbo und not on insurance formulary; discussed other options, including Olistat, topiramate and Wegovy and amphetamin es. Will Rx Wegovy, if tolerated well, will increase dose qm. will come in ot get first dose in office. correct use reviewed. keep refrigerat ed.potenti al insurance barriers reviewed.I f not approved, will consider topiramate or Olistat d/t recent GI issues.pot ential side effects reviewed: allergic reactions, vision changes, n/v/d/cons tipation, GERD, obstructio n among other.to call with any concernsdi et and exercise. Diarrhea 72539020 R19.7 [id number] nausea.wea mike methadone? withdrawal .pt will see GI on June 2025imodiu m offered; he declines . zofran offered for nausea; he declined. he will call if he needs imodium or zofran, or if worsening of sx. .will obtain CT scan done at [facility] within the past months Health Concerns Section Related Observation LastModified by Organization Detai ls LastModified Time None Recorded Concern Status LastModified by Organization Details LastModified Time None Recorded Advance Directives Directive None Recorded Payers Insurance Date Sequence Insurance Name Policy Number Policy Workman Covered Member ID Workman Member ID Guarantor Name 07/04/[address] [facility] - DOS ON OR AFTER 2022 - MEDICARE ADVANTAGE [place] (MEDICARE REPLACEMENT/ADV ANTAGE - PPO) Hannah Henao [id number] Hannah Henao Notes Date Note Type Note Provider Name and Address Organization Details Recorded Time text/html ROS as noted in the HPI f/u HIV.on Dovato 1 tab po qddoes not miss doses; complianton methadoneno substance use for 2 monthsdenies ETOH ; denies IVDUmed list reviewed.OM spine. 06/04/24 Started Levaquin 750mg po qd and Rifampin 600mg po qd.tolerated levaquin well ; completed 6 weeks of Levaquin.was not able to complete rifampin. completed about 3 weeks of Rifampin.not worse, no back pain, abd pain.gaining weight about 20 pounds since he was last seenapetitte improved. no urine/stool incontinenceNo n/v/d.no fever. no chills no sweats. no changes. urinating ok. pain is not progressingno back pain06/02/2024 B/c negative ; Sed rate 103; CRP 0.82; WBC 2.5; Hgb 11.8;AST/ALT wnl; prediabetes HIV VL nondetected; CD-592; HCV VL nondetected (past infection); HBV s ag neg; ALT/AST wnl; treponemal ab d neg;eGFR=76;07/2023 HIV VL nondetected; UE0=697; ALT/AST wnl;eGFR.60; HCV nondetected; no GC/no chlamydia; no syphilis; no HBVrepeat MRI lumbar area 09/2024 with ni evidence of infection. Resulst discussed with pt, and copy provided. MRI done on 03/2024 due to worsening lower back pain radiating to left leg/knee prior to starting antibiotics.04/04/24 MRI spine no contrast: patchy enhancement involving L1-2 and L4-5 reactive endplate changes; same finding for facet joints in 3 llevels and degenerative inflammation; infection cannot be excludedhad previous infection in neck area about a decade ago: fungal 2nd to IVDU.pt says he feels same malaise and anorexia which he had when he had past infection which has progressed. he feel like he has an infection again. no rash. no allergies to quinolones nor any other antibioticno C diff hx. has tolerated antibiotics and antifungal well in the past. had MRI on 10/08/24. results not resulted; pendingno antibiotic allergyhc sciatica hx.heno urine incontinence and stool incontinence. Adelia Woods MD [address] [place] [address], [phone], [facility] - ADELIA WOODS MD [facility] 10/23/2024 19:35:29 5 text/html ROS as noted in the HPI f/u HIV.on Dovato 1 tab po qdinterested in clinical trialsdoes not miss doses; complianton methadone ; tapered slowly.no substance use for more than 6 monthsdenies ETOH ; denies IVDUmed list reviewed.weight gain. 193. lbs. interested in weight loss tx.no n/v/d. no urine/stool incontinenceno fever. no chills no sweats. no changes. urinating ok. pain is not progressingchronic back pain and low back painHBP on amlodipine.; Hyperlipidmia; no DM.no thyrroid cancer; no meduallry cancer hx nor family hx.no pancreatitis. GERD. on famotidineno obstructions. no constipation. COPD. nasal congestion. has had before 08/2024 AST/ALT wnl;eGFR=98;06/02/2024 B/c negative ; Sed rate 103; CRP 0.82; WBC 2.5; Hgb 11.8;AST/ALT wnl; prediabetes HIV VL nondetected; CD-592; HCV VL nondetected (past infection); HBV s ag neg; ALT/AST wnl; treponemal ab d neg;eGFR=76;07/2023 HIV VL nondetected; LB2=370; ALT/AST wnl;eGFR.60; HCV nondetected; no GC/no chlamydia; no syphilis; no HBV 04/04/24 MRI spine no contrast: patchy enhancement involving L1-2 and L4-5 reactive endplate changes; same finding for facet joints in 3 llevels and degenerative inflammation; infection cannot be excluded Adelia Woods MD [address] [place] [address], [phone], [facility] - ADELIA WOODS MD [facility] 01/07/2025 21:08:19 5 text/html ROS as noted in the HPI f/u HIV.on Dovato 1 tab po qddoes not miss doses; complianton methadone ; tapered slowly.no substance use for more than 7 monthsdenies ETOH ; denies IVDUmed list reviewed.not sexually active; has DoxyPEP prescription weight gain. 197; BMI>30.labs reviewed.interested in GLP1's.no n/v/d.chronic back pain and low back painHBP on amlodipine.; Hyperlipidemia; pre-diabetes.no thyroid cancer; no meduallary cancer hx nor family hx.no pancreatitis. GERD. on famotidine ; no visual problems.no obstructions. no constipation. COPD.12/2023 Lipid amylase lipase AST/ALT wnl; eGFR=96; glu 108;lipase nl; mild anemia; prediabetes 6.0; HBV s ag neg; HCV VL nondteceted; chlamydia/GC neg; CD4 462; no syphilis ; free T4 nl; HIV V L nondetected. lipids nl; AST/ALT wnl; amylase nl; lipase nl08/2024 AST/ALT06/02/2024 B/c negative ; Sed rate 103; CRP 0.82; WBC 2.5; Hgb 11.8;AST/ALT wnl; prediabetes ; LE7=651; HIV VL Nondetected. HIV VL nondetected; CD-592; HCV VL nondetected (past infection); HBV s ag neg; ALT/AST wnl; treponemal ab d neg;eGFR=76;07/2023 HIV VL nondetected; YW2=227; ALT/AST wnl;eGFR.60; HCV nondetected; no GC/no chlamydia; no syphilis; no HBV04/04/24 MRI spine no contrast: patchy enhancement involving L1-2 and L4-5 reactive endplate changes; same finding for facet joints in 3 llevels and degenerative inflammation; infection cannot be excluded Adelia Woods MD [address] [place] [address], [phone], [facility] - ADELIA WOODS MD [facility] 02/06/2025 02:48:33 5 text/html f/u HIV.on Dovato 1 tab po qddoes not miss doses; complianton methadone ; tapered slowly. some GI symptoms now, loose stool and refluxhad CT [facility] substance use for more than 7 monthsdenies ETOH ; denies IVDUmed list reviewed.not sexually active; has DoxyPEP prescriptionweight stable 197; BMI>30 reviewed.interested in GLP1's. wants to loose weight; has been using OUD in past to help w/weight. has tried diet and exercise; eating smaller portions.some GI issues w/diarrhea and nausea;has appt w/GI in June.still interested in GLP1, Zepbound not approved by insurance, will try Wegovy.No Hx glaucomaHx cholecystectomy d/t stoneschronic back pain and low back painHBP on amlodipine.; Hyperlipidemia; pre-diabetes.no thyroid cancer; no meduallary cancer hx nor family hx.no pancreatitis. GERD. on famotidine ; no visual problems.no obstructions. no constipation. COPD. 12/2024 HIV VL not detected; CD4 462 (35%); GC/chlamydia neg; syphilis screen neg; TSH 1.36; Hep B Ag neg; A1c 6.0; lipids WNL; amylase 65; lipase 16; WBC 2.8, RBC 4.10, H/H 12.1/36.4; AST/ALT WNL, gluc 108, alk phos 134, tprotein 8. Lipid amylase lipase AST/ALT wnl; eGFR=96; glu 108;lipase nl; mild anemia; prediabetes 6.0; HBV s ag neg; HCV VL nondteceted; chlamydia/GC neg; CD4 462; no syphilis ; free T4 nl; HIV V L nondetected. lipids nl; AST/ALT wnl; amylase nl; lipase nl08/2024 AST/ALT06/02/2024 B/c negative ; Sed rate 103; CRP 0.82; WBC 2.5; Hgb 11.8;AST/ALT wnl; prediabetes ; MN9=732; HIV VL Nondetected. HIV VL nondetected; CD-592; HCV VL nondetected (past infection); HBV s ag neg; ALT/AST wnl; treponemal ab d neg;eGFR=76;07/2023 HIV VL nondetected; JQ8=954; ALT/AST wnl;eGFR.60; HCV nondetected; no GC/no chlamydia; no syphilis; no HBV04/04/24 MRI spine no contrast: patchy enhancement involving L1-2 and L4-5 reactive endplate changes; same finding for facet joints in 3 llevels and degenerative inflammation; infection cannot be excluded Adelia Woods MD [address] [place] [address], [phone], [facility] - ADELIA WOODS MD [facility] 05/07/2025 12:27:19 5 text/html ROS as noted in the HPI f/u HIV.on Dovato 1 tab po qddoes not miss doses; complianton methadone ; tapered slowly. some GI symptoms now, loose stool and refluxhad CT [facility] substance use for more than 7 monthsdenies ETOH ; denies IVDUmed list reviewed.not sexually active; has DoxyPEP prescriptionweight stable 197; BMI>30 reviewed.interested in GLP1's. wants to loose weight; has been using OUD in past to help w/weight. has tried diet and exercise; eating smaller portions.some GI issues w/diarrhea and nausea;has appt w/GI in June.still interested in GLP1, Zepbound not approved by insurance, will try Wegovy.No Hx glaucomaHx cholecystectomy d/t stoneschronic back pain and low back painHBP on amlodipine.; Hyperlipidemia; pre-diabetes.no thyroid cancer; no meduallary cancer hx nor family hx.no pancreatitis. GERD. on famotidine ; no visual problems.no obstructions. no constipation. COPD.12/2024 HIV VL not detected; CD4 462 (35%); GC/chlamydia neg; syphilis screen neg; TSH 1.36; Hep B Ag neg; A1c 6.0; lipids WNL; amylase 65; lipase 16; WBC 2.8, RBC 4.10, H/H 12.1/36.4; AST/ALT WNL, gluc 108, alk phos 134, tprotein 8.1 , hep c RNA GT 1 ns5b drug resistance, free T 4- 1.32, HIV RNA- non detected, liupid- wn Lipid amylase lipase AST/ALT wnl; eGFR=96; glu 108;lipase nl; mild anemia; prediabetes 6.0; HBV s ag neg; HCV VL nondteceted; chlamydia/GC neg; CD4 462; no syphilis ; free T4 nl; HIV V L nondetected. lipids nl; AST/ALT wnl; amylase nl; lipase nl08/2024 AST/ALT06/02/2024 B/c negative ; Sed rate 103; CRP 0.82; WBC 2.5; Hgb 11.8;AST/ALT wnl; prediabetes ; RU1=071; HIV VL Nondetected. HIV VL nondetected; CD-592; HCV VL nondetected (past infection); HBV s ag neg; ALT/AST wnl; treponemal ab d neg;eGFR=76;07/2023 HIV VL nondetected; DI8=661; ALT/AST wnl;eGFR.60; HCV nondetected; no GC/no chlamydia; no syphilis; no HBV04/04/24 MRI spine no contrast: patchy enhancement involving L1-2 and L4-5 reactive endplate changes; same finding for facet joints in 3 llevels and degenerative inflammation; infection cannot be excluded Not Available Not Available Not Available
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
--- OUTSIDE RECORDS SUMMARY | 2025-07-10 17:18 | XMS_ITS | Encounter Summary ---
Author Organization [facility] Address [address] [place] [address] Care Team Providers Care Joy Operator Helper Name Role Phone Andreas Vallejo Primary Care Provider [phone] Encounter Details Date Type Department Care Team (Late st Contact Info) Description 07/31/2024 Lab Requisition [facility] - Main Lab [address] [place] [id number] Cary Beasley MD [address] [place] [address] Other injury of unspecified body region, initial [...] Growth of Anaerobes. 08/04/2024 10:05 AM EST [facility] Gram Stain Result Refer to Aerobic culture for gram stain results. 08/04/2024 10:05 AM [facility] Swab 07/31/2024 3:24 PM EST 07/31/2024 7:37 PM EST Narrative [facility] - 08/04/2024 10:05 AM EST Specimen received on aerobic transport swab - anaerobic results may be compromised. Cary Beasley MD LAB MICROBIOLOGY - GENERA L ORDERABLES Final Result Performing Organization Address [facility]/ZIP Co de Phone Number [facility] [address] [place] [address], [place] [phone] * Culture wound with gram stain (07/31/2024 [...] MICROBIOLOGY - GENERA L ORDERABLES Final Result [facility] [address] [place] [address], [place] [phone] documented in this encounter Visit Diagnoses Diagnosis Other injury of unspecified body region, initial encounter documented in this encounter Care Teams Joy Operator Helper Relationship Specialty Start Date End Date Andreas Vallejo PA [address] [place] [phone] PCP - General 04/10/24 documented as of this encounter
== END 2025-07-10 16:22 | disposition home or self-care (01) ==
LOC: HO.CT 16:21
PROVIDERS: PCP Physician Assistant; Visit Provider Surgery
DX: K43.9 Ventral hernia without obstruction or gangrene (principal); Z12.2 Encounter for screening for malignant neoplasm of respiratory organs; F17.210 Nicotine dependence, cigarettes, uncomplicated
CPT/HCPCS: 71271; 74150

== ENCOUNTER → 2025-07-10 16:23 | Outpatient (BNV) | payer OTHER, SELFPAY | PROVIDERS: PCP Physician Assistant; Visit Provider Radiology Diagnostic Radiology | DX: Z12.2 Encounter for screening for malignant neoplasm of respiratory organs (principal); Z87.891 Personal history of nicotine dependence | CPT/HCPCS: 71271 ==

== ENCOUNTER 2025-07-15 14:11 | Outpatient (AMB) | payer OTHER, SELFPAY ==
[2025-07-15 14:15] VITALS: BP 136/90; PULSE 105; RESP 18; TEMP 36.2; O2SAT 95; BMI 31.2
--- NOTE | 2025-07-15 14:15 | MHC.PC.OV ---
Vital Signs 07/15/25 14:15 Height 5 ft 6 in Weight 193 lb 8 oz BMI 31.2 BP 136/90 H Blood Pressure Location Lt brachial Position Sitting Respiration 18 Pulse 105 H Pulse Source Pulse Oximeter Temp 97.1 F Temp Source Temporal Artery Scan Pulse Oximetry (%) 95 Oxygen Delivery Method Room Air Intake Visit Reasons: f/u HTN/ DMII Rn Social Services Required: No Accompanied by: Self / Same As Patient Allergies bee pollen (BEE STINGS) Allergy (Severe, Verified 07/15/25 14:57) SWELLING rofecoxib (From VIOXX) Allergy (Intermediate, Verified 07/15/25 14:57) Swelling buprenorphine (From Suboxone) Adverse Reaction (Intermediate, Verified 07/15/25 14:57) Psychosis naloxone (From Suboxone) Adverse Reaction (Intermediate, Verified 07/15/25 14:57) Psychosis Medication List - Last Reconciled 07/15/25 by Andreas Vallejo PA-C albuterol sulfate 90 mcg/actuation (Ventolin HFA) 2 puffs inhalation QID PRN 30 days aspirin 81 mg PO DAILY 90 days compr.stocking,knee,long,large As directed dolutegravir-lamivudine 50-300 mg 1 tab PO DAILY esomeprazole magnesium 20 mg PO ONCE PRN ferrous sulfate 325 mg PO DAILY fluticasone propionate 50 mcg/actuation 1 spray intranasal DAILY food supplemt, lactose-reduced (Boost High Protein) 1 ea PO BID 12 days ibuprofen 800 mg PO Q8H PRN lisinopril 10 mg PO DAILY 90 days mupirocin calcium 2% 1 appl topical TID 30 days nicotine (Nicotrol) 1 inh inhalation Q2-4H PRN 30 days Tobacco use date assessed: 07/15/25 Fall risk assessment: No Falls in past year Last assessed Fall Risk: 07/15/25 Dental Screening Dental Screen Date: 07/15/25 Did you have a dental visit in the last 12 months?: Yes Did you have a dental problem in the last 6 months where you did not have access to dental care?: No Was dental information given to patient?: Patient has dentist HPI f/u HTN/ DMII HPI Details Juliano is a 69 y/o male here today for a follow-up visit. . Pmhx of asthma, opiate dependence, h/o Hep C with cirrhosis, depression, HIV,?tobacco dependency, hypertension. Concern--> He reports a tender abdominal lump, suspected to be an abdominal hernia, which has increased in size and tenderness over time. Previous imaging was inconclusive, and further evaluation is planned. He has followed up with Gastroenterology in his awaiting CT of abdomen for more definitive diagnosis. Class 1 obesity: The patient has been experiencing weight gain, which he attributes to lifestyle factors and medication use. He has attempted dietary changes to manage his weight and blood sugar levels, including reducing sweets and increasing physical activity. .. Type 2 diabetes: His A1c is 6.5. He continues to work on lifestyle and dietary modifications. He is not interested in diabetic medication at this time. ? .. ? HIV: ? Followed by Dr. West, continues on antivirals.? He reports his viral load has been undetectable. He reports he will be undergoing trial infusions for HIV care. ? .. ? HTN: Patient's blood pressure acceptable today in office. Unfortunately has been experiencing lower extremity edema likely related to his amlodipine. Will switch his amlodipine to lisinopril 10 mg ? .. ? .. ?? ?Tobacco dependency:? Followed by [facility] screening. Has found 3 small LLL cyst of no concern though will be doing annual chest CT. ? Unfortunatley patient continue to smoke 1-2 cigs per day. He does report having some shortness of breath on physical exertion also having shortness of breath during humid weather and cold weather. He is willing to try a maintenance inhaler to help him with the COPD symptoms. ? .. ? Opiate dependence:? Currently on 55 mg of methadone Patient continues to be followed by a methadone program in [facility].? He still does use strict hair when as he feels that methadone causes him cardiac issues [facility] Medical History Opiate dependence MDD (major depressive disorder), recurrent episode, moderate History of osteomyelitis HIV (human immunodeficiency virus infection) Hepatitis C Paroxysmal A-fib PVD (peripheral vascular disease) Murmur Anemia COPD (chronic obstructive pulmonary disease) Nicotine dependence, cigarettes, uncomplicated GERD (gastroesophageal reflux disease) Personal history of colonic polyps Surgical History History of carpal tunnel surgery of right wrist History of esophagogastroduodenoscopy (EGD) History of colonoscopy Family History Father COPD (chronic obstructive pulmonary disease) Chronic mental illness Diabetes Mother Rheumatic fever Diabetes CVD (cardiovascular disease) Breast cancer Paternal Aunt Gastric cancer Family/Other Diabetes Gastric cancer Social History Housing: House Alcohol intake: never Patient Tobacco Use Status: Current everyday Tobacco user Tobacco use type: Cigarette Cigarette Packs Per Day: 0.25 Cigarettes Per Day: 3 Years Smoked: 50 e-Cigarette/Vaping Use: Never Used Second Hand Smoke Exposure: Yes Substance Use Type: Heroin service: No Current occupational status: disabled Current occupation: [employer] Cognitive needs: No Hearing needs: No Vision needs: No Questionnaire PHQ-9 Over the last 2 weeks, how often have you been bothered by any of the following problems? 1. Little interest or pleasure in doing things: nearly every day 2. Feeling down, depressed, or hopeless: nearly every day 3. Trouble falling or staying asleep, or sleeping too much: more than half the days 4. Feeling tired or having little energy: more than half the days 5. Poor appetite or overeating: more than half the days 6. Feeling bad about yourself - or that you are a failure or have let yourself or your family down: more than half the days 7. Trouble concentrating on things, such as reading the newspaper or watching television: more than half the days 8. Moving or speaking so slowly that other people could have noticed. Or the opposite - being so fidgety or restless that you have been moving around a lot more than usual: not at all 9. Thoughts that you would be better off or of hurting yourself in some way: not at all Total score: 16 Source: Developed by Drs. Oswaldo Tavares, Lori Senior, Holden Mc and colleagues, with an educational liz from [employer]. Thrive Questionnaire Date Thrive assessed: 02/03/25 What is your living situation today?: I have a steady place to live Within the past 12 months, did the food you bought not last and you didn't have the money to get more?: I choose not to answer this question Do you have trouble paying for medicines?: I choose not to answer this question Do you have trouble getting transportation to medical appointments?: No Do you have trouble paying your heating and electricity bill?: No Do you have trouble taking care of your child, family member or friend?: No Do you have trouble with day-to-day activities such as bathing, preparing meals, shopping, managing finances, etc.?: No Are you currently unemployed and looking for a job?: Yes Are you interested in more education?: Yes Please select the resources that you would like help with: Housing/Snf, Care for elder or disabled, Job search/training and Education Currently or been in a relationship where the following occur: No concerns reported THRIVE Score: 0 AUDIT C Alcohol Use Questionnaire (AUDIT-C) 1. How often do you have a drink containing alcohol?: Never 3. How often do you have six or more drinks on one occasion?: Never Total Score: 0 AMISH-7 AMB Questionnaire AMISH-7 Date AMISH - 7 assessed: 04/14/25 Feeling nervous, anxious, or on edge: 1 = Several days Not being able to stop or control worryin = Several days Worrying too much about different things: 2 = More than half the days Trouble relaxin = More than half the days Being so restless that it is hard to sit still: 0 = Not at all Becoming easily annoyed or irritable: 1 = Several days Feeling afraid as if something awful might happen: 1 = Several days Total AMISH-7 score (0-4 normal; 5-9 mild; 10-14 moderate; 15-21 severe): 8 Source: Developed by Drs. Oswaldo Tavares, Lori Senior, Holden Mc and colleagues, with an educational liz from [employer]. Review of Systems Const Denies headache(s) Eyes Denies loss of vision ENT Denies vertigo, Denies dizziness, Denies headache(s) and Denies sore throat Card Denies chest pain, Denies leg edema and Denies lightheadedness Resp Denies cough, Denies hemoptysis and Denies wheezing GI Denies abdominal pain, Denies melena, Denies constipation, Denies diarrhea and Denies vomiting Denies dysuria, Denies urinary frequency and Denies urinary urgency Musc Denies arthralgias, Denies joint swelling, Denies numbness and Denies tingling Neuro Denies Abnormal speech present, Denies behavioral changes, Denies vertigo, Denies dizziness, Denies headache(s), Denies loss of vision, Denies memory loss, Denies numbness and Denies tingling Psych Denies anxiety, Denies behavioral changes, Denies depression, Denies memory loss and Denies panic attacks Nhan/Lymph Denies easy bleeding and Denies easy bruising Aller/Immun Denies wheezing Physical exam (Primary Care) Vital Signs: Last Vital Signs Temp 97.1 F 07/15/25 14:15 Pulse 105 H 07/15/25 14:15 Resp 18 07/15/25 14:15 BP 136/90 H 07/15/25 14:15 Pulse Ox 95 07/15/25 14:15 Oxygen Delivery Method Room Air 07/15/25 14:15 BMI result Body Mass Index 31.2 BMI Assessment/Plan discussion: High BMI High, discussed plan: lifestyle, weight reduction, dietary and physical activity Tobacco/Smoking Status: Tobacco use Status Tobacco use date assessed 07/15/25 07/15/25 14:16 Patient Tobacco Use Status Current everyday Tobacco 07/15/25 14:16 Tobacco use type Cigarette 07/15/25 14:16 e-Cigarette/Vaping Use Never Used 07/15/25 14:16 Are you ready to quit: No Tobacco cessation counseling provided: Yes Items discussed: Nicotine replacement Relapse Prevention: discussed the importance of a supportive environment, discussed negative mood or depression after quitting, weight gain after smoking is common and discussed dietary, exercise and/or lifestyle changes Number of minutes spent counselin CPT code: 37016 - 4-10 Minutes PHQ-9: PHQ-9 Score PHQ-9: Total score 16 07/15/25 14:49 Thrive Assessment: Date of Thrive Assessment Date Thrive assessed 02/03/25 07/15/25 14:16 Currently or been in a relationship where the following occur: No concerns reported Const General: healthy appearing, no acute distress, alert and awake Nutritional Appearance: well nourished Orientation/consciousness: oriented to person, oriented to place and oriented to time HENMT Ears: TM's normal bilaterally General nose exam: Normal nasal mucous membranes and turbinates present Eyes Conjunctivae: conjunctivae normal Sclerae: sclerae normal Pupils: Equal, round and reactive pupils present Neck Neck: Yes no lymphadenopathy and Yes no JVD Thyroid: Thyroid normal Carotids: no bruits Resp Effort & Inspection: normal respiratory effort and not tachypneic Auscultation: no crackles, no rales, no rhonchi and no wheezes Cardio Rate: regular rate Rhythm: regular rhythm Heart sounds: no murmurs and normal S1 and S2 GI Palpation (GI): Soft to palpation, nontender, no hepatomegaly and no splenomegaly Auscultation: normal bowel sounds Skin General skin exam: no rashes or lesions noted and dry skin Neuro General: oriented to person, oriented to place and oriented to time Cranial nerves: Yes Equal, round and reactive pupils present Speech: No Abnormal speech present Gait exam (Neuro): Normal gait present Motor exam (neuro): no tremor noted Extrem Right upper extremity: full ROM Left upper extremity: full ROM Right lower extremity: full ROM; no edema Left lower extremity: full ROM; no edema Psych Mental Status: mental status grossly normal Speech and movement: Normal speech and movement present Affect: normal affect Attitude: cooperative Thought process: Normal thought process present Results AMB Hemoglobin A1c AMB Hemoglobin A1c 6.5 % Last Edit by Marisela Fulton CMA on 07/15/25 14:33 Results Reviewed Results Reviewed: Laboratory Last Values Hgb A1c (Clinic) 6.5 % (4.0-6.0) H 07/15/25 14:26 Coding Level of Care Code Est Pt Level 4 (52591) Diagnoses Type 2 diabetes mellitus with hyperglycemia, without long-term current use of insulin E11.65 Diabetes mellitus terminal makeup operator insulin use: without terminal makeup operator use Diabetes mellitus complication status: with hyperglycemia Essential hypertension I10 Hypertension type: essential hypertension Ventral hernia without obstruction or gangrene K43.9 Hernia type: ventral Obstruction and gangrene presence: without obstruction or gangrene Asymptomatic HIV infection Z21 HIV symptom status: asymptomatic Uncomplicated opioid dependence F11.20 Substance use status: uncomplicated Nicotine dependence, cigarettes, uncomplicated F17.210 Centrilobular emphysema J43.2 COPD type: emphysema Emphysema type: centrilobular Sensorineural hearing loss (SNHL) of left ear, unspecified hearing status on contralateral side H90.5 Contralateral hearing status: unspecified Erectile dysfunction, unspecified erectile dysfunction type N52.9 Erectile dysfunction type: unspecified Additional Codes Vital Signs *Quality* - CPT code: 22526 - 4-10 Minutes ([id number]) Assessment & Plan Assessment & Plan (1) DMII (diabetes mellitus, type 2): Code(s): E11.9 - Type 2 diabetes mellitus without complications Category: Medical Qualifiers: Diabetes mellitus mcfp insulin use: without terminal makeup operator use Diabetes mellitus complication status: with hyperglycemia Qualified Code(s): E11.65 - Type 2 diabetes mellitus with hyperglycemia Plan: Most recent A1c is 6.5. He is technically a new onset diabetic. He is not interested in starting medication and will like to work extensively on lifestyle and dietary modifications. (2) HTN (hypertension): Code(s): I10 - Essential (primary) hypertension Category: Medical Qualifiers: Hypertension type: essential hypertension Qualified Code(s): I10 - Essential (primary) hypertension Plan: Patient's blood pressure acceptable today in office. The patient is advised to switch from amlodipine to lisinopril for better blood pressure control and to reduce edema. Goal blood pressure to be below 140/90 (3) Abdominal hernia: Code(s): K46.9 - Unspecified abdominal hernia without obstruction or gangrene Category: Medical Qualifiers: Hernia type: ventral Obstruction and gangrene presence: without obstruction or gangrene Qualified Code(s): K43.9 - Ventral hernia without obstruction or gangrene Plan: Patient has noticed a mid abdominal lump that has become more tender and more evident over the last few months and has been becoming more tender. He has gotten an MRCP at [facility] which did show possible evidence of cholecystitis though unclear if he has gotten this taken care of. Patient has a waiting new CT of his abdomen with IV contrast for more definitive diagnosis (4) HIV (human immunodeficiency virus infection): Comment: (Followed by Dr. West) Code(s): B20 - Human immunodeficiency virus [HIV] disease Category: Medical Qualifiers: HIV symptom status: asymptomatic Qualified Code(s): Z21 - Asymptomatic human immunodeficiency virus [HIV] infection status Plan: Again followed by infectious disease and continues on antiviral therapy. He reports he will be trying a new drug infusion for HIV care (5) Opiate dependence: Code(s): F11.20 - Opioid dependence, uncomplicated Category: Medical Qualifiers: Substance use status: uncomplicated Qualified Code(s): F11.20 - Opioid dependence, uncomplicated Plan: Patient now on methadone and has been sober from street opiates over the last few months. Patient continues on 55 mg of methadone (6) Nicotine dependence, cigarettes, uncomplicated: Comment: (current smoker - 30+PYH) Code(s): F17.210 - Nicotine dependence, cigarettes, uncomplicated Category: Medical Plan: Patient does admit to smoking 1-3 cigarettes per day depending on how he is feeling. He does understand he needs to completely quit smoking. Does have access to nicotine replacement (7) COPD (chronic obstructive pulmonary disease): Code(s): J44.9 - Chronic obstructive pulmonary disease, unspecified Category: Medical Qualifiers: COPD type: emphysema Emphysema type: centrilobular Qualified Code(s): J43.2 - Centrilobular emphysema Plan: I discussed the patient's worsening COPD symptoms, particularly his dyspnea on exertion with temperature changes. I recommended starting a maintenance inhaler, Symbicort, to be used twice daily to help reduce lung inflammation and open his airways, and I sent the prescription to his pharmacy. (8) Left SNHL: Code(s): H90.5 - Unspecified sensorineural hearing loss Category: Medical Qualifiers: Contralateral hearing status: unspecified Qualified Code(s): H90.5 - Unspecified sensorineural hearing loss Plan: Patient having difficulty hearing, will like to be sent for hearing exam to evaluate for sensorineural hearing loss. (9) Erectile dysfunction: Code(s): N52.9 - Male erectile dysfunction, unspecified Category: Medical Qualifiers: Erectile dysfunction type: unspecified Qualified Code(s): N52.9 - Male erectile dysfunction, unspecified Plan: Will supply patient with Cialis 10 mg to use before sexual activity. Orders: Orders Lipid Panel Today R73.09 - Other abnormal glucose Comprehensive Dale. Panel Fast Today R73.09 - Other abnormal glucose Microalbumin, Random (w Creat) Today I10 - Essential (primary) hypertension AMB Hemoglobin A1c Today Z13.9 - Encounter for screening, unspecified Complete Blood Count no Diff Today R73.09 - Other abnormal glucose Referrals Speech and Hearing Referral H90.5 - Unspecified sensorineural hearing loss Medications: New budesonide-formoterol 160-4.5 mcg/actuation (Symbicort) 1 inh inhalation BID 10.2 grams 3RF 30 days J43.2 - Centrilobular emphysema tadalafil (Cialis) administer approximately 30min before sexual activity; do not use more than 1 dose per 24hrs 10 mg PO DAILY PRN 10 tabs 0RF sexual activity 10 days N52.9 - Male erectile dysfunction, unspecified
--- OUTSIDE RECORDS SUMMARY | 2025-07-15 18:16 | XMS_ITS | Encounter Summary ---
Author Organization [facility] Address [address] [place] [address] Care Team Providers Care Ramp Manager Name Role Phone Andreas Vallejo Primary Care Provider [phone] Encounter Details Date Type Department Care Team (Late st Contact Info) Description 07/31/[address] [facility] [address] [place] [id number] Cary Beasley MD [address] [place] [address] Other injury of unspecified body region, initial [...] for gram stain results. 08/04/2024 10:05 AM [facility] Swab 07/31/2024 3:24 PM EST 07/31/2024 7:37 PM EST Narrative [facility] - 08/04/2024 10:05 AM EST Specimen received on aerobic transport swab - anaerobic results may be compromised. Cary Beasley MD LAB MICROBIOLOGY - GENERA L ORDERABLES Final Result Performing Organization Address [facility]/ZIP Co de Phone Number [facility] [address] [place] [address], [place] [phone] * Culture wound with gram stain (07/31/2024 3:24 PM EST) Culture, Wound No growth at 3 days 08/03/2024 8:03 AM [facility] Gram Stain Result No polymorphonuclear leukocytes, No epithelial cells, and No organisms noted 08/03/2024 8:03 AM [facility] Swab Structure of left lower limb / Unknown 07/31/2024 3:24 PM EST 07/31/2024 7:37 PM EST Cary Beasley MD LAB MICROBIOLOGY - GENERA L ORDERABLES Final Result [facility] [address] [place] [address], [place] [phone] documented in this encounter Visit Diagnoses Diagnosis Other injury of unspecified body region, initial encounter documented in this encounter Care Teams Ramp Manager Relationship Specialty Start Date End Date Andreas Vallejo PA [address] [place] [phone] PCP - General 04/10/24 documented as of this encounter
--- OUTSIDE RECORDS SUMMARY | 2025-07-15 18:16 | XMS_ITS | Clinical Summary ---
Author Organization [facility] Address [address] [place] [address] Phone Care Team Providers Care Pulp And Paper Tester Name Role Phone Andreas Vallejo Primary Care Provider [phone] Allergies Active Allergy Reactions Criticality Noted Date [...] Asthma 10/31/2024 Hepatitis C 10/31/2024 Substance abuse ([facility]/HCC V24, [facility]/HCC V28) 10/31 Surgical History Surgery Date [...] LAB CHEMISTRY METHOD 01/08/2025 12:30 PM EDT [facility] Triglycerides 80 0 - 150 mg/dL LAB CHEMISTRY METHOD 01/08/2025 12:30 PM EDT [facility] HDL 68 >=40 mg/dL LAB CHEMISTRY METHOD 01/08/2025 12:30 PM EDT [facility] LDL Calculated 58 0 - 100 mg/dL LAB CHEMISTRY METHOD 01/08/2025 12:30 PM EDT [facility] VLDL Cholesterol Gera 16 mg/dL LAB CHEMISTRY METHOD 01/08/2025 12:30 PM T [facility] Non HDL Chol. (LDL+VLDL) 74 <145 mg/dL LAB CHEMISTRY METHOD 01/08[facility]2025 [facility] Chol/HDL Ratio 2.1 0.0 - 4.4 LAB CHEMISTRY METHOD 01/08/2025 12:30 PM [facility] Blood Venous blood specimen / Unknown Venipuncture / Unknown 01/08/2025 10:20 AM EDT 01/08/2025 11:14 AM EDT Cary Beasley MD LAB BLOOD ORDERABLES Clair l Result [facility] [address] [place] [address], [place] [phone] * (ABNORMAL) Comprehensive metabolic panel (01/08/2025 10:20 AM EDT) Sodium 137 133 - 145 mmol/L LAB CHEMISTRY METHOD 01/08/2025 12:30 PM EDT [facility] Potassium 3.9 3.5 - 5.5 mmol/L LAB CHEMISTRY METHOD 01/08/2025 12:30 PM [facility] Chloride 106 96 - 110 mmol/L LAB CHEMISTRY METHOD 01/08/2025 12:30 PM [facility] CO2 27 21 - 32 mmol/L LAB CHEMISTRY METHOD 01/08/2025 12:30 PM [facility] Anion Gap 4 3 - 11 LAB CHEMISTRY METHOD 01/08/2025 12:30 PM [facility] Glucose 108(H) 70 - 100 mg/dL LAB CHEMISTRY METHOD 01/08/2025 12:30 PM [facility] BUN 10 5 - 25 mg/dL LAB CHEMISTRY METHOD 01/08/2025 12:30 PM [facility] Creatinine 0.80 0.70 - 1.30 mg/dL LAB CHEMISTRY METHOD 01/08/2025 12:30 PM [facility] eGFR 96 >=60 mL/min/1. 73m2 LAB CHEMISTRY METHOD 01/08/2025 12:30 PM [facility] Comment:Calculation based on the Chronic Kidney Disease Epidemiology Collaboration (CKD-EPI) equation refit without adjustment for race. BUN/Creatinine Ratio 12.5 LAB CHEMISTRY METHOD 01/08/2025 12:30 PM [facility] Calcium 9.2 8.5 - 10.5 mg/dL LAB CHEMISTRY METHOD 01/08/2025 12:30 PM [facility] AST (SGOT) 38 10 - 42 unit/L LAB CHEMISTRY METHOD 01/08/2025 12:30 PM [facility] ALT (SGPT) 37 10 - 60 unit/L LAB CHEMISTRY METHOD 01/08/2025 12:30 PM [facility] Alkaline Phosphatase 134(H) 42 - 121 unit/L LAB CHEMISTRY METHOD 01/08/2025 12:30 PM [facility] Total Protein 8.1(H) 6.0 - 8.0 g/dL LAB CHEMISTRY METHOD 01/08/2025 12:30 PM EDT [facility] Albumin 3.7 3.2 - 5.0 g/dL LAB CHEMISTRY METHOD 01/08/2025 12:30 PM EDT [facility] Total Bilirubin 0.6 0.0 - 1.4 mg/dL LAB CHEMISTRY METHOD 01/08/2025 12:30 PM EDT [facility] Blood Venous blood specimen / Unknown Venipuncture / Unknown 01/08/2025 10:20 AM EDT 01/08/2025 11:14 AM EDT us Cary Beasley MD LAB BLOOD ORDERABLES Clair mcarthur Result [facility] [address] [place] [address], [place] [phone] * COLONOSCOPY Anesthesia - MAC; [facility] ENDOSCOPY (10/31/2024 3:36 PM EST) Anatomical Region [...] pathology results. Narrative 10/31/2024 3:36 PM EST [facility] Patient Name: Nayan Henao Procedure Date: 10/31/2024 3:02 PM Date of : 1955 Age: 69 Gender: Male Note Status: Finalized Attending MD: Gerber Boss DO, [id number] Procedure Date No Time: 10/31/2024 Procedure: Colonoscopy [...] the physician, the nurse, the anesthesiologist, the steam meter reader and the weed science research technician in the pre-procedure area in the [...] retroflexion views. Procedure Code(s): --- Professional --- 78894, Colonoscopy, flexible; with removal of tumor(s), polyp(s), or other lesion(s) by snare technique [id number], 59, Colonoscopy, flexible; with biopsy, single or multiple Diagnosis Code(s): --- Professional --- Z86.010, Personal history of colonic polyps K64.9, Unspecified hemorrhoids D12.5, Benign neoplasm of sigmoid colon D12.4, Benign neoplasm of descending colon D12.2, Benign neoplasm of ascending colon D12.0, Benign neoplasm of cecum CPT copyright 2020 [employer]. All rights reserved. The codes documented in this report are preliminary and upon family court registrar review may be revised to meet current compliance requirements. GERBER Boss DO 10/31/2024 3:36:35 PM This report has been signed electronically.Gerber Boss DO Number of Addenda: 0 Note Initiated On: 10/31/2024 3:02 PM Scope Withdrawal Time: 0 hours 11 minutes 18 seconds Scope In: 3:19:16 PM Scope Out: 3:34:27 PM Endoscopy Department at [facility] - [address] [place] [phone] Procedure Note Gerber Boss DO - 10/31/2024 [facility] Patient Name: Nayan Henao Procedure Date: 10/31/2024 3:02 PM Date of : 1955 Age: 69 Gender: Male Note Status: Finalized Attending MD: Gerber Boss DO, [id number] Procedure Date No Time: 10/31/2024 Procedure: Colonoscopy [...] the physician, the nurse, the anesthesiologist, the steam meter reader and thetechnician in the pre-procedure area in [...] retroflexion views. Procedure Code(s): --- Professional --- 71879, Colonoscopy, flexible; with removal of tumor(s), polyp(s), or other lesion(s) by snare technique [id number], 59, Colonoscopy, flexible; with biopsy,single or multiple Diagnosis Code(s): --- Professional --- Z86.010, Personal history of colonic polyps K64.9, Unspecified hemorrhoids D12.5, Benign neoplasm of sigmoid colon D12.4, Benign neoplasm of descending colon D12.2, Benign neoplasm of ascending colon D12.0, Benign neoplasm of cecum CPT copyright 2020 [employer]. All rights reserved. The codes documented in this report are preliminary and upon family court registrar reviewmay be revised to meet current compliance requirements. GERBER Boss DO 10/31/2024 3:36:35 PM This report has been signed electronically.Gerber Boss DO Number of Addenda: 0 Note Initiated On: 10/31/2024 3:02 PM Scope Withdrawal Time: 0 hours 11 minutes 18 seconds Scope In: 3:19:16 PM Scope Out: 3:34:27 PM Endoscopy Department at [facility] - [address] [place] [phone] IMPRESSION: - Hemorrhoids found on perianal exam. [...] Most Recently Relevant to Health Maintenance Insurance [facility] [employer] Member Subscriber Plan / Payer (Ef fective 2022-Present) Name:Nayan Henao Relation to Subscriber:Self Name:Nayan Henao Payer ID:[id number] Group ID:[id number] Type:Not on file Address: [address] [place] [address] Care Teams Pulp And Paper Tester Relationship Specialty Start Date End Date Andreas Vallejo PA [address] [place] [address] PCP - General 04/10/24
== END 2025-07-15 15:20 | disposition home or self-care (01) ==
LOC: HO.HMCH 14:12
PROVIDERS: PCP Physician Assistant; Visit Provider Physician Assistant
DX: E11.65 Type 2 diabetes mellitus with hyperglycemia (principal); I10 Essential (primary) hypertension; K43.9 Ventral hernia without obstruction or gangrene; Z21 Asymptomatic human immunodeficiency virus [HIV] infection status; F11.20 Opioid dependence, uncomplicated; F17.210 Nicotine dependence, cigarettes, uncomplicated; J43.2 Centrilobular emphysema; H90.5 Unspecified sensorineural hearing loss; N52.9 Male erectile dysfunction, unspecified; Z13.9 Encounter for screening, unspecified

== ENCOUNTER → 2025-07-15 14:11 | Outpatient (BNVA) | payer OTHER, SELFPAY | PROVIDERS: PCP Physician Assistant; Visit Provider Physician Assistant | DX: E11.65 Type 2 diabetes mellitus with hyperglycemia (principal); K43.9 Ventral hernia without obstruction or gangrene; E66.01 Morbid (severe) obesity due to excess calories; E11.9 Type 2 diabetes mellitus without complications; I10 Essential (primary) hypertension; J43.2 Centrilobular emphysema; H90.5 Unspecified sensorineural hearing loss; N52.9 Male erectile dysfunction, unspecified; F17.210 Nicotine dependence, cigarettes, uncomplicated; F11.20 Opioid dependence, uncomplicated; Z21 Asymptomatic human immunodeficiency virus [HIV] infection status | CPT/HCPCS: 83036; 96127; 99212 ==

== ENCOUNTER 2025-08-11 14:49 | Outpatient (AMB) | payer OTHER, SELFPAY ==
--- NOTE | 2025-08-11 14:50 | MHC.OFFVIS ---
Vital Signs 08/11/25 14:55 Height 5 ft 6 in Weight 193 lb 5.526 oz BMI 31.2 Respiration 16 Intake Visit Reasons: ct results Intake Note: Patient is seen in office for CT scan results, following for a ventral hernia. Pt c/o: denies any changes, here for results CT: 07/10/25 Order Processing Manager Required: No Accompanied by: Self / Same As Patient Allergies bee pollen (BEE STINGS) Allergy (Severe, Verified 08/11/25 14:55) SWELLING rofecoxib (From VIOXX) Allergy (Intermediate, Verified 08/11/25 14:55) Swelling buprenorphine (From Suboxone) Adverse Reaction (Intermediate, Verified 08/11/25 14:55) Psychosis naloxone (From Suboxone) Adverse Reaction (Intermediate, Verified 08/11/25 14:55) Psychosis Medication List - Last Reconciled 08/11/25 by Moise Daniel MD albuterol sulfate 90 mcg/actuation (Ventolin HFA) 2 puffs inhalation QID PRN 30 days aspirin 81 mg PO DAILY 90 days budesonide-formoterol 160-4.5 mcg/actuation (Symbicort) 1 inh inhalation BID 30 days compr.stocking,knee,long,large As directed dolutegravir-lamivudine 50-300 mg 1 tab PO DAILY esomeprazole magnesium 20 mg PO ONCE PRN ferrous sulfate 325 mg PO DAILY fluticasone propionate 50 mcg/actuation 1 spray intranasal DAILY food supplemt, lactose-reduced (Boost High Protein) 1 ea PO BID 12 days ibuprofen 800 mg PO Q8H PRN lisinopril 10 mg PO DAILY 90 days mupirocin calcium 2% 1 appl topical TID 30 days nicotine (Nicotrol) 1 inh inhalation Q2-4H PRN 30 days tadalafil (Cialis) 10 mg PO DAILY PRN 10 days HPI Comments Details: 69-year-old male patient presenting for evaluation of an abdominal wall hernia. He 1st noted the lump approximately 10 years ago with no inciting events. Over time the lump has gradually increased in size in his causing more discomfort. This has located in the epigastric region and slightly to the left of midline. He reports seeing the lump in this location which occasionally increases in size and discomfort. He denies any current nausea or vomiting. His bowel habits have been normal. He denies any previous surgery at this location. He returns today to review his recent CT abdomen and pelvis. CT does reveal a moderate-sized umbilical hernia with herniating fat but no small bowel within the hernia sac. Incidentally noted is also a small ventral hernia corresponding to the site of his palpable lump. This has at approximately the level of the liver edge and also contains only fatty tissue. Findings of the CT were reviewed with the patient. He reports feeling well and denies any ongoing abdominal symptoms. [facility] Medical History Opiate dependence MDD (major depressive disorder), recurrent episode, moderate History of osteomyelitis HIV (human immunodeficiency virus infection) Hepatitis C Paroxysmal A-fib PVD (peripheral vascular disease) Murmur Anemia COPD (chronic obstructive pulmonary disease) Nicotine dependence, cigarettes, uncomplicated GERD (gastroesophageal reflux disease) Personal history of colonic polyps Surgical History History of carpal tunnel surgery of right wrist History of esophagogastroduodenoscopy (EGD) History of colonoscopy Family History Father COPD (chronic obstructive pulmonary disease) Chronic mental illness Diabetes Mother Rheumatic fever Diabetes CVD (cardiovascular disease) Breast cancer Paternal Aunt Gastric cancer Family/Other Diabetes Gastric cancer Social History Housing: House Alcohol intake: never Patient Tobacco Use Status: Current everyday Tobacco user Tobacco use type: Cigarette Cigarette Packs Per Day: 0.25 Cigarettes Per Day: 3 Years Smoked: 50 e-Cigarette/Vaping Use: Never Used Second Hand Smoke Exposure: Yes Substance Use Type: Heroin service: No Current occupational status: disabled 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 Cognitive needs: No Hearing needs: No Vision needs: No Review of Systems Const All systems reviewed & are unremarkable except as noted in HPI and below Physical Exam Vital Signs: Last Vital Signs Resp 16 08/11/25 14:55 BMI result Body Mass Index 31.2 Const General: cooperative and no acute distress Nutritional Appearance: well nourished Orientation/consciousness: patient oriented x3 Limitations: no limitations HEENT Head: Yes normocephalic and Yes atraumatic Ears: hearing grossly normal bilaterally Resp Effort & Inspection: normal respiratory effort, no audible wheezes, no cough and no respiratory distress Cardio Jugular venous distension: no JVD GI Other: Tenderness in the epigastric region with a faint palpable lump in the midline approximately 5 cm below the xiphoid. Slight tenderness noted to deep palpation. Patient pointed to the area to the left of midline slightly superior to this which is directly over the rectus muscle. No definite lump is appreciated to my examination. Inspection: Yes normal to inspection Abdomen image:  1. Palpable ventral hernia midabdomen Skin Other: Warm, dry, no rash Neuro General: patient oriented x3 Extrem General: Yes no clubbing, cyanosis or edema Assessment & Plan Assessment & Plan (1) Ventral hernia: Code(s): K43.9 - Ventral hernia without obstruction or gangrene Category: Medical Plan 69-year-old male patient presenting with a small ventral hernia in the upper abdomen. We discussed repair of this hernia with mesh as a short-stay surgery. After reviewing the procedure, risks, and alternatives, he wishes to hold off on any surgery at this time. I reviewed the signs and symptoms which would necessitate immediate follow-up or visit to emergency department for further evaluation. He expressed understanding and agrees with the plan. Coding Level of Care Code Est Pt Level 3 (85595) Diagnoses Ventral hernia K43.9
[2025-08-11 14:55] VITALS: RESP 16; BMI 31.2
--- OUTSIDE RECORDS SUMMARY | 2025-08-11 18:35 | XMS_ITS | Encounter Summary ---
Author Organization [facility] Address [address] [place] [address] Care Team Providers Care District Manager Primary Care Sales Name Role Phone Andreas Vallejo Primary Care Provider [phone] Encounter Details Date Type Department Care Team (Late st Contact Info) Description 07/31/[address] [facility] - Main Lab [address] [place] [phone] Cary Beasley MD [address] [place] [address] Other injury of unspecified body region, initial [...] for gram stain results. 08/04/2024 10:05 AM [facility] Swab 07/31/2024 3:24 PM EST 07/31/2024 7:37 PM EST Narrative [facility] - 08/04/2024 10:05 AM EST Specimen received on aerobic transport swab - anaerobic results may be compromised. Cary Beasley MD LAB MICROBIOLOGY - GENERA L ORDERABLES Final Result Performing Organization Address [facility]/ZIP Co de Phone Number [facility] [address] [place] [address], [place] [phone] * Culture wound with gram stain (07/31/2024 3:24 PM EST) Culture, Wound No growth at 3 days 08/03/2024 8:03 AM [facility] Gram Stain Result No polymorphonuclear leukocytes, No epithelial cells, and No organisms noted 08/03/2024 8:03 AM [facility] Swab Structure of left lower limb / Unknown 07/31/2024 3:24 PM EST 07/31/2024 7:37 PM EST Cary Beasley MD LAB MICROBIOLOGY - GENERA L ORDERABLES Final Result [facility] [address] [place] [address], [place] [phone] documented in this encounter Visit Diagnoses Diagnosis Other injury of unspecified body region, initial encounter documented in this encounter Care Teams District Manager Primary Care Sales Relationship Specialty Start Date End Date Andreas Vallejo PA [address] [place] [phone] PCP - General 04/10/24 documented as of this encounter
--- OUTSIDE RECORDS SUMMARY | 2025-08-11 18:35 | XMS_ITS | Data Portability ---
Author Organization DAGO RIOS MD [facility], Main Office Address [address] [place] [address] Assessment No assessment recorded. Plan of Treatment Reminders Order Date Submit Date Provider Last Modified By Organization Details Last Modified Time Details Appointments None recorded. Lab CBC w/ diff 2024 025 [facility], [address] [facility], [address], [address], 5 16:40:00 CT + NG DNA, PCR, unspecifi ed specimen 2024 025 [employer] [facility], [address] [facility], [facility] [address], [place], [address], 5 16:40:01 HIV-1 RNA, quantitat james, PCR, serum or plasma 2024 025 [employer] [facility], [address] [place] [address], [address], 5 16:40:01 RPR (rapid plasma reagin), serum 2024 025 [facility], [address] [facility], [facility] [address], [place], [address], 5 16:40:01 T-cell regulator y subsets panel, blood 2024 025 [facility], [address] [facility], [facility] [address], [place], [address], 5 16:40:01 CMP, serum or plasma 2024 025 [facility], [address] [facility], [facility] [address], [place], [address], 5 16:40:01 CBC w/ diff 2024 025 [facility] [employer] [employer], [address] [facility], [place] [address], [place], [address], 5 16:22:09 CT + NG DNA, PCR, unspecifi ed specimen 2024 025 [facility] [facility], [address] [facility], [facility] [address], [place], [address], 5 16:22:09 HIV-1 RNA, quantitat james, PCR, serum or plasma 2024 025 [facility] [employer] [facility], [address] [facility], [place] [address], [place], [address], 5 16:22:09 RPR (rapid plasma reagin), serum 2024 025 [facility] [employer] [facility], [address] [facility], [place] [address], [place], [address], 5 16:22:09 T-cell regulator y subsets panel, blood 2024 025 [facility] [employer] [facility], [address] [address], [place], [address], 5 16:22:09 hepatitis C RNA, quant, PCR, serum 2024 025 [facility] [employer] [facility], [address] [facility], [facility] [address], [place], [address], 5 16:22:10 HBsAg (hepatiti s B surface Ag), serum 2024 025 [facility] [employer] [facility], [address] [facility] [address], [place], [address], 5 16:22:10 CMP, serum or plasma 2024 025 [employer] [facility], [address] [facility], [facility] [address], [place], [address], 5 12:32:04 hepatitis C liver status biomarker panel, serum 2024 025 [facility] [employer] [facility], [address] [facility], [facility] [address], [place], [address], 5 16:22:10 TSH + free T4, serum 2024 025 [employer] [facility], [address] [facility], [facility] [address], [place], [address], 5 16:22:10 lipids, total, serum 2024 025 [employer], [address] [facility], [facility] [address], [place], [address], 5 16:22:10 HbA1c (hemoglob in A1c), blood 2024 025 [employer], [address] [facility], [facility] [address], [place], [address], 5 16:22:10 amylase + lipase, serum 2024 025 [facility], [address] [facility], [facility] [address], [place], [address], 5 16:22:10 Referral None recorded. Procedures None recorded. Surgeries None recorded. Imaging None recorded. Medication Orders Wegovy 0.25 mg/0.5 mL subcutane ous pen injector 2024 [facility]art[facility] #[id number], [address], [place], [id number], 12:23:30 Zepbound 2.5 mg/0.5 mL subcutane ous pen injector 2024 025 [facility] #[id number], [address], [place], [id number], 5 02:40:26 Flonase Allergy Relief 50 mcg/actua tion nasal spray,yvette pension 2024 025 [facility] #[id number], [address] [place] [address], [id number], 5 15:45:44 doxycycli ne hyclate 100 mg capsule 2024 025 [facility] #[id number], [address], [place], [id number], 5 15:49:16 Zepbound 2.5 mg/0.5 mL subcutane ous pen injector 2024 025 [facility] #[id number], [address] [place] [address], [id number], 5 15:40:07 Patient TargetsNo targets recorded. Patient InstructionsNo instructions recorded. Reason for Referral None Reported. Results Created Date Observation Date Name Description Value Unit Range Abnormal Flag Note LastModifiedBy Organization Detail LastModifiedTime 01/09/20 25 01/08/2025 CBC WITH AUTO DIFFE RENTI AL WBC 2.8 K/mcL 4.8-10 .8 low Not Available [facility] [address] [place] [address], [address], 01/08/2025 12:06:59 01/09/20 25 01/08/2025 CBC WITH AUTO DIFFE RENTI AL RBC 4.10 M/mcL 4.50-5 .50 low Not Available [facility] [address] [place] [address], [address], 01/08/2025 12:06:59 01/09/20 25 01/08/2025 CBC WITH AUTO DIFFE RENTI AL hemoglobin 12.1 g/dL 13.5-1 7.5 low Not Available [facility] [address] [place], [address], 01/08/2025 12:06:59 01/09/20 25 01/08/2025 CBC WITH AUTO DIFFE RENTI AL hematocrit 36.4 % 42.0-5 4.0 low Not Available [facility] [address] [place], [address], 01/08/2025 12:06:59 01/09/20 25 01/08/2025 CBC WITH AUTO DIFFE RENTI AL MCV 89.0 fL 79.0-9 8.0 Not Available [facility] [address] [place], [address], 01/08/2025 12:06:59 01/09/20 25 01/08/2025 CBC WITH AUTO DIFFE RENTI AL MCH 29.6 pcg 27.0-3 2.0 Not Available [facility] [address] [place], [address], 01/08/2025 12:06:59 01/09/20 25 01/08/2025 CBC WITH AUTO DIFFE RENTI AL MCHC 33.2 g/dL 32.0-3 7.0 Not Available [facility] [address] [place], [address], 01/08/2025 12:06:59 01/09/20 25 01/08/2025 CBC WITH AUTO DIFFE RENTI AL RDW 14.0 % 11.0-1 5.0 Not Available [facility] [address] [place], [address], 01/08/2025 12:06:59 01/09/20 25 01/08/2025 CBC WITH AUTO DIFFE RENTI AL platelets See Report Not measu red. Unabl e to quant itate due to plate let clump ing Not Available [facility] [address] [place], [address], 01/08/2025 12:06:59 01/09/20 25 01/08/2025 CBC WITH AUTO DIFFE RENTI AL MPV 11.4 fL 7.0-11 .0 high Not Available [facility] [address] [place], [address], 01/08/2025 12:06:59 01/09/20 25 01/08/2025 CBC WITH AUTO DIFFE RENTI AL NRBC 0.0 % <1.0 Not Available [facility] [address] [place], [address], 01/08/2025 12:06:59 01/09/20 25 01/08/2025 CBC WITH AUTO DIFFE RENTI AL NRBC absolute 0.00 K/mcL <0.10 Not Available [facility] [address] [place], [address], 01/08/2025 12:06:59 01/09/20 25 01/08/2025 CBC WITH AUTO DIFFE RENTI AL neutrophils relative 42.8 % Not Available [facility] [address] [place], [address], 01/08/2025 12:06:59 01/09/20 25 01/08/2025 CBC WITH AUTO DIFFE RENTI AL lymphocytes relative 39.6 % Not Available [facility] [address] [place], [address], 01/08/2025 12:06:59 01/09/20 25 01/08/2025 CBC WITH AUTO DIFFE RENTI AL monocytes relative 11.3 % Not Available [facility] [address] [place], [address], 01/08/2025 12:06:59 01/09/20 25 01/08/2025 CBC WITH AUTO DIFFE RENTI AL eosinophils relative 4.9 % Not Available [facility] [address] [place], [address], 01/08/2025 12:06:59 01/09/20 25 01/08/2025 CBC WITH AUTO DIFFE RENTI AL basophils relative 0.7 % Not Available [facility] [address] [place], [address], 01/08/2025 12:06:59 01/09/20 25 01/08/2025 CBC WITH AUTO DIFFE RENTI AL immature granulocytes relative 0.7 % Not Available [facility] [address] [place], [address], 01/08/2025 12:06:59 01/09/20 25 01/08/2025 CBC WITH AUTO DIFFE RENTI AL neutrophils absolute 1.21 K/mcL 1.50-7 .00 low Not Available [facility] [address] [place], [address], 01/08/2025 12:06:59 01/09/20 25 01/08/2025 CBC WITH AUTO DIFFE RENTI AL lymphocytes absolute 1.12 K/mcL 1.00-5 .00 Not Available [facility] [address] [place], [address], 01/08/2025 12:06:59 01/09/20 25 01/08/2025 CBC WITH AUTO DIFFE RENTI AL monocytes absolute 0.32 K/mcL 0.20-1 .00 Not Available [facility] [address] [place], [address], 01/08/2025 12:06:59 01/09/20 25 01/08/2025 CBC WITH AUTO DIFFE RENTI AL eosinophils absolute 0.14 K/mcL 0.00-0 .50 Not Available [facility] [address] [place], [address], 01/08/2025 12:06:59 01/09/20 25 01/08/2025 CBC WITH AUTO DIFFE RENTI AL basophils absolute 0.02 K/mcL 0.00-0 .20 Not Available [facility] [address] [place], [address], 01/08/2025 12:06:59 01/09/20 25 01/08/2025 CBC WITH AUTO DIFFE RENTI AL immature granulocytes absolute 0.02 K/mcL 0.00-0 .03 Not Available [facility] [address] [place], [address], 01/08/2025 12:06:59 01/09/20 25 01/08/2025 CBC WITH AUTO DIFFE RENTI AL note See Report [facility], [address] [facility], Nir[address]jan [address], [place] [address] Not Available [facility] [address] [place], [address], 01/08/2025 12:06:59 01/09/20 25 01/08/2025 LIPAS E lipase 16 unit/ L 13-75 Not Available [facility] [address] [place], [address], 01/08/2025 12:17:58 01/09/20 25 01/08/2025 LIPAS E note See Report [facility], [address] [facility], [address]ir[address]jan [address], [address] [place] [address] Not Available [facility] [address] [place], [address], 01/08/2025 12:17:58 01/09/20 25 01/08/2025 COMPR EHENS JAMES METAB OLIC PANEL sodium 137 mmol/ L 133-14 5 Not Available [facility] [address] [place], [address], 01/08/2025 12:32:04 01/09/20 25 01/08/2025 COMPR EHENS JAMES METAB OLIC PANEL potassium 3.9 mmol/ L 3.5-5. 5 Not Available [facility] [address] [place], [address], 01/08/2025 12:32:04 01/09/20 25 01/08/2025 COMPR EHENS JAMES METAB OLIC PANEL chloride 106 mmol/ L 96-110 Not Available [facility] [address] [place], [address], 01/08/2025 12:32:04 01/09/20 25 01/08/2025 COMPR EHENS JAMES METAB OLIC PANEL CO2 27 mmol/ L 21-32 Not Available [facility] [address] [place] [address], [address], 01/08/2025 12:32:04 01/09/20 25 01/08/2025 COMPR EHENS JAMES METAB OLIC PANEL anion gap 4 3-11 Not Available [facility] [address] [place], [address], 01/08/2025 12:32:04 01/09/20 25 01/08/2025 COMPR EHENS JAMES METAB OLIC PANEL glucose 108 mg/dL 70-100 high Not Available [facility] [address] [place], [address], 01/08/2025 12:32:04 01/09/20 25 01/08/2025 COMPR EHENS JAMES METAB OLIC PANEL BUN 10 mg/dL 5-25 Not Available [facility] [address] [place], [address], 01/08/2025 12:32:04 01/09/20 25 01/08/2025 COMPR EHENS JAMES METAB OLIC PANEL creatinine 0.80 mg/dL 0.70-1 .30 Not Available [facility] [address] [place], [address], 01/08/2025 12:32:04 01/09/20 25 01/08/2025 COMPR EHENS JAMES METAB OLIC PANEL eGFR 96 mL/mi n/1.7 3m2 >=60 Calcu latio n based on the Chron ic Kidne y Disea se Epide miolo gy Colla borat ion (CKD- EPI) equat ion refit witho ut adjus tment for race. Not Available [facility] [address] [place], [address], 01/08/2025 12:32:04 01/09/20 25 01/08/2025 COMPR EHENS JAMES METAB OLIC PANEL BUN/creatini ne ratio 12.5 Not Available [facility] [address] [place], [address], 01/08/2025 12:32:04 01/09/20 25 01/08/2025 COMPR EHENS JAMES METAB OLIC PANEL calcium 9.2 mg/dL 8.5-10 .5 Not Available [facility] [address] [place], [address], 01/08/2025 12:32:04 01/09/20 25 01/08/2025 COMPR EHENS JAMES METAB OLIC PANEL AST (SGOT) 38 unit/ L 10-42 Not Available [facility] [address] [place] [address], [address], 01/08/2025 12:32:04 01/09/20 25 01/08/2025 COMPR EHENS JAMES METAB OLIC PANEL ALT (SGPT) 37 unit/ L 10-60 Not Available [facility] [address] [place] [address], [address], 01/08/2025 12:32:04 01/09/20 25 01/08/2025 COMPR EHENS JAMES METAB OLIC PANEL alkaline phosphatase 134 unit/ L 42-121 high Not Available [facility] [address] [place] [address], [address], 01/08/2025 12:32:04 01/09/20 25 01/08/2025 COMPR EHENS JAMES METAB OLIC PANEL total protein 8.1 g/dL 6.0-8. 0 high Not Available [facility] [address] [place] [address], [address], 01/08/2025 12:32:04 01/09/20 25 01/08/2025 COMPR EHENS JAMES METAB OLIC PANEL albumin 3.7 g/dL 3.2-5. 0 Not Available [facility] [address] [place] [address], [address], 01/08/2025 12:32:04 01/09/20 25 01/08/2025 COMPR EHENS JAMES METAB OLIC PANEL total bilirubin 0.6 mg/dL 0.0-1. 4 Not Available [facility] [address] [place] [address], [address], 01/08/2025 12:32:04 01/09/20 25 01/08/2025 COMPR EHENS JAMES METAB OLIC PANEL note See Report [facility], [address] [facility], [address], [address] [place] [address] Not Available [facility] [address] [place], [address], 01/08/2025 12:32:04 01/09/20 25 01/08/2025 AMYLA SE amylase 65 unit/ L 25-115 Not Available [facility] [address] [place] [address], [address], 01/08/2025 12:32:05 01/09/20 25 01/08/2025 AMYLA SE note See Report [facility], [address] [facility], Spr[address], [place] [address] Not Available [facility] [address] [place], [address], 01/08/2025 12:32:05 01/09/20 25 01/08/2025 LIPID PANEL WITH REFLE X TO DIREC T LDL cholesterol 142 mg/dL 0-200 Not Available [facility] [address] [place] [address], [address], 01/08/2025 12:32:06 01/09/20 25 01/08/2025 LIPID PANEL WITH REFLE X TO DIREC T LDL triglyceride s 80 mg/dL 0-150 Not Available [facility] [address] [place] [address], [address], 01/08/2025 12:32:06 01/09/20 25 01/08/2025 LIPID PANEL WITH REFLE X TO DIREC T LDL HDL 68 mg/dL >=40 Not Available [facility] [address] [place] [address], [address], 01/08/2025 12:32:06 01/09/20 25 01/08/2025 LIPID PANEL WITH REFLE X TO DIREC T LDL LDL calculated 58 mg/dL 0-100 Not Available [facility] [address] [place] [address], [address], 01/08/2025 12:32:06 01/09/20 25 01/08/2025 LIPID PANEL WITH REFLE X TO DIREC T LDL VLDL cholesterol sofia 16 mg/dL Not Available [facility] [address] [place] [address], [address], 01/08/2025 12:32:06 01/09/20 25 01/08/2025 LIPID PANEL WITH REFLE X TO DIREC T LDL non HDL chol. (LDL+VLDL) 74 mg/dL <145 Not Available [facility] [address] [place], [address], 01/08/2025 12:32:06 01/09/20 25 01/08/2025 LIPID PANEL WITH REFLE X TO DIREC T LDL chol/HDL ratio 2.1 0.0-4. 4 Not Available [facility] [address] [place], [address], 01/08/2025 12:32:06 01/09/20 25 01/08/2025 LIPID PANEL WITH REFLE X TO DIREC T LDL note See Report [facility], [address] [facility], [address], [address] [place] [place] [address] Not Available [facility] [address] [place], [address], 01/08/2025 12:32:06 01/09/20 25 01/08/2025 HEMOG LOBIN A1C hemoglobin A1C 6.0 % <6.5 Not Available [facility] [address] [place], [address], 01/08/2025 13:35:29 01/09/20 25 01/08/2025 HEMOG LOBIN A1C mean bld glu estim. 126 mg/dL Not Available [facility] [address] [place], [address], 01/08/2025 13:35:29 01/09/20 25 01/08/2025 HEMOG LOBIN A1C note See Report [facility], [address] [facility], [address], [address] [address] Not Available [facility] [address] [place], [address], 01/08/2025 13:35:29 01/09/20 25 01/08/2025 HIV 1 MOLEC ULAR STUDY QUANT ITATI VE HIV-1 RNA interpretati on Not Detect ed not detect ed HIV RNA not detec travis, unabl e to repor t quant itati ve resul ts. Not Available [facility] [address] [place], [address], 01/08/2025 14:08:45 01/09/20 25 01/08/2025 HIV 1 MOLEC ULAR STUDY QUANT ITATI VE note See Report [facility], [address] [facility], [facility], [facility] [place] [address] Not Available [facility] [address] [place] [address], [address], 01/08/2025 14:08:45 01/09/20 25 01/08/2025 CHLAM YDIA TRACH OMATI S AND NEISS ERIA GONOR RHOEA E MOLEC ULAR STUDY .note See Note Origi nal Order ing Provi scotty: JERAMY IA T MARTO GABRIEL [facility] - [facility] - [address] [facility] [address], [facility] [place] [address] Not Available [facility] [address] [place] [address], [address], 01/08/2025 14:08:47 01/09/20 25 01/08/2025 CHLAM YDIA TRACH OMATI S AND NEISS ERIA GONOR RHOEA E MOLEC ULAR STUDY neisseria gonorrhoeae PCR Negati ve negati ve Not Available [facility] [address] [place] [address], [address], 01/08/2025 14:08:47 01/09/20 25 01/08/2025 CHLAM YDIA TRACH OMATI S AND NEISS ERIA GONOR RHOEA E MOLEC ULAR STUDY chlamydia trachomatis PCR Negati ve negati ve Not Available [facility] [address] [place], [address], 01/08/2025 14:08:47 01/09/20 25 01/08/2025 THYRO XINE FREE free T4 1.32 NG/dL 0.70-1 .80 Not Available [facility] [address] [place] [address], [address], 01/08/2025 14:12:50 01/09/20 25 01/08/2025 THYRO XINE FREE note See Report [facility], [address] [facility], [facility], [facility] [place] [address] Not Available [facility] [address] [place], [address], 01/08/2025 14:12:50 01/09/20 25 01/08/2025 HEPAT ITIS B SURFA CE ANTIG EN WITH REFLE X TO CONFI RMATI ON hepatitis B surface Ag Negati ve negati ve Not Available [facility] [address] [place], [address], 01/08/2025 14:23:52 01/09/20 25 01/08/2025 HEPAT ITIS B SURFA CE ANTIG EN WITH REFLE X TO CONFI RMATI ON note See Report [facility], [address] [facility], [facility], [facility] [place] [address] Not Available [facility] [address] [place], [address], 01/08/2025 14:23:52 01/09/20 25 01/08/2025 THYRO ID STIMU LATIN G HORMO NE TSH 1.36 mciu/ mL 0.40-4 .00 Not Available [facility] [address] [place] [address], [address], 01/08/2025 14:44:58 01/09/20 25 01/08/2025 THYRO ID STIMU LATIN G HORMO NE note See Report [facility], [address] [facility], [facility] raghavendra, [facility] [place] [address] Not Available [facility] [address] [place], [address], 01/08/2025 14:44:58 01/09/20 25 01/08/2025 TREPO NEMA PALLI DUM ANTIB DOMINGO WITH REFLE X TO RPR AND PARTI ALEJANDRA AGGLU TINAT ION T. pallidum antibodies Negati ve negati ve Not Available [facility] [address] [place], [address], 01/08/2025 14:56:02 01/09/20 25 01/08/2025 TREPO NEMA PALLI DUM ANTIB DOMINGO WITH REFLE X TO RPR AND PARTI ALEJANDRA AGGLU TINAT ION note See Report [facility], [address] [facility], [address], [address] [place] [address] Not Available [facility] [address] [place] [address], [address], 01/08/2025 14:56:02 01/09/20 25 01/08/2025 LYMPH OCYTE T-JESSE L PANEL cd4 462 cells /mcL 426-17 76 Not Available [facility] [address] [place] [address], [address], 01/09/2025 11:50:20 01/09/20 25 01/08/2025 LYMPH OCYTE T-JESSE L PANEL cd8 471 cells /mcL 161-83 8 Not Available [facility] [address] [place] [address], [address], 01/09/2025 11:50:20 01/09/20 25 01/08/2025 LYMPH OCYTE T-JESSE L PANEL cd4/cd8 ratio 0.98 0.90-4 .90 Not Available [facility] [address] [place] [address], [address], 01/09/2025 11:50:20 01/09/20 25 01/08/2025 LYMPH OCYTE T-JESSE L PANEL cd4 % 35 % 33-64 Not Available [facility] [address] [place] [address], [address], 01/09/2025 11:50:20 01/09/20 25 01/08/2025 LYMPH OCYTE T-JESSE L PANEL cd8 % 36 % 10-39 Not Available [facility] [address] [place] [address], [address], 01/09/2025 11:50:20 01/09/20 25 01/08/2025 LYMPH OCYTE T-JESSE L PANEL note See Report [facility], [address] [facility], [address], [address] [place] [address] Not Available [facility] [address] [place] [address], [address], 01/09/2025 11:50:20 01/09/20 25 01/08/2025 HEPAT ITIS C VIRAL RNA GENOT YPE 1 NS5B DRUG RESIS TANCE HCV ns5b drug resistance assay See Report See comme nts HCV GenoS ure(T M) NS5B HCV GenoS ure(T M) NS5B Resul t: Non-R eport able HCV Genot ype: Not Avail able Mutat ional kavon sis of the speci fied regio n could not be obtai giovanni. [...] Clien t Servi alfredo Depar tment at [phone]. Not Available [address], [address], 02/02/2025 15:06:38 01/09/20 25 01/08/2025 HEPAT ITIS C VIRAL RNA GENOT YPE 1 NS5B DRUG RESIS TANCE HCV ns5b resist assay interp For more inform ation on interp reting this report , please call Monog brennan Custo humberto Servi ce at [phone] betwe en the hours of 6:30a m to 5:00p m Pacif ic Time Monjames y carmen Bean y. REMIN SCOTTY: To Ensur e High- [...] se. This assay was valid ated by antoine julio es with viral loads equal to or above 1000 IU/mL and shoul d be inter prete d only on such speci mens. This test was devel oped and its perfo rmanc e taryn cteri stics deter mined by [employer]. It has not been clear ed or appro rossy by the Food and Drug Admin istra tion. [employer]. is a subsi diary of Labor atory Corpo ratio n of [employer], using the brand [employer]. The resul ts shoul d not be used as the sole crite yareli for patie nt manag ement . This docum ent conta ins priva te and confi denti al healt h infor matio n prote cted by state and [place] al law. If you have recei rossy this docum ent in error , pleas e call [phone]. Not Available [facility] [address] [place], [address], 02/02/2025 15:06:38 01/09/20 25 01/08/2025 HEPAT ITIS C VIRAL RNA GENOT YPE 1 NS5B DRUG RESIS TANCE note See Report [facility], [address] [facility], [address]iranjan mabry, [place] [address] Not Available [facility] [address] [place], [address], 02/02/2025 15:06:38 Result Notes None recorded. 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 Human immunodefi ciency virus [HIV] disease; snomeddesc ription: Human immunodefi ciency virus infection; Report Immunity to Registry: Yes; Notes: [id number] neg 2013; ; Start Date : 11/16/2014 Human immunodefi ciency virus infection; snomeddesc ription: Human immunodefi ciency virus infection; Report Immunity to Registry: Yes; Notes: [id number] neg 2013; ; Start Date : 11/16/2014 Human immunodefi ciency virus [HIV] disease; snomeddesc ription: Human immunodefi ciency virus infection; Report Immunity to Registry: Yes; Notes: [id number] neg G6PD nl; Human immunodefi ciency virus infection; snomeddesc ription: Human immunodefi ciency virus infection; Report Immunity to Registry: Yes; Notes: [id number] neg G6PD nl; Not Available [facility] 4 06:58:35 Blood chemistry outside reference range [id number] Active 2015 Other specified abnormal findings of blood chemistry; snomeddesc ription: Decreased testostero ne level; Report Immunity to Registry: Yes; Not Available [facility] 4 06:58:35 Testoster one level below reference range [id number] Active 2015 Decreased testostero ne level; snomeddesc ription: Decreased testostero ne level; Report Immunity to Registry: Yes; Not Available [facility] 4 06:58:36 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 dx 1970's. core ab pos; s ag neg; s ab neg HBV VL nondetecte d 2016; 2017; 2018; Not Available [facility] 4 06:58:35 Type B viral hepatitis 72974467 Active 2016 Type B viral hepatitis; snomeddesc ription: Type B viral hepatitis; Report Immunity to Registry: Yes; Notes: past hx. dx 1970's. 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 Anogenital herpesvira l infection, unspecifie d; snomeddesc ription: Genital herpes simplex; Report Immunity to Registry: Yes; Notes: HSV 1 and 2 pos serology 2016; Not Available [facility] 4 06:58:35 Osteomyel itis 37428603 Active 2018 Osteomyeli tis; snomeddesc ription: Osteomyeli tis; Report Immunity to Registry: Yes; Notes: 10/23/17 grew yeast (Argelia parapsilos is) (1 out f 2) (susc Caspo;Vori ;fluc); started on Capsofungi n 70-->50 mg IV qd; then fluconazol e 400mg po qd until 07/17/18; Not Available [facility] 4 06:58:35 Chronic obstructi ve pulmonary disease 60472660 Active 2022 Chronic obstructiv e lung disease; snomeddesc ription: Chronic obstructiv e lung disease; Report Immunity to Registry: Yes; Chronic obstructiv e pulmonary disease, unspecifie d; snomeddesc ription: Chronic obstructiv e lung disease; Report Immunity to Registry: Yes; Not Available [facility] 4 06:58:35 Anemia 987808762 Active 2022 Anemia; snomeddesc ription: Anemia; Report Immunity to Registry: Yes; Anemia, unspecifie d; snomeddesc ription: Anemia; Report Immunity to Registry: Yes; Not Available [facility] 4 06:58:36 Viral hepatitis C 27034088 Active 2023 Adelia Beasley MD [address] [place] [address], [address] , [facility] - ADELIA BEASLEY MD [facility] 4 13:12:33 Problem Notes None recorded. Medical Equipment None Reported. Allergies Allergen ID Allergen Name Allergen Category Reaction Reaction Severity Criticality Documentation Date Start Date Code Code System Note Provider Name and Address Organization Details Recorded Time 1588 honey bee venom environme nt anaphylax is Not available [facility] 08/07/20252017 55162 7 RxNorm Not Available [employer] [facility] 5 03:19:17 1589 rofecoxib medicatio n hives Not available Not available 08/07/20252017 51833 8 RxNorm Not Available [employer] [facility] prod 5 03:19:17 844 Vioxx medicatio n Not available Not available Not available 11/07/20232013 71815 9 RxNorm Sever ity: unkno wn; Comme nt: adver se_ev ent_t ype: [id number] [id number]; Notes : Acute adema ; ; Not Available [facility] 4 06:51:01 Medications Name Sig Start Date Stop [...] day by oral route for 30 days. 09/30/ 2024 active Not Available Not Available Not [...] medicati on obtained and paid by office/p katharine Not Available Not Available Not Available clobetaso [...] layed release TAKE 1 TABLET BY MOUTH DAILY active [...] Available amoxicill in 500 mg tablet TAKE 4 TABLET BY MOUTH 1 HOURS BEFORE DENTAL APPOINTM ENT 08/04 completed Not Available Not Available Not Available simvastat in 40 mg tablet TAB [...] completed VACCINE_ IND: no; SU_FULL_ NAME: Adelia Riverakhoi mcarthur; Not Available Not Available Not Available [...] ccal polysacc haride PPV23; SU_FULL_ NAME: Adelia Riverakhoi blue; VIS_DATE : 16:07:53 .0; Not Available Not Available Not Available cyclobenz aprine 5 mg tablet HCL 5MG TABLET; Quantity : 4; Duration : 2; 0 refill(s ) 11/25 completed Duration : 2; VACCINE_ IND: no; Not Available Not Available Not Available tadalafil 10 mg tablet TAKE 1 TABLET BY MOUTH EVERY DAY NEEDED FOR SEXUAL ACTIVITY FOR 10 DAYS. TAKE APPROXIM ATELY 30 MINUTES BEFORE SEXUAL ACTIVITY . MAX 1 PER DAY active Not Available Not Available No t Available lactulose 10 gram/15 mL oral solution [...] 14; VACCINE_ IND: no; SU_FULL_ NAME: Adelia Riverakhoi mcarthur; Not Available Not Available Not Available Acid Manufacturer Agent (famotidi ne) 20 mg tablet 20 mg Quantity : ; 0 refill(s ) 11/16 completed VACCINE_ IND: no; Not Available Not Available Not Available budesonid e-formote rol HFA 160 mcg-4.5 mcg/actua tion aerosol inhaler INHALE 1 PUFF BY MOUTH TWICE DAILY active Not Available Not Available No t Available Engerix-B (PF) 20 mcg/mL intramusc ular [...] seasonal , injectab le; SU_FULL_ NAME: Adelia mcarthur; Not Available Not [...] NAME: zoster recombin ant; SU_FULL_ NAME: Adelia mcarthur; Not Available Not Available Not Available Dovato [...] lent; SU_FULL_ NAME: Adelia mcarthur; VIS_DATE : 19:25:08 .0; Not Available Not Available Not Available Wegovy 0.25 mg/0.5 mL subcutane ous pen injector Inject 0.25 mg every week by subcutan eous route for 28 days, for weight loss. 2024 active Not Available Not Available Not Avai lable Prevnar 20 (PF) 0.5 mL intramusc ular syringe - Quantity : 1; Duration : 1; 0 refill(s ) 10/12 completed Frequenc y: x1; Duration : 1; VACCINE_ IND: no; VACCINE_ NAME: Pneumoco ccal conjugat e PCV20, polysacc haride [id number] conjugat e, adjuvant , PF; SU_FULL_ NAME: [...] Updated DateTime 01/07/2025 170.18 cm 30.1 kg/m2 19144.74 g Adelia Beasley MD [address] [place], [address], DAGO BEASLEY MD [facility] 01/07/2025 15:38:07 Date Recorded Body height Heart rate Respiratory rate Body temperature Body mass index (BMI) Body weight Systolic And Diastolic Provider Name and Address Organization Details Last Updated DateTime 170.18 cm 65 /min 12 /min 98.7 [degF] 30.9 kg/m2 40145.7 g 157/88 mm[Hg] Minnie BEASLEY MD [facility] 5 11:13:23 Date Recorded Body height Heart rate Body temperature Body mass index (BMI) Body weight Respiratory rate Systolic And Diastolic Provider Name and Address Organization Details Last Updated DateTime 5 170.18 cm 57 /min 97 [degF] 15.4 kg/m2 81088.4 9 g 97 /min 140/80 mm[Hg] Minnie BEASLEY MD [facility] 5 11:48:08 Date Recorded Systolic And Diastolic Provider Name and Address Organization Details Last Updated DateTime 05/20/2025 132/70 mm[Hg] Adelia Beasley MD [address] [place], [address], DAGO BEASLEY MD [facility] 07/13/2025 17:05:56 Date Recorded Body height Heart rate Respiratory rate Body temperature Body mass index (BMI) Body weight Provider Name and Address Organization Details Last Updated DateTime 5 170.18 cm 53 /min 12 /min 97.3 [degF] 30.5 kg/m2 68589.5 1 g Demetria BEASLEY MD [facility] 5 12:52:41 Date Recorded Body height Heart rate Respiratory rate Body temperature Body mass index (BMI) Body weight Systolic And Diastolic Provider Name and Address Organization Details Last Updated DateTime 5 170.18 cm 80 /min 17 /min 97.5 [degF] 31 kg/m2 27821.2 9 g 133/78 mm[Hg] Dodie BEASLEY MD [facility] 5 12:33:49 Social History None recorded. Functional Status None recorded. Mental Status None recorded. Family History Nothing Reported Notes:Family history unknown , Response Property: Yes; , NO KNOWN FAMILY HISTORY, Response Property: Yes; Medical History No medical history recorded. Immunizations Vaccine Type Date Status Note Provider Nam e and Address Organization Details Recorded Time Influenza, split virus, quadrivalent, preservative 0 completed Not Available [facility] 11/07/2023 06:53:59 Influenza, split virus, quadrivalent, preservative 9 completed Not Available [facility] 11/07/2023 06:54:00 Influenza, split virus, quadrivalent, preservative 1 completed Not Available [facility] 11/07/2023 06:54:00 Past Encounters Encounter ID Performer Location Encounter Start Date Encounter Closed Date Diagnosis/Indication Diagnosis SNOMED-CT Code Diagnosis ICD10 Code Diagnosis IMO Codes Diagnosis Note [id number] Adelia Beasley MD Main Office [address] [place] [phone] 07/13/2023 12:42:52 07/17/2023 13:29:07 Human immunodeficiency virus infection 46785317 B20 HIV:Contin ue Dovato 1 tab po [...] questions and concerns addressed Viral hepatitis C 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 strict compliance reviewed to keep viral suppressio n, prevent viral resistance . prefers to keep current regimen. U=U. pt aware of PreP availabili ty. condom use.Refer Mimi: case management and opiate substituti on program. plan of care reviewed. questions and concerns addressed Viral hepatitis C 828802 07 B19.20 SVR.fibros ure f3; g1a; nonreponde r to peg/hiwot/ p HArvoni 1 tab po qd 12/05/14- 12 weeksSVR 2014; neg 2015; [id number] Adelia Beasley MD Main Office [address] [place] [phone] 03/10/2024 12:31:59 03/10/2024 13:18:54 Human immunodeficiency virus infection 22811986 B20 HIV:Contin ue Dovato 1 tab po qd. strict compliance reviewed to keep viral suppressio n, prevent viral resistance . prefers to keep current regimen.pt is willing and interested in clinical trialsU=U. pt aware of PreP availabili ty. condom use.DOxyPE P reviewedpl an of care reviewed. questions and concerns addressed Viral hepatitis C 710975 B19.20 SVR.fibros ure f 3; g1a; nonreponde r to peg/hiwot/ p HArvoni 1 tab po qd 12/05/14- 12 weeksSVR 2014; neg 2015; 2017; ; 3preven tion reviewed [id number] Adelia Beasley MD Main Office [address] [place] [phone] 6 05/29/2024 12:22:27 05/29/2024 13:33:11 Human immunodeficiency virus infection 40844328 B20 HIV:Contin ue Dovato 1 tab po qd. strict compliance reviewed to keep viral suppressio n, prevent viral resistance .pt is willing and interested in clinical trialsU=U. pt aware of PreP availabili ty. condom use.flu and COVID19 vaccines recommende dplan of care reviewed. questions and concerns addressed Acute oste omyelitis of lumbar spine 780432181 M46.26 IVDU.MRI lumbar Spine [place] to compare with previous one to see if progressio n or new findings.p t prefers no biopsy.lab s to include B/C x2, sed rate, CRP, safety labsonce labs toby, pt will Start empiricall y Levaquin 750mg [...] effectsavo id ETOH.avoid IVDUcall with any concerns [id number] Adelia Beasley MD Main Office [address] [place] [phone] 6 06/03/2024 15:19:48 06/03/2024 16:28:59 Osteomyelitis 25969691 M86.9 IVDU.Lymba r spine: high sed rate [...] with any concerns Human immunodeficiency virus infection 94265078 B20 HIV:Contin ue Dovato 1 tab po qd. strict compliance reviewed to keep viral suppressio n, prevent viral resistance .pt is willing and interested in clinical trialsU=U. pt aware of PreP availabili ty. condom use.flu and COVID19 vaccines recommende dplan of care reviewed. questions and concerns addressed [id number] Adelia Beasley MD Main Office [address] [place] [address] 06/16/2024 15:19:25 06/16/2024 15:58:20 Osteomyelitis 68071524 M86.9 recent IVDU. on methadone. Lumbar spine: [...] with any concerns Human immunodeficiency virus infection 65120176 B20 HIV:Contin ue Dovato 1 tab po qd. strict compliance reviewed to keep viral suppressio n, prevent viral resistance .U=U. pt aware of PreP availabili ty. condom use.questi ons and concerns addressed Gastroesop hageal reflux disease 724979119 K21.9 On esomeprazo le which will be re-started Mylanta bid PRN for GERD.timin g between antibiotic and mylanta reviewed. Insomnia 496663896 F51.0 1 Benadryl 1-2 tabs po qhs. Constipation 03184839 K5 9.00 lactulose qd prnfiberhy dration Nasal congestion 7398642 0 R09.[place] [id number] Adelia Beasley MD Main Office [address] [place] [address] 07/03/2024 14:01:10 07/03/2024 14:36:23 Osteomyelitis 10835738 M86.9 recent IVDU. on methadone. Lumbar spine: [...] with any concerns Human immunodeficiency virus infection 98952602 B20 HIV:Contin ue Dovato 1 tab po qd. strict compliance reviewed to keep viral suppressio n, prevent viral resistance .U=U. pt aware of PreP availabili ty. condom use.questi ons and concerns addressed Gastroesop hageal reflux disease 149852770 K21.9 Re-start esomeprazo le. watch for interactio nMylanta bid PRN for GERD.timin g between antibiotic and mylanta reviewed. Constipation 81362383 K5 9.00 lactulose qd prnfiberhy dration [id number] Adelia Beasley MD Main Office [address] [place] [phone] 07/31/2024 12:17:46 07/31/2024 13:16:05 Osteomyelitis 38406185 M86.9 Lumbar spine: high sed rate and [...] with any concerns Human immunodeficiency virus infection 28698640 B20 HIV:Contin ue Dovato 1 tab po qd. strict compliance reviewed to keep viral suppressio n, prevent viral resistance .U=U. pt aware of PreP availabili ty. condom use.questi ons and concerns addressed Gastroesop hageal reflux disease 907976518 K21.9 hold PPI.Mylant a bid PRN for GERD.Pepci d qdtiming between antibiotic and mylanta reviewed. Nonulcer dyspepsia 75718 07 K30 H pylori in 2-4 weeks Excoriation of skin 2474 06519 T14.8XXA swab obtainedwi tx if needed [id number] Adelia Beasley MD Main Office [address] [place] [address] 08/29/2024 13:00:53 08/29/2024 13:32:35 Osteomyelitis 28664853 M86.9 Lumbar spine: high sed rate and [...] with any concerns Human immunodeficiency virus infection 07736759 B20 HIV:Contin ue Dovato 1 tab po qd. strict compliance reviewed to keep viral suppressio n, prevent viral resistance .U=U. pt aware of PreP availabili ty. condom use.questi ons and concerns addressed Gastroesop hageal reflux disease 058268709 K21.9 Mylanta bid PRN for GERD.Pepci d qdtiming between antibiotic and mylanta reviewed. [id number] Adelia Beasley MD Main Office [address] [place] [address] 10/09/2024 12:11:24 10/09/2024 14:17:26 Osteomyelitis 08897139 M86.9 Lumbar spine: b/c negative.r epeat MRI [...] with any concerns Human immunodeficiency virus infection 06836991 B20 HIV:Contin ue Dovato 1 tab po qd. strict compliance reviewed to keep viral suppressio n, prevent viral resistance .U=U. pt aware of PreP availabili ty. condom use.questi ons and concerns addressed Chronic low back pain 27 4053288 M54.50 Lumbar arthritis and spinal stenosis.f /u with PCP; consider surgical eval if sx get worse or progressio n [id number] Adelia Beasley MD Main Office [address] [place] [phone] 01/07/2025 14:59:34 01/07/2025 20:38:58 Human immunodeficiency virus infection 24290343 B20 HIV:Contin ue Dovato 1 tab po qd. strict compliance reviewed to keep viral suppressio n, prevent viral resistance .clinical trial options reviewed.U =U. pt aware of PreP availabili ty. condom use.questi ons and concerns addressed Suspected clinical finding 933025593 Z20.2 3251208 DoxyPeP. pt interested in Doxycyclin e for [...] sex. Body mass index 30+ - obesity 115019907 E66.9 4448621 BMI 30.1chroni c back pain and low [...] any concernsdi et and exercise. Nasal congestion 3008164 0 R09.81 03403 flonase [id number] Adelia Beasley MD Main Office [address] [place] [phone] 02/05/2025 10:58:28 02/05/2025 11:40:34 Human immunodeficiency virus infection 98915288 B20 HIV:Contin ue Dovato 1 tab po qd. strict compliance reviewed to keep viral suppressio n, prevent viral resistance .U=U. pt aware of PreP availabili ty. condom use.prevna r20 and RSV vaccines recommende dquestions and concerns addressed Body mass index 30+ - obesity 942737071 E66.9 8340872 BMI 30.1chroni c back pain and low [...] call with any concernsdi et and exercise. [id number] Adelia Beasley MD Main Office [address] [place] [phone] 05/07/2025 11:12:57 05/07/2025 12:17:08 Human immunodeficiency virus infection 50338582 B20 HIV:Contin ue Dovato 1 tab po qd. strict compliance reviewed to keep viral suppressio n, prevent viral resistance .flu vaccine recommende d; states had RSV and shingles alreadyque stions and concerns addressed Body mass index 30+ - obesity 105233601 E66.9 5181961 BMI 30.9chroni c back pain and low [...] with any concernsdi et and exercise. Diarrhea 08836676 R19.7 25418325 nausea.wea mike methadone? withdrawal .pt will see GI on June 2025imodiu m offered; he declines . zofran offered for nausea; he declined. he will call if he needs imodium or zofran, or if worsening of sx. .will obtain CT scan done at [facility] within the past months [id number] Adelia Beasley MD Main Office [address] [place] [address] 05/20/2025 10:42:30 05/20/2025 12:45:23 Human immunodeficiency virus infection 32207955 B20 HIV:Contin ue Dovato 1 tab po qd. strict compliance reviewed to keep viral suppressio n, prevent viral resistance .EMBRACE screen. benefits and risks reviewed, arm options reviewed; potential side effects such as ISR, infusion site reaction, allergic reactions among other.labs questions and concerns addressed [id number] Adelia Beasley MD Main Office [address] [place] [address] 08/07/2025 12:04:27 08/07/2025 13:14:10 Human immunodeficiency virus infection 49845950 B20 HIV:Contin ue Dovato 1 tab po qd. strict compliance reviewed to keep viral suppressio n, prevent viral resistance .EMBRACE screen. benefits and risks reviewed, arm options reviewed; potential side effects such as ISR, infusion site reaction, allergic reactions among other.labs fquestions and concerns addressed Health Concerns Section Related Observation LastModified by Organization Detai ls LastModified Time None Recorded Concern Status LastModified by Organization Details LastModified Time None Recorded Advance Directives Directive None Recorded Payers Insurance Date Sequence Insurance Name Policy Number Policy Workman Covered Member ID Workman Member ID Guarantor Name 08/04/2025 1 [facility] - DOS ON OR AFTER 2022 - MEDICARE [place]VANTAGE [place]MEDICARE REPLACEMENT/ADV ANTAGE - PPO) Nayan Henao [id number] Nayan Henao Notes Date Note Type Note Provider Name and Address Organization Details Recorded Time 5 text/html ROS as noted in the [...] treponemal ab d neg;eGFR=76;07/2023 HIV VL nondetected; CS2=088; ALT/AST wnl;eGFR.60; HCV nondetected; no GC/no chlamydia; no syphilis; no HBV 04/04/24 MRI spine no contrast: patchy enhancement involving L1-2 and L4-5 reactive endplate changes; same finding for facet joints in 3 llevels and degenerative inflammation; infection cannot be excluded Adelia Beasley MD [address] [place] [address], [place], [address], [place] - ADELIA BEASLEY MD [facility] 01/07/2025 21:08:19 5 text/html ROS as noted [...] WBC 2.5; Hgb 11.8;AST/ALT wnl; prediabetes ; KA3=463; HIV VL Nondetected. HIV VL nondetected; CD-592; HCV VL nondetected (past infection); HBV s ag neg; ALT/AST wnl; treponemal ab d neg;eGFR=76;07/2023 HIV VL nondetected; FK6=287; ALT/AST wnl;eGFR.60; HCV nondetected; no GC/no chlamydia; no syphilis; no HBV04/04/24 MRI spine no contrast: patchy enhancement involving L1-2 and L4-5 reactive endplate changes; same finding for facet joints in 3 llevels and degenerative inflammation; infection cannot be excluded Adelia Beasley MD [address] [place] [address], [phone], [facility] - ADELIA BEASLEY MD [facility] 02/06/2025 02:48:33 5 text/html f/u HIV.on Dovato 1 tab po qddoes not miss doses; complianton methadone ; tapered slowly. some GI symptoms now, loose stool and [facility] for more than 7 monthsdenies [...] WBC 2.5; Hgb 11.8;AST/ALT wnl; prediabetes ; YE6=735; HIV VL Nondetected. HIV VL nondetected; CD-592; HCV VL nondetected (past infection); HBV s ag neg; ALT/AST wnl; treponemal ab d neg;eGFR=76;07/2023 HIV VL nondetected; KB6=543; ALT/AST wnl;eGFR.60; HCV nondetected; no GC/no chlamydia; no syphilis; no HBV04/04/24 MRI spine no contrast: patchy enhancement involving L1-2 and L4-5 reactive endplate changes; same finding for facet joints in 3 llevels and degenerative inflammation; infection cannot be excluded Adelia Beasley MD [address] [place] [address], [place], [address], [facility] - ADELIA BEASLEY MD [facility] 05/07/2025 12:27:19 5 text/html ROS as noted in the HPI f/u HIV.on Dovato 1 tab po qdinterested in clinical trials w infusions. has read and signed EMBRACE consent, and wishes to be screeneddoes not miss doses; complianton methadoneno substance use for more than 7 monthsdenies ETOH ; denies IVDUmed list reviewed.not sexually active; has DoxyPEP prescription but has not used.ECG sinus bradycardia12/2024 HIV VL not detected; CD4 462 (35%); [...] WBC 2.5; Hgb 11.8;AST/ALT wnl; prediabetes ; DN9=557; HIV VL Nondetected. HIV VL nondetected; CD-592; HCV VL nondetected (past infection); HBV s ag neg; ALT/AST wnl; treponemal ab d neg;eGFR=76;07/2023 HIV VL nondetected; UP3=120; ALT/AST wnl;eGFR.60; HCV nondetected; no GC/no chlamydia; no syphilis; no HBV04/04/24 MRI spine no contrast: patchy enhancement involving L1-2 and L4-5 reactive endplate changes; same finding for facet joints in 3 llevels and degenerative inflammation; infection cannot be excludedpast med hx: HIV Dx 1992; HCV dx 1998; tx/cured. hx GERD; past hx LTBI tx w Rifampin in 2023; hx anemia; COPD; COnstipation; HBP; depression/genital HSV; hyperlipidemia; insomnia; hypogonadism (low testosterone); past hx osteomyelitis; hx bradycardia; past hx tubular adenoma colon/removed ; past substance use on Methadone maintenance tx; insomnia; obesity. pre-diabetes Adelia Beasley MD [address] [place] [address], [phone], [facility] - ADELIA BEASLEY MD [facility] 07/13/2025 21:56:57 5 text/html ROS as noted in the HPI f/u HIV.on Dovato 1 tab po qdinterested in clinical trials w infusions. has read and signed EMBRACE consent, and wishes to be screeneddoes not miss doses; complianton methadoneno substance use for more than 7 monthsdenies ETOH ; denies IVDUmed list reviewed.not sexually active; has DoxyPEP prescription but has not used.ECG sinus bradycardiaflu vaccine in processs;12/2024 HIV VL not detected; CD4 462 (35%); [...] WBC 2.5; Hgb 11.8;AST/ALT wnl; prediabetes ; ZY5=932; HIV VL Nondetected. HIV VL nondetected; CD-592; HCV VL nondetected (past infection); HBV s ag neg; ALT/AST wnl; treponemal ab d neg;eGFR=76;07/2023 HIV VL nondetected; DW7=127; ALT/AST wnl;eGFR.60; HCV nondetected; no GC/no chlamydia; no syphilis; no HBV04/04/24 MRI spine no contrast: patchy enhancement involving L1-2 and L4-5 reactive endplate changes; same finding for facet joints in 3 llevels and degenerative inflammation; infection cannot be excludedpast med hx: HIV Dx 1992; HCV dx 1998; tx/cured. hx GERD; past hx LTBI tx w Rifampin in 2023; hx anemia; COPD; COnstipation; HBP; depression/genital HSV; hyperlipidemia; insomnia; hypogonadism (low testosterone); past hx osteomyelitis; hx bradycardia; past hx tubular adenoma colon/removed ; past substance use on Methadone maintenance tx; insomnia; obesity. pre-diabetes Not Available Not Available Not Available
--- OUTSIDE RECORDS SUMMARY | 2025-08-11 18:36 | XMS_ITS | Continuity of Care Document ---
Author Organization DAGO RIOS MD [facility], Main Office Address [address] [place] [address] Assessment No assessment recorded. Plan of Treatment Reminders Order Date Submit Date Provider Last Modified By Organization Details Last Modified Time Details Appointments None record ed. Lab None record ed. Referral None record ed. Procedures None record ed. Surgeries None record ed. Imaging None record ed. Medication Orders None record ed. Patient TargetsNo targets recorded. Patient InstructionsNo instructions recorded. Reason for Referral None Reported. Problems Name Problem SNOMED Code Status Onset Date Resolution Date Notes Provider Name and Address Organization Details Recorded Time Human immunodef iciency virus infection 61233587 Active 2013 Human immunodefi ciency virus [HIV] disease; snomeddesc ription: Human immunodefi ciency virus infection; Report Immunity to Registry: Yes; Notes: [id number] neg 2013; ; Start Date : 11/16/2014 Human immunodefi ciency virus infection; snomeddesc ription: Human immunodefi ciency virus infection; Report Immunity to Registry: Yes; Notes: [id number] neg 2013; ; Start Date : 11/16/2014 Human immunodefi ciency virus [HIV] disease; snomeddesc ription: Human immunodefi ciency virus infection; Report Immunity to Registry: Yes; Notes: [id number] neg G6PD nl; Human immunodefi ciency virus infection; snomeddesc ription: Human immunodefi ciency virus infection; Report Immunity to Registry: Yes; Notes: [id number] neg G6PD nl; Not Available [facility] 4 06:58:35 Blood chemistry outside reference range 575843645 Active 2015 Other specified abnormal findings of blood chemistry; snomeddesc ription: Decreased testostero ne level; Report Immunity to Registry: Yes; Not Available [facility] 4 06:58:35 Testoster one level below reference range 630727961 Active 2015 Decreased testostero ne level; snomeddesc ription: Decreased testostero ne level; Report Immunity to Registry: Yes; Not Available [facility] 4 06:58:36 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 dx 1970's. core ab pos; s ag neg; s ab neg HBV VL nondetecte d 2017; 2017; 2018; Not Available [facility] 4 06:58:35 Type B viral hepatitis 71483275 Active 2016 Type B viral hepatitis; snomeddesc ription: Type B viral hepatitis; Report Immunity to Registry: Yes; Notes: past hx. dx 1970's. 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 2017 Anogenital herpesvira l infection, unspecifie d; snomeddesc ription: Genital herpes simplex; Report Immunity to Registry: Yes; Notes: HSV 1 and 2 pos serology 2017; Not Available [facility] 4 06:58:35 Osteomyel itis 93965212 Active 2018 Osteomyeli tis; snomeddesc ription: Osteomyeli tis; Report Immunity to Registry: Yes; Notes: 10/23/17 grew yeast (Argelia parapsilos is) (1 out f 2) (susc Caspo;Vori ;fluc); started on Capsofungi n 70-->50 mg IV qd; then fluconazol e 400mg po qd until 07/17/18; Not Available [facility] 4 06:58:35 Chronic obstructi ve pulmonary disease 77742605 Active 2022 Chronic obstructiv e lung disease; snomeddesc ription: Chronic obstructiv e lung disease; Report Immunity to Registry: Yes; Chronic obstructiv e pulmonary disease, unspecifie d; snomeddesc ription: Chronic obstructiv e lung disease; Report Immunity to Registry: Yes; Not Available [facility] 4 06:58:35 Anemia 302452516 Active 2022 Anemia; snomeddesc ription: Anemia; Report Immunity to Registry: Yes; Anemia, unspecifie d; snomeddesc ription: Anemia; Report Immunity to Registry: Yes; Not Available [facility] 4 06:58:36 Viral hepatitis C 25276572 Active 2023 Adelia Beasley MD [address] [place] [address], [phone] [facility] ADELIA BEASLEY MD [facility] 4 13:12:33 Problem Notes None recorded. Medical Equipment None Reported. Allergies Allergen ID Allergen Name Allergen Category Reaction Reaction Severity Criticality Documentation Date Start Date Code Code System Note Provider Name and Address Organization Details Recorded Time 1588 honey bee venom environme nt anaphylax is Not available [facility] 08/07/20252017 05052 7 RxNorm Not Available [facility] [employer] - prod 5 03:19:17 1589 rofecoxib medicatio n hives Not available Not available 08/07/20252017 20039 8 RxNorm Not Available [facility] - External Data Service - prod 5 03:19:17 844 Vioxx medicatio n Not available Not available Not available 11/07/20232013 47584 9 RxNorm Sever ity: unkno wn; Comme nt: adver se_ev ent_t ype: 20810 4006; Notes : Acute adema ; ; Not Available [facility] 4 06:51:01 Medications Name Sig Start Date [...] polysacc haride PPV23; SU_FULL_ NAME: Adelia Riverakhoi l; Not Available Not Available Not Available ibuprofen [...] polysacc haride PPV23; SU_FULL_ NAME: Adelia mcarthur; VIS_DATE : 16:07:53 .0; Not Available Not [...] Not Available Not Available Not Available Acid Vibrator Equipment Tester (famotidi ne) 20 mg tablet 20 mg [...] conjugat e PCV 13; SU_FULL_ NAME: Adelia Unique mcarthur; Not Available Not Available Not Available diclofena c 1.5 % topical drops apply in affected area bid PRN 04/06 completed Duration : 1; VACCINE_ IND: no; SU_FULL_ NAME: Adelia Riverakhoi [...] SU_FULL_ NAME: Adelia Calhoun l; VIS_DATE : 18:46:57 .0; Not Available Not [...] Pneumoco ccal conjugat e PCV20, polysacc haride POH875 conjugat e, adjuvant , PF; SU_FULL_ NAME: [...] Available Not Avai lable Vitals Date Recorded Systolic And Diastolic Provider Name and Address Organization Details Last Updated DateTime 05/20/2025 132/70 mm[Hg] Adelia Beasley MD [address] [place] [address], [phone], DAGO BEASLEY MD [facility] 07/13/2025 17:05:56 Date Recorded Body height Heart rate Respiratory rate Body temperature Body mass index (BMI) Body weight Provider Name and Address Organization Details Last Updated DateTime 170.18 cm 53 /min 12 /min 97.3 [degF] 30.5 kg/m2 12094.5 1 g Demetria BEASLEY MD [facility] 12:52:41 Social History None recorded. Functional Status None recorded. Mental Status None recorded. Family History Nothing Reported Notes:Family history unknown , Response Property: Yes; , NO KNOWN FAMILY HISTORY, Response Property: Yes; Medical History No medical history recorded. Immunizations Vaccine Type Date Status Note Provider Nam e and Address Organization Details Recorded Time Influenza, split virus, quadrivalent, preservative 0 completed Not Available [facility] 11/07/2023 06:53:59 Influenza, split virus, quadrivalent, preservative 9 completed Not Available [facility] 11/07/2023 06:54:00 Influenza, split virus, quadrivalent, preservative 1 completed Not Available [facility] 11/07/2023 06:54:00 Past Encounters Encounter ID Performer Location Encounter Start Date Encounter Closed Date Diagnosis/Indication Diagnosis SNOMED-CT Code Diagnosis ICD10 Code Diagnosis IMO Codes Diagnosis Note [id number] Adelia Beasley MD Main Office [address] [place] [address], [place] [phone] 05/07/2025 11:12:57 05/07/2025 12:17:08 Human immunodeficiency virus infection 84424242 B20 HIV:Contin ue Dovato 1 tab po qd. strict compliance reviewed to keep viral suppressio n, prevent viral resistance .flu vaccine recommende d; states had RSV and shingles alreadyque stions and concerns addressed Body mass index 30+ - obesity 380238454 E66.9 0914565 BMI 30.9chroni c back pain and low [...] with any concernsdi et and exercise. 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 zofran offered for nausea; he declined. he will call if he needs imodium or zofran, or if worsening of sx. .will obtain CT scan done at [facility] within the past months [id number] Adelia Beasley MD Main Office [address] [facility] [place], [place] [phone] 05/20/2025 10:42:30 05/20/2025 12:45:23 Human immunodeficiency virus infection 57341975 B20 HIV:Contin ue Dovato 1 tab po qd. strict compliance reviewed to keep viral suppressio n, prevent viral resistance .EMBRACE screen. benefits and risks reviewed, arm options reviewed; potential side effects such as ISR, infusion site reaction, allergic reactions among other.labs questions and concerns addressed Health Concerns Section Related Observation LastModified by Organization Detai ls LastModified Time None Recorded Concern Status LastModified by Organization Details LastModified Time None Recorded Payers Encounter Date Sequence Insurance Name Policy Number Policy Workman Covered Member ID Workman Member ID Guarantor Name 05/20/2025 1 [facility] - DOS ON OR AFTER 2022 - MEDICARE ADVANTAGE [place] (MEDICARE REPLACEMENT/ADV ANTAGE - PPO) Nayan Henao [id number] Nayan Henao Notes Date Note Type Note Provider Name and Address Organization Details Recorded Time 05/20/2025 text/html ROS as noted in the HPI [...] WBC 2.5; Hgb 11.8;AST/ALT wnl; prediabetes ; ZF0=286; HIV VL Nondetected. HIV VL nondetected; CD-592; HCV VL nondetected (past infection); HBV s ag neg; ALT/AST wnl; treponemal ab d neg;eGFR=76; HIV VL nondetected; SG8=616; ALT/AST wnl;eGFR.60; HCV nondetected; no GC/no chlamydia; [...] tx; insomnia; obesity. pre-diabetes Adelia Beasley MD [address] [place] [address], [phone], DAGO - ADELIA BEASLEY MD [facility] 07/13/2025 21:56:57
--- OUTSIDE RECORDS SUMMARY | 2025-08-11 18:36 | XMS_ITS | Clinical Summary ---
Author Organization [facility] Address [address] [place] [address] Phone Care Team Providers Care Hplc Chemist Name Role Phone Andreas Vallejo Primary Care [...] Asthma 10/31/2024 Hepatitis C 10/31/2024 Substance abuse ([facility]/HCC V24, [facility]/HCC V28) 10/31 Surgical History Surgery Date [...] 08/12/2018, 10/08/2007 Depression Screening 09/17/2024 COVID-19 Vaccine ( season) 2025 05/24/2024, 06/15/2023, 07/13/2022, Additional history exists Influenza [...] LAB CHEMISTRY METHOD 01/08/2025 12:30 PM EDT [facility] Triglycerides 80 0 - 150 mg/dL LAB CHEMISTRY METHOD 01/08/2025 12:30 PM EDT [facility] HDL 68 >=40 mg/dL LAB CHEMISTRY METHOD 01/08/2025 12:30 PM EDT [facility] LDL Calculated 58 0 - 100 mg/dL LAB CHEMISTRY METHOD 01/08/2025 12:30 PM EDT [facility] VLDL Cholesterol Gera 16 mg/dL LAB CHEMISTRY METHOD 01/08/2025 12:30 PM EDT [facility] Non HDL Chol. (LDL+VLDL) 74 <145 mg/dL LAB CHEMISTRY METHOD 01/08/2025 12:30 PM EDT [facility] Chol/HDL Ratio 2.1 0.0 - 4.4 LAB CHEMISTRY METHOD 01/08/2025 12:30 PM [facility] Blood Venous blood specimen / Unknown Venipuncture / Unknown 01/08/2025 10:20 AM EDT 01/08/2025 11:14 AM EDT us Cary Beasley MD LAB BLOOD ORDERABLES Clair blue Result [facility] [address] [place] [address], * (ABNORMAL) Comprehensive metabolic panel (01/08/2025 10:20 AM EDT) Pathologist [facility] Sodium 137 133 - 145 mmol/L LAB CHEMISTRY METHOD 01/08/2025 12:30 PM EDT [facility] Potassium 3.9 3.5 - 5.5 mmol/L LAB CHEMISTRY METHOD 01/08/2025 12:30 PM [facility] Chloride 106 96 - 110 mmol/L LAB CHEMISTRY METHOD 01/08/2025 12:30 PM [facility] CO2 27 21 - 32 mmol/L LAB CHEMISTRY METHOD 01/08/2025 12:30 PM [facility] Anion Gap 4 3 - 11 LAB CHEMISTRY METHOD 01/08/2025 12:30 PM [facility] Glucose 108(H) 70 - 100 mg/dL LAB CHEMISTRY METHOD 01/08/2025 12:30 PM [facility] BUN 10 5 - 25 mg/dL LAB CHEMISTRY METHOD 01/08/2025 12:30 PM [facility] Creatinine 0.80 0.70 - 1.30 mg/dL LAB CHEMISTRY METHOD 01/08/2025 12:30 PM [facility] eGFR 96 >=60 mL/min/1. 73m2 LAB CHEMISTRY METHOD 01/08/2025 12:30 PM [facility] Comment:Calculation based on the Chronic Kidney Disease Epidemiology Collaboration (CKD-EPI) equation refit without adjustment for race. BUN/Creatinine Ratio 12.5 LAB CHEMISTRY METHOD 01/08/2025 12:30 PM [facility] Calcium 9.2 8.5 - 10.5 mg/dL LAB CHEMISTRY METHOD 01/08/2025 12:30 PM [facility] AST (SGOT) 38 10 - 42 unit/L LAB CHEMISTRY METHOD 01/08/2025 12:30 PM [facility] ALT (SGPT) 37 10 - 60 unit/L LAB CHEMISTRY METHOD 01/08/2025 12:30 PM [facility] Alkaline Phosphatase 134(H) 42 - 121 unit/L LAB CHEMISTRY METHOD 01/08/2025 12:30 PM [facility] Total Protein 8.1(H) 6.0 - 8.0 g/dL LAB CHEMISTRY METHOD 01/08/2025 12:30 PM EDT [facility] Albumin 3.7 3.2 - 5.0 g/dL LAB CHEMISTRY METHOD 01/08/2025 12:30 PM EDT [facility] Total Bilirubin 0.6 0.0 - 1.4 mg/dL LAB CHEMISTRY METHOD 01/08/2025 12:30 PM EDT [facility] Blood Venous blood specimen / Unknown Venipuncture / Unknown 01/08/2025 10:20 AM EDT 01/08/2025 11:14 AM EDT us Cary Beasley MD LAB BLOOD ORDERABLES Clair mcarthur Result [facility] [address] [place] [address], [place] [phone] * COLONOSCOPY Anesthesia - MAC; [facility] ENDOSCOPY (10/31/2024 3:36 PM EST) Anatomical [...] pathology results. Narrative 10/31/2024 3:36 PM EST [facility] Patient Name: Nayan Henao Procedure Date: 10/31/2024 3:02 PM Date of : 1955 Age: 69 Gender: Male Note Status: Finalized Attending MD: Gerber Boss DO, [id number] Procedure Date No Time: 10/31/2024 Procedure: Colonoscopy Indications: High risk colon cancer surveillance: Personal history of colonic polyps Providers: DO Keren Cruz MD: VIVIENNE Monae Medicines: Monitored Anesthesia Care [...] the physician, the nurse, the anesthesiologist, the code official and the public health sanitarian technician in the pre-procedure area in the [...] retroflexion views. Procedure Code(s): --- Professional --- 63140, Colonoscopy, flexible; with removal of tumor(s), polyp(s), or other lesion(s) by snare technique 46846, 59, Colonoscopy, flexible; with biopsy, single or multiple Diagnosis Code(s): --- Professional --- Z86.010, Personal history of colonic polyps K64.9, Unspecified hemorrhoids D12.5, Benign neoplasm of sigmoid colon D12.4, Benign neoplasm of descending colon D12.2, Benign neoplasm of ascending colon D12.0, Benign neoplasm of cecum CPT copyright 2020 [employer]. All rights reserved. The codes documented in this report are preliminary and upon senior interactive developer review may be revised to meet current compliance requirements. GERBER Boss DO 10/31/2024 3:36:35 PM This report has been signed electronically.Gerber Boss DO Number of Addenda: 0 Note Initiated On: 10/31/2024 3:02 PM Scope Withdrawal Time: 0 hours 11 minutes 18 seconds Scope In: 3:19:16 PM Scope Out: 3:34:27 PM Endoscopy Department at [facility] - [address] [place] [phone] Procedure Note Gerber Boss DO - 10/31/2024 [facility] GI Patient Name: Nayan Henao Procedure Date: 10/31/2024 3:02 PM Date of : 1955 Age: 69 Gender: Male Note Status: Finalized Attending MD: Gerber Boss DO, [id number] Procedure Date No Time: 10/31/2024 Procedure: Colonoscopy [...] the physician, the nurse, the anesthesiologist, the code official and thetechnician in the pre-procedure area in [...] retroflexion views. Procedure Code(s): --- Professional --- 91590, Colonoscopy, flexible; with removal of tumor(s), polyp(s), or other lesion(s) by snare technique 81709, 59, Colonoscopy, flexible; with biopsy,single or multiple Diagnosis Code(s): --- Professional --- Z86.010, Personal history of colonic polyps K64.9, Unspecified hemorrhoids D12.5, Benign neoplasm of sigmoid colon D12.4, Benign neoplasm of descending colon D12.2, Benign neoplasm of ascending colon D12.0, Benign neoplasm of cecum CPT copyright 2020 [employer]. All rights reserved. The codes documented in this report are preliminary and upon senior interactive developer reviewmay be revised to meet current compliance requirements. GERBER Boss DO 10/31/2024 3:36:35 PM This report has been signed electronically.Gerber Boss DO Number of Addenda: 0 Note Initiated On: 10/31/2024 3:02 PM Scope Withdrawal Time: 0 hours 11 minutes 18 seconds Scope In: 3:19:16 PM Scope Out: 3:34:27 PM Endoscopy Department at [facility] - [address] [place] [phone] IMPRESSION: - Hemorrhoids found on perianal exam. [...] Most Recently Relevant to Health Maintenance Insurance [facility] MEDICARE Member Subscriber Plan / Payer (Ef fective 2022-Present) Name:Nayan Henao Relation to Subscriber:Self Name:Nayan Henao Payer ID:[id number] Group ID:[id number] Type:Not on file Address: [address] [place] DAV[place] [address] Care Teams Hplc Chemist Relationship Specialty Start Date End Date Andreas Vallejo PA [address] [place] [address] PCP - General 04/10/24
== END 2025-08-11 15:54 | disposition home or self-care (01) ==
LOC: HO.HGS 14:50
PROVIDERS: PCP Physician Assistant; Visit Provider Surgery
DX: K43.9 Ventral hernia without obstruction or gangrene (principal)
CPT/HCPCS: 99213

== ENCOUNTER → 2025-08-11 14:49 | Outpatient (BNVA) | payer OTHER, SELFPAY | PROVIDERS: PCP Physician Assistant; Visit Provider Surgery | DX: K43.9 Ventral hernia without obstruction or gangrene (principal) | CPT/HCPCS: 99212 ==